=== PATIENT | male | born 1945 | race Caucasian/White ===

== ENCOUNTER → 2016-07-26 | Outpatient (CLI) | payer MEDICARE ==
[~2016-07-26] MED LIST: /CELE20CA PO; ACET50TA PO; ADV500INH INH; ASPI81TA85 PO; BUPR150T11 PO; BUPR15TASR PO; BYST10TA PO; CALCIUM PO; CIAL5TAB PO; COLA100C3 PO; COMBIN INH; COMBRESP INH; CYCL5TAB PO; FLEXERIL PO; FLOM5CAP PO; FLON1SPR; GLUC15002 PO; IBUP-1114 PO; IRONCAP2 PO; LEVO500T PO; LISI5TAB PO; LYRI75CA PO; MILKSUS PO; MIRA3350 PO; MOME50SP; MORP30TA2 PO; MS C200T PO; MS C30TA PO; MULTTAB50 PO; OMEP20CA3 PO; PAXI10TA2 PO; PERC5TAB6 PO; PERI8.6T PO; PRIL40CA PO; REGL5TAB2 PO; SENO8.6T2 PO; SIMV40TA2 PO; TIOT18INH INH; TYLE325T5 PO; TYLE650T25 PO; VITA200016 PO; VITA500C24 PO; XARE10TA PO; ZOCO10TA PO; ZYBA150T PO; spiriva INH
--- NOTE | 2016-07-27 23:57 | ECWPNPC ---
PATIENT NAME: GABO REDDY : 1945 GENDER: MALE VISIT DATE: 07/26/2016 DISCHARGE DATE: 07/26/16 1017 VISIT LOCKED DATE TIME: PHYSICIAN: SKY PULIDO PHYSICIAN PAGER NO: [phone] RESOURCE: SKY PULIDO REASON FOR APPOINTMENT 1. BACK HISTORY OF PRESENT ILLNESS HISTORY OF PRESENT ILLNESS: HERE FOR ROUTINE 3 MOS. F/U.WAS DOING WELL WITH THERAPEUTIC LEFT LUMBAR FACET BLOCK UNTIL 1 WEEK AGO.PAIN HAS GRADUALLY RETURNED.RATING PAIN VAS 2/10.PAIN IS DESCRIBED INTERMITTENT ACHING AND SHOOTING.DISCUSSED TREATMENT OPTIONS TO INCLUDE REPEATING LUMBAR THERAPEUTIC BLOCK VS RADIOFREQUENCY.OPTING FOR THERAPEUTIC BLOCK.PAIN IS AGGREVATED BY WALKING AND RELIEVED SOMEWHAT WITH POSITION CHANGE. PAIN THE PATIENT DESCRIBES THE PAIN... FALL RISK SCREENING: SCREENING :NO FALLS IN THE PAST YEAR CURRENT MEDICATIONS TAKING COLACE 100 MG CAPSULE 2 CAPSULE ORALLY TWICE A DAY NEEDED, NOTES: NONE TAKING [facility] SALINE NASAL SPRAY 0.65 % SOLUTION 2 DROPS IN EACH NOSTRIL NEEDED NASALLY BID, NOTES: NONE TAKING TYLENOL ARTHRITIS PAIN 650 MG TABLET EXTENDED RELEASE 2 TABLETS ORALLY NEEDED, NOTES: 03-25-16 0800 TAKING ZOCOR 10 MG TABLET 1 TABLET EVERY EVENING ORALLY ONCE A DAY TAKING XARELTO 20 MG TABLET 1 TAB ORALLY QD TAKING ADVAIR DISKUS 500-50 MCG/DOSE MISCELLANEOUS 1 PUFF INHALATION EVERY 12 HOURS TAKING COMBIVENT RESPIMAT 20-100 MCG/ACT AEROSOL 1 PUFF INHALATION FOUR TIMES A DAY NEEDED TAKING PAXIL 10 MG TABLET 1 TABLET IN THE MORNING ORALLY ONCE A DAY TAKING WELLBUTRIN SR 150 MG TABLET EXTENDED RELEASE 12 HOUR 1 TABLET ORALLY TWICE A DAY TAKING FLOMAX 0.4 MG CAPSULE 2 CAPSULE 30 MINUTES AFTER THE SAME MEAL EACH DAY ORALLY AT BEDTIME TAKING VITAMIN D 2000 UNIT TABLET 1 TABLET ORALLY ONCE A DAY TAKING MULTIVITAMINS OTC TABLET 1 TABLET ORALLY ONCE A DAY, NOTES: 03-24-16 0800 TAKING VITAMIN C 500 MG TABLET 1 TABLET ORALLY ONCE A DAY TAKING OMEPRAZOLE 20 MG CAPSULE DELAYED RELEASE 2 CAPSULES ORALLY ONCE A DAY TAKING SIMETHICONE 125 MG TABLET CHEWABLE 1 TABLET NEEDED ORALLY FOUR TIMES A DAY TAKING VIAGRA 100 MG TABLET 1 TABLET NEEDED ORALLY ONCE A DAY TAKING PRIMIDONE 50 MG TABLET 1 TAB ORALLY EVERY MORNING TAKING POLYSACCHARIDE IRON 150 MG CAPSULE 1 CAPSULE ORALLY ONCE DAILY TAKING SPIRIVA HANDIHALER 18 MCG CAPSULE INHALE THE CONTENTS OF ONE CAPSULE VIA HANDIHALER BY MOUTH DAILY TAKING FLONASE 50 MCG/DOSE INHALER 2 SPRAYS IN EACH NOSTRIL NASALLY EVERY MORNING TAKING CEFDINIR 300 MG CAPSULE 1 CAPSULE ORALLY EVERY 12 HRS NOT-TAKING IPRATROPIUM-ALBUTEROL 0.5-2.5 (3) MG/3ML SOLUTION 3 ML INHALATION FOUR TIMES A DAY NEEDED DISCONTINUED POLY-IRON 150 150 MG CAPSULE TAKE ONE CAPSULE BY MOUTH TWICE A DAY MEDICATION LIST REVIEWED AND RECONCILED WITH THE PATIENT PAST MEDICAL HISTORY COPD-09/2010 FEV1-1.97L (47% NORMAL) HYPERTENSION/WHITE-COAT COMPONENT ERECTILE DYSFUNCTION NICOTINE ADDICTION GERD-SLIDING HH C SECONDARY/TERTIARY CONTRACTION BY 12/2014 [facility] SBFT EGD C SMALL HH, DUODENAL BIOPSY C/W HETEROTOPIC GASTRIC TISSUE-REINDL IMPAIRED FASTING GLUCOSE OBESITY 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 MRI MULTILEVEL DJD, L4/5 MODERATE CCS C GRADE 1 SPONDYLOLITHESIS C B L4 COMPRESSION IN NF/ L5/S1 HNP C C MILD B L5 COMPRESSION IN NF//2012 NCS B L4/5 RADICULOPATHY, L>R-ALI HYPERLIPIDEMIA 2B NONALCOHOLIC LIVER DISEASE MACROCYTOSIS, 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 SOCIAL HISTORY GENERAL: TOBACCO USE ARE YOU A:CURRENT SMOKER HOW MANY CIGARETTES A DAY DO YOU SMOKE?6-10 HOW SOON AFTER YOU WAKE UP DO YOU SMOKE YOUR FIRST CIGARETTE?AFTER 60 MIN HOW OFTEN DO YOU SMOKE CIGARETTES?EVERY DAY PATIENT COUNSELED ON THE DANGERS OF TOBACCO USE AND URGED TO QUIT:07/26/2016 ARE YOU INTERESTED IN QUITTING?THINKING ABOUT QUITTING COUNSELED THE PATIENT ON SMOKING CESSATION, EDUCATION [id number]/2017 PAIN CLINIC PFS, CLERGY, PUBLIC HEALTH REFERRALS CLERGY REFERRAL NEEDED?NO WAS THE PROVIDER NOTIFIED OF ANY PERTINENT INFO?NO PFS REFERRAL NEEDED?NO PUBLIC HEALTH REFERRAL NEEDED?NO PATIENT: ____. REVIEW OF SYSTEMS CONSTITUTIONAL: ANY CHANGE IN YOUR MEDICAL CONDITION? NO . CHILLS NO . FEVER NO . INFECTION: DO YOU HAVE NEW INFECTIONS? NO . DO YOU HAVE HISTORY OF MRSA? NO . MUSCULOSKELETAL: ANY NEW PATTERNS OF PAIN OR NUMBNESS? NO . GASTROENTEROLOGY: ANY NEW CHANGE IN BOWEL CONTROL? NO . GENITOURINARY: ANY NEW CHANGE IN BLADDER CONTROL? NO . IS THERE A CHANCE YOU COULD BE ? NO . HEMATOLOGY/LYMPH: DO YOU TAKE ANY BLOOD THINNERS? (FOR EXAMPLE- COUMADIN, PLAVIX, AGGRENOX, PLATEL, PRADAXA, OR XARELTO) YES, XARELTO . WHEN WAS YOUR LAST DOSE? DATE: TIME: 07/25/16 12N . NEUROLOGY: HAVE YOU FALLEN IN THE PAST 6 MONTHS? NO . ANY NEW EXTREMITY NUMBNESS OR WEAKNESS? NO . CARDIOLOGY: DO YOU HAVE A PACEMAKER OR DEFIBRILLATOR? NO . RESPIRATORY: HAVE YOU BEEN SICK IN THE PAST WEEK? YES, SINUS INFECTION X 10 DAYS--ON ANTIBIOTIC . FEVER NO . FLU LIKE SYMPTOMS? NO . COUGH NO . INTEGUMENTARY: DO YOU HAVE ANY RASHES OR OPEN SORES? NO . ALLERGIC/IMMUNO: ARE YOU ALLERGIC TO SHELLFISH OR IV DYE? NO . ANY NEW ALLERGIES? NO . PSYCHIATRIC: DO YOU HAVE THOUGHTS OF HURTING YOURSELF OR SOMEONE ELSE? NO . ARE YOU ABUSED, NEGLECTED, OR IN AN UNSAFE ENVIRONMENT? NO . ENDOCRINOLOGY: ARE YOU DIABETIC? NO . OTHER: DO YOU NEED ANY PRESCRIPTIONS? NO . IF YES, PLEASE LIST: ____ . ANY NEW PROBLEMS WITH YOUR MEDICATIONS? NO . WHEN DID YOU LAST EAT? ____ . WHEN DID YOU LAST DRINK? ____ . WHAT DID YOU LAST DRINK? ____ . NAME OF PERSON DRIVING YOU HOME? ____ . DO YOU HAVE ANY OTHER QUESTIONS OR CONCERNS NO . REVIEWED BY: PROVIDER: SKY SIEGEL . VITAL SIGNS WT 180 LBS, HT 65 IN, BMI 29.95 INDEX, BP 115/78 MM HG, HR 80 /MIN, RR 18 /MIN, TEMP 98.4 F, OXYGEN SAT % 93%, NA INITIALS UT 09:24, REVIEWED BY: NADIA. EXAMINATION GENERAL EXAMINATION: LUNGS:LUNG SOUNDS ARE CLEAR. HEART:HEART RATE REGULAR. MUSCULOSKELETAL:*, MUSCLE STRENGTH TESTING 5/5 BILATERAL LOWER EXTREMITIES., PALPATION: + FOR PAIN OVER L/S SPINE. + FOR PAIN OVER LEFT L/S PARASPINAL.SPECIFIC POINT TENDERNESS OVER LEFT L4/5-L5/S1.POSITIVE FOR FACET LOADING LEFT L4/5-L5/S1 FACETS.. DIAGNOSTIC: . ASSESSMENTS LUMBAR FACET ARTHROPATHY - M12.88 (PRIMARY) LUMBAR SPINAL STENOSIS - M48.06 TREATMENT LUMBAR FACET ARTHROPATHY LUMBAR FACET THERAPEUTICSKY PULIDO 07/26/2016 10:09:05 AM > LEFT L4/5-L5/S1 THERAPEUTIC NOTES: STOP XARELTO X 3 DAYS SCHEDULE PROCEDURE DAY 4. PROCEDURE CODES FA211 ESTABILISHED PATIENT [facility] FACILITY CHARGE G8730 PAIN ASSESS POS TOOL F/U PLAN DOC G8427 DOC MEDS VERIFIED W/PT OR RE DISPOSITION & COMMUNICATION FOLLOW UP 2WK POST (REASON: LEFT L4/5-L5/S1 LUMBAR THERAPEUTIC FACET BLOCK) ELECTRONICALLY SIGNED BY ROBBIN MONTERROSO ON 07/26/2016 AT 11:10 AM EDT DISCLAIMER : THIS IS A VISIT SUMMARY EXTRACTED FROM THE [employer] CHART. IT IS NOT A COPY OF THE [employer] PROGRESS NOTE. ENDY
== END ==
LOC: M PAIN 09:00
PROVIDERS: ATTEND Nurse Practitioner Family
DX: Z09 Encounter for follow-up examination after completed treatment for conditions other than malignant neoplasm (principal); G89.29 Other chronic pain; M12.88 Other specific arthropathies, not elsewhere classified, other specified site; M48.06 Spinal stenosis, lumbar region; J44.9 Chronic obstructive pulmonary disease, unspecified; I12.9 Hypertensive chronic kidney disease with stage 1 through stage 4 chronic kidney disease, or unspecified chronic kidney disease; N18.3 Chronic kidney disease, stage 3 (moderate); F17.200 Nicotine dependence, unspecified, uncomplicated; K21.9 Gastro-esophageal reflux disease without esophagitis; E78.5 Hyperlipidemia, unspecified; K76.9 Liver disease, unspecified; D75.89 Other specified diseases of blood and blood-forming organs; G25.0 Essential tremor; I82.409 Acute embolism and thrombosis of unspecified deep veins of unspecified lower extremity; R73.01 Impaired fasting glucose; Z79.01 Long term (current) use of anticoagulants; Z79.899 Other long term (current) drug therapy

== ENCOUNTER → 2016-08-13 | Outpatient (CLI) | payer MEDICARE ==
[~2016-08-13] MED LIST changes: +BUPIVACAINE HCL 0.25% 30 ML VIAL As Ordered ONE; +ISOVUE-M 300 61% 15ML VIAL (Q9967) As Ordered ONE; +LIDOCAINE 1% SDV INJ 30 ML VIAL As Ordered ONE; +TRIAMCINOLONE ACETONIDE SUSP 40 MG/ML VIAL (J3301) As Ordered ONE; +diazePAM 5 MG TAB As Ordered ONE; +oxyCODONE 5MG TAB As Ordered ONE
--- NOTE | 2016-08-13 11:44 | REP ---
Partial lumbar spine series: Two views. History: Facet block for pain. 21 seconds of fluoroscopy time is reported. Findings: A sequence of two last image hold fluoroscopically obtained spot radiographs of the lumbar spine document various needle positions and contrast injections associated with the lumbar facet injection procedure. Signed by Garrick Valencia MD 08/13/2016 03:38 P
--- NOTE | 2016-08-18 23:51 | ECWPNPC ---
PATIENT NAME: GABO REDDY : 1945 GENDER: MALE VISIT DATE: 08/13/2016 DISCHARGE DATE: 08/13/16 1052 VISIT LOCKED DATE TIME: PHYSICIAN: MARSHA MURPHY PHYSICIAN PAGER NO: [phone] RESOURCE: MARSHA MURPHY REASON FOR APPOINTMENT 1. THERE LUMBAR FACET HISTORY OF PRESENT ILLNESS HISTORY OF PRESENT ILLNESS: PAIN THE PATIENT DESCRIBES THE PAIN... FALL RISK SCREENING: SCREENING :NO FALLS IN THE PAST YEAR CURRENT MEDICATIONS TAKING COLACE 100 MG CAPSULE 2 CAPSULE ORALLY TWICE A DAY NEEDED, NOTES: MORE THAN A WEEK TAKING [facility] SALINE NASAL SPRAY 0.65 % SOLUTION 2 DROPS IN EACH NOSTRIL NEEDED NASALLY BID, NOTES: 08/12/16 1000 TAKING ZOCOR 10 MG TABLET 1 TABLET EVERY EVENING ORALLY ONCE A DAY, NOTES: 08/12/16 1800 TAKING XARELTO 20 MG TABLET 1 TAB ORALLY ONCE A DAY, NOTES: 08/09/16 1000 TAKING ADVAIR DISKUS 500-50 MCG/DOSE MISCELLANEOUS 1 PUFF INHALATION EVERY 12 HOURS, NOTES: 08/12/16 1800 TAKING COMBIVENT RESPIMAT 20-100 MCG/ACT AEROSOL 1 PUFF INHALATION FOUR TIMES A DAY NEEDED, NOTES: 08/12/16 1800 TAKING PAXIL 10 MG TABLET 1 TABLET IN THE MORNING ORALLY ONCE A DAY, NOTES: 08/13/16 0645 TAKING WELLBUTRIN SR 150 MG TABLET EXTENDED RELEASE 12 HOUR 1 TABLET ORALLY TWICE A DAY, NOTES: 08/12/16 1800 TAKING FLOMAX 0.4 MG CAPSULE 2 CAPSULE 30 MINUTES AFTER THE SAME MEAL EACH DAY ORALLY AT BEDTIME, NOTES: 08/12/16 1200 TAKING VITAMIN D 2000 UNIT TABLET 1 TABLET ORALLY ONCE A DAY, NOTES: 08/12/16 1000 TAKING MULTIVITAMINS OTC TABLET 1 TABLET ORALLY ONCE A DAY, NOTES: 1000 TAKING VITAMIN C 500 MG TABLET 1 TABLET ORALLY ONCE A DAY, NOTES: 08/12/16 1000 TAKING OMEPRAZOLE 20 MG CAPSULE DELAYED RELEASE 2 CAPSULES ORALLY ONCE A DAY, NOTES: 08/12/16 1800 TAKING VIAGRA 100 MG TABLET 1 TABLET NEEDED ORALLY ONCE A DAY, NOTES: NONE FOR MORE THAN 48N HOURS TAKING PRIMIDONE 50 MG TABLET 1 TAB ORALLY EVERY MORNING, NOTES: 08/13/16 0645 TAKING POLYSACCHARIDE IRON 150 MG CAPSULE 1 CAPSULE ORALLY ONCE DAILY, NOTES: 08/12 0645 TAKING SPIRIVA HANDIHALER 18 MCG CAPSULE INHALE THE CONTENTS OF ONE CAPSULE VIA HANDIHALER BY MOUTH DAILY , NOTES: 08/12/16 1000 TAKING IPRATROPIUM-ALBUTEROL 0.5-2.5 (3) MG/3ML SOLUTION 3 ML INHALATION FOUR TIMES A DAY NEEDED, NOTES: 08/12/16 2100 TAKING NEBULIZER AIR TUBE/PLUGS - MISCELLANEOUS DIRECTED MASK, TUBING PRN TAKING FLONASE 50 MCG/DOSE INHALER 2 SPRAYS IN EACH NOSTRIL NASALLY EVERY MORNING, NOTES: 08/13/16 0645 TAKING CLARITIN 10 MG TABLET 1 TABLET ORALLY ONCE A DAY, NOTES: 08/12/16 1300 TAKING TYLENOL ARTHRITIS PAIN 650 MG TABLET EXTENDED RELEASE 2 TABLETS ORALLY NEEDED, NOTES: 08/13/16 0645 NOT-TAKING SIMETHICONE 125 MG TABLET CHEWABLE 1 TABLET NEEDED ORALLY FOUR TIMES A DAY NOT-TAKING PAROXETINE HCL 10 MG TABLET TAKE ONE TABLET BY MOUTH EVERY DAY IN THE MORNING MEDICATION LIST REVIEWED AND RECONCILED WITH THE PATIENT PAST MEDICAL HISTORY COPD-09/2010 FEV1-1.97L (47% NORMAL) HYPERTENSION/WHITE-COAT COMPONENT ERECTILE DYSFUNCTION NICOTINE ADDICTION GERD-SLIDING HH C SECONDARY/TERTIARY CONTRACTION BY 12/2014 [facility] SBFT EGD C SMALL HH, DUODENAL BIOPSY C/W HETEROTOPIC GASTRIC TISSUE-REINDL IMPAIRED FASTING GLUCOSE OBESITY 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 MRI MULTILEVEL DJD, L4/5 MODERATE CCS C GRADE 1 SPONDYLOLITHESIS C B L4 COMPRESSION IN NF/ L5/S1 HNP C C MILD B L5 COMPRESSION IN /2012 NCS B L4/5 RADICULOPATHY, L>R-ALI HYPERLIPIDEMIA 2B NONALCOHOLIC LIVER DISEASE MACROCYTOSIS, 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 SURGICAL HISTORY TOTAL RIGHT HIP BILATERAL CATARACTS TONSILECTEMY CYST REMOVED ON LEFT THUMB AND BACK SIDE SOCIAL HISTORY GENERAL: PAIN CLINIC PFS, CLERGY, PUBLIC HEALTH REFERRALS CLERGY REFERRAL NEEDED?NO WAS THE PROVIDER NOTIFIED OF ANY PERTINENT INFO?NO PFS REFERRAL NEEDED?NO PUBLIC HEALTH REFERRAL NEEDED?NO PATIENT: ____. HOSPITALIZATION/MAJOR DIAGNOSTIC PROCEDURE FLU [id number] DVT LEFT 2014 DVT 2015 ESOPHAGITIS 2009 REVIEW OF SYSTEMS CONSTITUTIONAL: ANY CHANGE IN YOUR MEDICAL CONDITION? NO . CHILLS NO . FEVER NO . INFECTION: DO YOU HAVE NEW INFECTIONS? NO . DO YOU HAVE HISTORY OF MRSA? NO . MUSCULOSKELETAL: ANY NEW PATTERNS OF PAIN OR NUMBNESS? NO . GASTROENTEROLOGY: ANY NEW CHANGE IN BOWEL CONTROL? NO . GENITOURINARY: ANY NEW CHANGE IN BLADDER CONTROL? NO . IS THERE A CHANCE YOU COULD BE ? NO . HEMATOLOGY/LYMPH: DO YOU TAKE ANY BLOOD THINNERS? (FOR EXAMPLE- COUMADIN, PLAVIX, AGGRENOX, PLATEL, PRADAXA, OR XARELTO) NO . WHEN WAS YOUR LAST DOSE? DATE: 08/10/16 TIME: 1000 . NEUROLOGY: HAVE YOU FALLEN IN THE PAST 6 MONTHS? NO . ANY NEW EXTREMITY NUMBNESS OR WEAKNESS? NO . CARDIOLOGY: DO YOU HAVE A PACEMAKER OR DEFIBRILLATOR? NO . RESPIRATORY: HAVE YOU BEEN SICK IN THE PAST WEEK? NO . FEVER NO . FLU LIKE SYMPTOMS? NO . COUGH NO . INTEGUMENTARY: DO YOU HAVE ANY RASHES OR OPEN SORES? NO . ALLERGIC/IMMUNO: ARE YOU ALLERGIC TO SHELLFISH OR IV DYE? NO . ANY NEW ALLERGIES? NO . PSYCHIATRIC: DO YOU HAVE THOUGHTS OF HURTING YOURSELF OR SOMEONE ELSE? NO . ARE YOU ABUSED, NEGLECTED, OR IN AN UNSAFE ENVIRONMENT? NO . ENDOCRINOLOGY: ARE YOU DIABETIC? NO . OTHER: DO YOU NEED ANY PRESCRIPTIONS? NO . IF YES, PLEASE LIST: ____ . ANY NEW PROBLEMS WITH YOUR MEDICATIONS? NO . WHEN DID YOU LAST EAT? LAST NIGHT . WHEN DID YOU LAST DRINK? BEFORE 0700 . WHAT DID YOU LAST DRINK? WATER . NAME OF PERSON DRIVING YOU HOME? BRENDA . DO YOU HAVE ANY OTHER QUESTIONS OR CONCERNS NO . REVIEWED BY: PROVIDER: . VITAL SIGNS WT 182 LBS, HT 65 IN, BMI 30.28 INDEX, BP 110/60 MM HG, HR 90 /MIN, RR 18 /MIN, TEMP 99.3 F, OXYGEN SAT % 94%, NA INITIALS AW 0916, REVIEWED BY: HODAN. ASSESSMENTS SPONDYLOSIS WITHOUT MYELOPATHY OR RADICULOPATHY, LUMBAR REGION - M47.816 (PRIMARY) SPONDYLOSIS WITHOUT MYELOPATHY OR RADICULOPATHY, LUMBOSACRAL REGION - M47.817 PROCEDURES PN LUMBAR FACET BLOCK THERAPEUTIC PRE PROCEDURE DIAGNOSIS LUMBAR SPONDYLOSIS, LUMBOSACRAL SPONDYLOSIS POST PROCEDURE DIAGNOSIS LUMBAR SPONDYLOSIS, LUMBOSACRAL SPONDYLOSIS PROCEDURE LEFT L3-L4, LEFT L4-L5, AND LEFT L5-S1 LUMBAR FACET THERAPEUTIC BLOCK SURGEON DR. MARSHA MURPHY OPERATIONAL INTELLIGENCE ANALYST NONE ANESTHESIA LOCAL PRE PROCEDURE NOTE THE PATIENT HAS A HISTORY OF CHRONIC LOW BACK PAIN. I EVALUATE THE PATIENT AND REVIEWED THE CHART. I WENT OVER THE RISKS, ALTERNATIVES, AND BENEFITS ASSOCIATED WITH THIS PROCEDURE. THE PATIENT WOULD LIKE TO PROCEED AND GIVE CONSENT TO PERFORMED THE PROCEDURE. THE PATIENT DENIES UNEXPLAINABLE WEIGHT LOSS, FEVER, CHILLS, OR NEW CHANGES IN URINARY OR BOWEL CONTROL DESCRIPTION OF PROCEDURE THE PATIENT WAS BROUGHT TO THE PROCEDURE ROOM AND PLACED IN THE PRONE POSITION. THE LUMBOSACRAL AREA WAS CLEANED WITH CHLORAPREP SOLUTION AND DRAPED ASEPTICALLY. THE PROCEDURE WAS DONE UNDER STERILE CONDITIONS. I CHECKED LATERALITY AND THE LEVEL WHERE THE PROCEDURE WAS GOING TO BE PERFORMED WITH THE PATIENT AND THE SUPPORTING STAFF AT THE MOMENT OF THE TIME OUT IN THE PROCEDURE ROOM. UNDER FLUOROSCOPIC GUIDANCE, THE TARGET POINT WAS SELECTED AT THE LEFT L3-L4, LEFT L4-L5 AND LEFT L5-S1 FACET JOINT. TARGET POINT WAS SELECTED AFTER LATERAL ROTATION AND TILT OF THE MAGNIFIER OF THE C-ARM. LIDOCAINE 0.5% WAS USED TO NUMB THE SKIN AND THE SUBCUTANEOUS TISSUE BELOW IT. SPINAL NEEDLES, 22-GAUGE, WERE ADVANCED UNDER FLUOROSCOPIC GUIDANCE AND FOLLOWING PATIENT FEEDBACK UNTIL THE TARGETS WERE TOUCHED. THE POSITION OF THE NEEDLES WAS VERIFIED WITH AP AND LATERAL VIEWS. AFTER PROPER POSITION OF THE NEEDLES WAS ACHIEVED, ISOVUE-M DYE 30% 0.1 ML WAS INJECTED SHOWING ADEQUATE SPREAD OF THE DYE. THEN A SOLUTION OF 1.9 ML OF BUPIVACAINE 0.125% OF KENALOG 10 MG WAS INJECTED AT EACH SITE. THERE WAS NO EVIDENCE OF BLOOD, PARESTHESIA OR CEREBROSPINAL FLUID DURING THE PROCEDURE. THE PATIENT WAS SENT TO THE RECOVERY ROOM. THE PATIENT WAS MOVING THE EXTREMITIES AND DOING WELL. THERE WAS NO COMPLICATION DURING THE PROCEDURE. FLUOROSCOPY TIME WAS 21 SECONDS POST PROCEDURE NOTE THE PATIENT WILL BE SEEN IN A FOLLOW UP IN THE NEXT FEW WEEKS. INSTRUCTIONS WERE GIVEN, QUESTIONS WERE ANSWERED, AND THE PATIENT EXPRESSED UNDERSTANDING AND AGREES WITH THE PLAN. INSTRUCTIONS WERE GIVEN, QUESTIONS WERE ANSWERED, PATIENT REPORTS UNDERSTANDING AND AGREES WITH THE PLAN. I, KULWINDER PALMA, DOCUMENTED THE ABOVE INFORMATION ACTING A SCRIBE FOR DR. MURPHY. I HAVE REVIEWED THE ABOVE DOCUMENT, WRITTEN BY KULWINDER LARIOS AND I VERIFY THAT IT IS ACCURATE DIAGNOSTIC IMAGING [facility] FACET BLOCK (PAIN)[id number] PROCEDURE CODES 37155 INJ PARAVERT F JNT L/S 1 LEV 23824 INJ PARAVERT F JNT L/S 2 LEV 6045F RADXPS IN END [id number] PXD [id number] INJ PARAVERT F JNT L/S 3 LEV DISPOSITION & COMMUNICATION FOLLOW UP 3 WEEKS ELECTRONICALLY SIGNED BY MARSHA MURPHY MD ON 08/18/2016 AT 05:03 PM EDT DISCLAIMER : THIS IS A VISIT SUMMARY EXTRACTED FROM THE [employer] CHART. IT IS NOT A COPY OF THE [employer] PROGRESS NOTE. MTDD
== END ==
LOC: M PAIN 09:00
PROVIDERS: ATTEND Anesthesiology
DX: G89.29 Other chronic pain (principal); M47.816 Spondylosis without myelopathy or radiculopathy, lumbar region; M47.817 Spondylosis without myelopathy or radiculopathy, lumbosacral region; J44.9 Chronic obstructive pulmonary disease, unspecified; K21.9 Gastro-esophageal reflux disease without esophagitis; E78.2 Mixed hyperlipidemia; E66.9 Obesity, unspecified; Z68.30 Body mass index [BMI] 30.0-30.9, adult; K76.9 Liver disease, unspecified; D75.89 Other specified diseases of blood and blood-forming organs; G25.0 Essential tremor; I12.9 Hypertensive chronic kidney disease with stage 1 through stage 4 chronic kidney disease, or unspecified chronic kidney disease; N18.3 Chronic kidney disease, stage 3 (moderate); Z79.899 Other long term (current) drug therapy
CPT/HCPCS: 64493; 64494; 64495; J3301; Q9967

== ENCOUNTER → 2016-08-23 | Outpatient (REF) | payer MEDICARE ==
[~2016-08-23] MED LIST changes: -BUPIVACAINE HCL 0.25% 30 ML VIAL As Ordered ONE; -ISOVUE-M 300 61% 15ML VIAL (Q9967) As Ordered ONE; -LIDOCAINE 1% SDV INJ 30 ML VIAL As Ordered ONE; -TRIAMCINOLONE ACETONIDE SUSP 40 MG/ML VIAL (J3301) As Ordered ONE; -diazePAM 5 MG TAB As Ordered ONE; -oxyCODONE 5MG TAB As Ordered ONE
[2016-08-23 12:12] LABS: BASO % 0.4 % (0.0-1.0); EOS # 0.2 K/mm3 (0.0-0.50); EOS % 1.7 % (0.0-3.0); LARGE UNSTAINED CELL # 0.1 K/mm3 (0.0-0.4); LARGE UNSTAINED CELL % 1.3 % (0.0-4.0); LYMPH % 20.1 % (24.0-44.0); MEAN CORPUSCULAR HEMOGLOBIN 35.2 pg (27.0-33.0); MEAN CORPUSCULAR HGB CONC 33.1 g/dl (32.0-36.5); MEAN CORPUSCULAR VOLUME 106.4 fl (80.0-96.0); MONO # 0.4 K/mm3 (0.0-0.8); MONO % 3.7 % (0.0-5.0); NEUTROPHILS # 7.3 K/mm3 (1.8-7.7); NEUTROPHILS % 72.7 % (36.0-66.0); PLATELET COUNT, AUTOMATED 339 k/mm3 (150-450); WHITE BLOOD COUNT 10.1 K/mm3 (4.0-10.0)
[2016-08-23 12:24] LABS: ALBUMIN/GLOBULIN RATIO 1.29 (1.00-1.93); ALKALINE PHOSPHATASE 54 U/L (45-117); ALT/SGPT 32 U/L (12-78); ANION GAP 9 MEQ/L (8-16); AST/SGOT 16 U/L (15-37); BILIRUBIN,TOTAL 0.4 MG/DL (0.2-1.0); BLOOD UREA NITROGEN 21 MG/DL (7-18); CALCIUM LEVEL 9.1 MG/DL (8.8-10.2); CARBON DIOXIDE LEVEL 28 MEQ/L (21-32); CHLORIDE LEVEL 105 MEQ/L (98-107); CREATININE FOR GFR 1.17 MG/DL (0.70-1.30); FERRITIN 18 NG/ML (26-388); GLOMERULAR FILTRATION RATE > 60.0 (>42); GLUCOSE, FASTING 94 MG/DL (83-110); PERCENT SATURATION 20.1 % (19.7-37.4); POTASSIUM SERUM 4.4 MEQ/L (3.5-5.1); SODIUM LEVEL 142 MEQ/L (136-145); TOTAL IRON BINDING CAPACITY 418 UG/DL (250-450); TOTAL PROTEIN 7.1 GM/DL (6.4-8.2)
== END ==
LOC: M SFHCPLAZ 08:34
PROVIDERS: ATTEND Family Medicine
DX: N18.3 Chronic kidney disease, stage 3 (moderate) (principal); D50.9 Iron deficiency anemia, unspecified; R73.01 Impaired fasting glucose

== ENCOUNTER → 2016-09-05 | Outpatient (CLI) | payer MEDICARE ==
--- NOTE | 2016-09-06 00:28 | ECWPNPC ---
PATIENT NAME: GABO REDDY : 1945 GENDER: MALE VISIT DATE: 09/05/2016 DISCHARGE DATE: 09/05/16 1006 VISIT LOCKED DATE TIME: PHYSICIAN: SKY PULIDO PHYSICIAN PAGER NO: [phone] RESOURCE: SKY PULIDO REASON FOR APPOINTMENT 1. POST PROC HISTORY OF PRESENT ILLNESS HISTORY OF PRESENT ILLNESS: HERE FOR POST PROCEDURE F/U.HAD LEFT L3/4,L4/5,L5/S1 THERAPEUTIC FACET BLOCK ON 08-13-16.REPORTS >75 % IMPROVEMENT IN LOW BACK PAIN THAT CONTINUES TODAY.RATING PAIN VAS 0/10. PAIN THE PATIENT DESCRIBES THE PAIN... FALL RISK SCREENING: SCREENING :NO FALLS IN THE PAST YEAR CURRENT MEDICATIONS TAKING ZOCOR 10 MG TABLET 1 TABLET EVERY EVENING ORALLY ONCE A DAY TAKING XARELTO 20 MG TABLET 1 TAB ORALLY QD TAKING ADVAIR DISKUS 500-50 MCG/DOSE MISCELLANEOUS 1 PUFF INHALATION EVERY 12 HOURS TAKING SPIRIVA HANDIHALER 18 MCG CAPSULE 1 CAPSULE BY MOUTH INHALATION ONCE A DAY TAKING COMBIVENT RESPIMAT 20-100 MCG/ACT AEROSOL 1 PUFF INHALATION FOUR TIMES A DAY NEEDED TAKING IPRATROPIUM-ALBUTEROL 0.5-2.5 (3) MG/3ML SOLUTION 3 ML INHALATION FOUR TIMES A DAY NEEDED TAKING PAXIL 10 MG TABLET 1 TABLET IN THE MORNING ORALLY ONCE A DAY TAKING WELLBUTRIN SR 150 MG TABLET EXTENDED RELEASE 12 HOUR 1 TABLET ORALLY TWICE A DAY TAKING FLOMAX 0.4 MG CAPSULE 2 CAPSULE 30 MINUTES AFTER THE SAME MEAL EACH DAY ORALLY DAILY TAKING VITAMIN D 2000 UNIT TABLET 1 TABLET ORALLY ONCE A DAY TAKING MULTIVITAMINS OTC TABLET 1 TABLET ORALLY ONCE A DAY TAKING VIAGRA 100 MG TABLET 1 TABLET NEEDED ORALLY ONCE A DAY TAKING FLONASE 50 MCG/DOSE INHALER 2 SPRAYS IN EACH NOSTRIL NASALLY EVERY MORNING TAKING PRIMIDONE 50 MG TABLET 1 TAB ORALLY EVERY MORNING TAKING COLACE 100 MG CAPSULE 2 CAPSULE ORALLY TWICE A DAY NEEDED, NOTES: MORE THAN A WEEK TAKING [facility] SALINE NASAL SPRAY 0.65 % SOLUTION 2 DROPS IN EACH NOSTRIL NEEDED NASALLY BID, NOTES: 08/12/16 1000 TAKING NEBULIZER AIR TUBE/PLUGS - MISCELLANEOUS DIRECTED MASK, TUBING PRN TAKING CLARITIN 10 MG TABLET 1 TABLET ORALLY ONCE A DAY, NOTES: 08/12/16 1300 TAKING TYLENOL ARTHRITIS PAIN 650 MG TABLET EXTENDED RELEASE 2 TABLETS ORALLY NEEDED, NOTES: 08/13/16 0645 TAKING POLYSACCHARIDE IRON 150 MG CAPSULE 1 CAPSULE ORALLY ONCE DAILY TAKING OMEPRAZOLE 20 MG CAPSULE DELAYED RELEASE 2 CAPSULES ORALLY ONCE A DAY DISCONTINUED XARELTO 20 MG TABLET TAKE ONE TABLET BY MOUTH EVERY DAY DISCONTINUED ADVAIR DISKUS 500-50 MCG/DOSE AEROSOL POWDER BREATH ACTIVATED USE 1 PUFF BY MOUTH EVERY 12 HOURS MEDICATION LIST REVIEWED AND RECONCILED WITH THE PATIENT PAST MEDICAL HISTORY COPD-09/2010 FEV1-1.97L (47% NORMAL) HYPERTENSION/WHITE-COAT COMPONENT ERECTILE DYSFUNCTION NICOTINE ADDICTION GERD-SLIDING HH C SECONDARY/TERTIARY CONTRACTION BY 12/2014 [facility] SBFT EGD C SMALL HH, DUODENAL BIOPSY C/W HETEROTOPIC GASTRIC TISSUE-REINDL IMPAIRED FASTING GLUCOSE OBESITY 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 MRI MULTILEVEL DJD, L4/5 MODERATE CCS C GRADE 1 SPONDYLOLITHESIS C B L4 COMPRESSION IN NF/ L5/S1 HNP C C MILD B L5 COMPRESSION IN /2012 NCS B L4/5 RADICULOPATHY, L>R-ALI HYPERLIPIDEMIA 2B NONALCOHOLIC LIVER DISEASE MACROCYTOSIS, 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 SOCIAL HISTORY GENERAL: TOBACCO USE ARE YOU A:CURRENT SMOKER HOW MANY CIGARETTES A DAY DO YOU SMOKE?6-10 HOW SOON AFTER YOU WAKE UP DO YOU SMOKE YOUR FIRST CIGARETTE?31-60 MIN HOW OFTEN DO YOU SMOKE CIGARETTES?EVERY DAY PATIENT COUNSELED ON THE DANGERS OF TOBACCO USE AND URGED TO QUIT:09/05/2016 ARE YOU INTERESTED IN QUITTING?THINKING ABOUT QUITTING COUNSELED THE PATIENT ON SMOKING CESSATION, EDUCATION SFCJTPIT10/11/2017 LUNG CANCER SCREENING SMOKING STATUS:CURRENT SMOKER IS THE PATIENT BETWEEN THE AGE OF 55 AND 77?YES HAS THE PATIENT EVER BEEN DIAGNOSED WITH LUNG CANCER?NO ALCOHOL SCREENING DID YOU HAVE A DRINK CONTAINING ALCOHOL IN THE PAST YEAR?NO POINTS0 INTERPRETATIONNEGATIVE SEXUAL HX HAD SEX IN THE LAST 12 MONTHS (VAGINAL, ORAL, OR ANAL)?YES WITHWOMEN ONLY USE PROTECTION?NO HAVE YOU EVER HAD AN STD?NO MARITAL STATUS: SINGLE. 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 NO , CLERGY REFERRAL NEEDED? NO , PUBLIC HEALTH REFERRAL NEEDED? NO , WAS THE PROVIDER NOTIFIED OF ANY PERTINENT INFO? NO . PATIENT: ____. REVIEW OF SYSTEMS CONSTITUTIONAL: ANY CHANGE IN YOUR MEDICAL CONDITION? NO . CHILLS NO . FEVER NO . INFECTION: DO YOU HAVE NEW INFECTIONS? NO . DO YOU HAVE HISTORY OF MRSA? NO . MUSCULOSKELETAL: ANY NEW PATTERNS OF PAIN OR NUMBNESS? NO . GASTROENTEROLOGY: ANY NEW CHANGE IN BOWEL CONTROL? NO . GENITOURINARY: ANY NEW CHANGE IN BLADDER CONTROL? NO . IS THERE A CHANCE YOU COULD BE ? NO . HEMATOLOGY/LYMPH: DO YOU TAKE ANY BLOOD THINNERS? (FOR EXAMPLE- COUMADIN, PLAVIX, AGGRENOX, PLATEL, PRADAXA, OR XARELTO) NO, YES . WHEN WAS YOUR LAST DOSE? DATE: TIME: 09/04/16@0900 . NEUROLOGY: HAVE YOU FALLEN IN THE PAST 6 MONTHS? NO . ANY NEW EXTREMITY NUMBNESS OR WEAKNESS? NO . CARDIOLOGY: DO YOU HAVE A PACEMAKER OR DEFIBRILLATOR? NO . RESPIRATORY: HAVE YOU BEEN SICK IN THE PAST WEEK? NO . FEVER NO . FLU LIKE SYMPTOMS? NO . COUGH NO . INTEGUMENTARY: DO YOU HAVE ANY RASHES OR OPEN SORES? NO . ALLERGIC/IMMUNO: ARE YOU ALLERGIC TO SHELLFISH OR IV DYE? NO . ANY NEW ALLERGIES? NO . PSYCHIATRIC: DO YOU HAVE THOUGHTS OF HURTING YOURSELF OR SOMEONE ELSE? NO . ARE YOU ABUSED, NEGLECTED, OR IN AN UNSAFE ENVIRONMENT? NO . ENDOCRINOLOGY: ARE YOU DIABETIC? NO . OTHER: DO YOU NEED ANY PRESCRIPTIONS? NO . IF YES, PLEASE LIST: ____ . ANY NEW PROBLEMS WITH YOUR MEDICATIONS? NO . WHEN DID YOU LAST EAT? ____ . WHEN DID YOU LAST DRINK? ____ . WHAT DID YOU LAST DRINK? ____ . NAME OF PERSON DRIVING YOU HOME? ____ . DO YOU HAVE ANY OTHER QUESTIONS OR CONCERNS NO . REVIEWED BY: PROVIDER: SKY SIEGEL . VITAL SIGNS WT 181.0 LBS, HT 65 IN, BMI 30.12 INDEX, BP 118/73 MM HG, HR 76 /MIN, RR 18 /MIN, TEMP 98.0 F, OXYGEN SAT % 96%, NA INITIALS AW 0916, REVIEWED BY: VD. EXAMINATION GENERAL EXAMINATION: LUNGS:LUNG SOUNDS ARE CLEAR. HEART:HEART RATE REGULAR. MUSCULOSKELETAL:*, MUSCLE STRENGTH TESTING 5/5 BILATERAL LOWER EXTREMITIES., PALPATION: + FOR PAIN OVER L/S SPINE. + FOR PAIN OVER LEFT L/S PARASPINAL.SPECIFIC POINT TENDERNESS OVER LEFT L4/5-L5/S1.POSITIVE FOR FACET LOADING LEFT L4/5-L5/S1 FACETS.. DIAGNOSTIC: . ASSESSMENTS LUMBAR FACET ARTHROPATHY - M12.88 (PRIMARY) LUMBAR SPINAL STENOSIS - M48.06 TREATMENT LUMBAR FACET ARTHROPATHY NOTES: FALLS CARE PLAN: 1. RECOMMEND REMOVING ALL THROW RUGS. 2. RECOMMEND NIGHT LIGHTS 3. RECOMMEND WEARING RUBBER SOLED SHOES AND TO NOT GO BAREFOOT. 4.. ADVISED TO CHANGE POSITION SLOWLY FROM SUPINE TO STANDING TO AVOID DIZZINESS. 5. ADVISED TO USE ASSISTIVE DEVICE SUCH CANE OR WALKER 6. USE LIFELINE SERVICES OR KEEP PORTABLE PHONE READILY AVAILABLE, # 226 TOBACCO USE SCREENING/INTERVENTION: PATIENT CURRENTLY USED TOBACCO. WAS OFFERED SMOKING CESSATION FOR GUIDANCE IN QUITTING THROUGH THE [facility] QUITS PROGRAM AND THE [facility] CESSATION PROGRAM. , #128 - SCREENING BMI AND F/U PLAN IN : BMI ABOVE NORMAL TODAY. DISCUSSED WITH PATIENT NUTRITIONAL FOOD CHOICES TO ASSIST WITH WEIGHT LOSS. RECCOMMENDED REDUCING SALT, SUGAR, SODA INTAKE. RECOMMEND INCREASE ACTIVITY TO INCLUDE WALKING ON A REGULAR BASIS. PROFESSIONAL NUTRITIONAL NUTRITIONAL GUIDANCE WAS OFFERED AND WAS DECLINED. , PATIENT WAS ADVISED TO START A WALKING PROGRAM TO STRENGTHEN LUMBAR PARASPINAL MUSCLES AND IMPROVE MOBILITY. THEY WERE ADVISED THAT THIS WILL IMPROVE WEIGHT LOSS AND ALSO DEPRESSION/FIBROMYALGIA SYMPTOMS. ADVISED TO WALK 10 MINUTES EVERY OTHER DAY ON A FLAT SURFACE. EMPHASIZED THE IMPORTANCE OF DOING THIS CONSISTANTLY AND NOT SPORATICALLY TO AVOID INJURY. STRONG ADVISED NOT TO DO MORE THAN 10 MINUTES EVERY OTHER DSY FOR THE FIRST 4 WEEKS. PROCEDURE CODES FA211 ESTABILISHED PATIENT [facility] FACILITY CHARGE G8783 BP SCR PRFRM RCMDD DEFIND SCR INTVL G8730 PAIN ASSESS POS TOOL F/U PLAN DOC 3016F PT SCRND UNHLTHY [place] USE 1123F ACP DISCUSS/DSCN MKR DOCD 0518F FALL PLAN OF CARE DOCD G8427 DOC MEDS VERIFIED W/PT OR RE G8417 BMI >=30 CALCUATE W/FOLLOWUP 3288F FALL RISK ASSESSMENT DOCD 4004F PT TOBACCO SCREEN RCVD TLK DISPOSITION & COMMUNICATION FOLLOW UP 3 MONTHS ELECTRONICALLY SIGNED BY ROBBIN MONTERROSO ON 09/05/2016 AT 02:03 PM EDT DISCLAIMER : THIS IS A VISIT SUMMARY EXTRACTED FROM THE [employer] CHART. IT IS NOT A COPY OF THE [employer] PROGRESS NOTE. MTDDestini
== END ==
LOC: M PAIN 09:00
PROVIDERS: ATTEND Nurse Practitioner Family
DX: G89.29 Other chronic pain (principal); M12.88 Other specific arthropathies, not elsewhere classified, other specified site; M48.06 Spinal stenosis, lumbar region; J44.9 Chronic obstructive pulmonary disease, unspecified; F17.200 Nicotine dependence, unspecified, uncomplicated; K21.9 Gastro-esophageal reflux disease without esophagitis; R73.01 Impaired fasting glucose; E66.9 Obesity, unspecified; Z68.30 Body mass index [BMI] 30.0-30.9, adult; E78.2 Mixed hyperlipidemia; G25.0 Essential tremor; I12.9 Hypertensive chronic kidney disease with stage 1 through stage 4 chronic kidney disease, or unspecified chronic kidney disease; N18.3 Chronic kidney disease, stage 3 (moderate); F41.9 Anxiety disorder, unspecified; D50.9 Iron deficiency anemia, unspecified; I82.409 Acute embolism and thrombosis of unspecified deep veins of unspecified lower extremity; E55.9 Vitamin D deficiency, unspecified; Z79.899 Other long term (current) drug therapy

== ENCOUNTER → 2016-09-06 | Outpatient (REF) | payer MEDICARE ==
[2016-09-06 16:11] LABS: PROLACTIN 9.4 NG/ML (2.1-17.7)
[2016-09-06 16:12] LABS: FREE T4 0.83 NG/DL (0.76-1.46)
== END ==
LOC: M LABDRAW1 15:28
PROVIDERS: ATTEND Family Medicine
DX: E78.2 Mixed hyperlipidemia (principal); N52.9 Male erectile dysfunction, unspecified

== ENCOUNTER → 2016-10-25 | Outpatient (REF) | payer MEDICARE ==
[~2016-10-25] MED LIST changes: -COLA100C3 PO; +COLA100C5 PO; -MS C30TA PO; +MS C30TA6 PO; +PAXI10TA12 PO; -PAXI10TA2 PO; +PERC5TAB12 PO; -PERC5TAB6 PO; -SENO8.6T2 PO; +SENO8.6T5 PO
[2016-10-25 12:23] LABS: BASO # 0.1 K/mm3 (0.0-0.2); BASO % 0.7 % (0.0-1.0); EOS # 0.4 K/mm3 (0.0-0.50); EOS % 5.2 % (0.0-3.0); LARGE UNSTAINED CELL # 0.2 K/mm3 (0.0-0.4); LARGE UNSTAINED CELL % 2.1 % (0.0-4.0); LYMPH # 2.3 K/mm3 (1.5-4.5); MEAN CORPUSCULAR HEMOGLOBIN 36.3 pg (27.0-33.0); MEAN CORPUSCULAR HGB CONC 33.7 g/dl (32.0-36.5); MEAN CORPUSCULAR VOLUME 107.6 fl (80.0-96.0); MONO # 0.4 K/mm3 (0.0-0.8); MONO % 4.9 % (0.0-5.0); NEUTROPHILS # 4.9 K/mm3 (1.8-7.7); NEUTROPHILS % 61.1 % (36.0-66.0); PLATELET COUNT, AUTOMATED 293 k/mm3 (150-450); RED CELL DISTRIBUTION WIDTH 13.5 % (11.5-14.5)
== END ==
LOC: M SFHCPLAZ 08:48
PROVIDERS: ATTEND Family Medicine
DX: E29.1 Testicular hypofunction (principal)

== ENCOUNTER → 2016-11-26 | Outpatient (CLI) | payer MEDICARE ==
--- NOTE | 2016-11-28 02:06 | ECWPNPC ---
PATIENT NAME: GABO REDDY : 1945 GENDER: MALE VISIT DATE: 11/26/2016 DISCHARGE DATE: 11/26/16 1042 VISIT LOCKED DATE TIME: PHYSICIAN: SKY PULIDO PHYSICIAN PAGER NO: [phone] RESOURCE: SKY PULIDO REASON FOR APPOINTMENT 1. 3 MO. F/UP HISTORY OF PRESENT ILLNESS HISTORY OF PRESENT ILLNESS: HERE FOR ROUTINE F/U AND MANAGEMENT OF CHRONIC LBP.HAVING PERIODS OF INCREASE IN LBP L>R.PAIN IS AGGREVATED BY OVERDOING.RELIEVED SOMEWHAT WITH BENDING OR LIFTING.RATING PAIN VAS 2/10.REVIEWED MRI L/S SPINE.SHOWING MULTI LEVEL LUMBAR SPINAL ARTHROPATHY AND MOD. TO SEVERE SPINAL STENOSIS.DISCUSSED TREATMENT OPTIONS TO INCLUDE REPEAT THERAPEUTIC FACET,DIAGNOSTIC FACET/RADIOFREQUENCY AND SIJ. FALL RISK SCREENING: SCREENING :NO FALLS IN THE PAST YEAR CURRENT MEDICATIONS TAKING COLACE 100 MG CAPSULE 2 CAPSULE ORALLY TWICE A DAY NEEDED TAKING [facility] SALINE NASAL SPRAY 0.65 % SOLUTION 2 DROPS IN EACH NOSTRIL NEEDED NASALLY BID TAKING NEBULIZER AIR TUBE/PLUGS - MISCELLANEOUS DIRECTED MASK, TUBING PRN TAKING CLARITIN 10 MG TABLET 1 TABLET ORALLY ONCE A DAY TAKING TYLENOL ARTHRITIS PAIN 650 MG TABLET EXTENDED RELEASE 2 TABLETS ORALLY NEEDED TAKING XARELTO 20 MG TABLET 1 TAB ORALLY QD TAKING ADVAIR DISKUS 500-50 MCG/DOSE MISCELLANEOUS 1 PUFF INHALATION EVERY 12 HOURS TAKING SPIRIVA HANDIHALER 18 MCG CAPSULE 1 CAPSULE BY MOUTH INHALATION ONCE A DAY TAKING COMBIVENT RESPIMAT 20-100 MCG/ACT AEROSOL 1 PUFF INHALATION FOUR TIMES A DAY NEEDED TAKING IPRATROPIUM-ALBUTEROL 0.5-2.5 (3) MG/3ML SOLUTION 3 ML INHALATION FOUR TIMES A DAY NEEDED TAKING PAXIL 10 MG TABLET 1 TABLET IN THE MORNING ORALLY ONCE A DAY TAKING FLOMAX 0.4 MG CAPSULE 2 CAPSULE 30 MINUTES AFTER THE SAME MEAL EACH DAY ORALLY AT BEDTIME TAKING VITAMIN D 2000 UNIT TABLET 1 TABLET ORALLY ONCE A DAY TAKING MULTIVITAMINS OTC TABLET 1 TABLET ORALLY ONCE A DAY TAKING VIAGRA 100 MG TABLET 1 TABLET NEEDED ORALLY ONCE A DAY TAKING FLONASE 50 MCG/DOSE INHALER 2 SPRAYS IN EACH NOSTRIL NASALLY EVERY MORNING TAKING OMEPRAZOLE 20 MG CAPSULE DELAYED RELEASE 2 CAPSULES ORALLY ONCE A DAY TAKING POLYSACCHARIDE IRON 150 MG CAPSULE 1 CAPSULE ORALLY ONCE DAILY TAKING WELLBUTRIN SR 150 MG TABLET EXTENDED RELEASE 12 HOUR 1 TABLET ORALLY TWICE A DAY TAKING PRIMIDONE 50 MG TABLET 1 TAB ORALLY EVERY MORNING TAKING ANDROGEL PUMP 20.25 MG/ACT (1.62%) GEL 1 PUMP TRANSDERMAL DAILY, NOTES: ISTOP REFERENCE #: [id number] TAKING ZOCOR 10 MG TABLET TAKE ONE TABLET BY MOUTH EVERY EVENING MEDICATION LIST REVIEWED AND RECONCILED WITH THE PATIENT PAST MEDICAL HISTORY COPD-09/2010 FEV1-1.97L (47% NORMAL) HYPERTENSION/WHITE-COAT COMPONENT ERECTILE DYSFUNCTION NICOTINE ADDICTION GERD-SLIDING HH C SECONDARY/TERTIARY CONTRACTION BY 12/2014 UGI SBFT EGD C SMALL HH, DUODENAL BIOPSY C/W HETEROTOPIC GASTRIC TISSUE-REINDL IMPAIRED FASTING GLUCOSE OBESITY 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 MRI MULTILEVEL DJD, L4/5 MODERATE CCS C GRADE 1 SPONDYLOLITHESIS C B L4 COMPRESSION IN NF/ L5/S1 HNP C C MILD B L5 COMPRESSION IN //2012 NCS B L4/5 RADICULOPATHY, L>R-ALI HYPERLIPIDEMIA 2B NONALCOHOLIC LIVER DISEASE MACROCYTOSIS, 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 SOCIAL HISTORY GENERAL: TOBACCO USE ARE YOU A:CURRENT SMOKER HOW OFTEN DO YOU SMOKE CIGARETTES?EVERY DAY HOW SOON AFTER YOU WAKE UP DO YOU SMOKE YOUR FIRST CIGARETTE?31-60 MIN HOW MANY CIGARETTES A DAY DO YOU SMOKE?6-10 ARE YOU INTERESTED IN QUITTING?THINKING ABOUT QUITTING PATIENT COUNSELED ON THE DANGERS OF TOBACCO USE AND URGED TO QUIT:09/05/2016 COUNSELED THE PATIENT ON SMOKING CESSATION, EDUCATION TEGLTOAU66/11/2017 LUNG CANCER SCREENING SMOKING STATUS:CURRENT SMOKER IS THE PATIENT BETWEEN THE AGE OF 55 AND 77?YES HAS THE PATIENT EVER BEEN DIAGNOSED WITH LUNG CANCER?NO ALCOHOL SCREENING DID YOU HAVE A DRINK CONTAINING ALCOHOL IN THE PAST YEAR?NO POINTS0 INTERPRETATIONNEGATIVE SEXUAL HX HAD SEX IN THE LAST 12 MONTHS (VAGINAL, ORAL, OR ANAL)?YES WITHWOMEN ONLY USE PROTECTION?NO HAVE YOU EVER HAD AN STD?NO MARITAL STATUS: SINGLE. RESTORATION [id number] [employer] LANGUAGE LANGUAGES SPOKEN:[place]OL[place] LEARNING BARRIERS / SPECIAL NEEDS CHANGE FROM LAST VISIT?NO BARRIERS TO LEARNING?NO HEARING IMPAIRED?YES VISION IMPAIRED?YES COGNITIVELY IMPAIRED?NO :CORRECTIVE LENSES READINESS TO LEARN?NO LEARNING PREFERENCES?NO LEARNING CAPABILITIES PRESENT?YES EMOTIONAL BARRIERS?NO SPECIAL DEVICES?NO DATA ANALYSIS ASSISTANT NEEDED?NO PAIN CLINIC PFS, CLERGY, PUBLIC HEALTH REFERRALS PFS REFERRAL NEEDED?NO CLERGY REFERRAL NEEDED?NO PUBLIC HEALTH REFERRAL NEEDED?NO HAS THE PATIENT BEEN EDUCATED REGARDING HIS/HER PLAN OF CARE?YES HAS THE PATIENT BEEN EDUCATED REGARDING PAIN, THE RISK FOR PAIN, THE IMPORTANCE OF EFFECTIVE PAIN MANAGEMENT, AND THE PAIN ASSESSMENT PROCESS?YES PATIENT: ____. REVIEW OF SYSTEMS REVIEWED BY: PROVIDER: SKY SIEGEL . CONSTITUTIONAL: ANY CHANGE IN YOUR MEDICAL CONDITION? NO . CHILLS NO . FEVER NO . INFECTION: DO YOU HAVE NEW INFECTIONS? NO . DO YOU HAVE HISTORY OF MRSA? NO . MUSCULOSKELETAL: ANY NEW PATTERNS OF PAIN OR NUMBNESS? NO . GASTROENTEROLOGY: ANY NEW CHANGE IN BOWEL CONTROL? NO . GENITOURINARY: ANY NEW CHANGE IN BLADDER CONTROL? NO . IS THERE A CHANCE YOU COULD BE ? NO . HEMATOLOGY/LYMPH: DO YOU TAKE ANY BLOOD THINNERS? (FOR EXAMPLE- COUMADIN, PLAVIX, AGGRENOX, PLATEL, PRADAXA, OR XARELTO) YES, XARELTO . WHEN WAS YOUR LAST DOSE? DATE: 11/25/16 TIME: 1100 . NEUROLOGY: HAVE YOU FALLEN IN THE PAST 6 MONTHS? YES . ANY NEW EXTREMITY NUMBNESS OR WEAKNESS? NO . CARDIOLOGY: DO YOU HAVE A PACEMAKER OR DEFIBRILLATOR? NO . RESPIRATORY: HAVE YOU BEEN SICK IN THE PAST WEEK? NO . FEVER NO . FLU LIKE SYMPTOMS? NO . COUGH NO . INTEGUMENTARY: DO YOU HAVE ANY RASHES OR OPEN SORES? NO . ALLERGIC/IMMUNO: ARE YOU ALLERGIC TO SHELLFISH OR IV DYE? NO . ANY NEW ALLERGIES? NO . PSYCHIATRIC: DO YOU HAVE THOUGHTS OF HURTING YOURSELF OR SOMEONE ELSE? NO . ARE YOU ABUSED, NEGLECTED, OR IN AN UNSAFE ENVIRONMENT? NO . ENDOCRINOLOGY: ARE YOU DIABETIC? NO . OTHER: DO YOU NEED ANY PRESCRIPTIONS? NO . IF YES, PLEASE LIST: ____ . ANY NEW PROBLEMS WITH YOUR MEDICATIONS? NO . WHEN DID YOU LAST EAT? ____ . WHEN DID YOU LAST DRINK? ____ . WHAT DID YOU LAST DRINK? ____ . NAME OF PERSON DRIVING YOU HOME? ____ . DO YOU HAVE ANY OTHER QUESTIONS OR CONCERNS NO . VITAL SIGNS WT 183.8 LBS, HT 65 IN, BMI 30.58 INDEX, BP 114/68 MM HG, HR 77 /MIN, RR 18 /MIN, TEMP 99.0 F, OXYGEN SAT % 94%, NA INITIALS [id number], REVIEWED BY: CS. EXAMINATION GENERAL EXAMINATION: LUNGS:LUNG SOUNDS ARE CLEAR. HEART:HEART RATE REGULAR. MUSCULOSKELETAL:*, MUSCLE STRENGTH TESTING 5/5 BILATERAL LOWER EXTREMITIES., PALPATION: + FOR PAIN OVER SIJ L>R... DIAGNOSTIC: . ASSESSMENTS LUMBAR SPINAL STENOSIS - M48.06 (PRIMARY) SACROILIITIS - M46.1 TREATMENT LUMBAR SPINAL STENOSIS NOTES: BILAT. SIJ. PREVENTIVE MEDICINE PAIN CLINIC TEACHING: PROCEDURE TEACHING PRE-PROCEDURE TEACHING DONE. SIJ INJECTION INFORMATION GIVEN. QUESTIONS ANSWERED AND PATIENT AND HIS VERBALIZE UNDERSTANDING.. PROCEDURE CODES FA211 ESTABILISHED PATIENT [facility] CHARGE G8730 PAIN ASSESS POS TOOL F/U PLAN DOC G8427 DOC MEDS VERIFIED W/PT OR RE DISPOSITION & COMMUNICATION FOLLOW UP POST PROC (REASON: BILAT. SIJ) ELECTRONICALLY SIGNED BY ROBBIN MONTERROSO ON 11/26/2016 AT 01:41 PM EDT DISCLAIMER : THIS IS A VISIT SUMMARY EXTRACTED FROM THE [facility] CHART. IT IS NOT A COPY OF THE [facility] PROGRESS NOTE. ENDY
== END ==
LOC: M PAIN 09:40
PROVIDERS: ATTEND Nurse Practitioner Family
DX: G89.29 Other chronic pain (principal); M48.06 Spinal stenosis, lumbar region; M46.1 Sacroiliitis, not elsewhere classified; J44.9 Chronic obstructive pulmonary disease, unspecified; I12.9 Hypertensive chronic kidney disease with stage 1 through stage 4 chronic kidney disease, or unspecified chronic kidney disease; N18.3 Chronic kidney disease, stage 3 (moderate); F17.210 Nicotine dependence, cigarettes, uncomplicated; K21.9 Gastro-esophageal reflux disease without esophagitis; R73.01 Impaired fasting glucose; E66.9 Obesity, unspecified; Z68.30 Body mass index [BMI] 30.0-30.9, adult; E78.2 Mixed hyperlipidemia; K76.0 Fatty (change of) liver, not elsewhere classified; F41.9 Anxiety disorder, unspecified; D50.9 Iron deficiency anemia, unspecified; I82.409 Acute embolism and thrombosis of unspecified deep veins of unspecified lower extremity; G25.0 Essential tremor; E55.9 Vitamin D deficiency, unspecified; Z79.01 Long term (current) use of anticoagulants; Z79.899 Other long term (current) drug therapy

== ENCOUNTER → 2016-12-16 | Outpatient (CLI) | payer MEDICARE ==
[~2016-12-16] MED LIST changes: +BUPIVACAINE HCL 0.25% 30 ML VIAL As Ordered ONE; +ISOVUE-M 300 61% 15ML VIAL (Q9967) As Ordered ONE; +LIDOCAINE 1% SDV INJ 30 ML VIAL As Ordered ONE; +TRIAMCINOLONE ACETONIDE SUSP 40 MG/ML VIAL (J3301) As Ordered ONE; +diazePAM 5 MG TAB As Ordered ONE; +oxyCODONE 5MG TAB As Ordered ONE
--- NOTE | 2016-12-16 12:41 | REP ---
Bilateral SI joint series: Five views. History: Injection procedure for pain. 16 seconds of fluoroscopy time is reported. Findings: A sequence of five fluoroscopically obtained procedural spot radiographs of both SI joints document various needle positions and contrast injections associated with SI joint injection procedure. Signed by Garrick Valencia MD 12/16/2016 12:32 P
--- NOTE | 2016-12-30 23:39 | ECWPNPC ---
PATIENT NAME: GABO REDDY : 1945 GENDER: MALE VISIT DATE: 12/16/2016 DISCHARGE DATE: 12/16/16 1205 VISIT LOCKED DATE TIME: PHYSICIAN: MARSHA MURPHY PHYSICIAN PAGER NO: [phone] RESOURCE: MARSHA MURPHY REASON FOR APPOINTMENT 1. BILATERAL SIJ HISTORY OF PRESENT ILLNESS HISTORY OF PRESENT ILLNESS: PAIN THE PATIENT DESCRIBES THE PAIN... FALL RISK SCREENING: SCREENING :NO FALLS IN THE PAST YEAR CURRENT MEDICATIONS TAKING COLACE 100 MG CAPSULE 2 CAPSULE ORALLY TWICE A DAY NEEDED, NOTES: NONE RECENT TAKING [facility] SALINE NASAL SPRAY 0.65 % SOLUTION 2 DROPS IN EACH NOSTRIL NEEDED NASALLY BID, NOTES: 12/14 TAKING NEBULIZER AIR TUBE/PLUGS - MISCELLANEOUS DIRECTED MASK, TUBING PRN TAKING CLARITIN 10 MG TABLET 1 TABLET ORALLY ONCE A DAY, NOTES: 1 WEEK AGO TAKING TYLENOL ARTHRITIS PAIN 650 MG TABLET EXTENDED RELEASE 2 TABLETS ORALLY NEEDED, NOTES: 12/16 829 TAKING XARELTO 20 MG TABLET 1 TAB ORALLY QD, NOTES: 12/12 1000 TAKING ADVAIR DISKUS 500-50 MCG/DOSE MISCELLANEOUS 1 PUFF INHALATION EVERY 12 HOURS, NOTES: 12/15 2199 TAKING SPIRIVA HANDIHALER 18 MCG CAPSULE 1 CAPSULE BY MOUTH INHALATION ONCE A DAY, NOTES: 12/15 1000 TAKING COMBIVENT RESPIMAT 20-100 MCG/ACT AEROSOL 1 PUFF INHALATION FOUR TIMES A DAY NEEDED, NOTES: 12/16 08 TAKING IPRATROPIUM-ALBUTEROL 0.5-2.5 (3) MG/3ML SOLUTION 3 ML INHALATION FOUR TIMES A DAY NEEDED, NOTES: NONE RECENT TAKING PAXIL 10 MG TABLET 1 TABLET IN THE MORNING ORALLY ONCE A DAY, NOTES: 12/16 0800 TAKING FLOMAX 0.4 MG CAPSULE 2 CAPSULE 30 MINUTES AFTER THE SAME MEAL EACH DAY ORALLY AT BEDTIME, NOTES: 12/15 1200 TAKING VITAMIN D 2000 UNIT TABLET 1 TABLET ORALLY ONCE A DAY, NOTES: 12/15 1000 TAKING MULTIVITAMINS OTC TABLET 1 TABLET ORALLY ONCE A DAY, NOTES: 12/15 1000 TAKING VIAGRA 100 MG TABLET 1 TABLET NEEDED ORALLY ONCE A DAY, NOTES: NONE RECENT TAKING FLONASE 50 MCG/DOSE INHALER 2 SPRAYS IN EACH NOSTRIL NASALLY EVERY MORNING, NOTES: 12/17 799 TAKING OMEPRAZOLE 20 MG CAPSULE DELAYED RELEASE 2 CAPSULES ORALLY ONCE A DAY, NOTES: 12/15 2199 TAKING POLYSACCHARIDE IRON 150 MG CAPSULE 1 CAPSULE ORALLY ONCE DAILY, NOTES: 12/17 799 TAKING WELLBUTRIN SR 150 MG TABLET EXTENDED RELEASE 12 HOUR 1 TABLET ORALLY TWICE A DAY, NOTES: 12/17 799 TAKING PRIMIDONE 50 MG TABLET 1 TAB ORALLY EVERY MORNING, NOTES: 12/17 799 TAKING ANDROGEL PUMP 20.25 MG/ACT (1.62%) GEL 1 PUMP TRANSDERMAL DAILY, NOTES: ON 12/17 799 TAKING ZOCOR 10 MG TABLET TAKE ONE TABLET BY MOUTH EVERY EVENING , NOTES: 12/15 2199 TAKING CALCIUM 500 MG TABLET 1 TABLET WITH MEALS ORALLY TWICE A DAY, NOTES: 12/15 1200 DISCONTINUED COMBIVENT RESPIMAT 20-100 MCG/ACT AEROSOL SOLUTION INHALE ONE PUFF FOUR TIMES A DAY NEEDED MEDICATION LIST REVIEWED AND RECONCILED WITH THE PATIENT PAST MEDICAL HISTORY COPD-09/2010 FEV1-1.97L (47% NORMAL) HYPERTENSION/WHITE-COAT COMPONENT ERECTILE DYSFUNCTION NICOTINE ADDICTION GERD-SLIDING HH C SECONDARY/TERTIARY CONTRACTION BY 12/2014 [facility] SBFT//11/2015 EGD C SMALL HH, DUODENAL BIOPSY C/W HETEROTOPIC GASTRIC TISSUE-REINDL IMPAIRED FASTING GLUCOSE OBESITY 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 MRI MULTILEVEL DJD, L4/5 MODERATE CCS C GRADE 1 SPONDYLOLITHESIS C B L4 COMPRESSION IN NF/ L5/S1 HNP C C MILD B L5 COMPRESSION IN //2012 NCS B L4/5 RADICULOPATHY, L>R-ALI HYPERLIPIDEMIA 2B NONALCOHOLIC LIVER DISEASE MACROCYTOSIS, 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 SOCIAL HISTORY GENERAL: TOBACCO USE ARE YOU A:CURRENT SMOKER HOW MANY CIGARETTES A DAY DO YOU SMOKE?6-10 HOW SOON AFTER YOU WAKE UP DO YOU SMOKE YOUR FIRST CIGARETTE?31-60 MIN HOW OFTEN DO YOU SMOKE CIGARETTES?EVERY DAY PATIENT COUNSELED ON THE DANGERS OF TOBACCO USE AND URGED TO QUIT:12/16/2016 ARE YOU INTERESTED IN QUITTING?THINKING ABOUT QUITTING COUNSELED THE PATIENT ON SMOKING CESSATION, EDUCATION [id number]/21/2017 LUNG CANCER SCREENING SMOKING STATUS:CURRENT SMOKER IS THE PATIENT BETWEEN THE AGE OF 55 AND 77?YES HAS THE PATIENT EVER BEEN DIAGNOSED WITH LUNG CANCER?NO ALCOHOL SCREENING DID YOU HAVE A DRINK CONTAINING ALCOHOL IN THE PAST YEAR?NO POINTS0 INTERPRETATIONNEGATIVE SEXUAL HX HAD SEX IN THE LAST 12 MONTHS (VAGINAL, ORAL, OR ANAL)?YES WITHWOMEN ONLY USE PROTECTION?NO HAVE YOU EVER HAD AN STD?NO MARITAL STATUS: SINGLE. SCIENTOLOGY [id number] RASTAFARI LANGUAGE LANGUAGES SPOKEN:COLOMBIAN LEARNING BARRIERS / SPECIAL NEEDS CHANGE FROM LAST VISIT?NO BARRIERS TO LEARNING?NO HEARING IMPAIRED?YES VISION IMPAIRED?YES COGNITIVELY IMPAIRED?NO :CORRECTIVE LENSES READINESS TO LEARN?NO LEARNING PREFERENCES?NO LEARNING CAPABILITIES PRESENT?YES EMOTIONAL BARRIERS?NO SPECIAL DEVICES?NO DIRECTOR REGULATORY COMPLIANCE NEEDED?NO PAIN CLINIC PFS, CLERGY, PUBLIC HEALTH REFERRALS PFS REFERRAL NEEDED?NO CLERGY REFERRAL NEEDED?NO PUBLIC HEALTH REFERRAL NEEDED?NO HAS THE PATIENT BEEN EDUCATED REGARDING HIS/HER PLAN OF CARE?YES HAS THE PATIENT BEEN EDUCATED REGARDING PAIN, THE RISK FOR PAIN, THE IMPORTANCE OF EFFECTIVE PAIN MANAGEMENT, AND THE PAIN ASSESSMENT PROCESS?YES PATIENT: ____. REVIEW OF SYSTEMS REVIEWED BY: PROVIDER: . CONSTITUTIONAL: ANY CHANGE IN YOUR MEDICAL CONDITION? NO . CHILLS NO . FEVER NO . INFECTION: DO YOU HAVE NEW INFECTIONS? NO . DO YOU HAVE HISTORY OF MRSA? NO . MUSCULOSKELETAL: ANY NEW PATTERNS OF PAIN OR NUMBNESS? NO . GASTROENTEROLOGY: ANY NEW CHANGE IN BOWEL CONTROL? NO . GENITOURINARY: ANY NEW CHANGE IN BLADDER CONTROL? NO . IS THERE A CHANCE YOU COULD BE ? NO . HEMATOLOGY/LYMPH: DO YOU TAKE ANY BLOOD THINNERS? (FOR EXAMPLE- COUMADIN, PLAVIX, AGGRENOX, PLATEL, PRADAXA, OR XARELTO) YES, XARELTO . WHEN WAS YOUR LAST DOSE? DATE: TIME: 11/1716 1000 . NEUROLOGY: HAVE YOU FALLEN IN THE PAST 6 MONTHS? YES, IN MID SEPTEMBER . ANY NEW EXTREMITY NUMBNESS OR WEAKNESS? NO . CARDIOLOGY: DO YOU HAVE A PACEMAKER OR DEFIBRILLATOR? NO . RESPIRATORY: HAVE YOU BEEN SICK IN THE PAST WEEK? NO . FEVER NO . FLU LIKE SYMPTOMS? NO . COUGH NO . INTEGUMENTARY: DO YOU HAVE ANY RASHES OR OPEN SORES? NO . ALLERGIC/IMMUNO: ARE YOU ALLERGIC TO SHELLFISH OR IV DYE? NO . ANY NEW ALLERGIES? NO . PSYCHIATRIC: DO YOU HAVE THOUGHTS OF HURTING YOURSELF OR SOMEONE ELSE? NO . ARE YOU ABUSED, NEGLECTED, OR IN AN UNSAFE ENVIRONMENT? NO . ENDOCRINOLOGY: ARE YOU DIABETIC? NO . OTHER: DO YOU NEED ANY PRESCRIPTIONS? NO . IF YES, PLEASE LIST: ____ . ANY NEW PROBLEMS WITH YOUR MEDICATIONS? NO . WHEN DID YOU LAST EAT? 12/15 1799 . WHEN DID YOU LAST DRINK? 12/16 . WHAT DID YOU LAST DRINK? WATER . NAME OF PERSON DRIVING YOU HOME? --BRENDA . DO YOU HAVE ANY OTHER QUESTIONS OR CONCERNS NO . VITAL SIGNS WT 183.8 LBS, HT 65 IN, BMI 30.58 INDEX, BP 115/65 MM HG, HR 83 /MIN, RR 18 /MIN, TEMP 98.9 F, OXYGEN SAT % 94%, NA INITIALS CS, REVIEWED BY: AD. ASSESSMENTS SACROILIITIS, NOT ELSEWHERE CLASSIFIED - M46.1 (PRIMARY) PROCEDURES PN SI PRE PROCEDURE DIAGNOSIS SACROILIITIS, SACROILIAC JOINT DYSFUNCTION POST PROCEDURE DIAGNOSIS SACROILIITIS, SACROILIAC JOINT DYSFUNCTION PROCEDURE BILATERAL SACROILIAC JOINT BLOCK SURGEON DR. MARSHA MURPHY SILK SCREEN PRINTER MACHINE NONE ANESTHESIA LOCAL PRE PROCEDURE NOTE PATIENT WITH HISTORY OF CHRONIC LOW BACK PAIN. I EVALUATED THE PATIENT AND REVIEWED THE CHART. I WENT OVER THE RISKS, ALTERNATIVES, AND BENEFITS ASSOCIATED WITH THIS PROCEDURE. THE PATIENT WOULD LIKE TO PROCEED AND GAVE CONSENT TO PERFORM THE PROCEDURE. THE PATIENT DENIES UNEXPLAINABLE WEIGHT LOSS, FEVER, CHILLS, OR NEW CHANGES IN URINARY OR BOWEL CONTROL DESCRIPTION OF PROCEDURE THE PATIENT WAS BROUGHT TO THE PROCEDURE ROOM AND PLACED IN THE PRONE POSITION. THE LUMBOSACRAL AREA WAS CLEANED WITH CHLORAPREP SOLUTION AND DRAPED ASEPTICALLY. THE PROCEDURE WAS DONE UNDER STERILE CONDITIONS. I CHECKED LATERALITY AND THE LEVEL WHERE THE PROCEDURE WAS GOING TO BE PERFORMED WITH THE PATIENT AND THE SUPPORTING STAFF AT THE MOMENT OF THE TIME OUT IN THE PROCEDURE ROOM. UNDER FLUOROSCOPIC GUIDANCE, TARGET POINT WAS SELECTED AT THE LOWER BORDER OF THE RIGHT AND THE LOWER BORDER OF THE LEFT SACROILIAC JOINT. TARGET POINT WAS SELECTED AFTER MEDIAL ROTATION AND TILT OF THE MAGNIFIER OF THE C-ARM. LIDOCAINE WAS USED TO NUMB THE SKIN AND SUBCUTANEOUS TISSUE BELOW IT. A SPINAL NEEDLE, 22-GAUGE, WAS ADVANCED UNDER FLUOROSCOPIC GUIDANCE AND FOLLOWING PATIENT FEEDBACK UNTIL THE TARGET AREA WAS TOUCHED. THE POSITION OF THE NEEDLE WAS VERIFIED WITH AP AND LATERAL VIEWS. AFTER PROPER POSITION OF THE NEEDLE WAS ACHIEVED, ISOVUE M DYE 30%, 0.25 ML, WAS INJECTED SHOWING SPREAD OF THE DYE. THEN, A SOLUTION OF 20 MG OF KENALOG WAS INJECTED IN RIGHT JOINT WITH 3 ML OF BUPIVACAINE 0.125%. THERE WAS NO EVIDENCE OF BLOOD, PARESTHESIA OR CEREBROSPINAL FLUID DURING THE PROCEDURE. THE PATIENT WAS SENT TO THE RECOVERY ROOM. THE PATIENT WAS MOVING THE EXTREMITIES AND DOING WELL. THERE WAS NO COMPLICATION DURING THE PROCEDURE. FLUOROSCOPY TIME WAS 16 SECONDS POST PROCEDURE NOTE THE PATIENT WILL BE SEEN IN A FOLLOW UP IN THE NEXT FEW WEEKS. INSTRUCTIONS WERE GIVEN, QUESTIONS WERE ANSWERED, AND THE PATIENT EXPRESSED UNDERSTANDING AND AGREED WITH THE PLAN. I PLACIDO SÁNCHEZ DOCUMENTED THE ABOVE INFORMATION ACTING A ASSOCIATE PROFESSOR OF SURGERY FOR DR. MURPHY. I HAVE REVIEWED THE ABOVE DOCUMENT WRITTEN BY PLACIDO SÁNCHEZ SCRIBEllie AND I VERIFY THAT IT IS ACCURATE. DIAGNOSTIC IM[facility] FLUORO GUIDANCE (PAIN)[id number] PROCEDURE CODES 6045F RADXPS IN END [id number] PXD [id number] INJECT SACROILIAC JOINT DISPOSITION & COMMUNICATION FOLLOW UP 3 WEEKS ELECTRONICALLY SIGNED BY MARSHA MURPHY MD ON 12/30/2016 AT 08:21 PM EDT DISCLAIMER : THIS IS A VISIT SUMMARY EXTRACTED FROM THE [employer] CHART. IT IS NOT A COPY OF THE [employer] PROGRESS NOTE. MTDD
== END ==
LOC: M PAIN 10:45
PROVIDERS: ATTEND Anesthesiology
DX: G89.29 Other chronic pain (principal); M46.1 Sacroiliitis, not elsewhere classified; M53.88 Other specified dorsopathies, sacral and sacrococcygeal region; F17.210 Nicotine dependence, cigarettes, uncomplicated; J44.9 Chronic obstructive pulmonary disease, unspecified; E78.2 Mixed hyperlipidemia; F41.9 Anxiety disorder, unspecified; K21.9 Gastro-esophageal reflux disease without esophagitis; D50.9 Iron deficiency anemia, unspecified; R73.01 Impaired fasting glucose; G25.0 Essential tremor; I12.9 Hypertensive chronic kidney disease with stage 1 through stage 4 chronic kidney disease, or unspecified chronic kidney disease; N18.3 Chronic kidney disease, stage 3 (moderate); E55.9 Vitamin D deficiency, unspecified; J30.9 Allergic rhinitis, unspecified; Z79.01 Long term (current) use of anticoagulants; Z79.899 Other long term (current) drug therapy
CPT/HCPCS: G0260; J3301; Q9967

== ENCOUNTER → 2016-12-26 | Outpatient (REF) | payer MEDICARE ==
[~2016-12-26] MED LIST changes: -BUPIVACAINE HCL 0.25% 30 ML VIAL As Ordered ONE; -ISOVUE-M 300 61% 15ML VIAL (Q9967) As Ordered ONE; -LIDOCAINE 1% SDV INJ 30 ML VIAL As Ordered ONE; -TRIAMCINOLONE ACETONIDE SUSP 40 MG/ML VIAL (J3301) As Ordered ONE; -diazePAM 5 MG TAB As Ordered ONE; -oxyCODONE 5MG TAB As Ordered ONE
[2016-12-26 12:37] LABS: PROLACTIN 12.5 NG/ML (2.1-17.7)
[2016-12-26 12:58] LABS: FREE T4 0.82 NG/DL (0.76-1.46)
== END ==
LOC: M SFHCPLAZ 09:04
PROVIDERS: ATTEND Family Medicine
DX: E78.2 Mixed hyperlipidemia (principal); N52.9 Male erectile dysfunction, unspecified

== ENCOUNTER → 2017-01-01 | Outpatient (CLI) | payer MEDICARE ==
--- NOTE | 2017-01-02 00:06 | ECWPNPC ---
PATIENT NAME: GABO REDDY : 1945 GENDER: MALE VISIT DATE: 01/01/2017 DISCHARGE DATE: 01/01/17 1424 VISIT LOCKED DATE TIME: PHYSICIAN: SKY PULIDO PHYSICIAN PAGER NO: [phone] RESOURCE: SKY PULIDO REASON FOR APPOINTMENT 1. POST PROCEDURE HISTORY OF PRESENT ILLNESS HISTORY OF PRESENT ILLNESS: HERE FOR POST PROCEDURE F/U.HAD BILAT. SIJ ON 12-16-16 AND REPORTING MARKED IMPROVEMENT IN LOW BACK PAIN.STATES BEFORE INJECTIONS HE COULDNT GET FROM SITTING TO STANDING POSITION WITHOUT SEVERE PAIN.TODAY HE IS ABLE TO DO THIS WITHOUT PAIN OR ASSISTANCE.REPORTING STIFFNESS ACROSS LOWER THORACIC SPINE.RATING PAIN VAS 1/10.CURRENTLY USING TYLENOL ARTHRITIS 2TAB BID.DISCUSSED CONSERVATIVE TREATMENT FOR ARTHRITIC BACK PAIN. PAIN THE PATIENT DESCRIBES THE PAIN... FALL RISK SCREENING: SCREENING :NO FALLS IN THE PAST YEAR CURRENT MEDICATIONS TAKING COLACE 100 MG CAPSULE 2 CAPSULE ORALLY TWICE A DAY NEEDED TAKING [facility] SALINE NASAL SPRAY 0.65 % SOLUTION 2 DROPS IN EACH NOSTRIL NEEDED NASALLY BID TAKING NEBULIZER AIR TUBE/PLUGS - MISCELLANEOUS DIRECTED MASK, TUBING PRN TAKING CLARITIN 10 MG TABLET 1 TABLET ORALLY ONCE A DAY TAKING TYLENOL ARTHRITIS PAIN 650 MG TABLET EXTENDED RELEASE 2 TABLETS ORALLY NEEDED TAKING XARELTO 20 MG TABLET 1 TAB ORALLY QD TAKING ADVAIR DISKUS 500-50 MCG/DOSE MISCELLANEOUS 1 PUFF INHALATION EVERY 12 HOURS TAKING SPIRIVA HANDIHALER 18 MCG CAPSULE 1 CAPSULE BY MOUTH INHALATION ONCE A DAY TAKING COMBIVENT RESPIMAT 20-100 MCG/ACT AEROSOL 1 PUFF INHALATION FOUR TIMES A DAY NEEDED TAKING IPRATROPIUM-ALBUTEROL 0.5-2.5 (3) MG/3ML SOLUTION 3 ML INHALATION FOUR TIMES A DAY NEEDED TAKING PAXIL 10 MG TABLET 1 TABLET IN THE MORNING ORALLY ONCE A DAY TAKING FLOMAX 0.4 MG CAPSULE 2 CAPSULE 30 MINUTES AFTER THE SAME MEAL EACH DAY ORALLY AT BEDTIME TAKING VITAMIN D 2000 UNIT TABLET 1 TABLET ORALLY ONCE A DAY TAKING MULTIVITAMINS OTC TABLET 1 TABLET ORALLY ONCE A DAY TAKING VIAGRA 100 MG TABLET 1 TABLET NEEDED ORALLY ONCE A DAY TAKING FLONASE 50 MCG/DOSE INHALER 2 SPRAYS IN EACH NOSTRIL NASALLY EVERY MORNING TAKING OMEPRAZOLE 20 MG CAPSULE DELAYED RELEASE 2 CAPSULES ORALLY ONCE A DAY TAKING POLYSACCHARIDE IRON 150 MG CAPSULE 1 CAPSULE ORALLY ONCE DAILY TAKING WELLBUTRIN SR 150 MG TABLET EXTENDED RELEASE 12 HOUR 1 TABLET ORALLY TWICE A DAY TAKING PRIMIDONE 50 MG TABLET 1 TAB ORALLY EVERY MORNING TAKING ANDROGEL PUMP 20.25 MG/ACT (1.62%) GEL 1 PUMP TRANSDERMAL DAILY TAKING ZOCOR 10 MG TABLET TAKE ONE TABLET BY MOUTH EVERY EVENING TAKING CALCIUM 500 MG TABLET 1 TABLET WITH MEALS ORALLY TWICE A DAY MEDICATION LIST REVIEWED AND RECONCILED WITH THE PATIENT PAST MEDICAL HISTORY COPD-09/2010 FEV1-1.97L (47% NORMAL) HYPERTENSION/WHITE-COAT COMPONENT ERECTILE DYSFUNCTION NICOTINE ADDICTION GERD-SLIDING HH C SECONDARY/TERTIARY CONTRACTION BY 12/2014 [facility] SBFT EGD C SMALL HH, DUODENAL BIOPSY C/W HETEROTOPIC GASTRIC TISSUE-REINDL IMPAIRED FASTING GLUCOSE OBESITY 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 MRI MULTILEVEL DJD, L4/5 MODERATE CCS C GRADE 1 SPONDYLOLITHESIS C B L4 COMPRESSION IN NF/ L5/S1 HNP C C MILD B L5 COMPRESSION IN /2012 NCS B L4/5 RADICULOPATHY, L>R-ALI HYPERLIPIDEMIA 2B NONALCOHOLIC LIVER DISEASE MACROCYTOSIS, 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 SOCIAL HISTORY GENERAL: TOBACCO USE ARE YOU A:CURRENT SMOKER HOW MANY CIGARETTES A DAY DO YOU SMOKE?6-10 HOW SOON AFTER YOU WAKE UP DO YOU SMOKE YOUR FIRST CIGARETTE?31-60 MIN HOW OFTEN DO YOU SMOKE CIGARETTES?EVERY DAY PATIENT COUNSELED ON THE DANGERS OF TOBACCO USE AND URGED TO QUIT:12/16/2016 ARE YOU INTERESTED IN QUITTING?THINKING ABOUT QUITTING COUNSELED THE PATIENT ON SMOKING CESSATION, EDUCATION [id number]/21/2017 LUNG CANCER SCREENING SMOKING STATUS:CURRENT SMOKER IS THE PATIENT BETWEEN THE AGE OF 55 AND 77?YES HAS THE PATIENT EVER BEEN DIAGNOSED WITH LUNG CANCER?NO ALCOHOL SCREENING DID YOU HAVE A DRINK CONTAINING ALCOHOL IN THE PAST YEAR?NO POINTS0 INTERPRETATIONNEGATIVE SEXUAL HX HAD SEX IN THE LAST 12 MONTHS (VAGINAL, ORAL, OR ANAL)?YES WITHWOMEN ONLY USE PROTECTION?NO HAVE YOU EVER HAD AN STD?NO MARITAL STATUS: SINGLE. PENTECOSTAL [id number] MANDAEISM LANGUAGE LANGUAGES SPOKEN:SLOVENIAN LEARNING BARRIERS / SPECIAL NEEDS CHANGE FROM LAST VISIT?NO BARRIERS TO LEARNING?NO HEARING IMPAIRED?YES VISION IMPAIRED?YES :CORRECTIVE LENSES COGNITIVELY IMPAIRED?NO READINESS TO LEARN?NO LEARNING PREFERENCES?NO LEARNING CAPABILITIES PRESENT?YES EMOTIONAL BARRIERS?NO SPECIAL DEVICES?NO FINANCIAL DIRECTOR NEEDED?NO PAIN CLINIC PFS, CLERGY, PUBLIC HEALTH REFERRALS PFS REFERRAL NEEDED?NO CLERGY REFERRAL NEEDED?NO PUBLIC HEALTH REFERRAL NEEDED?NO HAS THE PATIENT BEEN EDUCATED REGARDING HIS/HER PLAN OF CARE?YES HAS THE PATIENT BEEN EDUCATED REGARDING PAIN, THE RISK FOR PAIN, THE IMPORTANCE OF EFFECTIVE PAIN MANAGEMENT, AND THE PAIN ASSESSMENT PROCESS?YES PATIENT: ____. REVIEW OF SYSTEMS REVIEWED BY: PROVIDER: SKY SIEGEL . CONSTITUTIONAL: ANY CHANGE IN YOUR MEDICAL CONDITION? NO . CHILLS NO . FEVER NO . INFECTION: DO YOU HAVE NEW INFECTIONS? NO . DO YOU HAVE HISTORY OF MRSA? NO . MUSCULOSKELETAL: ANY NEW PATTERNS OF PAIN OR NUMBNESS? NO . GASTROENTEROLOGY: ANY NEW CHANGE IN BOWEL CONTROL? NO . GENITOURINARY: ANY NEW CHANGE IN BLADDER CONTROL? NO . IS THERE A CHANCE YOU COULD BE ? NO . HEMATOLOGY/LYMPH: DO YOU TAKE ANY BLOOD THINNERS? (FOR EXAMPLE- COUMADIN, PLAVIX, AGGRENOX, PLATEL, PRADAXA, OR XARELTO) YES, XARELTO . WHEN WAS YOUR LAST DOSE? DATE: TIME: . NEUROLOGY: HAVE YOU FALLEN IN THE PAST 6 MONTHS? NO . ANY NEW EXTREMITY NUMBNESS OR WEAKNESS? NO . CARDIOLOGY: DO YOU HAVE A PACEMAKER OR DEFIBRILLATOR? NO . RESPIRATORY: HAVE YOU BEEN SICK IN THE PAST WEEK? NO . FEVER NO . FLU LIKE SYMPTOMS? NO . COUGH NO . INTEGUMENTARY: DO YOU HAVE ANY RASHES OR OPEN SORES? NO . ALLERGIC/IMMUNO: ARE YOU ALLERGIC TO SHELLFISH OR IV DYE? NO . ANY NEW ALLERGIES? NO . PSYCHIATRIC: DO YOU HAVE THOUGHTS OF HURTING YOURSELF OR SOMEONE ELSE? NO . ARE YOU ABUSED, NEGLECTED, OR IN AN UNSAFE ENVIRONMENT? NO . ENDOCRINOLOGY: ARE YOU DIABETIC? NO . OTHER: DO YOU NEED ANY PRESCRIPTIONS? NO . IF YES, PLEASE LIST: ____ . ANY NEW PROBLEMS WITH YOUR MEDICATIONS? NO . WHEN DID YOU LAST EAT? ____ . WHEN DID YOU LAST DRINK? ____ . WHAT DID YOU LAST DRINK? ____ . NAME OF PERSON DRIVING YOU HOME? ____ . DO YOU HAVE ANY OTHER QUESTIONS OR CONCERNS NO . VITAL SIGNS WT 184.0 LBS, HT 65 IN, BMI 30.62 INDEX, BP 103/66 MM HG, HR 86 /MIN, RR 18 /MIN, TEMP 97.2 F, OXYGEN SAT % 94%, REVIEWED BY: RAJENDRA. EXAMINATION GENERAL EXAMINATION: LUNGS:LUNG SOUNDS ARE CLEAR. HEART:HEART RATE REGULAR. MUSCULOSKELETAL:*, MUSCLE STRENGTH TESTING 5/5 BILATERAL LOWER EXTREMITIES., PALPATION OVER THORACIC PARASPINALS WITH DISCOMFORT NOTED-MILD. DIAGNOSTIC: . ASSESSMENTS LUMBAR SPINAL STENOSIS - M48.06 (PRIMARY) LUMBAR FACET ARTHROPATHY - M12.88 (PRIMARY) SACROILIITIS - M46.1 TREATMENT LUMBAR SPINAL STENOSIS NOTES: CONSERVATIVE CARE FOR LOW BACK PAIN DISCUSSED.CONTINUE TYLENOL ARTHRITIS. PROCEDURE CODES G8730 PAIN ASSESS POS TOOL F/U PLAN DOC G8427 DOC MEDS VERIFIED W/PT OR RE DISPOSITION & COMMUNICATION FOLLOW UP 2 MONTHS ELECTRONICALLY SIGNED BY ROBBIN MONTERROSO ON 01/01/2017 AT 02:18 PM EDT DISCLAIMER : THIS IS A VISIT SUMMARY EXTRACTED FROM THE [employer] CHART. IT IS NOT A COPY OF THE [employer] PROGRESS NOTE. ENDY
== END ==
LOC: M PAIN 13:30
PROVIDERS: ATTEND Nurse Practitioner Family
DX: G89.29 Other chronic pain (principal); M48.06 Spinal stenosis, lumbar region; M12.88 Other specific arthropathies, not elsewhere classified, other specified site; M46.1 Sacroiliitis, not elsewhere classified; J44.9 Chronic obstructive pulmonary disease, unspecified; I12.9 Hypertensive chronic kidney disease with stage 1 through stage 4 chronic kidney disease, or unspecified chronic kidney disease; N52.9 Male erectile dysfunction, unspecified; K21.9 Gastro-esophageal reflux disease without esophagitis; R73.01 Impaired fasting glucose; E66.9 Obesity, unspecified; M51.36 Other intervertebral disc degeneration, lumbar region; E78.5 Hyperlipidemia, unspecified; G25.0 Essential tremor; N18.3 Chronic kidney disease, stage 3 (moderate); F17.210 Nicotine dependence, cigarettes, uncomplicated; Z79.01 Long term (current) use of anticoagulants; Z79.899 Other long term (current) drug therapy; Z68.30 Body mass index [BMI] 30.0-30.9, adult

== ENCOUNTER → 2017-02-27 | Outpatient (CLI) | payer MEDICARE | LOC: M PAIN 10:00 | PROVIDERS: ATTEND Nurse Practitioner Family | DX: G89.29 Other chronic pain (principal); M48.061 Spinal stenosis, lumbar region without neurogenic claudication; M12.88 Other specific arthropathies, not elsewhere classified, other specified site; M46.1 Sacroiliitis, not elsewhere classified; J44.9 Chronic obstructive pulmonary disease, unspecified; E78.2 Mixed hyperlipidemia; F41.9 Anxiety disorder, unspecified; K21.9 Gastro-esophageal reflux disease without esophagitis; D50.9 Iron deficiency anemia, unspecified; I82.409 Acute embolism and thrombosis of unspecified deep veins of unspecified lower extremity; R73.01 Impaired fasting glucose; G25.0 Essential tremor; I12.9 Hypertensive chronic kidney disease with stage 1 through stage 4 chronic kidney disease, or unspecified chronic kidney disease; N18.3 Chronic kidney disease, stage 3 (moderate); E55.9 Vitamin D deficiency, unspecified; F17.210 Nicotine dependence, cigarettes, uncomplicated; Z79.01 Long term (current) use of anticoagulants; Z79.899 Other long term (current) drug therapy ==

== ENCOUNTER → 2017-03-13 | Outpatient (CLI) | payer MEDICARE ==
[~2017-03-13] MED LIST changes: +BUPIVACAINE HCL 0.25% 30 ML VIAL As Ordered ONE; +ISOVUE-M 300 61% 15ML VIAL (Q9967) As Ordered ONE; +LIDOCAINE 1% SDV INJ 30 ML VIAL As Ordered ONE
--- NOTE | 2017-03-13 15:47 | REP ---
FACET BLOCK: The images were reviewed with Dr. Kate. The patient has a history of back pain. The portable C-arm was provided in the OR for Dr. Gaspar for fluoroscopic guidance. Three intraoperative last image hold spot films were obtained for needle placement verification for left lumbar facet injection. The films are on the PACs system and are available for review. 31 seconds of fluoroscopic time was utilized for this procedure. Reviewed by SHALINI Maldonado 03/14/2017 03:41 PEdited and Signed by Abiel Kate MD 03/14/2017 03:44 P
--- NOTE | 2017-03-25 00:52 | ECWPNPC ---
PATIENT NAME: GABO REDDY : 1945 GENDER: MALE VISIT DATE: 03/13/2017 DISCHARGE DATE: 03/13/17 1123 VISIT LOCKED DATE TIME: PHYSICIAN: MARSHA MURPHY PHYSICIAN PAGER NO: [phone] RESOURCE: MARSHA MURPHY REASON FOR APPOINTMENT 1. LEFT DIAGNOSTIC FACET #1 HISTORY OF PRESENT ILLNESS HISTORY OF PRESENT ILLNESS: PAIN THE PATIENT DESCRIBES THE PAIN... FALL RISK SCREENING: SCREENING :NO FALLS IN THE PAST YEAR CURRENT MEDICATIONS TAKING COLACE 100 MG CAPSULE 2 CAPSULE ORALLY TWICE A DAY NEEDED, NOTES: NOT LATELY TAKING [facility] SALINE NASAL SPRAY 0.65 % SOLUTION 2 DROPS IN EACH NOSTRIL NEEDED NASALLY BID, NOTES: 03-12-172099 TAKING NEBULIZER AIR TUBE/PLUGS - MISCELLANEOUS DIRECTED MASK, TUBING PRN, NOTES: NOT LATE;U TAKING TYLENOL ARTHRITIS PAIN 650 MG TABLET EXTENDED RELEASE 2 TABLETS ORALLY NEEDED, NOTES: 03-12-172099 TAKING WELLBUTRIN SR 150 MG TABLET EXTENDED RELEASE 12 HOUR 1 TABLET ORALLY TWICE A DAY, NOTES: 699 TAKING PRIMIDONE 50 MG TABLET 1 TAB ORALLY EVERY MORNING, NOTES: 03-13-17699 TAKING ZOCOR 10 MG TABLET TAKE ONE TABLET BY MOUTH EVERY EVENING , NOTES: 03-12-172099 TAKING CALCIUM 500 MG TABLET 1 TABLET WITH MEALS ORALLY TWICE A DAY, NOTES: 03-12-172099 TAKING XARELTO 20 MG TABLET 1 TAB ORALLY QD, NOTES: 03-09-17699 TAKING ADVAIR DISKUS 500-50 MCG/DOSE MISCELLANEOUS 1 PUFF INHALATION EVERY 12 HOURS, NOTES: 03-12-172099 TAKING SPIRIVA HANDIHALER 18 MCG CAPSULE 1 CAPSULE BY MOUTH INHALATION ONCE A DAY, NOTES: 03-12-172099 TAKING COMBIVENT RESPIMAT 20-100 MCG/ACT AEROSOL 1 PUFF INHALATION FOUR TIMES A DAY NEEDED, NOTES: NOT LATELY TAKING IPRATROPIUM-ALBUTEROL 0.5-2.5 (3) MG/3ML SOLUTION 3 ML INHALATION FOUR TIMES A DAY NEEDED, NOTES: NOT LATELY TAKING PAXIL 10 MG TABLET 1 TABLET IN THE MORNING ORALLY ONCE A DAY, NOTES: 03-13-17699 TAKING FLOMAX 0.4 MG CAPSULE 2 CAPSULE 30 MINUTES AFTER THE SAME MEAL EACH DAY ORALLY AT BEDTIME, NOTES: 03-12-17899 TAKING VITAMIN D 2000 UNIT TABLET 1 TABLET ORALLY ONCE A DAY, NOTES: 03-12-172099 TAKING MULTIVITAMINS OTC TABLET 1 TABLET ORALLY ONCE A DAY, NOTES: 899 TAKING VIAGRA 100 MG TABLET 1 TABLET NEEDED ORALLY ONCE A DAY, NOTES: NOT LATELY TAKING FLONASE 50 MCG/DOSE INHALER 2 SPRAYS IN EACH NOSTRIL NASALLY EVERY MORNING, NOTES: 03-12-172099 TAKING OMEPRAZOLE 20 MG CAPSULE DELAYED RELEASE 2 CAPSULES ORALLY ONCE A DAY, NOTES: 03-12 TAKING POLYSACCHARIDE IRON 150 MG CAPSULE 1 CAPSULE ORALLY ONCE DAILY, NOTES: 03-12 TAKING CLARITIN 10 MG TABLET 1 TABLET ORALLY ONCE A DAY NEEDED, NOTES: 2099 TAKING ANDROGEL PUMP 20.25 MG/ACT (1.62%) GEL 1 PUMP TRANSDERMAL DAILY, NOTES: NOT LATELY UNKNOWN ZOCOR 10 MG TABLET 1 TABLET EVERY EVENING ORALLY ONCE A DAY UNKNOWN WELLBUTRIN SR 150 MG TABLET EXTENDED RELEASE 12 HOUR 1 TABLET ORALLY TWICE A DAY UNKNOWN PRIMIDONE 50 MG TABLET 1 TAB ORALLY EVERY MORNING UNKNOWN CLOTRIMAZOLE 10 MG ALICE 1 ALICE MOUTH/THROAT QID MEDICATION LIST REVIEWED AND RECONCILED WITH THE PATIENT PAST MEDICAL HISTORY COPD-09/2010 FEV1-1.97L (47% NORMAL) HYPERTENSION/WHITE-COAT COMPONENT ERECTILE DYSFUNCTION NICOTINE ADDICTION GERD-SLIDING HH C SECONDARY/TERTIARY CONTRACTION BY 12/2014 [facility] SBFT EGD C SMALL HH, DUODENAL BIOPSY C/W HETEROTOPIC GASTRIC TISSUE-REINDL IMPAIRED FASTING GLUCOSE OBESITY 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 MRI MULTILEVEL DJD, L4/5 MODERATE CCS C GRADE 1 SPONDYLOLITHESIS C B L4 COMPRESSION IN NF/ L5/S1 HNP C C MILD B L5 COMPRESSION IN NF//2012 NCS B L4/5 RADICULOPATHY, L>R-ALI HYPERLIPIDEMIA 2B NONALCOHOLIC LIVER DISEASE MACROCYTOSIS, 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 SURGICAL HISTORY TOTAL RIGHT HIP BILATERAL CATARACTS TONSILECTEMY CYST REMOVED ON LEFT THUMB AND BACK SIDE HOSPITALIZATION/MAJOR DIAGNOSTIC PROCEDURE FLU [id number] DVT LEFT 2014 DVT 2015 ESOPHAGITIS 2008 REVIEW OF SYSTEMS REVIEWED BY: PROVIDER: . CONSTITUTIONAL: ANY CHANGE IN YOUR MEDICAL CONDITION? NO . CHILLS NO . FEVER NO . INFECTION: DO YOU HAVE NEW INFECTIONS? NO . DO YOU HAVE HISTORY OF MRSA? NO . MUSCULOSKELETAL: ANY NEW PATTERNS OF PAIN OR NUMBNESS? NO . GASTROENTEROLOGY: ANY NEW CHANGE IN BOWEL CONTROL? NO . GENITOURINARY: ANY NEW CHANGE IN BLADDER CONTROL? NO . IS THERE A CHANCE YOU COULD BE ? NO . HEMATOLOGY/LYMPH: DO YOU TAKE ANY BLOOD THINNERS? (FOR EXAMPLE- COUMADIN, PLAVIX, AGGRENOX, PLATEL, PRADAXA, OR XARELTO) NO . WHEN WAS YOUR LAST DOSE? DATE: TIME: . NEUROLOGY: HAVE YOU FALLEN IN THE PAST 6 MONTHS? NO . ANY NEW EXTREMITY NUMBNESS OR WEAKNESS? NO . CARDIOLOGY: DO YOU HAVE A PACEMAKER OR DEFIBRILLATOR? NO . RESPIRATORY: HAVE YOU BEEN SICK IN THE PAST WEEK? NO . FEVER NO . FLU LIKE SYMPTOMS? NO . COUGH NO . INTEGUMENTARY: DO YOU HAVE ANY RASHES OR OPEN SORES? NO . ALLERGIC/IMMUNO: ARE YOU ALLERGIC TO SHELLFISH OR IV DYE? NO . ANY NEW ALLERGIES? NO . PSYCHIATRIC: DO YOU HAVE THOUGHTS OF HURTING YOURSELF OR SOMEONE ELSE? NO . ARE YOU ABUSED, NEGLECTED, OR IN AN UNSAFE ENVIRONMENT? NO . ENDOCRINOLOGY: ARE YOU DIABETIC? NO . OTHER: DO YOU NEED ANY PRESCRIPTIONS? NO . IF YES, PLEASE LIST: ____ . ANY NEW PROBLEMS WITH YOUR MEDICATIONS? NO . WHEN DID YOU LAST EAT? ____LAST NIGHT . WHEN DID YOU LAST DRINK? ____THIS AM . WHAT DID YOU LAST DRINK? ____WATER . NAME OF PERSON DRIVING YOU HOME? BRENDA . DO YOU HAVE ANY OTHER QUESTIONS OR CONCERNS NO . VITAL SIGNS WT 182.0 LBS, HT 65 IN, BMI 30.28 INDEX, BP 124/71 MM HG, HR 88 /MIN, RR 16 /MIN, TEMP 97.9 F, OXYGEN SAT % 96%, NA INITIALS TL 0930, REVIEWED BY: KG. ASSESSMENTS SPONDYLOSIS OF LUMBAR REGION WITHOUT MYELOPATHY OR RADICULOPATHY - M47.816 (PRIMARY) SPONDYLOSIS OF LUMBOSACRAL REGION WITHOUT MYELOPATHY OR RADICULOPATHY - M47.817 PROCEDURES PN LUMBAR FACET BLOCK DIAGNOSTIC PRE PROCEDURE DIAGNOSIS LUMBAR SPONDYLOSIS, LUMBOSACRAL SPONDYLOSIS POST PROCEDURE DIAGNOSIS LUMBAR SPONDYLOSIS, LUMBOSACRAL SPONDYLOSIS PROCEDURE LEFT L4-L5 AND LEFT L5-S1 FACET BLOCK DIAGNOSTIC NUMBER [address] MARSHA MURPHY VASCULAR NURSE NONE ANESTHESIA LOCAL PRE PROCEDURE NOTE THE PATIENT WITH HISTORY OF CHRONIC LOW BACK PAIN. I EVALUATED THE PATIENT AND REVIEWED THE CHART. I WENT OVER THE RISKS, ALTERNATIVES, AND BENEFITS ASSOCIATED WITH THIS PROCEDURE. THE PATIENT WOULD LIKE TO PROCEED AND GAVE CONSENT TO PERFORM THE PROCEDURE. AGREED WITH THE PATIENT WE ARE DOING THIS PROCEDURE TO DETERMINE IF THE PATIENT IS A CANDIDATE FOR A RADIOFREQUENCY ABLATION OF THE FACETS JOINTS. THE PATIENT DENIES UNEXPLAINABLE WEIGHT LOSS, FEVER, CHILLS, OR NEW CHANGES IN URINARY OR BOWEL CONTROL DESCRIPTION OF PROCEDURE THE PATIENT WAS BROUGHT TO THE PROCEDURE ROOM AND PLACED IN THE PRONE POSITION. THE LUMBOSACRAL AREA WAS CLEANED WITH CHLORAPREP SOLUTION AND DRAPED ASEPTICALLY. THE PROCEDURE WAS DONE UNDER STERILE CONDITIONS. I CHECKED LATERALITY AND THE LEVEL WHERE THE PROCEDURE WAS GOING TO BE PERFORMED WITH THE PATIENT AND THE SUPPORTING STAFF AT THE MOMENT OF THE TIME OUT IN THE PROCEDURE ROOM. UNDER FLUOROSCOPIC GUIDANCE, TARGETS WERE SELECTED AT THE INTERSECTION OF THE LEFT TRANSVERSE PROCESS OF L4, L5 AND ALA OF S1 WITH ITS RESPECTIVE SUPERIOR ARTICULAR PROCESS. LIDOCAINE WAS USED TO NUMB THE SKIN AND THE SUBCUTANEOUS TISSUE BELOW IT. SPINAL NEEDLE, 22-GAUGE WAS ADVANCED UNDER FLUOROSCOPIC GUIDANCE AND FOLLOWING PATIENT FEEDBACK UNTIL THE TARGETS WERE REACHED. POSITION OF THE NEEDLES WAS VERIFIED WITH AP AND LATERAL VIEWS. AFTER PROPER POSITION OF THE NEEDLES WAS ACHIEVED, ISOVUE-M DYE 30% 0.1 ML WAS INJECTED AT EACH SITE SHOWING ADEQUATE SPREAD OF THE DYE. THEN A SOLUTION OF 0.4 ML OF BUPIVACAINE 0.25% WAS INJECTED AT EACH SITE. THERE WAS NO EVIDENCE OF BLOOD, PARESTHESIA OR CEREBROSPINAL FLUID DURING THE PROCEDURE. THE PATIENT WAS SENT TO THE RECOVERY ROOM. THE PATIENT WAS MOVING THE EXTREMITIES AND DOING WELL. THERE WAS NO COMPLICATION DURING THE PROCEDURE. FLUOROSCOPY TIME WAS 31 SECONDS POST PROCEDURE NOTE THE PATIENT WILL DOCUMENT HIS PAIN LEVEL AND RESPONSE TO THIS PROCEDURE EVERY 30 MINUTES. THE PATIENT WILL BE SEEN IN A FOLLOW UP IN THE NEXT FEW WEEKS. FURTHER DETERMINATION FOR HIS CASE WILL BE DONE AT THE NEXT VISIT. INSTRUCTIONS WERE GIVEN, QUESTIONS WERE ANSWERED, AND THE PATIENT EXPRESSED UNDERSTANDING AND AGREED WITH THE PLAN. I, KULWINDER PALMA, DOCUMENTED THE ABOVE INFORMATION ACTING A SCRIBE FOR DR. MURPHY. I, DR. MURPHY, HAVE REVIEWED THE ABOVE DOCUMENT, SCRIBED BY KULWINDER PALMA, AND I VERIFY THAT IT IS ACCURATE DIAGNOSTIC IMAGING [facility] FACET BLOCK (PAIN)[id number] PROCEDURE CODES 58474 INJ PARAVERT F JNT L/S 1 LEV, MODIFIERS: [place] [address] INJ PARAVERT F JNT L/S 2 LEV, MODIFIERS: LT 6045F RADXPS IN END [id number] PXD DISPOSITION & COMMUNICATION FOLLOW UP 3 WEEKS ELECTRONICALLY SIGNED BY MARSHA MURPHY MD ON 03/24/2017 AT 02:32 PM EST DISCLAIMER : THIS IS A VISIT SUMMARY EXTRACTED FROM THE [employer] CHART. IT IS NOT A COPY OF THE [employer] PROGRESS NOTE. MTDD
== END ==
LOC: M PAIN 09:30
PROVIDERS: ATTEND Anesthesiology
DX: G89.29 Other chronic pain (principal); M47.816 Spondylosis without myelopathy or radiculopathy, lumbar region; M47.817 Spondylosis without myelopathy or radiculopathy, lumbosacral region; J44.9 Chronic obstructive pulmonary disease, unspecified; E78.2 Mixed hyperlipidemia; F41.9 Anxiety disorder, unspecified; K21.9 Gastro-esophageal reflux disease without esophagitis; D50.9 Iron deficiency anemia, unspecified; I82.409 Acute embolism and thrombosis of unspecified deep veins of unspecified lower extremity; R73.01 Impaired fasting glucose; G25.0 Essential tremor; I12.9 Hypertensive chronic kidney disease with stage 1 through stage 4 chronic kidney disease, or unspecified chronic kidney disease; N18.3 Chronic kidney disease, stage 3 (moderate); E55.9 Vitamin D deficiency, unspecified; J30.9 Allergic rhinitis, unspecified; E78.5 Hyperlipidemia, unspecified; K76.0 Fatty (change of) liver, not elsewhere classified; Z79.899 Other long term (current) drug therapy
CPT/HCPCS: 64493; 64494; Q9967

== ENCOUNTER → 2017-03-28 | Outpatient (CLI) | payer MEDICARE ==
[~2017-03-28] MED LIST changes: -BUPIVACAINE HCL 0.25% 30 ML VIAL As Ordered ONE; -ISOVUE-M 300 61% 15ML VIAL (Q9967) As Ordered ONE; -LIDOCAINE 1% SDV INJ 30 ML VIAL As Ordered ONE
--- NOTE | 2017-04-18 01:02 | ECWPNPC ---
PATIENT NAME: GABO REDDY : 1945 GENDER: MALE VISIT DATE: 03/28/2017 DISCHARGE DATE: 03/28/17 1227 VISIT LOCKED DATE TIME: PHYSICIAN: SKY PULIDO PHYSICIAN PAGER NO: [phone] RESOURCE: SKY PULIDO REASON FOR APPOINTMENT 1. POST PROC HISTORY OF PRESENT ILLNESS HISTORY OF PRESENT ILLNESS: HERE FOR POST PROCEDURE F/U.HAD LEFT DIAGNOSTIC L4/5-L5/S1 #1 ON 03-13-17.HOURLY PAIN DIARY REVIEWED.THIS IS SHOWING 48H OF 100% IMPROVEMENT IN PAIN POST PROCEURE. TODAY HE IS HAVING SEVERE LEFT LOW BACK PAIN THAT IS SEVERE AND DISABLING.RATING PAIN VAS 7/10. PAIN THE PATIENT DESCRIBES THE PAIN... THE PATIENT DESCRIBES THE PAIN... THE PATIENT DESCRIBES THE PAIN... FALL RISK SCREENING: SCREENING :NO FALLS IN THE PAST YEAR CURRENT MEDICATIONS TAKING COLACE 100 MG CAPSULE 2 CAPSULE ORALLY TWICE A DAY NEEDED TAKING [facility] SALINE NASAL SPRAY 0.65 % SOLUTION 2 DROPS IN EACH NOSTRIL NEEDED NASALLY BID TAKING NEBULIZER AIR TUBE/PLUGS - MISCELLANEOUS DIRECTED MASK, TUBING PRN TAKING TYLENOL ARTHRITIS PAIN 650 MG TABLET EXTENDED RELEASE 2 TABLETS ORALLY NEEDED TAKING WELLBUTRIN SR 150 MG TABLET EXTENDED RELEASE 12 HOUR 1 TABLET ORALLY TWICE A DAY TAKING ZOCOR 10 MG TABLET TAKE ONE TABLET BY MOUTH EVERY EVENING TAKING CALCIUM 500 MG TABLET 1 TABLET WITH MEALS ORALLY TWICE A DAY TAKING XARELTO 20 MG TABLET 1 TAB ORALLY QD TAKING ADVAIR DISKUS 500-50 MCG/DOSE MISCELLANEOUS 1 PUFF INHALATION EVERY 12 HOURS TAKING SPIRIVA HANDIHALER 18 MCG CAPSULE 1 CAPSULE BY MOUTH INHALATION ONCE A DAY TAKING COMBIVENT RESPIMAT 20-100 MCG/ACT AEROSOL 1 PUFF INHALATION FOUR TIMES A DAY NEEDED TAKING IPRATROPIUM-ALBUTEROL 0.5-2.5 (3) MG/3ML SOLUTION 3 ML INHALATION FOUR TIMES A DAY NEEDED TAKING PAXIL 10 MG TABLET 1 TABLET IN THE MORNING ORALLY ONCE A DAY TAKING FLOMAX 0.4 MG CAPSULE 2 CAPSULE 30 MINUTES AFTER THE SAME MEAL EACH DAY ORALLY AT BEDTIME TAKING VITAMIN D 2000 UNIT TABLET 1 TABLET ORALLY ONCE A DAY TAKING MULTIVITAMINS OTC TABLET 1 TABLET ORALLY ONCE A DAY TAKING VIAGRA 100 MG TABLET 1 TABLET NEEDED ORALLY ONCE A DAY TAKING FLONASE 50 MCG/DOSE INHALER 2 SPRAYS IN EACH NOSTRIL NASALLY EVERY MORNING TAKING OMEPRAZOLE 20 MG CAPSULE DELAYED RELEASE 2 CAPSULES ORALLY ONCE A DAY TAKING POLYSACCHARIDE IRON 150 MG CAPSULE 1 CAPSULE ORALLY ONCE DAILY TAKING CLARITIN 10 MG TABLET 1 TABLET ORALLY ONCE A DAY NEEDED TAKING ANDROGEL PUMP 20.25 MG/ACT (1.62%) GEL 1 PUMP TRANSDERMAL DAILY TAKING PRIMIDONE 50 MG TABLET TAKE ONE TABLET BY MOUTH EVERY MORNING UNKNOWN ZOCOR 10 MG TABLET 1 TABLET EVERY EVENING ORALLY ONCE A DAY UNKNOWN WELLBUTRIN SR 150 MG TABLET EXTENDED RELEASE 12 HOUR 1 TABLET ORALLY TWICE A DAY UNKNOWN CLOTRIMAZOLE 10 MG ALICE 1 ALICE MOUTH/THROAT QID MEDICATION LIST REVIEWED AND RECONCILED WITH THE PATIENT PAST MEDICAL HISTORY COPD-09/2010 FEV1-1.97L (47% NORMAL) HYPERTENSION/WHITE-COAT COMPONENT ERECTILE DYSFUNCTION NICOTINE ADDICTION GERD-SLIDING HH C SECONDARY/TERTIARY CONTRACTION BY 12/2014 [facility] SBFT EGD C SMALL HH, DUODENAL BIOPSY C/W HETEROTOPIC GASTRIC TISSUE-REINDL IMPAIRED FASTING GLUCOSE OBESITY 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 MRI MULTILEVEL DJD, L4/5 MODERATE CCS C GRADE 1 SPONDYLOLITHESIS C B L4 COMPRESSION IN NF/ L5/S1 HNP C C MILD B L5 COMPRESSION IN //2012 NCS B L4/5 RADICULOPATHY, L>R-ALI HYPERLIPIDEMIA 2B NONALCOHOLIC LIVER DISEASE MACROCYTOSIS, 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 SURGICAL HISTORY TOTAL RIGHT HIP BILATERAL CATARACTS TONSILECTEMY CYST REMOVED ON LEFT THUMB AND BACK SIDE SOCIAL HISTORY GENERAL: TOBACCO USE ARE YOU A:CURRENT SMOKER ARE YOU INTERESTED IN QUITTING?THINKING ABOUT QUITTING COUNSELED THE PATIENT ON SMOKING CESSATION, EDUCATION [id number]/01/2017 HOW MANY CIGARETTES A DAY DO YOU SMOKE?6-10 HOW SOON AFTER YOU WAKE UP DO YOU SMOKE YOUR FIRST CIGARETTE?31-60 MIN HOW OFTEN DO YOU SMOKE CIGARETTES?EVERY DAY PATIENT COUNSELED ON THE DANGERS OF TOBACCO USE AND URGED TO QUIT:03/28/2017 SMOKING CESSATION INFORMATION GIVEN01/02/2017 LUNG CANCER SCREENING SMOKING STATUS:CURRENT SMOKER IS THE PATIENT BETWEEN THE AGE OF 55 AND 77?YES HAS THE PATIENT EVER BEEN DIAGNOSED WITH LUNG CANCER?NO ALCOHOL SCREENING DID YOU HAVE A DRINK CONTAINING ALCOHOL IN THE PAST YEAR?NO POINTS0 INTERPRETATIONNEGATIVE SEXUAL HX HAD SEX IN THE LAST 12 MONTHS (VAGINAL, ORAL, OR ANAL)?YES WITHWOMEN ONLY USE PROTECTION?NO HAVE YOU EVER HAD AN STD?NO MARITAL STATUS: . PENTECOSTALISM [id number] [place] LANGUAGE LANGUAGES SPOKEN:[place] LEARNING BARRIERS / SPECIAL NEEDS CHANGE FROM LAST VISIT?NO BARRIERS TO LEARNING?NO HEARING IMPAIRED?YES VISION IMPAIRED?YES :CORRECTIVE LENSES COGNITIVELY IMPAIRED?NO READINESS TO LEARN?NO LEARNING PREFERENCES?NO LEARNING CAPABILITIES PRESENT?YES EMOTIONAL BARRIERS?NO SPECIAL DEVICES?NO GOLF PROFESSIONAL NEEDED?NO PAIN CLINIC PFS, CLERGY, PUBLIC HEALTH REFERRALS PFS REFERRAL NEEDED?NO CLERGY REFERRAL NEEDED?NO PUBLIC HEALTH REFERRAL NEEDED?NO HAS THE PATIENT BEEN EDUCATED REGARDING HIS/HER PLAN OF CARE?YES HAS THE PATIENT BEEN EDUCATED REGARDING PAIN, THE RISK FOR PAIN, THE IMPORTANCE OF EFFECTIVE PAIN MANAGEMENT, AND THE PAIN ASSESSMENT PROCESS?YES PATIENT: ____. HOSPITALIZATION/MAJOR DIAGNOSTIC PROCEDURE FLU [id number] DVT LEFT 2014 DVT 2015 ESOPHAGITIS 2008 REVIEW OF SYSTEMS REVIEWED BY: PROVIDER: SKY SIEGEL . CONSTITUTIONAL: ANY CHANGE IN YOUR MEDICAL CONDITION? NO . CHILLS NO . FEVER NO . INFECTION: DO YOU HAVE NEW INFECTIONS? NO . DO YOU HAVE HISTORY OF MRSA? NO . MUSCULOSKELETAL: ANY NEW PATTERNS OF PAIN OR NUMBNESS? NO . GASTROENTEROLOGY: ANY NEW CHANGE IN BOWEL CONTROL? NO . GENITOURINARY: ANY NEW CHANGE IN BLADDER CONTROL? NO . IS THERE A CHANCE YOU COULD BE ? NO . HEMATOLOGY/LYMPH: DO YOU TAKE ANY BLOOD THINNERS? (FOR EXAMPLE- COUMADIN, PLAVIX, AGGRENOX, PLATEL, PRADAXA, OR XARELTO) YES, XARELTO . WHEN WAS YOUR LAST DOSE? DATE: TIME: . NEUROLOGY: HAVE YOU FALLEN IN THE PAST 6 MONTHS? NO . ANY NEW EXTREMITY NUMBNESS OR WEAKNESS? NO . CARDIOLOGY: DO YOU HAVE A PACEMAKER OR DEFIBRILLATOR? NO . RESPIRATORY: HAVE YOU BEEN SICK IN THE PAST WEEK? NO . FEVER NO . FLU LIKE SYMPTOMS? NO . COUGH NO . INTEGUMENTARY: DO YOU HAVE ANY RASHES OR OPEN SORES? NO . ALLERGIC/IMMUNO: ARE YOU ALLERGIC TO SHELLFISH OR IV DYE? NO . ANY NEW ALLERGIES? NO . PSYCHIATRIC: DO YOU HAVE THOUGHTS OF HURTING YOURSELF OR SOMEONE ELSE? NO . ARE YOU ABUSED, NEGLECTED, OR IN AN UNSAFE ENVIRONMENT? NO . ENDOCRINOLOGY: ARE YOU DIABETIC? NO . OTHER: DO YOU NEED ANY PRESCRIPTIONS? NO . IF YES, PLEASE LIST: ____ . ANY NEW PROBLEMS WITH YOUR MEDICATIONS? NO . WHEN DID YOU LAST EAT? ____ . WHEN DID YOU LAST DRINK? ____ . WHAT DID YOU LAST DRINK? ____ . NAME OF PERSON DRIVING YOU HOME? ____ . DO YOU HAVE ANY OTHER QUESTIONS OR CONCERNS NO . VITAL SIGNS WT 182 LBS, HT 65 IN, BMI 30.28 INDEX, BP 120/77 MM HG, HR 75 /MIN, RR 16 /MIN, TEMP 98.8 F, OXYGEN SAT % 93, REVIEWED BY: EM. EXAMINATION GENERAL EXAMINATION: LUNGS:LUNG SOUNDS ARE CLEAR. HEART:HEART RATE REGULAR. MUSCULOSKELETAL:*, MUSCLE STRENGTH TESTING 5/5 BILATERAL LOWER EXTREMITIES., PALPATION: + FOR PAIN OVER L4/5-L5/S1 FACETS L>R... DIAGNOSTIC: . 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 SCHEDULE DAY 4. PROCEDURE CODES FA211 ESTABILISHED PATIENT [facility] FACILITY CHARGE G6030 PAIN ASSESS POS TOOL F/U PLAN DOC G8427 DOC MEDS VERIFIED W/PT OR RE DISPOSITION & COMMUNICATION FOLLOW UP LEFT L4/5-L5/S1 DIAGNOSTIC BLOCK #2/5D POST SQUEEZE IN ELECTRONICALLY SIGNED BY ROBBIN MONTERROSO ON 04/17/2017 AT 04:03 PM EST DISCLAIMER : THIS IS A VISIT SUMMARY EXTRACTED FROM THE [employer] CHART. IT IS NOT A COPY OF THE [employer] PROGRESS NOTE. MTDD
== END ==
LOC: M PAIN 11:15
PROVIDERS: ATTEND Nurse Practitioner Family
DX: M48.061 Spinal stenosis, lumbar region without neurogenic claudication (principal); M47.816 Spondylosis without myelopathy or radiculopathy, lumbar region; J44.9 Chronic obstructive pulmonary disease, unspecified; E78.2 Mixed hyperlipidemia; N18.3 Chronic kidney disease, stage 3 (moderate); N52.9 Male erectile dysfunction, unspecified; F17.210 Nicotine dependence, cigarettes, uncomplicated; Z79.899 Other long term (current) drug therapy; Z23 Encounter for immunization
CPT/HCPCS: 90471; 90736; G0463

== ENCOUNTER → 2017-05-01 | Outpatient (REF) | payer MEDICARE ==
[2017-05-01 12:21] LABS: BASO % 0.5 % (0.0-1.0); EOS # 0.3 10^3/uL (0.0-0.50); HEMATOCRIT 43.4 % (42.0-52.0); HEMOGLOBIN 14.6 g/dl (14.0-18.0); IMMATURE GRANULOCYTE # 0.1 10^3/uL (0-0); IMMATURE GRANULOCYTE % 0.6 % (0-0); LYMPH # 2.4 10^3/uL (1.5-4.5); LYMPH % 30.9 % (24.0-44.0); MEAN CORPUSCULAR HEMOGLOBIN 34.6 pg (27.0-33.0); MEAN CORPUSCULAR HGB CONC 33.6 g/dl (32.0-36.5); MEAN CORPUSCULAR VOLUME 102.8 fl (80.0-96.0); MONO # 0.5 10^3/uL (0.0-0.8); MONO % 6.1 % (0.0-5.0); NEUTROPHILS # 4.5 10^3/uL (1.8-7.7); NEUTROPHILS % 57.9 % (36.0-66.0); PLATELET COUNT, AUTOMATED 300 10^3/uL (150-450); RED BLOOD COUNT 4.22 10^6/uL (4.30-6.10); RED CELL DISTRIBUTION WIDTH 13.2 % (11.5-14.5); WHITE BLOOD COUNT 7.7 10^3/uL (4.0-10.0)
[2017-05-01 12:38] LABS: ALBUMIN 4.2 GM/DL (3.2-5.2); ALKALINE PHOSPHATASE 52 U/L (45-117); ALT/SGPT 28 U/L (12-78); ANION GAP 8 MEQ/L (8-16); AST/SGOT 20 U/L (7-37); BILIRUBIN,TOTAL 0.4 MG/DL (0.2-1.0); BLOOD UREA NITROGEN 12 MG/DL (7-18); CALCIUM LEVEL 9.1 MG/DL (8.8-10.2); CARBON DIOXIDE LEVEL 27 MEQ/L (21-32); CHLORIDE LEVEL 108 MEQ/L (98-107); CREATININE FOR GFR 1.37 MG/DL (0.70-1.30); FERRITIN 25 NG/ML (26-388); GLOMERULAR FILTRATION RATE 54.5 (>42); GLUCOSE, FASTING 90 MG/DL (83-110); IRON (FE) 124 UG/DL (65-175); PERCENT SATURATION 34.6 % (19.7-50.0); POTASSIUM SERUM 4.2 MEQ/L (3.5-5.1); PSA SCREENING 0.46 NG/ML (< 4.0); SODIUM LEVEL 143 MEQ/L (136-145); TOTAL IRON BINDING CAPACITY 358 UG/DL (250-450); TOTAL PROTEIN 7.2 GM/DL (6.4-8.2)
[2017-05-01 12:39] LABS: PTH INTACT 24.4 PG/ML (14.0-72.0); TOTAL 25(OH) VITAMIN D 45.4 NG/ML (30.0-100.0)
== END ==
LOC: M SFHCPLAZ 08:55
DX: N18.3 Chronic kidney disease, stage 3 (moderate) (principal); E29.1 Testicular hypofunction; J30.9 Allergic rhinitis, unspecified
CPT/HCPCS: 83550

== ENCOUNTER → 2017-05-06 | Outpatient (CLI) | payer MEDICARE ==
[~2017-05-06] MED LIST changes: -/CELE20CA PO; -ACET50TA PO; -ADV500INH INH; -ASPI81TA85 PO; +BUPIVACAINE HCL 0.25% 30 ML VIAL As Ordered; -BUPR150T11 PO; -BUPR15TASR PO; -BYST10TA PO; -CALCIUM PO; -CIAL5TAB PO; -COLA100C5 PO; -COMBIN INH; -COMBRESP INH; -CYCL5TAB PO; -FLEXERIL PO; -FLOM5CAP PO; -FLON1SPR; -GLUC15002 PO; -IBUP-1114 PO; -IRONCAP2 PO; +ISOVUE-M 300 61% 15ML VIAL (Q9967) As Ordered; -LEVO500T PO; +LIDOCAINE 1% SDV INJ 30 ML VIAL As Ordered; -LISI5TAB PO; -LYRI75CA PO; -MILKSUS PO; -MIRA3350 PO; -MOME50SP; -MORP30TA2 PO; -MS C200T PO; -MS C30TA6 PO; -MULTTAB50 PO; -OMEP20CA3 PO; -PAXI10TA12 PO; -PERC5TAB12 PO; -PERI8.6T PO; -PRIL40CA PO; -REGL5TAB2 PO; -SENO8.6T5 PO; -SIMV40TA2 PO; -TIOT18INH INH; -TYLE325T5 PO; -TYLE650T25 PO; -VITA200016 PO; -VITA500C24 PO; -XARE10TA PO; -ZOCO10TA PO; -ZYBA150T PO; -spiriva INH
== END ==
LOC: M PAIN 11:30
DX: G89.29 Other chronic pain (principal); M47.816 Spondylosis without myelopathy or radiculopathy, lumbar region; J44.9 Chronic obstructive pulmonary disease, unspecified; I12.9 Hypertensive chronic kidney disease with stage 1 through stage 4 chronic kidney disease, or unspecified chronic kidney disease; N18.3 Chronic kidney disease, stage 3 (moderate); E66.9 Obesity, unspecified; Z68.30 Body mass index [BMI] 30.0-30.9, adult; E78.5 Hyperlipidemia, unspecified; K21.9 Gastro-esophageal reflux disease without esophagitis; K75.81 Nonalcoholic steatohepatitis (NASH); M16.11 Unilateral primary osteoarthritis, right hip; I82.409 Acute embolism and thrombosis of unspecified deep veins of unspecified lower extremity; Z79.899 Other long term (current) drug therapy; Z87.891 Personal history of nicotine dependence
CPT/HCPCS: Q9967

== ENCOUNTER → 2017-05-20 | Outpatient (CLI) | payer MEDICARE | LOC: M PAIN 09:30 | DX: M48.061 Spinal stenosis, lumbar region without neurogenic claudication (principal); M47.816 Spondylosis without myelopathy or radiculopathy, lumbar region; K21.9 Gastro-esophageal reflux disease without esophagitis; J44.9 Chronic obstructive pulmonary disease, unspecified; N52.9 Male erectile dysfunction, unspecified; Z79.899 Other long term (current) drug therapy; Z79.01 Long term (current) use of anticoagulants; Z87.891 Personal history of nicotine dependence | CPT/HCPCS: G0463 ==

== ENCOUNTER → 2017-06-16 | Outpatient (CLI) | payer MEDICARE ==
[~2017-06-16] MED LIST changes: +TRIAMCINOLONE ACETONIDE SUSP 40 MG/ML VIAL (J3301) As Ordered
== END ==
LOC: M PAIN 13:00
DX: G89.29 Other chronic pain (principal); M47.816 Spondylosis without myelopathy or radiculopathy, lumbar region; M47.817 Spondylosis without myelopathy or radiculopathy, lumbosacral region; J44.9 Chronic obstructive pulmonary disease, unspecified; I12.9 Hypertensive chronic kidney disease with stage 1 through stage 4 chronic kidney disease, or unspecified chronic kidney disease; N18.3 Chronic kidney disease, stage 3 (moderate); F17.200 Nicotine dependence, unspecified, uncomplicated; R73.01 Impaired fasting glucose; M16.11 Unilateral primary osteoarthritis, right hip; M17.11 Unilateral primary osteoarthritis, right knee; E66.9 Obesity, unspecified; Z68.31 Body mass index [BMI] 31.0-31.9, adult; E78.5 Hyperlipidemia, unspecified; K76.9 Liver disease, unspecified; D75.89 Other specified diseases of blood and blood-forming organs; G25.0 Essential tremor; Z79.01 Long term (current) use of anticoagulants; Z79.899 Other long term (current) drug therapy
CPT/HCPCS: J3301

== ENCOUNTER → 2017-07-07 | Outpatient (CLI) | payer MEDICARE | LOC: M PAIN 10:00 | DX: M48.061 Spinal stenosis, lumbar region without neurogenic claudication (principal); M47.816 Spondylosis without myelopathy or radiculopathy, lumbar region; M53.3 Sacrococcygeal disorders, not elsewhere classified; J44.9 Chronic obstructive pulmonary disease, unspecified; I12.9 Hypertensive chronic kidney disease with stage 1 through stage 4 chronic kidney disease, or unspecified chronic kidney disease; N18.3 Chronic kidney disease, stage 3 (moderate); K21.9 Gastro-esophageal reflux disease without esophagitis; R73.01 Impaired fasting glucose; E66.9 Obesity, unspecified; Z68.31 Body mass index [BMI] 31.0-31.9, adult; E78.5 Hyperlipidemia, unspecified; K75.81 Nonalcoholic steatohepatitis (NASH); D75.89 Other specified diseases of blood and blood-forming organs; M16.11 Unilateral primary osteoarthritis, right hip; Z79.899 Other long term (current) drug therapy | CPT/HCPCS: G0463 ==

== ENCOUNTER → 2017-07-31 | Outpatient (CLI) | payer MEDICARE | LOC: M PAIN 09:00 | DX: G89.29 Other chronic pain (principal); M46.1 Sacroiliitis, not elsewhere classified; M53.88 Other specified dorsopathies, sacral and sacrococcygeal region; J44.9 Chronic obstructive pulmonary disease, unspecified; I12.9 Hypertensive chronic kidney disease with stage 1 through stage 4 chronic kidney disease, or unspecified chronic kidney disease; N18.3 Chronic kidney disease, stage 3 (moderate); K21.9 Gastro-esophageal reflux disease without esophagitis; K44.9 Diaphragmatic hernia without obstruction or gangrene; M17.11 Unilateral primary osteoarthritis, right knee; R73.01 Impaired fasting glucose; E78.5 Hyperlipidemia, unspecified; K76.0 Fatty (change of) liver, not elsewhere classified; D75.89 Other specified diseases of blood and blood-forming organs; G25.0 Essential tremor; E66.01 Morbid (severe) obesity due to excess calories; Z68.31 Body mass index [BMI] 31.0-31.9, adult; Z79.01 Long term (current) use of anticoagulants; Z79.899 Other long term (current) drug therapy; Z96.651 Presence of right artificial knee joint; Z96.653 Presence of artificial knee joint, bilateral; Z87.891 Personal history of nicotine dependence | CPT/HCPCS: J3301 ==

== ENCOUNTER → 2017-08-01 | Outpatient (REF) | payer MEDICARE ==
[2017-08-01 11:46] LABS: BASO % 0.2 % (0.0-1.0); HEMATOCRIT 44.5 % (42.0-52.0); IMMATURE GRANULOCYTE % 0.7 % (0-3.0); LYMPH % 8.9 % (24.0-44.0); MEAN CORPUSCULAR HEMOGLOBIN 34.1 pg (27.0-33.0); MEAN CORPUSCULAR HGB CONC 33.7 g/dl (32.0-36.5); MEAN CORPUSCULAR VOLUME 101.1 fl (80.0-96.0); MONO # 0.4 10^3/uL (0.0-0.8); MONO % 3.4 % (0.0-5.0); NEUTROPHILS # 9.6 10^3/uL (1.8-7.7); NEUTROPHILS % 86.8 % (36.0-66.0); PLATELET COUNT, AUTOMATED 295 10^3/uL (150-450); RED CELL DISTRIBUTION WIDTH 13.7 % (11.5-14.5); RETIC HEMOGLOBIN EQUIVALENT 38.2 pg (24-36); RETICULOCYTE # 66.9 10^9/L (17-77); RETICULOCYTE % 1.5 % (0.5-1.5); WHITE BLOOD COUNT 11.1 10^3/uL (4.0-10.0)
[2017-08-01 12:40] LABS: ALBUMIN 4.4 GM/DL (3.2-5.2); ALBUMIN/GLOBULIN RATIO 1.26 (1.00-1.93); ALKALINE PHOSPHATASE 49 U/L (45-117); ALT/SGPT 38 U/L (12-78); ANION GAP 10 MEQ/L (8-16); AST/SGOT 19 U/L (7-37); BILIRUBIN,TOTAL 0.3 MG/DL (0.2-1.0); BLOOD UREA NITROGEN 19 MG/DL (7-18); C REACTIVE PROTEIN QUANTITATIV 0.56 MG/DL (0.00-0.30); CARBON DIOXIDE LEVEL 25 MEQ/L (21-32); CHLORIDE LEVEL 107 MEQ/L (98-107); CHOLESTEROL LEVEL 194 MG/DL (<200); CHOLESTEROL RISK RATIO 3.344 (<5); CPK CREATINE PHOSPHOKINASE 100 U/L (39-308); CREATININE FOR GFR 1.15 MG/DL (0.70-1.30); GLOMERULAR FILTRATION RATE > 60.0 (>42); GLUCOSE, FASTING 115 MG/DL (70-100); HDL CHOLESTEROL 58 MG/DL (>40); LDL CHOLESTEROL 116.2 MG/DL (<100); MAGNESIUM LEVEL 2.4 MG/DL (1.8-2.4); NON-HDL-C 136 MG/DL; POTASSIUM SERUM 4.4 MEQ/L (3.5-5.1); SODIUM LEVEL 142 MEQ/L (136-145); TOTAL PROTEIN 7.9 GM/DL (6.4-8.2); TRIGLYCERIDES LEVEL 99 MG/DL (<150)
[2017-08-01 12:56] LABS: ESTIMATED AVERAGE GLUCOSE 128 MG/DL (60-110); HEMOGLOBIN A1c 6.1 %
[2017-08-02 10:14] LABS: TESTOSTERONE FREE (DIRECT) 1.1 pg/mL (6.6-18.1)
== END ==
LOC: M SFHCPLAZ 09:03
DX: D50.9 Iron deficiency anemia, unspecified (principal); E78.2 Mixed hyperlipidemia; I10 Essential (primary) hypertension; E29.1 Testicular hypofunction
CPT/HCPCS: 82550

== ENCOUNTER → 2017-08-22 | Outpatient (CLI) | payer MEDICARE | LOC: M PAIN 09:45 | DX: M48.061 Spinal stenosis, lumbar region without neurogenic claudication (principal); M47.816 Spondylosis without myelopathy or radiculopathy, lumbar region; M53.3 Sacrococcygeal disorders, not elsewhere classified; J44.9 Chronic obstructive pulmonary disease, unspecified; I12.9 Hypertensive chronic kidney disease with stage 1 through stage 4 chronic kidney disease, or unspecified chronic kidney disease; N18.3 Chronic kidney disease, stage 3 (moderate); K21.9 Gastro-esophageal reflux disease without esophagitis; R73.01 Impaired fasting glucose; E78.5 Hyperlipidemia, unspecified; K76.9 Liver disease, unspecified; M17.11 Unilateral primary osteoarthritis, right knee; D75.89 Other specified diseases of blood and blood-forming organs; G25.0 Essential tremor; E66.3 Overweight; Z79.01 Long term (current) use of anticoagulants; Z79.899 Other long term (current) drug therapy; Z68.30 Body mass index [BMI] 30.0-30.9, adult; Z87.891 Personal history of nicotine dependence; Z96.643 Presence of artificial hip joint, bilateral | CPT/HCPCS: G0463 ==

== ENCOUNTER → 2017-10-27 | Outpatient (CLI) | payer MEDICARE | LOC: M PAIN 09:30 | DX: M48.061 Spinal stenosis, lumbar region without neurogenic claudication (principal); M47.816 Spondylosis without myelopathy or radiculopathy, lumbar region; M53.3 Sacrococcygeal disorders, not elsewhere classified; G89.29 Other chronic pain; J44.9 Chronic obstructive pulmonary disease, unspecified; I12.9 Hypertensive chronic kidney disease with stage 1 through stage 4 chronic kidney disease, or unspecified chronic kidney disease; N18.3 Chronic kidney disease, stage 3 (moderate); K21.9 Gastro-esophageal reflux disease without esophagitis; R73.01 Impaired fasting glucose; E78.2 Mixed hyperlipidemia; K76.9 Liver disease, unspecified; G25.0 Essential tremor; Z79.01 Long term (current) use of anticoagulants; Z79.899 Other long term (current) drug therapy; Z96.641 Presence of right artificial hip joint; Z87.891 Personal history of nicotine dependence | CPT/HCPCS: G0463 ==

== ENCOUNTER → 2017-12-08 | Outpatient (CLI) | payer MEDICARE | LOC: M PAIN 10:30 | DX: M48.061 Spinal stenosis, lumbar region without neurogenic claudication (principal); M47.816 Spondylosis without myelopathy or radiculopathy, lumbar region; M53.3 Sacrococcygeal disorders, not elsewhere classified; J44.9 Chronic obstructive pulmonary disease, unspecified; I12.9 Hypertensive chronic kidney disease with stage 1 through stage 4 chronic kidney disease, or unspecified chronic kidney disease; N52.9 Male erectile dysfunction, unspecified; K21.9 Gastro-esophageal reflux disease without esophagitis; R73.01 Impaired fasting glucose; E66.9 Obesity, unspecified; Z68.32 Body mass index [BMI] 32.0-32.9, adult; M51.16 Intervertebral disc disorders with radiculopathy, lumbar region; E78.5 Hyperlipidemia, unspecified; N18.3 Chronic kidney disease, stage 3 (moderate); D75.89 Other specified diseases of blood and blood-forming organs; G25.0 Essential tremor; Z96.641 Presence of right artificial hip joint; Z98.41 Cataract extraction status, right eye; Z98.42 Cataract extraction status, left eye; Z87.891 Personal history of nicotine dependence; Z79.01 Long term (current) use of anticoagulants; Z79.899 Other long term (current) drug therapy | CPT/HCPCS: G0463 ==

== ENCOUNTER → 2017-12-09 | Outpatient (REF) | payer MEDICARE ==
[2017-12-09 12:25] LABS: BASO # 0.1 10^3/uL (0.0-0.2); BASO % 0.9 % (0.0-1.0); EOS # 0.2 10^3/uL (0.0-0.50); EOS % 3.7 % (0.0-3.0); HEMATOCRIT 47.1 % (42.0-52.0); HEMOGLOBIN 15.7 g/dl (13.5-17.5); IMMATURE GRANULOCYTE % 0.3 % (0-3.0); LYMPH # 1.9 10^3/uL (1.5-4.5); LYMPH % 29.7 % (24.0-44.0); MEAN CORPUSCULAR HEMOGLOBIN 34.8 pg (27.0-33.0); MEAN CORPUSCULAR HGB CONC 33.3 g/dl (32.0-36.5); MEAN CORPUSCULAR VOLUME 104.4 fl (80.0-96.0); MONO # 0.4 10^3/uL (0.0-0.8); MONO % 6.1 % (0.0-5.0); NEUTROPHILS # 3.8 10^3/uL (1.8-7.7); NEUTROPHILS % 59.3 % (36.0-66.0); PLATELET COUNT, AUTOMATED 271 10^3/uL (150-450); RED BLOOD COUNT 4.51 10^6/uL (4.30-6.10); WHITE BLOOD COUNT 6.4 10^3/uL (4.0-10.0)
[2017-12-09 13:06] LABS: ALBUMIN 4.3 GM/DL (3.2-5.2); ALBUMIN/GLOBULIN RATIO 1.26 (1.00-1.93); ALKALINE PHOSPHATASE 50 U/L (45-117); ALT/SGPT 41 U/L (12-78); ANION GAP 9 MEQ/L (8-16); AST/SGOT 25 U/L (7-37); BILIRUBIN,TOTAL 0.4 MG/DL (0.2-1.0); BLOOD UREA NITROGEN 14 MG/DL (7-18); CALCIUM LEVEL 9.3 MG/DL (8.8-10.2); CARBON DIOXIDE LEVEL 27 MEQ/L (21-32); CHLORIDE LEVEL 108 MEQ/L (98-107); CHOLESTEROL LEVEL 158 MG/DL (<200); CHOLESTEROL RISK RATIO 3.434 (<5); CREATININE FOR GFR 1.32 MG/DL (0.70-1.30); GLOMERULAR FILTRATION RATE 56.9 (>42); GLUCOSE, FASTING 110 MG/DL (70-100); HDL CHOLESTEROL 46 MG/DL (>40); IRON (FE) 104 UG/DL (65-175); LDL CHOLESTEROL 77.4 MG/DL (<100); MAGNESIUM LEVEL 2.3 MG/DL (1.8-2.4); NON-HDL-C 112 MG/DL; PERCENT SATURATION 27.2 % (19.7-50.0); POTASSIUM SERUM 4.4 MEQ/L (3.5-5.1); SODIUM LEVEL 144 MEQ/L (136-145); TOTAL IRON BINDING CAPACITY 382 UG/DL (250-450); TOTAL PROTEIN 7.7 GM/DL (6.4-8.2); TRIGLYCERIDES LEVEL 173 MG/DL (<150)
[2017-12-09 13:27] LABS: ESTIMATED AVERAGE GLUCOSE 128 MG/DL (60-110); HEMOGLOBIN A1c 6.1 %
[2017-12-09 16:38] LABS: PTH INTACT 47.3 PG/ML (18.5-88.0); TOTAL 25(OH) VITAMIN D 49.8 NG/ML (30.0-100.0)
[2017-12-10 10:17] LABS: TESTOSTERONE FREE (DIRECT) 6.4 pg/mL (6.6-18.1)
== END ==
LOC: M SFHCADAM 10:45
DX: I12.9 Hypertensive chronic kidney disease with stage 1 through stage 4 chronic kidney disease, or unspecified chronic kidney disease (principal); N18.3 Chronic kidney disease, stage 3 (moderate); D50.9 Iron deficiency anemia, unspecified; R73.01 Impaired fasting glucose; E78.2 Mixed hyperlipidemia; E55.9 Vitamin D deficiency, unspecified; E29.1 Testicular hypofunction
CPT/HCPCS: 83550

== ENCOUNTER → 2018-01-15 | Outpatient (CLI) | payer MEDICARE | LOC: M PAIN 10:30 | DX: M46.1 Sacroiliitis, not elsewhere classified (principal); J44.9 Chronic obstructive pulmonary disease, unspecified; I12.9 Hypertensive chronic kidney disease with stage 1 through stage 4 chronic kidney disease, or unspecified chronic kidney disease; N52.9 Male erectile dysfunction, unspecified; K21.9 Gastro-esophageal reflux disease without esophagitis; R73.01 Impaired fasting glucose; E66.9 Obesity, unspecified; M47.896 Other spondylosis, lumbar region; E78.5 Hyperlipidemia, unspecified; K76.9 Liver disease, unspecified; G25.0 Essential tremor; N18.3 Chronic kidney disease, stage 3 (moderate); M17.11 Unilateral primary osteoarthritis, right knee; Z86.718 Personal history of other venous thrombosis and embolism; Z96.641 Presence of right artificial hip joint; Z98.41 Cataract extraction status, right eye; Z98.42 Cataract extraction status, left eye; Z87.891 Personal history of nicotine dependence; Z79.01 Long term (current) use of anticoagulants; Z79.899 Other long term (current) drug therapy | CPT/HCPCS: J3301 ==

== ENCOUNTER → 2018-02-09 | Outpatient (CLI) | payer MEDICARE | LOC: M PAIN 09:30 | DX: M46.1 Sacroiliitis, not elsewhere classified (principal); J44.9 Chronic obstructive pulmonary disease, unspecified; I12.9 Hypertensive chronic kidney disease with stage 1 through stage 4 chronic kidney disease, or unspecified chronic kidney disease; N18.3 Chronic kidney disease, stage 3 (moderate); K21.9 Gastro-esophageal reflux disease without esophagitis; R73.01 Impaired fasting glucose; E78.5 Hyperlipidemia, unspecified; G25.0 Essential tremor; Z79.01 Long term (current) use of anticoagulants; Z79.899 Other long term (current) drug therapy; Z96.641 Presence of right artificial hip joint; Z87.19 Personal history of other diseases of the digestive system; Z87.891 Personal history of nicotine dependence | CPT/HCPCS: G0463 ==

== ENCOUNTER → 2018-04-10 | Outpatient (CLI) | payer MEDICARE ==
[~2018-04-10] MED LIST changes: +/CELE20CA PO; +ACET50TA PO; +ADV500INH INH; +ASPI81TA85 PO; -BUPIVACAINE HCL 0.25% 30 ML VIAL As Ordered; +BUPR150T11 PO; +BUPR15TASR PO; +BYST10TA PO; +CALCIUM PO; +CIAL5TAB PO; +COLA100C5 PO; +COMBIN INH; +COMBRESP INH; +CYCL5TAB PO; +FLEXERIL PO; +FLOM0.4C39 PO; +FLON1SPR; +GLUC15002 PO; +IBUP-1114 PO; +IRONCAP2 PO; -ISOVUE-M 300 61% 15ML VIAL (Q9967) As Ordered; +LEVO500T PO; -LIDOCAINE 1% SDV INJ 30 ML VIAL As Ordered; +LISI5TAB PO; +LYRI75CA PO; +MILK120011 PO; +MIRA3350 PO; +MOME50SP; +MORP30TA2 PO; +MS C200T PO; +MS C30TA6 PO; +MULTTAB50 PO; +OMEP20CA3 PO; +PAXI10TA12 PO; +PERC5TAB12 PO; +PERI8.6T PO; +PRIL40CA PO; +REGL5TAB2 PO; +SENO8.6T5 PO; +SIMV40TA2 PO; +TIOT18INH INH; -TRIAMCINOLONE ACETONIDE SUSP 40 MG/ML VIAL (J3301) As Ordered; +TYLE325T5 PO; +TYLE650T25 PO; +VITA200016 PO; +VITA500C24 PO; +XARE10TA PO; +ZOCO10TA PO; +ZYBA150T PO; +spiriva INH
--- NOTE | 2018-05-04 00:25 | ECWPNPC ---
PATIENT NAME: GABO REDDY : 1945 GENDER: MALE VISIT DATE: 04/10/2018 DISCHARGE DATE: 04/10/18 1039 VISIT LOCKED DATE TIME: PHYSICIAN: SKY PULIDO PHYSICIAN PAGER NO: [phone] RESOURCE: SKY PULIDO REASON FOR APPOINTMENT 1. 2 MONTHS HISTORY OF PRESENT ILLNESS DEPRESSION SCREENING: PHQ-2 IN LAST TWO WEEKS HAVE YOU BEEN BOTHERED BY LITTLE INTEREST OR PLEASURE IN DOING THINGSNO FEELING DOWN, DEPRESSED, OR HOPELESSNO HISTORY OF PRESENT ILLNESS: HERE FOR F/U OF CHRONIC LOW BACK PAIN.WAS DOING WELL UP UNTIL THE PAST 2 WEEKS.RATING PAIN VAS 7/10.HAS HAD BILAT. SIJ IN PAST AND THIS WAS VERY HELPFUL FOR >3 MONTHS. PAIN THE PATIENT DESCRIBES THE PAIN... FALL RISK SCREENING: SCREENING :NO FALLS IN THE PAST YEAR CURRENT MEDICATIONS TAKING XARELTO 20 MG TABLET 1 TAB ORALLY QD TAKING VITAMIN D 2000 UNIT TABLET 1 TABLET ORALLY ONCE A DAY TAKING VIAGRA 100 MG TABLET 1 TABLET NEEDED ORALLY ONCE A DAY TAKING PRIMIDONE 50 MG TABLET 1 TAB ORALLY EVERY MORNING TAKING CLARITIN 10 MG TABLET 1 TABLET ORALLY ONCE A DAY NEEDED TAKING WELLBUTRIN SR 150 MG TABLET EXTENDED RELEASE 12 HOUR 1 TABLET ORALLY TWICE A DAY TAKING ADVAIR DISKUS 500-50 MCG/DOSE MISCELLANEOUS 1 PUFF INHALATION EVERY 12 HOURS TAKING COMBIVENT RESPIMAT 20-100 MCG/ACT AEROSOL 1 PUFF INHALATION FOUR TIMES A DAY NEEDED TAKING IPRATROPIUM-ALBUTEROL 0.5-2.5 (3) MG/3ML SOLUTION 3 ML INHALATION FOUR TIMES A DAY NEEDED TAKING POLYSACCHARIDE IRON 150 MG CAPSULE 1 CAPSULE ORALLY EVERY OTHER DAY TAKING MULTIVITAMINS OTC TABLET 1 TABLET ORALLY ONCE A DAY TAKING CALCIUM 500 MG TABLET 1 TABLET WITH MEALS ORALLY TWICE A DAY TAKING [facility] SALINE NASAL SPRAY 0.65 % SOLUTION 2 DROPS IN EACH NOSTRIL NEEDED NASALLY BID TAKING COLACE 100 MG CAPSULE 2 CAPSULE ORALLY TWICE A DAY NEEDED TAKING SIMVASTATIN 10 MG TABLET 1 TABLET IN THE EVENING ORALLY ONCE A DAY TAKING TYLENOL ARTHRITIS PAIN 650 MG TABLET EXTENDED RELEASE 2 TABLETS ORALLY TWICE A DAY NEEDED TAKING FLONASE 50 MCG/DOSE INHALER 2 SPRAYS IN EACH NOSTRIL NASALLY EVERY MORNING TAKING SPIRIVA HANDIHALER 18 MCG CAPSULE INHALE THE CONTENTS OF ONE CAPSULE VIA HANDIHALER BY MOUTH EVERY DAY TAKING PAXIL 10 MG TABLET TAKE ONE TABLET BY MOUTH EVERY MORNING TAKING OMEPRAZOLE 20 MG CAPSULE DELAYED RELEASE 2 CAPSULES ORALLY ONCE A DAY TAKING GABAPENTIN 100 MG CAPSULE 1 CAPSULE ORALLY THREE TIMES DAILY TAKING ANDROGEL PUMP 20.25 MG/ACT (1.62%) GEL 1 PUMP TRANSDERMAL DAILY CODE F TAKING FLOMAX 0.4 MG CAPSULE 2 CAPSULE 30 MINUTES AFTER THE SAME MEAL EACH DAY ORALLY AT BEDTIME NOT-TAKING PRIMIDONE 50 MG TABLET TAKE ONE TABLET BY MOUTH EVERY MORNING , NOTES: DUPLICATE NOT-TAKING XARELTO 20 MG TABLET TAKE ONE TABLET BY MOUTH EVERY DAY , NOTES: DUPLICATE NOT-TAKING ADVAIR DISKUS 500-50 MCG/DOSE AEROSOL POWDER BREATH ACTIVATED INHALE ONE PUFF BY MOUTH EVERY 12 HOURS , NOTES: DUPLICATE MEDICATION LIST REVIEWED AND RECONCILED WITH THE PATIENT PAST MEDICAL HISTORY COPD-09/2010 FEV1-1.97L (47% NORMAL) HYPERTENSION/WHITE-COAT COMPONENT ERECTILE DYSFUNCTION NICOTINE ADDICTION GERD-SLIDING HH C SECONDARY/TERTIARY CONTRACTION BY 12/2014 [facility] SBFT/11/2015 EGD C SMALL HH, DUODENAL BIOPSY C/W HETEROTOPIC GASTRIC TISSUE-REINDL IMPAIRED FASTING GLUCOSE OBESITY 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 MRI LS L3-1 SEVERE DJD, L2-5 SEVERE DEGENERATIVE STENOSIS HYPERLIPIDEMIA 2B NONALCOHOLIC LIVER DISEASE MACROCYTOSIS, 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 SURGICAL HISTORY TOTAL RIGHT HIP BILATERAL CATARACTS TONSILECTEMY CYST REMOVED ON LEFT THUMB AND BACK SIDE FAMILY HISTORY YOUNGER SISTER-SQUAMOUS CELL-67YO. SOCIAL HISTORY GENERAL: TOBACCO USE ARE YOU A:FORMER SMOKER 03/2017 HOW LONG HAS IT BEEN SINCE YOU LAST SMOKED?6-12 MONTHS SMOKING CESSATION INFORMATION GIVEN01/02/2017 LUNG CANCER SCREENING SMOKING STATUS:FORMER SMOKER ALCOHOL SCREENING DID YOU HAVE A DRINK CONTAINING ALCOHOL IN THE PAST YEAR?NO POINTS0 INTERPRETATIONNEGATIVE RECREATIONAL DRUG USE DRUG USE?NO CAFFEINE CAFFEINE USE?YES HOW OFTEN AND HOW MUCH? 1 POT COFFEE/DAY SEXUAL HX HAD SEX IN THE LAST 12 MONTHS (VAGINAL, ORAL, OR ANAL)?YES WITHWOMEN ONLY USE PROTECTION?NO HAVE YOU EVER HAD AN STD?NO HIV / HEP-C SCREENING HIV TEST OFFERED TO PATIENT:YES DATE OFFERED:08/15/2017 TEST ACCEPTED:NO REASON:PATIENT DECLINED BROCHURE PROVIDED TO PATIENTYES HEP-C TEST OFFERED TO PATIENT:YES DATE OFFERED:08/15/2017 TEST ACCEPTED:NO REASON:PATIENT DECLINED CONFUCIANIST [id number] SABIANISM LANGUAGE LANGUAGES SPOKEN:IRISH EDUCATION LEVEL OF EDUCATION:HIGH SCHOOL LEARNING BARRIERS / SPECIAL NEEDS CHANGE FROM LAST VISIT?NO BARRIERS TO LEARNING?NO HEARING IMPAIRED?YES : NO HEARING AIDS VISION IMPAIRED?YES :CORRECTIVE LENSES COGNITIVELY IMPAIRED?NO READINESS TO LEARN?NO LEARNING PREFERENCES?NO LEARNING CAPABILITIES PRESENT?YES EMOTIONAL BARRIERS?NO SPECIAL DEVICES?NO STREET DEPARTMENT DISPATCHER NEEDED?NO DOMESTIC VIOLENCE HAS THE PATIETN EVER BEEN INJURED, HOMEBOUND, OR HOSPITALIZED DUE TO AN ALTERCATION WITH SIGNIFICANT OTHER?NO DO YOU FEEL SAFE IN YOUR ENVIRONMENT?YES MARITAL STATUS: . PAIN CLINIC PFS, CLERGY, PUBLIC HEALTH REFERRALS PFS REFERRAL NEEDED?NO CLERGY REFERRAL NEEDED?NO PUBLIC HEALTH REFERRAL NEEDED?NO HAS THE PATIENT BEEN EDUCATED REGARDING HIS/HER PLAN OF CARE?YES HAS THE PATIENT BEEN EDUCATED REGARDING PAIN, THE RISK FOR PAIN, THE IMPORTANCE OF EFFECTIVE PAIN MANAGEMENT, AND THE PAIN ASSESSMENT PROCESS?YES ADVANCE DIRECTIVE ADVANCE DIRECTIVE DISCUSSED WITH PATIENT:YES HCP - ALEXIA REDDY () HCP--, BRENDA REDDY [phone] WITH PT 01/15/18 1043 BVREVIEWED WITH PATIENT 02/09/18 0955 JSREVIEWED WITH PATIENT 04/10/18 1005 JS. HOSPITALIZATION/MAJOR DIAGNOSTIC PROCEDURE FLU [id number] DVT LEFT 2013 DVT 2014 ESOPHAGITIS 2008 REVIEW OF SYSTEMS REVIEWED BY: PROVIDER: SKY SIEGEL . CONSTITUTIONAL: ANY CHANGE IN YOUR MEDICAL CONDITION? NO . CHILLS NO . FEVER NO . INFECTION: DO YOU HAVE NEW INFECTIONS? NO . DO YOU HAVE HISTORY OF MRSA? NO . MUSCULOSKELETAL: ANY NEW PATTERNS OF PAIN OR NUMBNESS? NO . GASTROENTEROLOGY: ANY NEW CHANGE IN BOWEL CONTROL? NO . GENITOURINARY: ANY NEW CHANGE IN BLADDER CONTROL? NO . IS THERE A CHANCE YOU COULD BE ? NO . HEMATOLOGY/LYMPH: DO YOU TAKE ANY BLOOD THINNERS? (FOR EXAMPLE- COUMADIN, PLAVIX, AGGRENOX, PLATEL, PRADAXA, OR XARELTO) YES, XARELTO . WHEN WAS YOUR LAST DOSE? DATE: 04/09/18 TIME: 1100 . NEUROLOGY: HAVE YOU FALLEN IN THE PAST 6 MONTHS? NO . ANY NEW EXTREMITY NUMBNESS OR WEAKNESS? NO . CARDIOLOGY: DO YOU HAVE A PACEMAKER OR DEFIBRILLATOR? NO . RESPIRATORY: HAVE YOU BEEN SICK IN THE PAST WEEK? NO . FEVER NO . FLU LIKE SYMPTOMS? NO . COUGH NO . INTEGUMENTARY: DO YOU HAVE ANY RASHES OR OPEN SORES? NO . ALLERGIC/IMMUNO: ARE YOU ALLERGIC TO SHELLFISH OR IV DYE? NO . ANY NEW ALLERGIES? NO . PSYCHIATRIC: DO YOU HAVE THOUGHTS OF HURTING YOURSELF OR SOMEONE ELSE? NO . ARE YOU ABUSED, NEGLECTED, OR IN AN UNSAFE ENVIRONMENT? NO . ENDOCRINOLOGY: ARE YOU DIABETIC? NO . OTHER: DO YOU NEED ANY PRESCRIPTIONS? NO . IF YES, PLEASE LIST: ____ . ANY NEW PROBLEMS WITH YOUR MEDICATIONS? NO . WHEN DID YOU LAST EAT? ____ . WHEN DID YOU LAST DRINK? ____ . WHAT DID YOU LAST DRINK? ____ . NAME OF PERSON DRIVING YOU HOME? ____ . DO YOU HAVE ANY OTHER QUESTIONS OR CONCERNS NO . VITAL SIGNS WT 201.8 LBS, HT 65 IN, BMI 33.58 INDEX, BP 138/75 MM HG, HR 84 /MIN, RR 18 /MIN, TEMP 98.9 F, OXYGEN SAT % 95%, SAFE IN ENV? (Y/N) YES, NA INITIALS AW 0949, REVIEWED BY: GRACY. EXAMINATION GENERAL EXAMINATION: LUNGS:LUNG SOUNDS ARE CLEAR. HEART:HEART RATE REGULAR. MUSCULOSKELETAL:*, MUSCLE STRENGTH TESTING 5/5 BILATERAL LOWER EXTREMITIES., PALPATION: + FOR PAIN OVER L4/5-L5/S1 FACETS L>R..SPECIFIC POINT TENDERNESS OVER BILATERAL SIJ. DIAGNOSTIC: . ASSESSMENTS SACROILIITIS, NOT ELSEWHERE CLASSIFIED - M46.1 (PRIMARY) TREATMENT SACROILIITIS, NOT ELSEWHERE CLASSIFIED NOTES: BILAT. SIJ. PREVENTIVE MEDICINE PAIN CLINIC TEACHING: PROCEDURE TEACHING REVIEWED SIJ PROCEDURE INFORMATION WITH PATIENT. ALSO REVIEWED PRE-PROCEDURE INSTRUCTIONS. PATIENT VERBALIZED AN UNDERSTANDING. CHUY MONTEMAYOR 04/10/2018 10:38:34 AM > . PROCEDURE CODES FA211 ESTABILISHED PATIENT [facility] FACILITY CHARGE DISPOSITION & COMMUNICATION FOLLOW UP POST (REASON: BILAT. SIJ) ELECTRONICALLY SIGNED BY ROBBIN ELIZABETH ON 05/03/2018 AT 04:56 PM EST DISCLAIMER : THIS IS A VISIT SUMMARY EXTRACTED FROM THE [facility] CHART. IT IS NOT A COPY OF THE [facility] PROGRESS NOTE. ENDY
== END ==
LOC: M PAIN 09:45
PROVIDERS: ATTEND Nurse Practitioner Family
DX: M46.1 Sacroiliitis, not elsewhere classified (principal); G89.29 Other chronic pain; J44.9 Chronic obstructive pulmonary disease, unspecified; I12.9 Hypertensive chronic kidney disease with stage 1 through stage 4 chronic kidney disease, or unspecified chronic kidney disease; N18.3 Chronic kidney disease, stage 3 (moderate); K21.9 Gastro-esophageal reflux disease without esophagitis; E78.5 Hyperlipidemia, unspecified; G25.0 Essential tremor; M17.11 Unilateral primary osteoarthritis, right knee; Z79.01 Long term (current) use of anticoagulants; Z79.899 Other long term (current) drug therapy; Z96.641 Presence of right artificial hip joint; Z87.891 Personal history of nicotine dependence; Z86.79 Personal history of other diseases of the circulatory system

== ENCOUNTER → 2018-05-11 | Outpatient (CLI) | payer MEDICARE ==
[~2018-05-11] MED LIST changes: +BUPIVACAINE HCL 0.25% 30 ML VIAL As Ordered ONE; +ISOVUE-M 300 61% 15ML VIAL (Q9967) As Ordered ONE; +LIDOCAINE 1% SDV INJ 30 ML VIAL As Ordered ONE; +TRIAMCINOLONE ACETONIDE SUSP 40 MG/ML VIAL (J3301) As Ordered ONE
--- NOTE | 2018-05-11 16:00 | REP ---
SI joint series: Four views. History: Bilateral SI joint injection for pain. 9 seconds of fluoroscopy time is reported. Findings: A sequence of four last image hold fluoroscopically obtained spot radiographs of the SI joints document various needle positions and contrast injection associated with SI joint injection procedure. Electronically Signed by Garrick Valencia MD 05/11/2018 08:22 P
--- NOTE | 2018-05-26 01:41 | ECWPNPC ---
PATIENT NAME: GABO REDDY : 1945 GENDER: MALE VISIT DATE: 05/11/2018 DISCHARGE DATE: 05/11/18 1037 VISIT LOCKED DATE TIME: PHYSICIAN: MARSHA MURPHY MD PHYSICIAN PAGER NO: [phone] RESOURCE: MARSHA MURPHY MD REASON FOR APPOINTMENT 1. BILAT. SIJ HISTORY OF PRESENT ILLNESS HISTORY OF PRESENT ILLNESS: PAIN THE PATIENT DESCRIBES THE PAIN... FALL RISK SCREENING: SCREENING :NO FALLS IN THE PAST YEAR CURRENT MEDICATIONS TAKING XARELTO 20 MG TABLET 1 TAB ORALLY QD, NOTES: 05/07/18 0900 TAKING VITAMIN D 2000 UNIT TABLET 1 TABLET ORALLY ONCE A DAY, NOTES: 05/10/181699 TAKING VIAGRA 100 MG TABLET 1 TABLET NEEDED ORALLY ONCE A DAY, NOTES: NONE RECENT TAKING PRIMIDONE 50 MG TABLET 1 TAB ORALLY EVERY MORNING, NOTES: 05/11/18614 TAKING CLARITIN 10 MG TABLET 1 TABLET ORALLY ONCE A DAY NEEDED, NOTES: 05/10/181699 TAKING WELLBUTRIN SR 150 MG TABLET EXTENDED RELEASE 12 HOUR 1 TABLET ORALLY TWICE A DAY, NOTES: 05/10/18629 TAKING ADVAIR DISKUS 500-50 MCG/DOSE MISCELLANEOUS 1 PUFF INHALATION EVERY 12 HOURS, NOTES: 2199 TAKING COMBIVENT RESPIMAT 20-100 MCG/ACT AEROSOL 1 PUFF INHALATION FOUR TIMES A DAY NEEDED, NOTES: > 1 WEEK TAKING IPRATROPIUM-ALBUTEROL 0.5-2.5 (3) MG/3ML SOLUTION 3 ML INHALATION FOUR TIMES A DAY NEEDED, NOTES: NONE RECENT TAKING POLYSACCHARIDE IRON 150 MG CAPSULE 1 CAPSULE ORALLY EVERY OTHER DAY, NOTES: 05/09/18 08 TAKING MULTIVITAMINS OTC TABLET 1 TABLET ORALLY ONCE A DAY, NOTES: 05/11/18614 TAKING CALCIUM 500 MG TABLET 1 TABLET WITH MEALS ORALLY TWICE A DAY, NOTES: 05/11/18599 TAKING [facility] SALINE NASAL SPRAY 0.65 % SOLUTION 2 DROPS IN EACH NOSTRIL NEEDED NASALLY BID, NOTES: 05/09/18 08 TAKING COLACE 100 MG CAPSULE 2 CAPSULE ORALLY TWICE A DAY NEEDED, NOTES: NONE RECENT TAKING SIMVASTATIN 10 MG TABLET 1 TABLET IN THE EVENING ORALLY ONCE A DAY, NOTES: 1/13/19 1700 TAKING TYLENOL ARTHRITIS PAIN 650 MG TABLET EXTENDED RELEASE 2 TABLETS ORALLY TWICE A DAY NEEDED, NOTES: 05/10/18 220 TAKING FLONASE 50 MCG/DOSE INHALER 2 SPRAYS IN EACH NOSTRIL NASALLY EVERY MORNING, NOTES: 05/09/18 0800 TAKING SPIRIVA HANDIHALER 18 MCG CAPSULE INHALE THE CONTENTS OF ONE CAPSULE VIA HANDIHALER BY MOUTH EVERY DAY , NOTES: 05/10/18 0800 TAKING PAXIL 10 MG TABLET TAKE ONE TABLET BY MOUTH EVERY MORNING , NOTES: 05/11/18 0615 TAKING OMEPRAZOLE 20 MG CAPSULE DELAYED RELEASE 2 CAPSULES ORALLY ONCE A DAY, NOTES: 05/10/18 170 TAKING GABAPENTIN 100 MG CAPSULE 1 CAPSULE ORALLY THREE TIMES DAILY, NOTES: 05/10/182199 TAKING ANDROGEL PUMP 20.25 MG/ACT (1.62%) GEL 1 PUMP TRANSDERMAL DAILY CODE F, NOTES: 05/11/18 06 TAKING FLOMAX 0.4 MG CAPSULE 2 CAPSULE 30 MINUTES AFTER THE SAME MEAL EACH DAY ORALLY AT BEDTIME, NOTES: 05/10/18 0630 NOT-TAKING PRIMIDONE 50 MG TABLET TAKE ONE TABLET BY MOUTH EVERY MORNING , NOTES: DUPLICATE NOT-TAKING XARELTO 20 MG TABLET TAKE ONE TABLET BY MOUTH EVERY DAY , NOTES: DUPLICATE NOT-TAKING ADVAIR DISKUS 500-50 MCG/DOSE AEROSOL POWDER BREATH ACTIVATED INHALE ONE PUFF BY MOUTH EVERY 12 HOURS , NOTES: DUPLICATE MEDICATION LIST REVIEWED AND RECONCILED WITH THE PATIENT PAST MEDICAL HISTORY COPD-09/2010 FEV1-1.97L (47% NORMAL) HYPERTENSION/WHITE-COAT COMPONENT ERECTILE DYSFUNCTION NICOTINE ADDICTION GERD-SLIDING HH C SECONDARY/TERTIARY CONTRACTION BY 12/2014 [facility] SBFT EGD C SMALL HH, DUODENAL BIOPSY C/W HETEROTOPIC GASTRIC TISSUE-REINDL IMPAIRED FASTING GLUCOSE OBESITY 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 MRI LS L3-1 SEVERE DJD, L2-5 SEVERE DEGENERATIVE STENOSIS HYPERLIPIDEMIA 2B NONALCOHOLIC LIVER DISEASE MACROCYTOSIS, 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 SURGICAL HISTORY TOTAL RIGHT HIP BILATERAL CATARACTS TONSILECTEMY CYST REMOVED ON LEFT THUMB AND BACK SIDE FAMILY HISTORY YOUNGER SISTER-SQUAMOUS CELL-67YO. SOCIAL HISTORY GENERAL: TOBACCO USE ARE YOU A:FORMER SMOKER 03/2017 HOW LONG HAS IT BEEN SINCE YOU LAST SMOKED?1-5 YEARS SMOKING CESSATION INFORMATION GIVEN01/02/2017 LUNG CANCER SCREENING SMOKING STATUS:FORMER SMOKER ALCOHOL SCREENING DID YOU HAVE A DRINK CONTAINING ALCOHOL IN THE PAST YEAR?NO POINTS0 INTERPRETATIONNEGATIVE RECREATIONAL DRUG USE DRUG USE?NO CAFFEINE CAFFEINE USE?YES HOW OFTEN AND HOW MUCH? 1 POT COFFEE/DAY SEXUAL HX HAD SEX IN THE LAST 12 MONTHS (VAGINAL, ORAL, OR ANAL)?YES WITHWOMEN ONLY USE PROTECTION?NO HAVE YOU EVER HAD AN STD?NO HIV / HEP-C SCREENING HIV TEST OFFERED TO PATIENT:YES DATE OFFERED:08/15/2017 TEST ACCEPTED:NO REASON:PATIENT DECLINED BROCHURE PROVIDED TO PATIENTYES HEP-C TEST OFFERED TO PATIENT:YES DATE OFFERED:08/15/2017 TEST ACCEPTED:NO REASON:PATIENT DECLINED DENOMINATIONAL [id number] ALEVISM LANGUAGE LANGUAGES SPOKEN:DIVEHI EDUCATION LEVEL OF EDUCATION:HIGH SCHOOL LEARNING BARRIERS / SPECIAL NEEDS CHANGE FROM LAST VISIT?NO BARRIERS TO LEARNING?NO HEARING IMPAIRED?YES : NO HEARING AIDS VISION IMPAIRED?YES :CORRECTIVE LENSES COGNITIVELY IMPAIRED?NO READINESS TO LEARN?NO LEARNING PREFERENCES?NO LEARNING CAPABILITIES PRESENT?YES EMOTIONAL BARRIERS?NO SPECIAL DEVICES?NO COAL MILL OPERATOR NEEDED?NO DOMESTIC VIOLENCE HAS THE PATIETN EVER BEEN INJURED, HOMEBOUND, OR HOSPITALIZED DUE TO AN ALTERCATION WITH SIGNIFICANT OTHER?NO DO YOU FEEL SAFE IN YOUR ENVIRONMENT?YES MARITAL STATUS: . PAIN CLINIC PFS, CLERGY, PUBLIC HEALTH REFERRALS PFS REFERRAL NEEDED?NO CLERGY REFERRAL NEEDED?NO PUBLIC HEALTH REFERRAL NEEDED?NO HAS THE PATIENT BEEN EDUCATED REGARDING HIS/HER PLAN OF CARE?YES HAS THE PATIENT BEEN EDUCATED REGARDING PAIN, THE RISK FOR PAIN, THE IMPORTANCE OF EFFECTIVE PAIN MANAGEMENT, AND THE PAIN ASSESSMENT PROCESS?YES ADVANCE DIRECTIVE ADVANCE DIRECTIVE DISCUSSED WITH PATIENT:YES HCP - ALEXIA REDDY () HCP--, BRENDA REDDY [phone] WITH PT 01/15/18 1043 BVREVIEWED WITH PATIENT 02/09/18 0955 JSREVIEWED WITH PATIENT 04/10/18 1005 JSREVIEWED WITH PATIENT 05/11/18 0920 LAS. HOSPITALIZATION/MAJOR DIAGNOSTIC PROCEDURE FLU [id number] DVT LEFT 2013 DVT 2015 ESOPHAGITIS 2008 REVIEW OF SYSTEMS REVIEWED BY: PROVIDER: . CONSTITUTIONAL: ANY CHANGE IN YOUR MEDICAL CONDITION? NO . CHILLS NO . FEVER NO . INFECTION: DO YOU HAVE NEW INFECTIONS? NO . DO YOU HAVE HISTORY OF MRSA? NO . MUSCULOSKELETAL: ANY NEW PATTERNS OF PAIN OR NUMBNESS? NO . GASTROENTEROLOGY: ANY NEW CHANGE IN BOWEL CONTROL? NO . GENITOURINARY: ANY NEW CHANGE IN BLADDER CONTROL? NO . IS THERE A CHANCE YOU COULD BE ? NO . HEMATOLOGY/LYMPH: DO YOU TAKE ANY BLOOD THINNERS? (FOR EXAMPLE- COUMADIN, PLAVIX, AGGRENOX, PLATEL, PRADAXA, OR XARELTO) YES XARELTO . WHEN WAS YOUR LAST DOSE? DATE:05/07/18 TIME: 0900 . NEUROLOGY: HAVE YOU FALLEN IN THE PAST 6 MONTHS? NO . ANY NEW EXTREMITY NUMBNESS OR WEAKNESS? NO . CARDIOLOGY: DO YOU HAVE A PACEMAKER OR DEFIBRILLATOR? NO . RESPIRATORY: HAVE YOU BEEN SICK IN THE PAST WEEK? NO . FEVER NO . FLU LIKE SYMPTOMS? NO . COUGH NO . INTEGUMENTARY: DO YOU HAVE ANY RASHES OR OPEN SORES? NO . ALLERGIC/IMMUNO: ARE YOU ALLERGIC TO SHELLFISH OR IV DYE? NO . ANY NEW ALLERGIES? NO . PSYCHIATRIC: DO YOU HAVE THOUGHTS OF HURTING YOURSELF OR SOMEONE ELSE? NO . ARE YOU ABUSED, NEGLECTED, OR IN AN UNSAFE ENVIRONMENT? NO . ENDOCRINOLOGY: ARE YOU DIABETIC? NO . OTHER: DO YOU NEED ANY PRESCRIPTIONS? NO . IF YES, PLEASE LIST: ____ . ANY NEW PROBLEMS WITH YOUR MEDICATIONS? NO . WHEN DID YOU LAST EAT? ____05/10/18 1945 . WHEN DID YOU LAST DRINK? ____05/11/18 0600 . WHAT DID YOU LAST DRINK? ____WATER . NAME OF PERSON DRIVING YOU HOME? ____WIFE BRENDA . DO YOU HAVE ANY OTHER QUESTIONS OR CONCERNS NO . VITAL SIGNS WT 198 LBS, HT 65 IN, BMI 32.95 INDEX, BP 140/81 MM HG, HR 83 /MIN, RR 18 /MIN, TEMP 98.5 F, OXYGEN SAT % 94%, NA INITIALS SC 08:56, REVIEWED BY: ASSESSMENTS SACROILIITIS, NOT ELSEWHERE CLASSIFIED - M46.1 (PRIMARY) PROCEDURES PN SI PRE PROCEDURE DIAGNOSIS SACROILIITIS, SACROILIAC JOINT DYSFUNCTION POST PROCEDURE DIAGNOSIS SACROILIITIS, SACROILIAC JOINT DYSFUNCTION PROCEDURE BILATERAL SACROILIAC JOINT BLOCK SURGEON DR. MARSHA MURPHY SHELL PLATER NONE ANESTHESIA LOCAL PRE PROCEDURE NOTE PATIENT WITH HISTORY OF CHRONIC LOW BACK PAIN. I EVALUATED THE PATIENT AND REVIEWED THE CHART. I WENT OVER THE RISKS, ALTERNATIVES, AND BENEFITS ASSOCIATED WITH THIS PROCEDURE. THE PATIENT WOULD LIKE TO PROCEED AND GAVE CONSENT TO PERFORM THE PROCEDURE. THE PATIENT DENIES UNEXPLAINABLE WEIGHT LOSS, FEVER, CHILLS, OR NEW CHANGES IN URINARY OR BOWEL CONTROL DESCRIPTION OF PROCEDURE THE PATIENT WAS BROUGHT TO THE PROCEDURE ROOM AND PLACED IN THE PRONE POSITION. THE LUMBOSACRAL AREA WAS CLEANED WITH CHLORAPREP SOLUTION AND DRAPED ASEPTICALLY. THE PROCEDURE WAS DONE UNDER STERILE CONDITIONS. I CHECKED LATERALITY AND THE LEVEL WHERE THE PROCEDURE WAS GOING TO BE PERFORMED WITH THE PATIENT AND THE SUPPORTING STAFF AT THE MOMENT OF THE TIME OUT IN THE PROCEDURE ROOM. UNDER FLUOROSCOPIC GUIDANCE, TARGET POINT WAS SELECTED AT THE LOWER BORDER OF THE RIGHT AND LEFT SACROILIAC JOINT. TARGET POINT WAS SELECTED AFTER MEDIAL ROTATION AND TILT OF THE MAGNIFIER OF THE C-ARM. LIDOCAINE WAS USED TO NUMB THE SKIN AND SUBCUTANEOUS TISSUE BELOW IT. A SPINAL NEEDLE, 22-GAUGE, WAS ADVANCED UNDER FLUOROSCOPIC GUIDANCE AND FOLLOWING PATIENT FEEDBACK UNTIL THE TARGET AREA WAS TOUCHED. THE POSITION OF THE NEEDLE WAS VERIFIED WITH AP AND LATERAL VIEWS. AFTER PROPER POSITION OF THE NEEDLE WAS ACHIEVED, ISOVUE M DYE 30%, 0.25 ML, WAS INJECTED SHOWING SPREAD OF THE DYE. THEN, A SOLUTION OF 20 MG OF KENALOG WAS INJECTED IN RIGHT AND LEFT JOINT WITH 3 ML OF BUPIVACAINE 0.125%. THERE WAS NO EVIDENCE OF BLOOD, PARESTHESIA OR CEREBROSPINAL FLUID DURING THE PROCEDURE. THE PATIENT WAS SENT TO THE RECOVERY ROOM. THE PATIENT WAS MOVING THE EXTREMITIES AND DOING WELL. THERE WAS NO COMPLICATION DURING THE PROCEDURE. FLUOROSCOPY TIME WAS 29 SECONDS POST PROCEDURE NOTE THE PATIENT WILL BE SEEN IN A FOLLOW UP IN THE NEXT FEW WEEKS. INSTRUCTIONS WERE GIVEN, QUESTIONS WERE ANSWERED, AND THE PATIENT EXPRESSED UNDERSTANDING AND AGREED WITH THE PLAN. I, BERNA REDDY, DOCUMENTED THE ABOVE INFORMATION ACTING A SCRIBE FOR DR. MURPHY. I HAVE REVIEWED THE ABOVE DOCUMENT, WRITTEN BY BERNA SAENZIBEllie AND I VERIFY THAT IT IS ACCURATE. DIAGNOSTIC IMAGING [facility] FLUORO GUIDANCE (PAIN)[id number] PROCEDURE CODES 6045F RADXPS IN END [id number] PXD [id number] INJECT SACROILIAC JOINT, MODIFIERS: 50 DISPOSITION & COMMUNICATION FOLLOW UP 3 WEEKS ELECTRONICALLY SIGNED BY MARSHA MURPHY MD, MD ON 05/25/2018 AT 11:36 AM EST DISCLAIMER : THIS IS A VISIT SUMMARY EXTRACTED FROM THE [employer] CHART. IT IS NOT A COPY OF THE [employer] PROGRESS NOTE. ENDY
== END ==
LOC: M PAIN 08:45
PROVIDERS: ATTEND Anesthesiology
DX: M46.1 Sacroiliitis, not elsewhere classified (principal); J44.9 Chronic obstructive pulmonary disease, unspecified; I12.9 Hypertensive chronic kidney disease with stage 1 through stage 4 chronic kidney disease, or unspecified chronic kidney disease; N52.9 Male erectile dysfunction, unspecified; K21.9 Gastro-esophageal reflux disease without esophagitis; R73.01 Impaired fasting glucose; E66.9 Obesity, unspecified; M47.896 Other spondylosis, lumbar region; E78.5 Hyperlipidemia, unspecified; N18.3 Chronic kidney disease, stage 3 (moderate); Z86.718 Personal history of other venous thrombosis and embolism; K76.9 Liver disease, unspecified; Z87.891 Personal history of nicotine dependence; D75.89 Other specified diseases of blood and blood-forming organs; Z96.641 Presence of right artificial hip joint; Z98.41 Cataract extraction status, right eye; Z98.42 Cataract extraction status, left eye; Z79.01 Long term (current) use of anticoagulants; Z79.899 Other long term (current) drug therapy
CPT/HCPCS: G0260; J3301; Q9967

== ENCOUNTER → 2018-06-19 | Outpatient (CLI) | payer MEDICARE ==
[~2018-06-19] MED LIST changes: -BUPIVACAINE HCL 0.25% 30 ML VIAL As Ordered ONE; -ISOVUE-M 300 61% 15ML VIAL (Q9967) As Ordered ONE; -LIDOCAINE 1% SDV INJ 30 ML VIAL As Ordered ONE; -TRIAMCINOLONE ACETONIDE SUSP 40 MG/ML VIAL (J3301) As Ordered ONE
--- NOTE | 2018-07-04 23:35 | ECWPNPC ---
PATIENT NAME: GABO REDDY : 1945 GENDER: MALE VISIT DATE: 06/19/2018 DISCHARGE DATE: 06/19/18 1021 VISIT LOCKED DATE TIME: PHYSICIAN: SKY PULIDO PHYSICIAN PAGER NO: [phone] RESOURCE: SKY PULIDO REASON FOR APPOINTMENT 1. POST PROC HISTORY OF PRESENT ILLNESS HISTORY OF PRESENT ILLNESS: HERE FOR POST PROCEDURE F/U AND MANAGEMENT OF LOW BACK PAIN.HAD BILAT. SIJ ON 05-11-18.REPORTING 10 DAY OF MINIMAL IMPROVEMENT.RATING PAIN VAS 7/10. PAIN THE PATIENT DESCRIBES THE PAIN... THE PATIENT DESCRIBES THE PAIN... FALL RISK SCREENING: SCREENING : NO FALLS IN THE PAST YEAR. CURRENT MEDICATIONS TAKING VITAMIN D 2000 UNIT TABLET 1 TABLET ORALLY ONCE A DAY TAKING VIAGRA 100 MG TABLET 1 TABLET NEEDED ORALLY ONCE A DAY TAKING PRIMIDONE 50 MG TABLET 1 TAB ORALLY EVERY MORNING TAKING CLARITIN 10 MG TABLET 1 TABLET ORALLY ONCE A DAY NEEDED TAKING WELLBUTRIN SR 150 MG TABLET EXTENDED RELEASE 12 HOUR 1 TABLET ORALLY TWICE A DAY TAKING ADVAIR DISKUS 500-50 MCG/DOSE MISCELLANEOUS 1 PUFF INHALATION EVERY 12 HOURS TAKING COMBIVENT RESPIMAT 20-100 MCG/ACT AEROSOL 1 PUFF INHALATION FOUR TIMES A DAY NEEDED TAKING IPRATROPIUM-ALBUTEROL 0.5-2.5 (3) MG/3ML SOLUTION 3 ML INHALATION FOUR TIMES A DAY NEEDED TAKING POLYSACCHARIDE IRON 150 MG CAPSULE 1 CAPSULE ORALLY EVERY OTHER DAY TAKING MULTIVITAMINS OTC TABLET 1 TABLET ORALLY ONCE A DAY TAKING CALCIUM 500 MG TABLET 1 TABLET WITH MEALS ORALLY TWICE A DAY TAKING [facility] SALINE NASAL SPRAY 0.65 % SOLUTION 2 DROPS IN EACH NOSTRIL NEEDED NASALLY BID TAKING COLACE 100 MG CAPSULE 2 CAPSULE ORALLY TWICE A DAY NEEDED TAKING TYLENOL ARTHRITIS PAIN 650 MG TABLET EXTENDED RELEASE 2 TABLETS ORALLY TWICE A DAY NEEDED TAKING FLONASE 50 MCG/DOSE INHALER 2 SPRAYS IN EACH NOSTRIL NASALLY EVERY MORNING TAKING SPIRIVA HANDIHALER 18 MCG CAPSULE INHALE THE CONTENTS OF ONE CAPSULE VIA HANDIHALER BY MOUTH EVERY DAY TAKING PAXIL 10 MG TABLET TAKE ONE TABLET BY MOUTH EVERY MORNING TAKING OMEPRAZOLE 20 MG CAPSULE DELAYED RELEASE 2 CAPSULES ORALLY ONCE A DAY TAKING FLOMAX 0.4 MG CAPSULE 2 CAPSULE 30 MINUTES AFTER THE SAME MEAL EACH DAY ORALLY AT BEDTIME TAKING ANDROGEL PUMP 20.25 MG/ACT (1.62%) GEL 1 PUMP TRANSDERMAL DAILY CODE F TAKING XARELTO 20 MG TABLET TAKE ONE TABLET BY MOUTH EVERY DAY TAKING SIMVASTATIN 10 MG TABLET 1 TABLET IN THE EVENING ORALLY ONCE A DAY TAKING GABAPENTIN 100 MG CAPSULE 1 CAPSULE ORALLY THREE TIMES DAILY NOT-TAKING PRIMIDONE 50 MG TABLET TAKE ONE TABLET BY MOUTH EVERY MORNING , NOTES: DUPLICATE NOT-TAKING ADVAIR DISKUS 500-50 MCG/DOSE AEROSOL POWDER BREATH ACTIVATED INHALE ONE PUFF BY MOUTH EVERY 12 HOURS , NOTES: DUPLICATE MEDICATION LIST REVIEWED AND RECONCILED WITH THE PATIENT PAST MEDICAL HISTORY COPD-09/2010 FEV1-1.97L (47% NORMAL) HYPERTENSION/WHITE-COAT COMPONENT ERECTILE DYSFUNCTION NICOTINE ADDICTION GERD-SLIDING HH C SECONDARY/TERTIARY CONTRACTION BY 12/2014 UGI SBFT EGD C SMALL HH, DUODENAL BIOPSY C/W HETEROTOPIC GASTRIC TISSUE-REINDL IMPAIRED FASTING GLUCOSE OBESITY 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 MRI LS L3-1 SEVERE DJD, L2-5 SEVERE DEGENERATIVE STENOSIS HYPERLIPIDEMIA 2B NONALCOHOLIC LIVER DISEASE MACROCYTOSIS, 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 SURGICAL HISTORY TOTAL RIGHT HIP BILATERAL CATARACTS TONSILECTEMY CYST REMOVED ON LEFT THUMB AND BACK SIDE FAMILY HISTORY FATHER: MOTHER: 1 BROTHER(S) , 4 SISTER(S) . 1 SON(S) , 1 DAUGHTER(S) . YOUNGER SISTER-SQUAMOUS [id number]. HOSPITALIZATION/MAJOR DIAGNOSTIC PROCEDURE FLU [id number] DVT LEFT 2014 DVT 2015 ESOPHAGITIS 2008 REVIEW OF SYSTEMS REVIEWED BY: PROVIDER: SKY SIEGEL . CONSTITUTIONAL: ANY CHANGE IN YOUR MEDICAL CONDITION? NO . CHILLS NO . FEVER NO . INFECTION: DO YOU HAVE NEW INFECTIONS? NO . DO YOU HAVE HISTORY OF MRSA? NO . MUSCULOSKELETAL: ANY NEW PATTERNS OF PAIN OR NUMBNESS? NO . GASTROENTEROLOGY: ANY NEW CHANGE IN BOWEL CONTROL? NO . GENITOURINARY: ANY NEW CHANGE IN BLADDER CONTROL? NO . IS THERE A CHANCE YOU COULD BE ? NO . HEMATOLOGY/LYMPH: DO YOU TAKE ANY BLOOD THINNERS? (FOR EXAMPLE- COUMADIN, PLAVIX, AGGRENOX, PLATEL, PRADAXA, OR XARELTO) YES, XARELTO . WHEN WAS YOUR LAST DOSE? DATE: TIME: . NEUROLOGY: HAVE YOU FALLEN IN THE PAST 12 MONTHS? YES, FELL LAST WEEK ON THE ICE PT DENIES INJURIES . ANY NEW EXTREMITY NUMBNESS OR WEAKNESS? NO . CARDIOLOGY: DO YOU HAVE A PACEMAKER OR DEFIBRILLATOR? NO . RESPIRATORY: HAVE YOU BEEN SICK IN THE PAST WEEK? NO . FEVER NO . FLU LIKE SYMPTOMS? NO . COUGH NO . INTEGUMENTARY: DO YOU HAVE ANY RASHES OR OPEN SORES? NO . ALLERGIC/IMMUNO: ARE YOU ALLERGIC TO IV DYE? NO . ANY NEW ALLERGIES? NO . PSYCHIATRIC: DO YOU HAVE THOUGHTS OF HURTING YOURSELF OR SOMEONE ELSE? NO . ARE YOU ABUSED, NEGLECTED, OR IN AN UNSAFE ENVIRONMENT? NO . ENDOCRINOLOGY: ARE YOU DIABETIC? NO . OTHER: DO YOU NEED ANY PRESCRIPTIONS? NO . IF YES, PLEASE LIST: ____ . ANY NEW PROBLEMS WITH YOUR MEDICATIONS? NO . WHEN DID YOU LAST EAT? ____ . WHEN DID YOU LAST DRINK? ____ . WHAT DID YOU LAST DRINK? ____ . NAME OF PERSON DRIVING YOU HOME? ____ . DO YOU HAVE ANY OTHER QUESTIONS OR CONCERNS NO . VITAL SIGNS WT 199 LBS, HT 65 IN, BMI 33.11 INDEX, BP 140/79 MM HG, HR 76 /MIN, RR 18 /MIN, TEMP 97.9 F, OXYGEN SAT % 94%, NA INITIALS SC 09:32, REVIEWED BY: EM. EXAMINATION GENERAL EXAMINATION: GENERAL APPEARANCE:AWAKE,ALERT ,PLEAASANT . PSYCHAFFECT NORMAL . LUNGS:LUNG BENAVIDES ARE CLEAR TO AUSCULTATION BILATERALLY. GOOD MOVEMENT OF AIR . HEART:S1, S2 IN A REGULAR RATE AND RHYTHM. NO SIGNIFICANT MURMURS, RUBS OR GALLOPS NOTED . MUSCULOSKELETAL:SLIGHTLY WEAK BILAT. LOWER EXTREMITIES. LUMBAR SACRAL SPINEPALPATION: + FOR PAIN OVER L/S SPINE. + FOR PAIN OVER L/S PARASPINALS . NEUROLOGIC EXAM:NORMAL SENSATION LIGHT TOUCH BILAT. LOWER EXTREMITIES . DIAGNOSTIC TESTS REVIEWEDMRI L/S SPINE-10/11/17. ASSESSMENTS PROTRUSION OF LUMBAR INTERVERTEBRAL DISC - M51.26 (PRIMARY) TREATMENT PROTRUSION OF LUMBAR INTERVERTEBRAL DISC NOTES: L4/5 INTRALAMINAR LESI HOLD XARELTO 4 DAYS PRE PROCEDURE. PROCEDURE CODES FA211 ESTABILISHED PATIENT [facility] CHARGE DISPOSITION & COMMUNICATION FOLLOW UP POST (REASON: L4/5 INTRALAMINAR LESI) ELECTRONICALLY SIGNED BY PRATIBHA ELIZABETHP ON 07/03/2018 AT 03:50 PM EST DISCLAIMER : THIS IS A VISIT SUMMARY EXTRACTED FROM THE [employer] CHART. IT IS NOT A COPY OF THE [employer] PROGRESS NOTE. ENDY
== END ==
LOC: M PAIN 09:15
PROVIDERS: ATTEND Nurse Practitioner Family
DX: M51.26 Other intervertebral disc displacement, lumbar region (principal); J44.9 Chronic obstructive pulmonary disease, unspecified; I12.9 Hypertensive chronic kidney disease with stage 1 through stage 4 chronic kidney disease, or unspecified chronic kidney disease; N18.3 Chronic kidney disease, stage 3 (moderate); K21.9 Gastro-esophageal reflux disease without esophagitis; E78.5 Hyperlipidemia, unspecified; D75.89 Other specified diseases of blood and blood-forming organs; G25.0 Essential tremor; M17.11 Unilateral primary osteoarthritis, right knee; Z79.01 Long term (current) use of anticoagulants; Z79.899 Other long term (current) drug therapy; Z96.641 Presence of right artificial hip joint

== ENCOUNTER → 2018-07-03 | Outpatient (REF) | payer MEDICARE ==
[2018-07-03 12:37] LABS: APPEARANCE, URINE CLEAR (CLEAR); BACTERIA, URINE AUTO 1+ (NEGATIVE); BILIRUBIN, URINE AUTO NEGATIVE (NEGATIVE); BLOOD, URINE BLOOD NEGATIVE (NEGATIVE); COLOR, URINE YELLOW (YELLOW); GLUCOSE, URINE (UA) AUTO NEGATIVE (NEGATIVE); KETONE, URINE AUTO NEGATIVE (NEGATIVE); LEUKOCYTE ESTERASE, URINE AUTO 1+ (NEGATIVE); MUCUS, URINE SMALL (NEGATIVE); NITRITE, URINE AUTO NEGATIVE (NEGATIVE); PROTEIN, URINE AUTO NEGATIVE (NEGATIVE); RBC, URINE AUTO 2 /HPF (0-3); SPECIFIC GRAVITY URINE AUTO 1.018 (1.002-1.035); SQUAMOUS EPITHELIAL CELL UR AU 0 /HPF (0-6); UROBILINOGEN, URINE AUTO 0.2 mg/dL (0.0-2.0); WBC, URINE AUTO 5 /HPF (0-3)
[2018-07-03 12:57] LABS: MAU/CREAT RATIO 63.3 MCG/MG (0.0-30.0)
[2018-07-03 13:15] LABS: HEMOGLOBIN A1c 6.3 %
[2018-07-03 13:37] LABS: ALBUMIN 4.1 GM/DL (3.2-5.2); ALT/SGPT 39 U/L (12-78); BILIRUBIN,TOTAL 0.4 MG/DL (0.2-1.0); BLOOD UREA NITROGEN 17 MG/DL (7-18); C REACTIVE PROTEIN QUANTITATIV 0.99 MG/DL (0.00-0.30); CALCIUM LEVEL 8.8 MG/DL (8.8-10.2); CARBON DIOXIDE LEVEL 27 MEQ/L (21-32); CHLORIDE LEVEL 107 MEQ/L (98-107); CHOLESTEROL LEVEL 215 MG/DL (<200); CHOLESTEROL RISK RATIO 5.119 (<5); CPK CREATINE PHOSPHOKINASE 117 U/L (39-308); CREATININE FOR GFR 1.11 MG/DL (0.70-1.30); FREE T4 0.81 NG/DL (0.76-1.46); GLOMERULAR FILTRATION RATE > 60.0 (>42); GLUCOSE, FASTING 102 MG/DL (70-100); HDL CHOLESTEROL 42 MG/DL (>40); LDL CHOLESTEROL 113 MG/DL (<100); NON-HDL-C 173 MG/DL; POTASSIUM SERUM 4.1 MEQ/L (3.5-5.1); PROSTATIC SPECIFIC AG MONITOR 0.57 NG/ML (< 4.00); SODIUM LEVEL 142 MEQ/L (136-145); TOTAL PROTEIN 7.4 GM/DL (6.4-8.2); TRIGLYCERIDES LEVEL 299 MG/DL (<150)
== END ==
LOC: M SFHCADAM 10:38
PROVIDERS: ATTEND Family Medicine
DX: E78.2 Mixed hyperlipidemia (principal); R73.01 Impaired fasting glucose; N40.1 Benign prostatic hyperplasia with lower urinary tract symptoms

== ENCOUNTER 2018-07-24 10:11 | Outpatient (CLI) | payer MEDICARE ==
[~2018-07-24] VITALS: Ht 165.1 cm; Wt 87.7 kg
[~2018-07-24 10:11] MED LIST changes: -/CELE20CA PO; -ACET50TA PO; +BUPR150T18 PO; -BUPR15TASR PO; +CELE1CAP4 PO; +MAPA500T17 PO; +ZOLEDRONIC ACID 5 MG in APPROPRIATE DILUENT 1 EA IV ONE
[2018-07-24 10:30] VITALS: BP 133/87
[2018-07-24] MEDS ORDERED: CRES20TA2 PO (11:28)
[2018-07-24] MEDS ORDERED: CALC12504 PO (11:29)
[2018-07-24] MEDS ORDERED: NEUR100C PO (11:30)
[2018-07-24] MEDS ORDERED: PRIM50TA6 PO (11:31)
[2018-07-24 11:45] VITALS: BP 144/85
[2018-07-30] MEDS ORDERED: TYLE650T35 PO (11:58)
[2018-07-30] MEDS ORDERED: MULT1TAB10 PO (11:58)
[2018-07-30] MEDS ORDERED: OMEP20CA3 PO (11:58)
[2018-07-30] MEDS ORDERED: VITA100067 PO (11:58)
[2018-07-30] MEDS ORDERED: TIOT18INH INH (11:58)
[2018-07-30] MEDS ORDERED: ADV500INH INH (11:58)
[2018-07-30] MEDS ORDERED: SALI0.652 (11:58)
[2018-07-30] MEDS ORDERED: CLAR10CA3 PO (11:58)
[2018-07-30] MEDS ORDERED: ANDR1.62 TOP (11:58)
[2018-07-30] MEDS ORDERED: XARE20TA PO (11:58)
[2018-07-30] MEDS ORDERED: FERR150C PO (11:58)
[2018-07-30] MEDS ORDERED: COMBAER6 INH (12:12)
[2018-07-30] MEDS ORDERED: RECL5INJ2 IV (12:13)
== END 2018-07-24 11:45 | disposition home or self-care (01) ==
LOC: M INFU 10:11
PROVIDERS: ATTEND Family Medicine
DX: M81.0 Age-related osteoporosis without current pathological fracture (principal)
CPT/HCPCS: 96365; J3489

== ENCOUNTER → 2018-08-10 | Outpatient (CLI) | payer MEDICARE ==
[~2018-08-10] MED LIST changes: +ANDR1.62 TOP; +CALC12504 PO; +CLAR10CA3 PO; +COMBAER6 INH; +CRES20TA2 PO; +FERR150C PO; +MULT1TAB10 PO; +NEUR100C PO; +PRIM50TA6 PO; +RECL5INJ2 IV; +SALI0.652; +TYLE650T35 PO; +VITA100067 PO; +XARE20TA PO; -ZOLEDRONIC ACID 5 MG in APPROPRIATE DILUENT 1 EA IV ONE
--- NOTE | 2018-08-24 00:59 | ECWPNPC ---
PATIENT NAME: GABO REDDY : 1945 GENDER: MALE VISIT DATE: 08/10/2018 DISCHARGE DATE: 08/10/18 1105 VISIT LOCKED DATE TIME: PHYSICIAN: SYK PULDIO PHYSICIAN PAGER NO: [phone] RESOURCE: SKY PULIDO REASON FOR APPOINTMENT 1. POST LESI HISTORY OF PRESENT ILLNESS HISTORY OF PRESENT ILLNESS: HERE FOR POST PROCEDURE F/U AND MANAGEMENT OF LOW BACK PAIN.HAD LESI ON 07-07-18.REPORTING SIGNIFICANT REDUCTION IN PAIN THAT CONTINUES TODAY.ALSO SUFFERS FROM CHRONIC BILATERAL FOOT NUMBNESS. PAIN THE PATIENT DESCRIBES THE PAIN... THE PATIENT DESCRIBES THE PAIN... THE PATIENT DESCRIBES THE PAIN... FALL RISK SCREENING: SCREENING :NO FALLS REPORTED IN THE LAST YEAR CURRENT MEDICATIONS TAKING XARELTO 20 MG TABLET 1 TAB ORALLY QD TAKING FLOMAX 0.4 MG CAPSULE 2 CAPSULE 30 MINUTES AFTER THE SAME MEAL EACH DAY ORALLY AT BEDTIME TAKING VITAMIN D 2000 UNIT TABLET 1 TABLET ORALLY ONCE A DAY TAKING VIAGRA 100 MG TABLET 1 TABLET NEEDED ORALLY ONCE A DAY TAKING FLONASE 50 MCG/DOSE INHALER 2 SPRAYS IN EACH NOSTRIL NASALLY EVERY MORNING TAKING PRIMIDONE 50 MG TABLET 1 TAB ORALLY EVERY MORNING TAKING CLARITIN 10 MG TABLET 1 TABLET ORALLY ONCE A DAY NEEDED TAKING ADVAIR DISKUS 500-50 MCG/DOSE MISCELLANEOUS 1 PUFF INHALATION EVERY 12 HOURS TAKING COMBIVENT RESPIMAT 20-100 MCG/ACT AEROSOL 1 PUFF INHALATION FOUR TIMES A DAY NEEDED TAKING IPRATROPIUM-ALBUTEROL 0.5-2.5 (3) MG/3ML SOLUTION 3 ML INHALATION FOUR TIMES A DAY NEEDED TAKING CLOTRIMAZOLE 10 MG ALICE 1 ALICE MOUTH/THROAT QID TAKING MULTIVITAMINS OTC TABLET 1 TABLET ORALLY ONCE A DAY TAKING GABAPENTIN 100 MG CAPSULE 1 CAPSULE ORALLY THREE TIMES DAILY TAKING TYLENOL ARTHRITIS PAIN 650 MG TABLET EXTENDED RELEASE 2 TABLETS ORALLY TWICE A DAY NEEDED TAKING POLYSACCHARIDE IRON 150 MG CAPSULE 1 CAPSULE ORALLY EVERY OTHER DAY TAKING ROSUVASTATIN CALCIUM 20 MG TABLET 1 TABLET ORALLY ONCE A DAY TAKING RECLAST 5 MG/100ML SOLUTION DIRECTED INTRAVENOUS YEARLY TAKING CALCIUM 500 MG TABLET 1 TABLET WITH MEALS ORALLY TWICE A DAY TAKING [facility]S SALINE NASAL SPRAY 0.65 % SOLUTION 2 DROPS IN EACH NOSTRIL NEEDED NASALLY BID TAKING COLACE 100 MG CAPSULE 2 CAPSULE ORALLY TWICE A DAY NEEDED TAKING FLOMAX 0.4 MG CAPSULE 2 CAPSULE 30 MINUTES AFTER THE SAME MEAL EACH DAY ORALLY ONCE A DAY TAKING XARELTO 20 MG TABLET TAKE ONE TABLET BY MOUTH EVERY DAY TAKING PRIMIDONE 50 MG TABLET TAKE ONE TABLET BY MOUTH EVERY MORNING TAKING FLONASE 50 MCG/DOSE INHALER 2 SPRAYS IN EACH NOSTRIL NASALLY EVERY MORNING TAKING ANDROGEL PUMP 20.25 MG/ACT (1.62%) GEL 1 PUMP TRANSDERMAL DAILY TAKING PAXIL 10 MG TABLET TAKE ONE TABLET BY MOUTH EVERY MORNING TAKING SPIRIVA HANDIHALER 18 MCG CAPSULE INHALE THE CONTENTS OF ONE CAPSULE VIA HANDIHALER BY MOUTH EVERY DAY TAKING OMEPRAZOLE 20 MG CAPSULE DELAYED RELEASE 2 CAPSULES ORALLY ONCE A DAY MEDICATION LIST REVIEWED AND RECONCILED WITH THE PATIENT PAST MEDICAL HISTORY COPD-09/2010 FEV1-1.97L (47% NORMAL) HYPERTENSION/WHITE-COAT COMPONENT ERECTILE DYSFUNCTION NICOTINE ADDICTION GERD-SLIDING HH C SECONDARY/TERTIARY CONTRACTION BY 12/2014 UGI SBFT//11/2015 EGD C SMALL HH, DUODENAL BIOPSY C/W HETEROTOPIC GASTRIC TISSUE-REINDL IMPAIRED FASTING GLUCOSE OBESITY 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 MRI LS L3-1 SEVERE DJD, L2-5 SEVERE DEGENERATIVE STENOSIS HYPERLIPIDEMIA 2B NONALCOHOLIC LIVER DISEASE MACROCYTOSIS, 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 SURGICAL HISTORY TOTAL RIGHT HIP BILATERAL CATARACTS TONSILECTEMY CYST REMOVED ON LEFT THUMB AND BACK SIDE ARTHROSCOPY RIGHT KNEE 1979 FAMILY HISTORY FATHER: , CA ALL OVER, DIAGNOSED WITH CANCER MOTHER: , BREAST CA CERVICAL ESSENTIAL TREMORS, CANCER 1 BROTHER(S) , 4 SISTER(S) . 1 SON(S) , 1 DAUGHTER(S) - HEALTHY. DOESN\'T KNOW SON\'S HISTORY. SOCIAL HISTORY GENERAL: TOBACCO USE ARE YOU A:FORMER SMOKER 03/2017 HOW LONG HAS IT BEEN SINCE YOU LAST SMOKED?1-5 YEARS SMOKING CESSATION INFORMATION GIVEN01/02/2017 LATEX QUESTIONNAIRE LATEX ALLERGY : HAVE YOU EVER DEVELOPED ANY TYPE OF REACTION AFTER HANDLING LATEX PRODUCTS SUCH RUBBER GLOVES, CONDOMS, DIAPHRAGMS, BALLOONS, SOCKS, OR UNDERWEAR?NO LATEX ALLERGY : HAVE YOU EVER DEVELOPED ANY TYPE OF REACTION DURING OR AFTER DENTAL APPOINTMENT, VAGINAL/RECTAL EXAMINATION, SURGICAL PROCEDURE, OR ANY OTHER EXPOSURE?NO LATEX RISK : HAVE YOU EVER HAD ANY DIFFICULTY BREATHING OR HIVES AFTER EATING OR HANDLING ANY FRUITS, OR VEGETABLES; SUCH KIWI, BANANAS, STONE FRUITS, OR CHESTNUTSNO LATEX RISK : DO YOU HAVE A PREVIOUS PERSONAL HISTORY OF MORE THAN NINE SURGERIES, SPINA BIFIDA, OR REPEATED CATHERTIZATIONS? NO LATEX RISK : ARE YOU FREQUENTLY EXPOSED TO LATEX PRODUCTS IN YOUR OCCUPATION?NO DATE ASKED : 08/10/2018 LUNG CANCER SCREENING SMOKING STATUS:FORMER SMOKER ALCOHOL SCREENING DID YOU HAVE A DRINK CONTAINING ALCOHOL IN THE PAST YEAR?NO POINTS0 INTERPRETATIONNEGATIVE RECREATIONAL DRUG USE DRUG USE?NO CAFFEINE CAFFEINE USE?YES HOW OFTEN AND HOW MUCH? 1 POT COFFEE/DAY SEXUAL HX HAD SEX IN THE LAST 12 MONTHS (VAGINAL, ORAL, OR ANAL)?YES WITHWOMEN ONLY USE PROTECTION?NO HAVE YOU EVER HAD AN STD?NO HIV / HEP-C SCREENING HIV TEST OFFERED TO PATIENT:YES DATE OFFERED:08/15/2017 TEST ACCEPTED:NO REASON:PATIENT DECLINED BROCHURE PROVIDED TO PATIENTYES HEP-C TEST OFFERED TO PATIENT:YES DATE OFFERED:08/15/2017 TEST ACCEPTED:NO REASON:PATIENT DECLINED SABIANISM [id number] [employer] L[employer] LANGUAGES SPOKEN:CZECH EDUCATION LEVEL OF EDUCATION:HIGH SCHOOL LEARNING BARRIERS / SPECIAL NEEDS CHANGE FROM LAST VISIT?NO BARRIERS TO LEARNING?NO HEARING IMPAIRED?YES : NO HEARING AIDS VISION IMPAIRED?YES :CORRECTIVE LENSES COGNITIVELY IMPAIRED?NO READINESS TO LEARN?YES LEARNING PREFERENCES?NO LEARNING CAPABILITIES PRESENT?YES EMOTIONAL BARRIERS?NO SPECIAL DEVICES?NO INVESTOR RELATIONS MANAGER NEEDED?NO DOMESTIC VIOLENCE HAS THE PATIETN EVER BEEN INJURED, HOMEBOUND, OR HOSPITALIZED DUE TO AN ALTERCATION WITH SIGNIFICANT OTHER?NO DO YOU FEEL SAFE IN YOUR ENVIRONMENT?YES MARITAL STATUS: . PAIN CLINIC PFS, CLERGY, PUBLIC HEALTH REFERRALS PFS REFERRAL NEEDED?NO CLERGY REFERRAL NEEDED?NO PUBLIC HEALTH REFERRAL NEEDED?NO HAS THE PATIENT BEEN EDUCATED REGARDING HIS/HER PLAN OF CARE?YES HAS THE PATIENT BEEN EDUCATED REGARDING PAIN, THE RISK FOR PAIN, THE IMPORTANCE OF EFFECTIVE PAIN MANAGEMENT, AND THE PAIN ASSESSMENT PROCESS?YES ADVANCE DIRECTIVE ADVANCE DIRECTIVE DISCUSSED WITH PATIENT:YES HCP - ALEXIA REDDY () [phone] HCP--, BRENDA REDDY [phone] WITH PT 01/15/18 1043 BVREVIEWED WITH PATIENT 02/09/18 0955 JSREVIEWED WITH PATIENT 04/10/18 1005 JSREVIEWED WITH PATIENT 05/11/18 0920 LAS07/07/18 REVIEWED WITH PT. AD. HOSPITALIZATION/MAJOR DIAGNOSTIC PROCEDURE FLU [id number] DVT LEFT 2013 DVT 2015 ESOPHAGITIS 2009 SURGERY REVIEW OF SYSTEMS REVIEWED BY: PROVIDER: SKY SIEGEL . CONSTITUTIONAL: ANY CHANGE IN YOUR MEDICAL CONDITION? NO . CHILLS NO . FEVER NO . INFECTION: DO YOU HAVE NEW INFECTIONS? NO . DO YOU HAVE HISTORY OF MRSA? NO . MUSCULOSKELETAL: ANY NEW PATTERNS OF PAIN OR NUMBNESS? NO . GASTROENTEROLOGY: ANY NEW CHANGE IN BOWEL CONTROL? NO . GENITOURINARY: ANY NEW CHANGE IN BLADDER CONTROL? NO . IS THERE A CHANCE YOU COULD BE ? NO . HEMATOLOGY/LYMPH: DO YOU TAKE ANY BLOOD THINNERS? (FOR EXAMPLE- COUMADIN, PLAVIX, AGGRENOX, PLATEL, PRADAXA, OR XARELTO) YES, XARELTO . WHEN WAS YOUR LAST DOSE? DATE: TIME: . NEUROLOGY: HAVE YOU FALLEN IN THE PAST 12 MONTHS? YES, PT STATES THAT HE FELL AT HOME, CLEANING SATELITE DISH AND SLIPPED ON ICE, NO REPORT TO ED, NO INJURY . ANY NEW EXTREMITY NUMBNESS OR WEAKNESS? NO . CARDIOLOGY: DO YOU HAVE A PACEMAKER OR DEFIBRILLATOR? NO . RESPIRATORY: HAVE YOU BEEN SICK IN THE PAST WEEK? NO . FEVER NO . FLU LIKE SYMPTOMS? NO . COUGH NO . INTEGUMENTARY: DO YOU HAVE ANY RASHES OR OPEN SORES? NO . ALLERGIC/IMMUNO: ARE YOU ALLERGIC TO IV DYE? NO . ANY NEW ALLERGIES? NO . PSYCHIATRIC: DO YOU HAVE THOUGHTS OF HURTING YOURSELF OR SOMEONE ELSE? NO . ARE YOU ABUSED, NEGLECTED, OR IN AN UNSAFE ENVIRONMENT? NO . ENDOCRINOLOGY: ARE YOU DIABETIC? NO . OTHER: DO YOU NEED ANY PRESCRIPTIONS? NO . IF YES, PLEASE LIST: ____ . ANY NEW PROBLEMS WITH YOUR MEDICATIONS? NO . WHEN DID YOU LAST EAT? ____ . WHEN DID YOU LAST DRINK? ____ . WHAT DID YOU LAST DRINK? ____ . NAME OF PERSON DRIVING YOU HOME? ____ . DO YOU HAVE ANY OTHER QUESTIONS OR CONCERNS NO . VITAL SIGNS WT 198.4 LBS, HT 65 IN, BMI 33.01 INDEX, BP 123/75 MM HG, HR 74 /MIN, RR 18 /MIN, TEMP 98.5 F, OXYGEN SAT % 92%, SAFE IN ENV? (Y/N) Y, NA INITIALS AW 1014, REVIEWED BY: ASHLEY. EXAMINATION GENERAL EXAMINATION: GENERAL APPEARANCE:AWAKE,ALERT ,PLEAASANT . PSYCHAFFECT NORMAL . LUNGS:LUNG BENAVIDES ARE CLEAR TO AUSCULTATION BILATERALLY. GOOD MOVEMENT OF AIR . HEART:S1, S2 IN A REGULAR RATE AND RHYTHM. NO SIGNIFICANT MURMURS, RUBS OR GALLOPS NOTED . ASSESSMENTS SPONDYLOSIS OF LUMBAR REGION WITHOUT MYELOPATHY OR RADICULOPATHY - M47.816 (PRIMARY) TREATMENT SPONDYLOSIS OF LUMBAR REGION WITHOUT MYELOPATHY OR RADICULOPATHY INCREASE GABAPENTIN CAPSULE, 100 MG, 1 CAPSULE, ORALLY, 2 CAP IN AM,1 MIDDAY,2 IN PM, 30 DAY(S), 150, REFILLS 2 NOTES: CONTACT ORTEGA BERRY FOR BACK SUPPORT-PATIENT WANTS TO CALL. PROCEDURE CODES FA211 ESTABILISHED PATIENT [facility] CHARGE DISPOSITION & COMMUNICATION FOLLOW UP 2 MONTHS ELECTRONICALLY SIGNED BY ROBBIN ELIZABETH ON 08/23/2018 AT 07:22 PM EDT DISCLAIMER : THIS IS A VISIT SUMMARY EXTRACTED FROM THE [employer] CHART. IT IS NOT A COPY OF THE [employer] PROGRESS NOTE. ENDY
== END ==
LOC: M PAIN 09:45
PROVIDERS: ATTEND Nurse Practitioner Family
DX: M47.816 Spondylosis without myelopathy or radiculopathy, lumbar region (principal); J44.9 Chronic obstructive pulmonary disease, unspecified; K21.9 Gastro-esophageal reflux disease without esophagitis; R73.01 Impaired fasting glucose; E78.5 Hyperlipidemia, unspecified; N18.3 Chronic kidney disease, stage 3 (moderate); Z86.718 Personal history of other venous thrombosis and embolism; Z87.891 Personal history of nicotine dependence; Z79.01 Long term (current) use of anticoagulants; Z79.899 Other long term (current) drug therapy

== ENCOUNTER 2018-08-13 10:30 | Day surgery (SDC) | payer MEDICARE ==
[~2018-08-13] VITALS: Ht 166.4 cm; Wt 87.5 kg
[~2018-08-13 10:30] MED LIST changes: +NS 1,000 ML IV ONE
[2018-08-13] MEDS ORDERED: PROPOFOL 200 MG/20 ML VIAL As Ordered ONE ×2 (10:37→11:11)
--- NOTE | 2018-08-13 11:35 | ROOR ---
Patient Name: Rakesh Turner Procedure Date: 08/13/2018 10:35 AM Date of : 1945 Age: 72 Room: [facility] Gender: Male Note Status: Finalized Procedure: Colonoscopy Indications: Screening for colorectal malignant neoplasm Providers: Edmund COLBERT MD Referring MD: Ulises Segovia MD Requesting Provider: Medicines: Monitored Anesthesia Care Complications: No immediate complications. Procedure: Pre-Anesthesia Assessment: - The heart rate, respiratory rate, oxygen saturations, blood pressure, adequacy of pulmonary ventilation, and response to care were monitored throughout the procedure. The Colonoscope was introduced through the anus and advanced to the terminal ileum, with identification of the appendiceal orifice and IC valve. The colonoscopy was performed with difficulty due to location of flat polyp below ICV/near appendiceal orifice. The patient tolerated the procedure well. Findings: The perianal and digital rectal examinations were normal. A 15 mm polyp was found in the cecum ileocecal valve. The polyp was carpet-like. The polyp was removed with a saline injection-lift technique using a cold snare. The polyp was removed with a piecemeal technique using a cold snare. Resection and retrieval were complete. Four sessile polyps were found in the ascending colon and cecum. The polyps were 4 to 5 mm in size. These polyps were removed with a cold snare. Resection and retrieval were complete. To prevent bleeding after the polypectomy, three hemostatic clips were successfully placed. There was no bleeding at the end of the procedure. A 5 mm polyp was found in the sigmoid colon. The polyp was sessile. The polyp was removed with a cold snare. Resection and retrieval were complete. Multiple medium-mouthed diverticula were found in the sigmoid colon. Moderate Internal Hemorrhoids. Impression: - One 15 mm polyp in the cecum/just below lower lip of ileocecal valve, removed using injection-lift and a cold snare and removed piecemeal using a cold snare. Removal done piecemeal (difficult location of this polyp required use of eleview injection). Resected and retrieved. - Four 4 to 5 mm polyps in the ascending colon and in the cecum, removed with a cold snare. Resected and retrieved. Clips were placed. - One 5 mm polyp in the sigmoid colon, removed with a cold snare. Resected and retrieved. - Moderate diverticulosis in the sigmoid colon. - Moderate Internal Hemorrhoids. Recommendation: - Repeat colonoscopy 1-2 years for surveillance after piecemeal polypectomy. - Telephone endoscopist for pathology results in 2 weeks. - Resume Xarelto (rivaroxaban) at prior dose in 2 days. Edmund Colbert MD Edmund COLBERT MD 08/13/2018 11:34:32 AM Electronically signed by Edmund COLBERT MD Number of Addenda: 0 Note Initiated On: 08/13/2018 10:35 AM Estimated Blood Loss: Estimated blood loss: none.
[2018-08-13 11:50] VITALS: BP 154/69
== END 2018-08-13 11:45 | disposition home or self-care (01) ==
LOC: M OPP 10:30
PROVIDERS: ATTEND Internal Medicine Gastroenterology
DX: D12.0 Benign neoplasm of cecum (principal); D12.2 Benign neoplasm of ascending colon; D12.5 Benign neoplasm of sigmoid colon; K57.30 Diverticulosis of large intestine without perforation or abscess without bleeding; K64.8 Other hemorrhoids; Z12.11 Encounter for screening for malignant neoplasm of colon

== ENCOUNTER → 2018-10-02 | Outpatient (CLI) | payer MEDICARE ==
[~2018-10-02] MED LIST changes: -NS 1,000 ML IV ONE
--- NOTE | 2018-10-20 01:38 | ECWPNPC ---
PATIENT NAME: GABO REDDY : 1945 GENDER: MALE VISIT DATE: 10/02/2018 DISCHARGE DATE: 10/02/18 1035 VISIT LOCKED DATE TIME: PHYSICIAN: SKY PULIDO PHYSICIAN PAGER NO: [phone] RESOURCE: SKY PULIDO REASON FOR APPOINTMENT 1. 2 MONTHS HISTORY OF PRESENT ILLNESS HISTORY OF PRESENT ILLNESS: HERE FOR F/U OF CHRONIC LBP.HAS RESPONDED WELL TO INCREASE IN GABAPENTIN.REPORTING LESS INTENSE PAIN.REPORTING IMPROPVED ACTIVITY TOLERANCE.RATING PAIN VAS 7/10.THEY ARE LOOKING FOR ALTERNATIVES TO TREAT HIS CHRONIC PAIN.DISCUSSED DCS.THEY WILL EVAL. DVD AND RESEARCH AND IF INTERESTED THEY WILL CONTACT OFFICE FOR APT. WITH DR MURPHY. PAIN THE PATIENT DESCRIBES THE PAIN... FALL RISK SCREENING: SCREENING :NO FALLS REPORTED IN THE LAST YEAR CURRENT MEDICATIONS TAKING XARELTO 20 MG TABLET 1 TAB ORALLY QD TAKING FLOMAX 0.4 MG CAPSULE 2 CAPSULE 30 MINUTES AFTER THE SAME MEAL EACH DAY ORALLY AT BEDTIME TAKING VITAMIN D 2000 UNIT TABLET 1 TABLET ORALLY ONCE A DAY TAKING VIAGRA 100 MG TABLET 1 TABLET NEEDED ORALLY ONCE A DAY TAKING FLONASE 50 MCG/DOSE INHALER 2 SPRAYS IN EACH NOSTRIL NASALLY EVERY MORNING TAKING PRIMIDONE 50 MG TABLET 1 TAB ORALLY EVERY MORNING TAKING CLARITIN 10 MG TABLET 1 TABLET ORALLY ONCE A DAY NEEDED TAKING COMBIVENT RESPIMAT 20-100 MCG/ACT AEROSOL 1 PUFF INHALATION FOUR TIMES A DAY NEEDED TAKING IPRATROPIUM-ALBUTEROL 0.5-2.5 (3) MG/3ML SOLUTION 3 ML INHALATION FOUR TIMES A DAY NEEDED TAKING MULTIVITAMINS OTC TABLET 1 TABLET ORALLY ONCE A DAY TAKING TYLENOL ARTHRITIS PAIN 650 MG TABLET EXTENDED RELEASE 2 TABLETS ORALLY TWICE A DAY NEEDED TAKING POLYSACCHARIDE IRON 150 MG CAPSULE 1 CAPSULE ORALLY EVERY OTHER DAY TAKING ROSUVASTATIN CALCIUM 20 MG TABLET 1 TABLET ORALLY ONCE A DAY TAKING RECLAST 5 MG/100ML SOLUTION DIRECTED INTRAVENOUS YEARLY TAKING CALCIUM 500 MG TABLET 1 TABLET WITH MEALS ORALLY ONCE A DAY TAKING CVS SALINE NASAL SPRAY 0.65 % SOLUTION 2 DROPS IN EACH NOSTRIL NEEDED NASALLY BID TAKING COLACE 100 MG CAPSULE 2 CAPSULE ORALLY TWICE A DAY NEEDED TAKING ANDROGEL PUMP 20.25 MG/ACT (1.62%) GEL 1 PUMP TRANSDERMAL DAILY TAKING PAXIL 10 MG TABLET TAKE ONE TABLET BY MOUTH EVERY MORNING TAKING GABAPENTIN 100 MG CAPSULE 1 CAPSULE ORALLY 2 CAP IN AM,1 MIDDAY,2 IN PM TAKING OMEPRAZOLE 20 MG CAPSULE DELAYED RELEASE 2 CAPSULES ORALLY ONCE A DAY TAKING SPIRIVA HANDIHALER 18 MCG CAPSULE INHALE THE CONTENTS OF ONE CAPSULE VIA HANDIHALER BY MOUTH EVERY DAY INHALATION ONCE A DAY TAKING ADVAIR DISKUS 500-50 MCG/DOSE MISCELLANEOUS 1 PUFF INHALATION TWICE A DAY NOT-TAKING CLOTRIMAZOLE 10 MG ALICE 1 ALICE MOUTH/THROAT QID NOT-TAKING FLOMAX 0.4 MG CAPSULE 2 CAPSULE 30 MINUTES AFTER THE SAME MEAL EACH DAY ORALLY ONCE A DAY, NOTES: DUPLICATE ORDER NOT-TAKING XARELTO 20 MG TABLET TAKE ONE TABLET BY MOUTH EVERY DAY , NOTES: DUPLICATE ORDER NOT-TAKING PRIMIDONE 50 MG TABLET TAKE ONE TABLET BY MOUTH EVERY MORNING , NOTES: DUPLICATE ORDER NOT-TAKING FLONASE 50 MCG/DOSE INHALER 2 SPRAYS IN EACH NOSTRIL NASALLY EVERY MORNING, NOTES: DUPLICATE ORDER MEDICATION LIST REVIEWED AND RECONCILED WITH THE PATIENT PAST MEDICAL HISTORY COPD-09/2010 FEV1-1.97L (47% NORMAL) HYPERTENSION/WHITE-COAT COMPONENT ERECTILE DYSFUNCTION NICOTINE ADDICTION GERD-SLIDING HH C SECONDARY/TERTIARY CONTRACTION BY 12/2014 [facility] SBFT/11/2015 EGD C SMALL HH, DUODENAL BIOPSY C/W HETEROTOPIC GASTRIC TISSUE-REINDL IMPAIRED FASTING GLUCOSE OBESITY 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 MRI LS L3-1 SEVERE DJD, L2-5 SEVERE DEGENERATIVE STENOSIS HYPERLIPIDEMIA 2B NONALCOHOLIC LIVER DISEASE MACROCYTOSIS, 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 SURGICAL HISTORY TOTAL RIGHT HIP BILATERAL CATARACTS TONSILECTEMY CYST REMOVED ON LEFT THUMB AND BACK SIDE ARTHROSCOPY RIGHT KNEE 1979 FAMILY HISTORY FATHER: , [place] ALL OVER, DIAGNOSED WITH CANCER MOTHER: , BREAST CA CERVICAL ESSENTIAL TREMORS, CANCER 1 BROTHER(S) , 4 SISTER(S) . 1 SON(S) , 1 DAUGHTER(S) - HEALTHY. DOESN\'T KNOW SON\'S HISTORY. SOCIAL HISTORY GENERAL: TOBACCO USE ARE YOU A:FORMER SMOKER 03/2017 HOW LONG HAS IT BEEN SINCE YOU LAST SMOKED?1-5 YEARS SMOKING CESSATION INFORMATION GIVEN01/02/2017 HIV / HEP-C SCREENING HIV TEST OFFERED TO PATIENT:YES DATE OFFERED:08/15/2017 TEST ACCEPTED:NO HEP-C TEST OFFERED TO PATIENT:YES DATE OFFERED:08/15/2017 REASON:PATIENT DECLINED TEST ACCEPTED:NO REASON:PATIENT DECLINED BROCHURE PROVIDED TO PATIENTYES EDUCATION LEVEL OF EDUCATION:HIGH SCHOOL LANGUAGE LANGUAGES SPOKEN:SYRIAC DOMESTIC VIOLENCE HAS THE PATIETN EVER BEEN INJURED, HOMEBOUND, OR HOSPITALIZED DUE TO AN ALTERCATION WITH SIGNIFICANT OTHER?NO DO YOU FEEL SAFE IN YOUR ENVIRONMENT?YES RECREATIONAL DRUG USE DRUG USE?NO LEARNING BARRIERS / SPECIAL NEEDS CHANGE FROM LAST VISIT?NO BARRIERS TO LEARNING?NO HEARING IMPAIRED?YES VISION IMPAIRED?YES COGNITIVELY IMPAIRED?NO : NO HEARING AIDS :CORRECTIVE LENSES READINESS TO LEARN?YES LEARNING PREFERENCES?NO LEARNING CAPABILITIES PRESENT?YES EMOTIONAL BARRIERS?NO SPECIAL DEVICES?NO ALLERGY PHYSICIAN NEEDED?NO LUNG CANCER SCREENING SMOKING STATUS:FORMER SMOKER PAIN CLINIC PFS, CLERGY, PUBLIC HEALTH REFERRALS PFS REFERRAL NEEDED?NO CLERGY REFERRAL NEEDED?NO PUBLIC HEALTH REFERRAL NEEDED?NO HAS THE PATIENT BEEN EDUCATED REGARDING HIS/HER PLAN OF CARE?YES HAS THE PATIENT BEEN EDUCATED REGARDING PAIN, THE RISK FOR PAIN, THE IMPORTANCE OF EFFECTIVE PAIN MANAGEMENT, AND THE PAIN ASSESSMENT PROCESS?YES LATEX QUESTIONNAIRE LATEX ALLERGY : HAVE YOU EVER DEVELOPED ANY TYPE OF REACTION AFTER HANDLING LATEX PRODUCTS SUCH RUBBER GLOVES, CONDOMS, DIAPHRAGMS, BALLOONS, SOCKS, OR UNDERWEAR?NO LATEX ALLERGY : HAVE YOU EVER DEVELOPED ANY TYPE OF REACTION DURING OR AFTER DENTAL APPOINTMENT, VAGINAL/RECTAL EXAMINATION, SURGICAL PROCEDURE, OR ANY OTHER EXPOSURE?NO DATE ASKED : 08/10/2018 LATEX RISK : HAVE YOU EVER HAD ANY DIFFICULTY BREATHING OR HIVES AFTER EATING OR HANDLING ANY FRUITS, OR VEGETABLES; SUCH KIWI, BANANAS, STONE FRUITS, OR CHESTNUTSNO LATEX RISK : DO YOU HAVE A PREVIOUS PERSONAL HISTORY OF MORE THAN NINE SURGERIES, SPINA BIFIDA, OR REPEATED CATHERTIZATIONS? NO LATEX RISK : ARE YOU FREQUENTLY EXPOSED TO LATEX PRODUCTS IN YOUR OCCUPATION?NO CAFFEINE CAFFEINE USE?YES HOW OFTEN AND HOW MUCH? 1 POT COFFEE/DAY ADVANCE DIRECTIVE ADVANCE DIRECTIVE DISCUSSED WITH PATIENT:YES HCP - ALEXIA REDDY () [phone] JEWISH [id number] ANABAPTIST MARITAL STATUS: . ALCOHOL SCREENING DID YOU HAVE A DRINK CONTAINING ALCOHOL IN THE PAST YEAR?NO POINTS0 INTERPRETATIONNEGATIVE SEXUAL HX HAD SEX IN THE LAST 12 MONTHS (VAGINAL, ORAL, OR ANAL)?YES WITHWOMEN ONLY USE PROTECTION?NO HAVE YOU EVER HAD AN STD?NO HCP--, BRENDA REDDY [phone] WITH PT 01/15/18 1043 BVREVIEWED WITH PATIENT 02/09/18 0955 JSREVIEWED WITH PATIENT 04/10/18 1005 JSREVIEWED WITH PATIENT 05/11/18 LAS07/07/18 REVIEWED WITH PT. AD10/01/18 0948 REVIEWED WITH PT LAS. HOSPITALIZATION/MAJOR DIAGNOSTIC PROCEDURE FLU [id number] DVT LEFT 2013 DVT 2015 ESOPHAGITIS 2009 SURGERY REVIEW OF SYSTEMS REVIEWED BY: PROVIDER: SKY SIEGEL . CONSTITUTIONAL: ANY CHANGE IN YOUR MEDICAL CONDITION? NO . CHILLS NO . FEVER NO . INFECTION: DO YOU HAVE NEW INFECTIONS? NO . DO YOU HAVE HISTORY OF MRSA? NO . MUSCULOSKELETAL: ANY NEW PATTERNS OF PAIN OR NUMBNESS? NO . GASTROENTEROLOGY: ANY NEW CHANGE IN BOWEL CONTROL? NO . GENITOURINARY: ANY NEW CHANGE IN BLADDER CONTROL? NO . IS THERE A CHANCE YOU COULD BE ? NO . HEMATOLOGY/LYMPH: DO YOU TAKE ANY BLOOD THINNERS? (FOR EXAMPLE- COUMADIN, PLAVIX, AGGRENOX, PLATEL, PRADAXA, OR XARELTO) NO . WHEN WAS YOUR LAST DOSE? DATE: TIME: . NEUROLOGY: HAVE YOU FALLEN IN THE PAST 12 MONTHS? YES, FELL ABOUT TWO WEEKS AGO, WEARING SLIPPERS AND CAUGHT HIS TOE AND FELL. PT DENIES INJURY, NO ED VISIT . ANY NEW EXTREMITY NUMBNESS OR WEAKNESS? NO . CARDIOLOGY: DO YOU HAVE A PACEMAKER OR DEFIBRILLATOR? NO . RESPIRATORY: HAVE YOU BEEN SICK IN THE PAST WEEK? NO . FEVER NO . FLU LIKE SYMPTOMS? NO . COUGH NO . INTEGUMENTARY: DO YOU HAVE ANY RASHES OR OPEN SORES? NO . ALLERGIC/IMMUNO: ARE YOU ALLERGIC TO IV DYE? NO . ANY NEW ALLERGIES? NO . PSYCHIATRIC: DO YOU HAVE THOUGHTS OF HURTING YOURSELF OR SOMEONE ELSE? NO . ARE YOU ABUSED, NEGLECTED, OR IN AN UNSAFE ENVIRONMENT? NO . ENDOCRINOLOGY: ARE YOU DIABETIC? NO . OTHER: DO YOU NEED ANY PRESCRIPTIONS? NO . IF YES, PLEASE LIST: ____ . ANY NEW PROBLEMS WITH YOUR MEDICATIONS? NO . WHEN DID YOU LAST EAT? ____ . WHEN DID YOU LAST DRINK? ____ . WHAT DID YOU LAST DRINK? ____ . NAME OF PERSON DRIVING YOU HOME? ____ . DO YOU HAVE ANY OTHER QUESTIONS OR CONCERNS NO . VITAL SIGNS WT 199.4 LBS, HT 65 IN, BMI 33.18 INDEX, BP 136/78 MM HG, HR 61 /MIN, RR 18 /MIN, TEMP 98.1 F, OXYGEN SAT % 99%, SAFE IN ENV? (Y/N) YES, NA INITIALS IL 09:53, REVIEWED BY: ANNIE. EXAMINATION GENERAL EXAMINATION: GENERAL APPEARANCE:AWAKE,ALERT ,PLEAASANT . PSYCHAFFECT NORMAL . LUNGS:LUNG BENAVIDES ARE CLEAR TO AUSCULTATION BILATERALLY. GOOD MOVEMENT OF AIR . HEART:S1, S2 IN A REGULAR RATE AND RHYTHM. NO SIGNIFICANT MURMURS, RUBS OR GALLOPS NOTED . ASSESSMENTS SPONDYLOSIS OF LUMBAR REGION WITHOUT MYELOPATHY OR RADICULOPATHY - M47.816 (PRIMARY) TREATMENT SPONDYLOSIS OF LUMBAR REGION WITHOUT MYELOPATHY OR RADICULOPATHY CONTINUE GABAPENTIN CAPSULE, 100 MG, 1 CAPSULE, ORALLY, 2 CAP IN AM,1 MIDDAY,2 IN PM NOTES: DCS DVD GIVEN. PREVENTIVE MEDICINE PAIN CLINIC TEACHING: PROCEDURE TEACHING PT GIVEN BROCHURE AND DVD FOR DORSAL COLUMN STIMULATOR. 10/02/18 PROCEDURE CODES FA211 ESTABILISHED PATIENT [facility] FACILITY CHARGE DISPOSITION & COMMUNICATION FOLLOW UP 2 MONTHS ELECTRONICALLY SIGNED BY ROBBIN ELIZABETH ON 10/19/2018 AT 04:48 PM EDT DISCLAIMER : THIS IS A VISIT SUMMARY EXTRACTED FROM THE [employer] CHART. IT IS NOT A COPY OF THE [employer] PROGRESS NOTE. MTDD
== END ==
LOC: M PAIN 09:30
PROVIDERS: ATTEND Nurse Practitioner Family
DX: M47.816 Spondylosis without myelopathy or radiculopathy, lumbar region (principal); M54.5 Low back pain; G89.29 Other chronic pain; J44.9 Chronic obstructive pulmonary disease, unspecified; Z79.899 Other long term (current) drug therapy; Z87.891 Personal history of nicotine dependence

== ENCOUNTER → 2018-11-17 | Outpatient (REF) | payer MEDICARE ==
[~2018-11-17] MED LIST changes: -CALC12504 PO; +CALC500T61 PO; +OMEP20CA4 PO
[2018-11-17 13:13] LABS: APPEARANCE, URINE CLEAR (CLEAR); BACTERIA, URINE AUTO NEGATIVE (NEGATIVE); BILIRUBIN, URINE AUTO NEGATIVE (NEGATIVE); BLOOD, URINE BLOOD 1+ (NEGATIVE); COLOR, URINE YELLOW (YELLOW); GLUCOSE, URINE (UA) AUTO NEGATIVE (NEGATIVE); KETONE, URINE AUTO NEGATIVE (NEGATIVE); LEUKOCYTE ESTERASE, URINE AUTO TRACE (NEGATIVE); MUCUS, URINE SMALL (NEGATIVE); NITRITE, URINE AUTO NEGATIVE (NEGATIVE); PROTEIN, URINE AUTO 1+ mg/dL (NEGATIVE); RBC, URINE AUTO 1 /HPF (0-3); SPECIFIC GRAVITY URINE AUTO 1.014 (1.002-1.035); SQUAMOUS EPITHELIAL CELL UR AU 0 /HPF (0-6); UROBILINOGEN, URINE AUTO 0.2 mg/dL (0.0-2.0); WBC, URINE AUTO 10 /HPF (0-3)
[2018-11-17 13:18] LABS: BASO # 0.1 10^3/uL (0.0-0.2); EOS # 0.2 10^3/uL (0.0-0.50); EOS % 3.3 % (0.0-3.0); HEMATOCRIT 45.4 % (42.0-52.0); HEMOGLOBIN 15.2 g/dl (13.5-17.5); LYMPH # 1.8 10^3/uL (1.5-4.5); LYMPH % 29.3 % (24.0-44.0); MEAN CORPUSCULAR HEMOGLOBIN 34.9 pg (27.0-33.0); MEAN CORPUSCULAR HGB CONC 33.5 g/dl (32.0-36.5); MEAN CORPUSCULAR VOLUME 104.4 fl (80.0-96.0); MONO # 0.4 10^3/uL (0.0-0.8); MONO % 6.2 % (0.0-5.0); NEUTROPHILS # 3.7 10^3/uL (1.8-7.7); NEUTROPHILS % 59.9 % (36.0-66.0); PLATELET COUNT, AUTOMATED 270 10^3/uL (150-450); RED BLOOD COUNT 4.35 10^6/uL (4.30-6.10); WHITE BLOOD COUNT 6.2 10^3/uL (4.0-10.0)
[2018-11-17 13:21] LABS: ALT/SGPT 52 U/L (12-78); BILIRUBIN,TOTAL 0.5 MG/DL (0.2-1.0); BLOOD UREA NITROGEN 13 MG/DL (7-18); CALCIUM LEVEL 9.2 MG/DL (8.8-10.2); CARBON DIOXIDE LEVEL 27 MEQ/L (21-32); CHLORIDE LEVEL 108 MEQ/L (98-107); CHOLESTEROL LEVEL 144 MG/DL (<200); CHOLESTEROL RISK RATIO 3.512 (<5); CPK CREATINE PHOSPHOKINASE 117 U/L (39-308); CREATININE FOR GFR 1.21 MG/DL (0.70-1.30); FREE T4 0.79 NG/DL (0.76-1.46); GLOMERULAR FILTRATION RATE > 60.0 (>42); GLUCOSE, FASTING 119 MG/DL (70-100); HDL CHOLESTEROL 41 MG/DL (>40); LDL CHOLESTEROL 57 MG/DL (<100); NON-HDL-C 103 MG/DL; POTASSIUM SERUM 3.9 MEQ/L (3.5-5.1); SODIUM LEVEL 142 MEQ/L (136-145); TOTAL PROTEIN 7.2 GM/DL (6.4-8.2); TRIGLYCERIDES LEVEL 232 MG/DL (<150)
[2018-11-17 13:22] LABS: PTH INTACT 52.3 PG/ML (18.5-88.0)
[2018-11-17 13:32] LABS: TOTAL 25(OH) VITAMIN D 37.5 NG/ML (30.0-100.0)
[2018-11-17 13:36] LABS: MAU/CREAT RATIO 216.8 MCG/MG (0.0-30.0)
[2018-11-17 13:42] LABS: HEMOGLOBIN A1c 6.8 %
[2018-11-18 14:07] LABS: TESTOSTERONE FREE (DIRECT) 2.8 pg/mL (6.6-18.1)
== END ==
LOC: M SFHCADAM 09:36
PROVIDERS: ATTEND Family Medicine
DX: E55.9 Vitamin D deficiency, unspecified (principal); E78.2 Mixed hyperlipidemia; R73.01 Impaired fasting glucose; E29.1 Testicular hypofunction; Z79.899 Other long term (current) drug therapy

== ENCOUNTER → 2018-12-01 | Outpatient (CLI) | payer MEDICARE ==
--- NOTE | 2018-12-02 01:08 | ECWPNPC ---
PATIENT NAME: GABO REDDY : 1945 GENDER: MALE VISIT DATE: 12/01/2018 DISCHARGE DATE: 12/01/18 1252 VISIT LOCKED DATE TIME: PHYSICIAN: SKY PULIDO PHYSICIAN PAGER NO: [phone] RESOURCE: SKY PULIDO REASON FOR APPOINTMENT 1. 2 MONTHS HISTORY OF PRESENT ILLNESS HISTORY OF PRESENT ILLNESS: HERE FOR F/U OF CHRONIC LBP.HAS RESPONDED WELL TO INCREASE IN GABAPENTIN.REPORTING LESS INTENSE PAIN.REPORTING IMPROPVED ACTIVITY TOLERANCE.RATING PAIN VAS 7/10.THEY ARE LOOKING FOR ALTERNATIVES TO TREAT HIS CHRONIC PAIN.DISCUSSED DCS.THEY WILL EVAL. DVD AND RESEARCH AND IF INTERESTED THEY WILL CONTACT OFFICE FOR APT. WITH DR MURPHY. PAIN THE PATIENT DESCRIBES THE PAIN... THE PATIENT DESCRIBES THE PAIN... FALL RISK SCREENING: SCREENING :NO FALLS REPORTED IN THE LAST YEAR CURRENT MEDICATIONS TAKING XARELTO 20 MG TABLET 1 TAB ORALLY QD TAKING FLOMAX 0.4 MG CAPSULE 2 CAPSULE 30 MINUTES AFTER THE SAME MEAL EACH DAY ORALLY AT BEDTIME TAKING VITAMIN D 2000 UNIT TABLET 1 TABLET ORALLY ONCE A DAY TAKING VIAGRA 100 MG TABLET 1 TABLET NEEDED ORALLY ONCE A DAY TAKING FLONASE 50 MCG/DOSE INHALER 2 SPRAYS IN EACH NOSTRIL NASALLY EVERY MORNING TAKING PRIMIDONE 50 MG TABLET 1 TAB ORALLY EVERY MORNING TAKING OMEPRAZOLE 20 MG CAPSULE DELAYED RELEASE 2 CAPSULES ORALLY ONCE A DAY TAKING CLARITIN 10 MG TABLET 1 TABLET ORALLY ONCE A DAY NEEDED TAKING ADVAIR DISKUS 500-50 MCG/DOSE MISCELLANEOUS 1 PUFF INHALATION EVERY 12 HOURS TAKING SPIRIVA HANDIHALER 18 MCG CAPSULE 1 CAPSULE BY MOUTH INHALATION ONCE A DAY TAKING COMBIVENT RESPIMAT 20-100 MCG/ACT AEROSOL 1 PUFF INHALATION FOUR TIMES A DAY NEEDED TAKING IPRATROPIUM-ALBUTEROL 0.5-2.5 (3) MG/3ML SOLUTION 3 ML INHALATION FOUR TIMES A DAY NEEDED TAKING MULTIVITAMINS OTC TABLET 1 TABLET ORALLY ONCE A DAY TAKING POLYSACCHARIDE IRON 150 MG CAPSULE 1 CAPSULE ORALLY EVERY OTHER DAY TAKING PAXIL 10 MG TABLET 1 TABLET IN THE MORNING ORALLY ONCE A DAY TAKING RECLAST 5 MG/100ML SOLUTION DIRECTED INTRAVENOUS YEARLY, NOTES: JUNE TAKING ROSUVASTATIN CALCIUM 20 MG TABLET 1 TABLET ORALLY ONCE A DAY TAKING CALCIUM 500 MG TABLET 1 TABLET WITH MEALS ORALLY ONCE A DAY TAKING CVS SALINE NASAL SPRAY 0.65 % SOLUTION 2 DROPS IN EACH NOSTRIL NEEDED NASALLY BID TAKING COLACE 100 MG CAPSULE 2 CAPSULE ORALLY TWICE A DAY NEEDED TAKING GABAPENTIN 300 MG CAPSULE 1 CAPSULE ORALLY THREE TIMES DAILY TAKING TYLENOL ARTHRITIS PAIN 650 MG TABLET EXTENDED RELEASE 2 TABLETS ORALLY TWICE A DAY NEEDED TAKING METFORMIN HCL ER 500 MG TABLET EXTENDED RELEASE 24 HOUR 1 TAB ORALLY AC DINNER NOT-TAKING CLOTRIMAZOLE 10 MG ALICE 1 ALICE MOUTH/THROAT QID DISCONTINUED PAXIL 10 MG TABLET TAKE ONE TABLET BY MOUTH EVERY MORNING , NOTES: DUPLICATE DISCONTINUED OMEPRAZOLE 20 MG CAPSULE DELAYED RELEASE 2 CAPSULES ORALLY ONCE A DAY, NOTES: DUPLICATE DISCONTINUED SPIRIVA HANDIHALER 18 MCG CAPSULE INHALE THE CONTENTS OF ONE CAPSULE VIA HANDIHALER BY MOUTH EVERY DAY INHALATION ONCE A DAY, NOTES: DUPLICATE MEDICATION LIST REVIEWED AND RECONCILED WITH THE PATIENT PAST MEDICAL HISTORY COPD, GOLD STAGE III HYPERTENSION/WHITE-COAT COMPONENT ERECTILE DYSFUNCTION NICOTINE ADDICTION GERD-SLIDING HH C SECONDARY/TERTIARY CONTRACTION BY 12/2014 UGI SBFT//11/2015 EGD C SMALL HH, DUODENAL BIOPSY C/W HETEROTOPIC GASTRIC TISSUE-REINDL IMPAIRED FASTING GLUCOSE OBESITY 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 MRI LS L3-1 SEVERE DJD, L2-5 SEVERE DEGENERATIVE STENOSIS HYPERLIPIDEMIA 2B NONALCOHOLIC LIVER DISEASE MACROCYTOSIS, 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 SURGICAL HISTORY TOTAL RIGHT HIP BILATERAL CATARACTS TONSILECTEMY CYST REMOVED ON LEFT THUMB AND BACK SIDE ARTHROSCOPY RIGHT KNEE 1979 FAMILY HISTORY FATHER: , [place] ALL OVER, DIAGNOSED WITH CANCER MOTHER: , BREAST CA CERVICAL ESSENTIAL TREMORS, CANCER 1 BROTHER(S) , 4 SISTER(S) . 1 SON(S) , 1 DAUGHTER(S) - HEALTHY. DOESN\'T KNOW SON\'S HISTORY. SOCIAL HISTORY GENERAL: TOBACCO USE ARE YOU A:FORMER SMOKER 03/2017 HOW LONG HAS IT BEEN SINCE YOU LAST SMOKED?1-5 YEARS SMOKING CESSATION INFORMATION GIVEN01/02/2017 HIV / HEP-C SCREENING HIV TEST OFFERED TO PATIENT:YES DATE OFFERED:08/15/2017 TEST ACCEPTED:NO HEP-C TEST OFFERED TO PATIENT:YES DATE OFFERED:08/15/2017 REASON:PATIENT DECLINED TEST ACCEPTED:NO REASON:PATIENT DECLINED BROCHURE PROVIDED TO PATIENTYES EDUCATION LEVEL OF EDUCATION:HIGH SCHOOL LANGUAGE LANGUAGES SPOKEN:POLISH DOMESTIC VIOLENCE HAS THE PATIETN EVER BEEN INJURED, HOMEBOUND, OR HOSPITALIZED DUE TO AN ALTERCATION WITH SIGNIFICANT OTHER?NO DO YOU FEEL SAFE IN YOUR ENVIRONMENT?YES RECREATIONAL DRUG USE DRUG USE?NO LEARNING BARRIERS / SPECIAL NEEDS CHANGE FROM LAST VISIT?NO BARRIERS TO LEARNING?NO HEARING IMPAIRED?YES VISION IMPAIRED?YES COGNITIVELY IMPAIRED?NO : NO HEARING AIDS :CORRECTIVE LENSES READINESS TO LEARN?YES LEARNING PREFERENCES?NO LEARNING CAPABILITIES PRESENT?YES EMOTIONAL BARRIERS?NO SPECIAL DEVICES?NO PATIENT FINANCIAL SERVICES SPECIALIST NEEDED?NO LUNG CANCER SCREENING SMOKING STATUS:FORMER SMOKER PAIN CLINIC PFS, CLERGY, PUBLIC HEALTH REFERRALS PFS REFERRAL NEEDED?NO CLERGY REFERRAL NEEDED?NO PUBLIC HEALTH REFERRAL NEEDED?NO HAS THE PATIENT BEEN EDUCATED REGARDING HIS/HER PLAN OF CARE?YES HAS THE PATIENT BEEN EDUCATED REGARDING PAIN, THE RISK FOR PAIN, THE IMPORTANCE OF EFFECTIVE PAIN MANAGEMENT, AND THE PAIN ASSESSMENT PROCESS?YES LATEX QUESTIONNAIRE LATEX ALLERGY : HAVE YOU EVER DEVELOPED ANY TYPE OF REACTION AFTER HANDLING LATEX PRODUCTS SUCH RUBBER GLOVES, CONDOMS, DIAPHRAGMS, BALLOONS, SOCKS, OR UNDERWEAR?NO LATEX ALLERGY : HAVE YOU EVER DEVELOPED ANY TYPE OF REACTION DURING OR AFTER DENTAL APPOINTMENT, VAGINAL/RECTAL EXAMINATION, SURGICAL PROCEDURE, OR ANY OTHER EXPOSURE?NO DATE ASKED : 08/10/2018 LATEX RISK : HAVE YOU EVER HAD ANY DIFFICULTY BREATHING OR HIVES AFTER EATING OR HANDLING ANY FRUITS, OR VEGETABLES; SUCH KIWI, BANANAS, STONE FRUITS, OR CHESTNUTSNO LATEX RISK : DO YOU HAVE A PREVIOUS PERSONAL HISTORY OF MORE THAN NINE SURGERIES, SPINA BIFIDA, OR REPEATED CATHERIZATIONS? NO LATEX RISK : ARE YOU FREQUENTLY EXPOSED TO LATEX PRODUCTS IN YOUR OCCUPATION?NO CAFFEINE CAFFEINE USE?YES HOW OFTEN AND HOW MUCH? 1 POT COFFEE/DAY ADVANCE DIRECTIVE ADVANCE DIRECTIVE DISCUSSED WITH PATIENT:YES HCP - ALEXIA REDDY () [phone] ORIENTAL ORTHODOX [id number] SABIANIST MARITAL STATUS: . ALCOHOL SCREENING DID YOU HAVE A DRINK CONTAINING ALCOHOL IN THE PAST YEAR?NO POINTS0 INTERPRETATIONNEGATIVE SEXUAL HX HAD SEX IN THE LAST 12 MONTHS (VAGINAL, ORAL, OR ANAL)?YES WITHWOMEN ONLY USE PROTECTION?NO HAVE YOU EVER HAD AN STD?NO HCP--, BRENDA REDDY [phone] WITH PT 01/15/18 1043 BVREVIEWED WITH PATIENT 02/09/18 0955 JSREVIEWED WITH PATIENT 04/10/18 1005 JSREVIEWED WITH PATIENT 05/11/18 LASREVIEWED WITH PATIENT 12/01/18 1215 LAS07/07/18 REVIEWED WITH PT. AD10/01/18 0948 REVIEWED WITH PT LAS. HOSPITALIZATION/MAJOR DIAGNOSTIC PROCEDURE FLU [id number] DVT LEFT 2013 DVT 2015 ESOPHAGITIS 2009 SURGERY REVIEW OF SYSTEMS REVIEWED BY: PROVIDER: SKY SIEGEL . CONSTITUTIONAL: ANY CHANGE IN YOUR MEDICAL CONDITION? YES . CHILLS NO . FEVER NO . INFECTION: DO YOU HAVE NEW INFECTIONS? NO . DO YOU HAVE HISTORY OF MRSA? NO . MUSCULOSKELETAL: ANY NEW PATTERNS OF PAIN OR NUMBNESS? NO . GASTROENTEROLOGY: ANY NEW CHANGE IN BOWEL CONTROL? NO . GENITOURINARY: ANY NEW CHANGE IN BLADDER CONTROL? NO . IS THERE A CHANCE YOU COULD BE ? NO . HEMATOLOGY/LYMPH: DO YOU TAKE ANY BLOOD THINNERS? (FOR EXAMPLE- COUMADIN, PLAVIX, AGGRENOX, PLATEL, PRADAXA, OR XARELTO) YES XARELTO . WHEN WAS YOUR LAST DOSE? DATE: TIME: . NEUROLOGY: HAVE YOU FALLEN IN THE PAST 12 MONTHS? NO . ANY NEW EXTREMITY NUMBNESS OR WEAKNESS? NO . CARDIOLOGY: DO YOU HAVE A PACEMAKER OR DEFIBRILLATOR? NO . RESPIRATORY: HAVE YOU BEEN SICK IN THE PAST WEEK? NO . FEVER NO . FLU LIKE SYMPTOMS? NO . COUGH NO . INTEGUMENTARY: DO YOU HAVE ANY RASHES OR OPEN SORES? NO . ALLERGIC/IMMUNO: ARE YOU ALLERGIC TO IV DYE? NO . ANY NEW ALLERGIES? NO . PSYCHIATRIC: DO YOU HAVE THOUGHTS OF HURTING YOURSELF OR SOMEONE ELSE? NO . ARE YOU ABUSED, NEGLECTED, OR IN AN UNSAFE ENVIRONMENT? NO . ENDOCRINOLOGY: ARE YOU DIABETIC? YES . OTHER: DO YOU NEED ANY PRESCRIPTIONS? NO . IF YES, PLEASE LIST: ____ . ANY NEW PROBLEMS WITH YOUR MEDICATIONS? NO . WHEN DID YOU LAST EAT? ____ . WHEN DID YOU LAST DRINK? ____ . WHAT DID YOU LAST DRINK? ____ . NAME OF PERSON DRIVING YOU HOME? ____ . DO YOU HAVE ANY OTHER QUESTIONS OR CONCERNS YES PT REPORTS HE HAS AN APPOINTMENT TO SEE A BACK SURGEON IN [place] FOR A SECOND OPINION . VITAL SIGNS WT 202.8 LBS, HT 65 IN, BMI 33.74 INDEX, BP 141/70 MM HG, HR 74 /MIN, RR 18 /MIN, TEMP 97.8 F, OXYGEN SAT % 95%, NA INITIALS SC 12:16. EXAMINATION GENERAL EXAMINATION: GENERALAWAKE,ALERT ,PLEAASANT . PSYCHAFFECT NORMAL . LUNGS:LUNG BENAVIDES ARE CLEAR TO AUSCULTATION BILATERALLY. GOOD MOVEMENT OF AIR . HEART:S1, S2 IN A REGULAR RATE AND RHYTHM. NO SIGNIFICANT MURMURS, RUBS OR GALLOPS NOTED . ASSESSMENTS SPONDYLOSIS OF LUMBAR REGION WITHOUT MYELOPATHY OR RADICULOPATHY - M47.816 (PRIMARY) TREATMENT SPONDYLOSIS OF LUMBAR REGION WITHOUT MYELOPATHY OR RADICULOPATHY NOTES: THEY WILL FOLLOW DR CALABRESE TREATMENT PLAN WITH GABAPENTIN AND REFERRAL TO SURGEON.THEY WILL LOOK AT CD ON DCS WE GAVE THEM AT LAST APPOINTMENT. PROCEDURE CODES FA211 ESTABILISHED PATIENT [facility] CHARGE DISPOSITION & COMMUNICATION FOLLOW UP CALL FOR F/U WHEN NEEDED ELECTRONICALLY SIGNED BY ROBBIN ELIZABETH ON 12/01/2018 AT 01:34 PM EDT DISCLAIMER : THIS IS A VISIT SUMMARY EXTRACTED FROM THE [employer] CHART. IT IS NOT A COPY OF THE [employer] PROGRESS NOTE. ENDY
== END ==
LOC: M PAIN 11:45
PROVIDERS: ATTEND Nurse Practitioner Family
DX: M47.816 Spondylosis without myelopathy or radiculopathy, lumbar region (principal); G89.29 Other chronic pain; J44.9 Chronic obstructive pulmonary disease, unspecified; I12.9 Hypertensive chronic kidney disease with stage 1 through stage 4 chronic kidney disease, or unspecified chronic kidney disease; K21.9 Gastro-esophageal reflux disease without esophagitis; E78.5 Hyperlipidemia, unspecified; N18.3 Chronic kidney disease, stage 3 (moderate); E11.9 Type 2 diabetes mellitus without complications; Z96.641 Presence of right artificial hip joint; Z87.891 Personal history of nicotine dependence; Z86.718 Personal history of other venous thrombosis and embolism; Z79.01 Long term (current) use of anticoagulants; Z79.84 Long term (current) use of oral hypoglycemic drugs; Z79.899 Other long term (current) drug therapy

== ENCOUNTER → 2018-12-22 | Outpatient (CLI) | payer MEDICARE ==
--- NOTE | 2018-12-22 14:34 | REP ---
Low-dose lung screening CT of the chest: The study is performed without IV contrast. Images are presented at lung windowing only. Comparisons are 12/24/2017 and 03/28/2014. There are the following lung nodules: Left upper lobe, image 46, small calcified granuloma, unchanged from both prior studies. Left upper lobe, image 47, 5 mm lung nodule, unchanged from both prior studies. Right lower lobe, image 48, 5 mm nodule along the major fissure, unchanged from both prior studies. There are no new lung nodules or masses. There are no infiltrates or pleural effusions. Impression: Category II low-dose lung screening CT of the chest. All of the patient's lung nodules are stable. Incidence of malignancy is less than 1%. Depending on risk factors consider annual follow-up low-dose lung screening CT. Electronically Signed by Abiel Louie MD 12/22/2018 02:25 P
== END ==
LOC: M RAD 10:35
PROVIDERS: ATTEND Family Medicine
DX: Z87.891 Personal history of nicotine dependence (principal); Z12.2 Encounter for screening for malignant neoplasm of respiratory organs; R91.8 Other nonspecific abnormal finding of lung field

== ENCOUNTER → 2019-02-18 | Outpatient (REF) | payer MEDICARE ==
[2019-02-18 12:53] LABS: BASO # 0.1 10^3/uL (0.0-0.2); BASO % 0.9 % (0.0-1.0); EOS # 0.2 10^3/uL (0.0-0.5); EOS % 2.4 % (0.0-3.0); HEMATOCRIT 44.2 % (42.0-52.0); HEMOGLOBIN 14.9 g/dl (13.5-17.5); LYMPH # 1.9 10^3/uL (1.5-5.0); LYMPH % 27.4 % (24.0-44.0); MEAN CORPUSCULAR HEMOGLOBIN 35.7 pg (27.0-33.0); MEAN CORPUSCULAR HGB CONC 33.7 g/dl (32.0-36.5); MONO # 0.4 10^3/uL (0.0-0.8); MONO % 6.1 % (0.0-5.0); NEUTROPHILS # 4.3 10^3/uL (1.5-8.5); NEUTROPHILS % 62.8 % (36.0-66.0); PLATELET COUNT, AUTOMATED 244 10^3/uL (150-450); RED BLOOD COUNT 4.17 10^6/uL (4.30-6.10); WHITE BLOOD COUNT 6.8 10^3/uL (4.0-10.0)
[2019-02-18 13:15] LABS: ALT/SGPT 43 U/L (12-78); BILIRUBIN,TOTAL 0.6 MG/DL (0.2-1.0); BLOOD UREA NITROGEN 16 MG/DL (7-18); CALCIUM LEVEL 9.4 MG/DL (8.8-10.2); CARBON DIOXIDE LEVEL 28 MEQ/L (21-32); CHLORIDE LEVEL 106 MEQ/L (98-107); CREATININE FOR GFR 1.17 MG/DL (0.70-1.30); FREE T4 0.78 NG/DL (0.76-1.46); GLOMERULAR FILTRATION RATE > 60.0 (>42); GLUCOSE, FASTING 115 MG/DL (70-100); POTASSIUM SERUM 4.4 MEQ/L (3.5-5.1); SODIUM LEVEL 141 MEQ/L (136-145); TOTAL PROTEIN 7.3 GM/DL (6.4-8.2); VITAMIN B12 LEVEL 989 PG/ML (247-911)
[2019-02-18 14:08] LABS: HEMOGLOBIN A1c 6.4 %
[2019-02-19 10:27] LABS: THYROID PEROXIDASE ANTIBODY 29.9 U/ML (<60.0)
== END ==
LOC: M SFHCADAM 10:02
PROVIDERS: ATTEND Family Medicine
DX: R73.01 Impaired fasting glucose (principal); E03.9 Hypothyroidism, unspecified; Z12.5 Encounter for screening for malignant neoplasm of prostate; M47.816 Spondylosis without myelopathy or radiculopathy, lumbar region
CPT/HCPCS: 80053; 82607; 83036; 84439; 84443; 85025; 85046; 86376; G0103

== ENCOUNTER → 2019-02-19 | Outpatient (CLI) | payer MEDICARE ==
--- NOTE | 2019-02-19 13:41 | REP ---
MRI lumbar spine: 02/19/2019. Indication: Low back pain. Comparison: 11/13/2013. Technique: Multiplanar short and long TR sequences of the lumbar spine were obtained without IV Gadolinium. Findings: There is a grade 1 anterolisthesis of L4 on L5 secondary to facet arthropathy. No worrisome marrow signal is present. The visualized cord is normal. New no acute paraspinal soft tissue abnormalities are present. L1/L2: There is no disc herniation or significant spinal canal / neural foraminal narrowing. L2/L3: Diffuse disc bulge and bilateral facet arthropathy are present with moderate to severe bilateral recess narrowing. Mild to moderate bilateral neural foraminal narrowing is present. L3/L4: Diffuse disc bulge and bilateral facet arthropathy are present with moderate to severe bilateral recess narrowing. There is a small superimposed central/right paracentral disc protrusion. Mild bilateral neural foraminal narrowing is present. L4/L5: Diffuse disc uncovering/bulge and bilateral facet arthropathy are present with severe right greater than left recess narrowing. Moderate right greater than left neural foraminal narrowing is present. L5/S1: Diffuse disc and spur complex is present with bilateral facet arthropathy. There is mild narrowing of the spinal canal. Moderate to severe bilateral neural foraminal narrowing is present. 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 Electronically Signed by Darío Dee DO 02/19/2019 01:32 P
== END ==
LOC: M RAD 10:16
PROVIDERS: ATTEND Neurological Surgery
DX: M48.062 Spinal stenosis, lumbar region with neurogenic claudication (principal)

== ENCOUNTER → 2019-04-07 | Outpatient (CLI) | payer MEDICARE ==
[~2019-04-07] MED LIST changes: +OMEP-172 PO; -OMEP20CA4 PO
--- NOTE | 2019-04-07 12:42 | REPPI ---
Two-view chest: 04/07/2019. Indication: Dyspnea. Comparison: 10/27/2014. Findings: There is no air space consolidation, pleural effusion or pneumothorax. Cardiomediastinal silhouette is unremarkable. Mildly hyperinflated lungs are noted. Impression: No acute intracranial process. Electronically Signed by Darío Dee DO 04/07/2019 12:33 P
== END ==
LOC: M PLAIMG 10:42
PROVIDERS: ATTEND Physician Assistant Medical
DX: J44.9 Chronic obstructive pulmonary disease, unspecified (principal)
CPT/HCPCS: 71046; G0463

== ENCOUNTER → 2019-04-26 | Outpatient (REF) | payer MEDICARE ==
[2019-04-26 13:10] LABS: BASO # 0.1 10^3/uL (0.0-0.2); BASO % 0.9 % (0.0-1.0); EOS # 0.2 10^3/uL (0.0-0.5); EOS % 2.3 % (0.0-3.0); HEMATOCRIT 44.5 % (42.0-52.0); HEMOGLOBIN 14.6 g/dl (13.5-17.5); LYMPH # 1.9 10^3/uL (1.5-5.0); LYMPH % 23.9 % (24.0-44.0); MEAN CORPUSCULAR HEMOGLOBIN 34.6 pg (27.0-33.0); MEAN CORPUSCULAR HGB CONC 32.8 g/dl (32.0-36.5); MEAN CORPUSCULAR VOLUME 105.5 fl (80.0-96.0); MONO # 0.6 10^3/uL (0.0-0.8); MONO % 7.4 % (0.0-5.0); NEUTROPHILS # 5.1 10^3/uL (1.5-8.5); PLATELET COUNT, AUTOMATED 239 10^3/uL (150-450); RED BLOOD COUNT 4.22 10^6/uL (4.30-6.10); WHITE BLOOD COUNT 7.9 10^3/uL (4.0-10.0)
[2019-04-26 14:06] LABS: ALBUMIN 4.2 GM/DL (3.2-5.2); ALT/SGPT 35 U/L (12-78); BILIRUBIN,TOTAL 0.5 MG/DL (0.2-1.0); BLOOD UREA NITROGEN 19 MG/DL (7-18); CALCIUM LEVEL 9.5 MG/DL (8.8-10.2); CARBON DIOXIDE LEVEL 26 MEQ/L (21-32); CHLORIDE LEVEL 108 MEQ/L (98-107); CREATININE FOR GFR 1.13 MG/DL (0.70-1.30); FREE T4 0.87 NG/DL (0.76-1.46); GLOMERULAR FILTRATION RATE > 60.0 (>42); GLUCOSE, FASTING 127 MG/DL (70-100); POTASSIUM SERUM 4.1 MEQ/L (3.5-5.1); SODIUM LEVEL 142 MEQ/L (136-145); TOTAL PROTEIN 7.4 GM/DL (6.4-8.2)
[2019-04-26 14:41] LABS: MAU/CREAT RATIO 105.7 MCG/MG (0.0-30.0)
[2019-04-26 14:55] LABS: HEMOGLOBIN A1c 6.5 %
[2019-04-26 15:21] LABS: VITAMIN B12 LEVEL 618 PG/ML (247-911)
== END ==
LOC: M SFHCADAM 10:36
PROVIDERS: ATTEND Family Medicine
DX: E03.9 Hypothyroidism, unspecified (principal); D75.89 Other specified diseases of blood and blood-forming organs; N18.3 Chronic kidney disease, stage 3 (moderate); R73.01 Impaired fasting glucose

== ENCOUNTER → 2019-09-09 | Outpatient (REF) | payer MEDICARE ==
[~2019-09-09] MED LIST changes: -OMEP-172 PO; +OMEP1CAP73 PO
[2019-09-09 13:38] LABS: BASO # 0.1 10^3/uL (0.0-0.2); EOS # 0.2 10^3/uL (0.0-0.5); EOS % 2.9 % (0.0-3.0); HEMATOCRIT 45.6 % (42.0-52.0); HEMOGLOBIN 15.2 g/dl (13.5-17.5); LYMPH # 2.1 10^3/uL (1.5-5.0); LYMPH % 29.9 % (24.0-44.0); MEAN CORPUSCULAR HEMOGLOBIN 34.6 pg (27.0-33.0); MEAN CORPUSCULAR HGB CONC 33.3 g/dl (32.0-36.5); MEAN CORPUSCULAR VOLUME 103.9 fl (80.0-96.0); MONO # 0.5 10^3/uL (0.0-0.8); MONO % 7.1 % (0.0-5.0); NEUTROPHILS # 4.1 10^3/uL (1.5-8.5); NEUTROPHILS % 58.5 % (36.0-66.0); PLATELET COUNT, AUTOMATED 232 10^3/uL (150-450); RED BLOOD COUNT 4.39 10^6/uL (4.30-6.10)
[2019-09-09 14:08] LABS: HEMOGLOBIN A1c 6.8 %
[2019-09-09 14:32] LABS: ALBUMIN 4.1 GM/DL (3.2-5.2); ALT/SGPT 40 U/L (12-78); BILIRUBIN,TOTAL 0.4 MG/DL (0.2-1.0); BLOOD UREA NITROGEN 16 MG/DL (7-18); CALCIUM LEVEL 8.9 MG/DL (8.8-10.2); CARBON DIOXIDE LEVEL 28 MEQ/L (21-32); CHLORIDE LEVEL 108 MEQ/L (98-107); CREATININE FOR GFR 1.11 MG/DL (0.70-1.30); FREE T4 0.87 NG/DL (0.76-1.46); GLOMERULAR FILTRATION RATE > 60.0 (>42); GLUCOSE, FASTING 101 MG/DL (70-100); POTASSIUM SERUM 4.4 MEQ/L (3.5-5.1); SODIUM LEVEL 142 MEQ/L (136-145); TOTAL PROTEIN 7.5 GM/DL (6.4-8.2)
[2019-09-10 10:41] LABS: THYROID PEROXIDASE ANTIBODY 33.2 U/ML (<60.0)
== END ==
LOC: M SFHCADAM 10:51
PROVIDERS: ATTEND Family Medicine
DX: D75.89 Other specified diseases of blood and blood-forming organs (principal); R73.01 Impaired fasting glucose; E03.9 Hypothyroidism, unspecified; Z12.5 Encounter for screening for malignant neoplasm of prostate
CPT/HCPCS: 80053; 83036; 83525; 84439; 84443; 85025; 85046; 86376; G0103

== ENCOUNTER → 2019-11-02 | Outpatient (POV) | payer MEDICARE ==
--- NOTE | 2019-11-03 13:15 | IRCOV ---
[facility] IR Consult Office Visit IR Consult Office Visit DATE: Nov 02, 2019 Patient agreed to this telephone consultation. Duration of call 30 minutes,. REASON FOR CONSULTATION/CHIEF COMPLAINT: IVC filter placement prior to back surgery HISTORY OF PRESENT ILLNESS: 73 year old male with severe COPD and poor baseline cardiopulmonary status is referred by his primary care for consideration for IVC filter placement. Patient is barely able to ambulate kitchen to living room without getting short of breath. 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 First one was spontaneous and occurred in 2013 in the left lower extremity. He was treated with Xarelto and weaned off later. Then in 2014, he developed a right lower extremity DVT post right hip replacement. He is on Xarelto since that marielos and now planning to undergo lumbar surgery November 11, for which he will have to stop Xarelto for days before and days after. Family and primary care are concerned of his risk for recurrent DVT off Xarelto and risk of PE thereafter. No history of PE. No history of MT or stroke. No known malignancy or hypercoagulable cause. ALLERGIES: Please see below. HOME MEDICATIONS: Please see below. PAST MEDICAL HISTORY: COPD HTN COPD ERECTILE DYSFUNCTION GERD-SLIDING HH Liver disease lumbar disease kidney disease recurrent DVT PAST SURGICAL HISTORY: tonsillectomy cataract surgery right hip replacement No prior IVC filter FAMILY HISTORY: no known history of DVT or PE SOCIAL HISTORY: ex smoker quit in 2009. Denies alcohol or drugs. REVIEW OF SYSTEMS: Otherwise negative PHYSICAL EXAMINATION: no video on patient side LABORATORY DATA: 09/09/19 Hgb 15.2 HCT 45.6 WBC 7 PLT 232 NA 142 K 4.4 BUN 16 Creatinine 1.11 ASSESSMENT/PLAN: 73 year old male with poor cardiopulmonary reserve, secondary to severe COPD and history of recurrent DVT, referred for filter placement evaluation. The goal is to reduce risk of PE in the setting of planned lumbar surgery and planned interruption in Xarelto therapy. I agree this patient has concern and indication for filter placement. We discussed the benefits and risks of the procedure and option to a) place a filter before surgery or b) after surgery should he develop a DVT. Both are reasonable options in this patient. Either way, I would want to remove the filter within 6 months of surgery provided he is back on his Xarelto at that time. Patient would like to discuss options with pcp and will call us back this . We will schedule the patient accordingly. I spent 30 minutes in consultation with the patient. Thank you for this referral. CC Dr. Segovia. Allergies Coded Allergies: No Known Allergies (Unverified , 07/24/18) Home Medications Scheduled Acetaminophen (Tylenol Arthritis), 1,300 MG PO BID, (Reported) Calcium Carbonate (Calcium Carbonate), 1 TAB PO BID, (Reported) Fluticasone Propionate (Flonase Allergy Relief), 50 MCG NA DAILY, (Reported) Gabapentin (Neurontin), 1 CAP PO TID, (Reported) Iron Polysaccharide Complex (Ferrex 150), 150 MG PO Q2D, (Reported) Multivitamins (Multivitamin Adults), 1 TAB PO DAILY, (Reported) Omeprazole (Omeprazole), 40 MG PO DAILY, (Reported) Paroxetine HCl (Paxil), 10 MG PO DAILY, (Reported) Primidone (Primidone), 50 MG PO DAILY, (Reported) Rivaroxaban (Xarelto), 20 MG PO DAILY, (Reported) Rosuvastatin Calcium (Crestor), 1 TAB PO DAILY, (Reported) Salmeterol/Fluticasone (Advair 500-50 Diskus), 1 PUFF INH BID, (Reported) Tamsulosin HCl (Flomax), 0.8 MG PO DAILY, (Reported) Testosterone (Androgel), 20.25 MG TOP DAILY, (Reported) Tiotropium [place] Monohydrate (Spiriva), 1 INHALATION INH DAILY, (Reported) Vitamin D (Vitamin D), 2,000 UNIT PO DAILY, (Reported) Zoledronic Acid/Mannitol-Water (Reclast 5 mg/100 ml Solution), 5 MG IV ASDIRECTED, (Reported) Scheduled PRN Ipratropium/Albuterol Sulfate (Combivent Respimat 20-100 Mcg), 1 PUFF INH QIDP PRN for SHORTNESS OF BREATH, (Reported) Loratadine (Claritin), 10 MG PO DAILYPRN PRN for NASAL CONGESTION, (Reported) Sodium Chloride (Saline Mist), 2 SPRAY NA BIDP PRN for NASAL CONGESTION, (Reported) HATTIE THACKER MD Nov 03, 2019 13:15
== END ==
LOC: M TMIRPOV 13:22
PROVIDERS: ATTEND Radiology Diagnostic Radiology
DX: J44.9 Chronic obstructive pulmonary disease, unspecified (principal); I10 Essential (primary) hypertension; N52.9 Male erectile dysfunction, unspecified; K21.9 Gastro-esophageal reflux disease without esophagitis; Z86.718 Personal history of other venous thrombosis and embolism; Z96.641 Presence of right artificial hip joint; Z79.01 Long term (current) use of anticoagulants; Z96.1 Presence of intraocular lens; Z79.891 Long term (current) use of opiate analgesic; Z79.899 Other long term (current) drug therapy

== ENCOUNTER → 2019-11-04 | Outpatient (REF) | payer MEDICARE ==
[~2019-11-04] MED LIST changes: +ACET650T61 PO; -TYLE650T35 PO
[2019-11-04 15:39] LABS: APPEARANCE, URINE CLEAR (CLEAR); BACTERIA, URINE AUTO NEGATIVE (NEGATIVE); BILIRUBIN, URINE AUTO NEGATIVE (NEGATIVE); BLOOD, URINE BLOOD NEGATIVE (NEGATIVE); COLOR, URINE YELLOW (YELLOW); GLUCOSE, URINE (UA) AUTO NEGATIVE (NEGATIVE); KETONE, URINE AUTO NEGATIVE (NEGATIVE); LEUKOCYTE ESTERASE, URINE AUTO NEGATIVE (NEGATIVE); NITRITE, URINE AUTO NEGATIVE (NEGATIVE); PROTEIN, URINE AUTO NEGATIVE (NEGATIVE); RBC, URINE AUTO 0 /HPF (0-3); SPECIFIC GRAVITY URINE AUTO 1.015 (1.002-1.035); SQUAMOUS EPITHELIAL CELL UR AU 0 /HPF (0-6); UROBILINOGEN, URINE AUTO 0.2 mg/dL (0.0-2.0); WBC, URINE AUTO 0 /HPF (0-3)
[2019-11-04 15:41] LABS: BASO # 0.1 10^3/uL (0.0-0.2); BASO % 0.6 % (0.0-1.0); EOS # 0.4 10^3/uL (0.0-0.5); EOS % 4.6 % (0.0-3.0); HEMATOCRIT 44.1 % (42.0-52.0); HEMOGLOBIN 14.7 g/dl (13.5-17.5); LYMPH # 2.2 10^3/uL (1.5-5.0); LYMPH % 28.3 % (24.0-44.0); MEAN CORPUSCULAR HEMOGLOBIN 34.2 pg (27.0-33.0); MEAN CORPUSCULAR HGB CONC 33.3 g/dl (32.0-36.5); MEAN CORPUSCULAR VOLUME 102.6 fl (80.0-96.0); MONO # 0.5 10^3/uL (0.0-0.8); MONO % 6.8 % (0.0-5.0); NEUTROPHILS # 4.6 10^3/uL (1.5-8.5); NEUTROPHILS % 59.2 % (36.0-66.0); PLATELET COUNT, AUTOMATED 258 10^3/uL (150-450); WHITE BLOOD COUNT 7.8 10^3/uL (4.0-10.0)
[2019-11-04 15:57] LABS: INR 1.1; PROTHROMBIN TIME 13.9 SECONDS (11.8-14.0)
[2019-11-04 15:58] LABS: PARTIAL THROMBOPLASTIN TIME 36.6 SECONDS (25.0-38.4)
[2019-11-04 16:26] LABS: ALBUMIN 4.2 GM/DL (3.2-5.2); ALT/SGPT 33 U/L (12-78); BILIRUBIN,TOTAL 0.8 MG/DL (0.2-1.0); BLOOD UREA NITROGEN 13 MG/DL (7-18); CALCIUM LEVEL 9.8 MG/DL (8.8-10.2); CARBON DIOXIDE LEVEL 27 MEQ/L (21-32); CHLORIDE LEVEL 105 MEQ/L (98-107); CREATININE FOR GFR 1.09 MG/DL (0.70-1.30); GLOMERULAR FILTRATION RATE > 60.0 (>42); GLUCOSE, FASTING 96 MG/DL (70-100); MAGNESIUM LEVEL 2.1 MG/DL (1.8-2.4); NT-PRO BNP 62 PG/ML (<125); POTASSIUM SERUM 4.4 MEQ/L (3.5-5.1); SODIUM LEVEL 139 MEQ/L (136-145); TOTAL PROTEIN 7.6 GM/DL (6.4-8.2)
== END ==
LOC: M SFHCPLAZ 12:46
PROVIDERS: ATTEND Family Medicine
DX: Z01.818 Encounter for other preprocedural examination (principal); M47.816 Spondylosis without myelopathy or radiculopathy, lumbar region; I82.409 Acute embolism and thrombosis of unspecified deep veins of unspecified lower extremity; Z79.899 Other long term (current) drug therapy
CPT/HCPCS: 36415; 80053; 81001; 83735; 83880; 85025; 85610; 85730; 87086; 93005; G0463

== ENCOUNTER → 2020-02-25 | Outpatient (REF) | payer MEDICARE ==
[2020-02-25 13:09] LABS: BASO # 0.1 10^3/uL (0.0-0.2); BASO % 0.8 % (0.0-1.0); EOS # 0.2 10^3/uL (0.0-0.5); EOS % 2.2 % (0.0-3.0); HEMATOCRIT 47.2 % (42.0-52.0); HEMOGLOBIN 15.1 g/dl (13.5-17.5); LYMPH # 2.1 10^3/uL (1.5-5.0); LYMPH % 29.8 % (24.0-44.0); MEAN CORPUSCULAR HEMOGLOBIN 33.4 pg (27.0-33.0); MEAN CORPUSCULAR VOLUME 104.4 fl (80.0-96.0); MONO # 0.4 10^3/uL (0.0-0.8); MONO % 5.7 % (0.0-5.0); NEUTROPHILS # 4.3 10^3/uL (1.5-8.5); NEUTROPHILS % 60.7 % (36.0-66.0); PLATELET COUNT, AUTOMATED 282 10^3/uL (150-450); RED BLOOD COUNT 4.52 10^6/uL (4.30-6.10); WHITE BLOOD COUNT 7.2 10^3/uL (4.0-10.0)
[2020-02-25 13:29] LABS: HEMOGLOBIN A1c 6.2 %
[2020-02-25 13:43] LABS: ALBUMIN 4.5 GM/DL (3.2-5.2); ALT/SGPT 44 U/L (12-78); BILIRUBIN,TOTAL 0.4 MG/DL (0.2-1.0); BLOOD UREA NITROGEN 13 MG/DL (7-18); CALCIUM LEVEL 10.1 MG/DL (8.8-10.2); CARBON DIOXIDE LEVEL 28 MEQ/L (21-32); CHLORIDE LEVEL 107 MEQ/L (98-107); CHOLESTEROL LEVEL 142 MG/DL (<200); CHOLESTEROL RISK RATIO 2.679 (<5); CREATININE FOR GFR 1.24 MG/DL (0.70-1.30); GLOMERULAR FILTRATION RATE > 60.0 (>42); GLUCOSE, FASTING 119 MG/DL (70-100); HDL CHOLESTEROL 53 MG/DL (>40); LDL CHOLESTEROL 56 MG/DL (<100); NON-HDL-C 89 MG/DL; POTASSIUM SERUM 4.5 MEQ/L (3.5-5.1); SODIUM LEVEL 143 MEQ/L (136-145); TRIGLYCERIDES LEVEL 163 MG/DL (<150)
[2020-02-25 13:45] LABS: TOTAL 25(OH) VITAMIN D 41.8 NG/ML (30.0-100.0)
[2020-02-25 13:46] LABS: PTH INTACT 38.1 PG/ML (18.5-88.0)
== END ==
LOC: M SFHCADAM 10:18
PROVIDERS: ATTEND Family Medicine
DX: D75.89 Other specified diseases of blood and blood-forming organs (principal); E78.2 Mixed hyperlipidemia; R73.01 Impaired fasting glucose; E55.9 Vitamin D deficiency, unspecified; Z79.899 Other long term (current) drug therapy

== ENCOUNTER → 2020-03-22 | Outpatient (CLI) | payer MEDICARE ==
[~2020-03-22] MED LIST changes: +METF-839 PO; +NEUR300C PO; +PAME25CA PO; +VITA200028 PO
== END ==
LOC: M LABSMTC 10:15
PROVIDERS: ATTEND Anesthesiology
DX: Z01.812 Encounter for preprocedural laboratory examination (principal); Z20.828 Contact with and (suspected) exposure to other viral communicable diseases

== ENCOUNTER 2020-03-27 08:17 | Day surgery (SDC) | payer MEDICARE ==
[~2020-03-27] VITALS: Ht 165.1 cm; Wt 383.3 kg
[~2020-03-27 08:17] MED LIST changes: +NS 1,000 ML IV ONE
[2020-03-27] MEDS ORDERED: propofoL 200 MG/20 ML VIAL As Ordered ONE (09:02)
[2020-03-27] MEDS ORDERED: LIDOCAINE 2% 100MG/5ML SDV (FOR ANES.) As Ordered ONE (09:02)
--- NOTE | 2020-03-27 10:23 | ROOR ---
Patient Name: Rakesh Turner Procedure Date: 03/27/2020 9:40 AM Date of : 1945 Age: 74 Room: [facility] Gender: Male Note Status: Finalized Procedure: Colonoscopy Indications: Surveillance: History of piecemeal removal adenoma on last colonoscopy (< 3 yrs) Providers: Edmund COLBERT MD Referring MD: Ulises Segovia MD Requesting Provider: Medicines: Monitored Anesthesia Care Complications: No immediate complications. Procedure: Pre-Anesthesia Assessment: - The heart rate, respiratory rate, oxygen saturations, blood pressure, adequacy of pulmonary ventilation, and response to care were monitored throughout the procedure. The Colonoscope was introduced through the anus and advanced to the cecum, identified by appendiceal orifice and ileocecal valve. The colonoscopy was performed without difficulty. The patient tolerated the procedure well. The quality of the bowel preparation was adequate. Findings: The perianal and digital rectal examinations were normal. A diminutive post polypectomy scar was found in the cecum (just below lower lip of ICV--this area is seen best in retroflexed view). There was no residual polypoid tissue. Four sessile polyps were found in the ascending colon. The polyps were diminutive in size. These polyps were removed with a cold snare. Resection and retrieval were complete. Two sessile polyps were found in the splenic flexure. The polyps were diminutive in size. These polyps were removed with a cold snare. Resection and retrieval were complete. Mild sigmoid diverticulosis and small internal hemorrhoids. The exam was otherwise without abnormality on direct and retroflexion views. Impression: - Post-polypectomy scar in the cecum-No residual polyp seen. - Four diminutive polyps in the ascending colon, removed with a cold snare. Resected and retrieved. - Two diminutive polyps at the splenic flexure, removed with a cold snare. Resected and retrieved. - Mild sigmoid diverticulosis and small internal hemorrhoids. - The examination was otherwise normal on direct and retroflexion views. Recommendation: - Repeat colonoscopy in 3 years for surveillance. - Resume Xarelto (rivaroxaban) at prior dose in 2 days. - (Resume Xarelto on 03/29/20) Procedure Code(s): --- Professional --- 97344, Colonoscopy, flexible; with removal of tumor(s), polyp(s), or other lesion(s) by snare technique Diagnosis Code(s): --- Professional --- Z86.010, Personal history of colonic polyps Z98.890, Other specified postprocedural states K63.5, Polyp of colon CPT copyright 2019 [employer]. All rights reserved. The codes documented in this report are preliminary and upon medical billing coder review may be revised to meet current compliance requirements. Edmund Colbert MD Edmund COLBERT MD 03/27/2020 10:22:36 AM Electronically signed by Edmund COLBERT MD Number of Addenda: 0 Note Initiated On: 03/27/2020 9:40 AM Estimated Blood Loss: Estimated blood loss: none.
[2020-03-27 10:50] VITALS: BP 150/77
== END 2020-03-27 10:58 | disposition home or self-care (01) ==
LOC: M OPP 08:17
PROVIDERS: ATTEND Internal Medicine Gastroenterology
DX: Z86.010 Personal history of colon polyps (principal); Z98.890 Other specified postprocedural states; D12.2 Benign neoplasm of ascending colon; D12.3 Benign neoplasm of transverse colon; K57.30 Diverticulosis of large intestine without perforation or abscess without bleeding; K64.0 First degree hemorrhoids; E11.9 Type 2 diabetes mellitus without complications; R12 Heartburn; Z79.84 Long term (current) use of oral hypoglycemic drugs; Z79.899 Other long term (current) drug therapy; Z87.891 Personal history of nicotine dependence; Z09 Encounter for follow-up examination after completed treatment for conditions other than malignant neoplasm

== ENCOUNTER 2020-04-06 15:23 | Outpatient (CLI) | payer MEDICARE ==
[~2020-04-06] VITALS: Ht 165.1 cm; Wt 89.0 kg
[~2020-04-06 15:23] MED LIST changes: -NS 1,000 ML IV ONE
[2020-04-06 15:30] VITALS: BP 128/69
[2020-04-06] MEDS ORDERED: ZOLEDRONIC ACID 5 MG in IV 1 EA IV ONE (15:30)
[2020-04-06 16:50] VITALS: BP 122/88
== END 2020-04-06 16:50 | disposition home or self-care (01) ==
LOC: M INFU 15:23
PROVIDERS: ATTEND Family Medicine
DX: M81.0 Age-related osteoporosis without current pathological fracture (principal)
CPT/HCPCS: 96365; J3489

== ENCOUNTER → 2020-05-18 | Outpatient (CLI) | payer MEDICARE ==
--- NOTE | 2020-05-18 12:25 | REP ---
INDICATION: ENCOUNTER SCREENING MALIGNAT MARÍA LUNG/NICOTINE DEP. COMPARISON: Multiple prior CT studies are reviewed including December 22, 2018, December 24, 2017, August 14, 2015, and March 28, 2014.. TECHNIQUE: Low-dose lung cancer screening study. Axial 3 mm lung window only images are provided. FINDINGS: Preliminary digital food technology teacher radiograph is unremarkable. There is a granulomatous calcification in the left upper lobe on image 39 of 93 in series 201 of today's study which is unchanged. A non calcified stable nodule is visible more anterior and medial in the left upper lobe on the same slice. This is also unchanged from prior studies dating back to 2013. There is a stable perifissural nodule in the right lower lobe on page 43 of 93. This is also unchanged. No new pulmonary nodule or mass lesion is observed. No endobronchial abnormality is seen. Some vascular calcification is noted. IMPRESSION: Stable lung RADS category 2 findings. Repeat screening study suggested in 1 year. <Electronically signed by Dennis Valencia > 05/18/20 [id number]
== END ==
LOC: M RAD 11:18
PROVIDERS: ATTEND Family Medicine
DX: Z12.2 Encounter for screening for malignant neoplasm of respiratory organs (principal); F17.218 Nicotine dependence, cigarettes, with other nicotine-induced disorders; R91.8 Other nonspecific abnormal finding of lung field

== ENCOUNTER → 2020-06-21 | Outpatient (REF) | payer MEDICARE ==
[2020-06-21 14:02] LABS: BASO # 0.1 10^3/uL (0.0-0.2); BASO % 0.8 % (0.0-1.0); EOS # 0.2 10^3/uL (0.0-0.5); EOS % 2.8 % (0.0-3.0); HEMATOCRIT 44.9 % (42.0-52.0); HEMOGLOBIN 14.5 g/dl (13.5-17.5); LYMPH % 31.2 % (24.0-44.0); MEAN CORPUSCULAR HEMOGLOBIN 33.9 pg (27.0-33.0); MEAN CORPUSCULAR HGB CONC 32.3 g/dl (32.0-36.5); MEAN CORPUSCULAR VOLUME 104.9 fl (80.0-96.0); MONO # 0.5 10^3/uL (0.0-0.8); MONO % 7.1 % (2.0-8.0); NEUTROPHILS # 3.6 10^3/uL (1.5-8.5); NEUTROPHILS % 57.5 % (36.0-66.0); PLATELET COUNT, AUTOMATED 251 10^3/uL (150-450); RED BLOOD COUNT 4.28 10^6/uL (4.30-6.10); WHITE BLOOD COUNT 6.3 10^3/uL (4.0-10.0)
[2020-06-21 14:29] LABS: CHOLESTEROL RISK RATIO 3.088 (<5); FREE T4 0.78 NG/DL (0.76-1.46); THYROID STIMULATING HORMONE 2.23 uIU/ML (0.358-3.740)
[2020-06-21 14:30] LABS: PTH INTACT 27.5 PG/ML (18.5-88.0)
[2020-06-21 14:38] LABS: TOTAL 25(OH) VITAMIN D 39.3 NG/ML (30.0-100.0)
[2020-06-21 15:04] LABS: HEMOGLOBIN A1c 6.3 %
== END ==
LOC: M SFHCADAM 10:26
PROVIDERS: ATTEND Family Medicine
DX: D50.9 Iron deficiency anemia, unspecified (principal); E03.9 Hypothyroidism, unspecified; R73.01 Impaired fasting glucose; Z12.5 Encounter for screening for malignant neoplasm of prostate; E55.9 Vitamin D deficiency, unspecified; Z79.899 Other long term (current) drug therapy
CPT/HCPCS: 80061; 82306; 82607; 83036; 83970; 84439; 84443; 85025; 85046; G0103

== ENCOUNTER → 2020-10-02 | Outpatient (REF) | payer MEDICARE ==
[2020-10-02 13:12] LABS: BASO # 0.1 10^3/uL (0.0-0.2); BASO % 0.9 % (0.0-1.0); EOS # 0.4 10^3/uL (0.0-0.5); EOS % 4.7 % (0.0-3.0); HEMATOCRIT 45.2 % (42.0-52.0); HEMOGLOBIN 14.7 g/dl (13.5-17.5); LYMPH # 1.8 10^3/uL (1.5-5.0); LYMPH % 23.5 % (24.0-44.0); MEAN CORPUSCULAR HEMOGLOBIN 33.9 pg (27.0-33.0); MEAN CORPUSCULAR HGB CONC 32.5 g/dl (32.0-36.5); MEAN CORPUSCULAR VOLUME 104.1 fl (80.0-96.0); MONO # 0.5 10^3/uL (0.0-0.8); MONO % 6.6 % (2.0-8.0); NEUTROPHILS # 4.7 10^3/uL (1.5-8.5); NEUTROPHILS % 63.6 % (36.0-66.0); PLATELET COUNT, AUTOMATED 271 10^3/uL (150-450); RED BLOOD COUNT 4.34 10^6/uL (4.30-6.10); WHITE BLOOD COUNT 7.4 10^3/uL (4.0-10.0)
[2020-10-02 13:26] LABS: HEMOGLOBIN A1c 6.1 %
[2020-10-02 13:31] LABS: ALBUMIN 4.1 GM/DL (3.2-5.2); ALT/SGPT 38 U/L (12-78); BILIRUBIN,TOTAL 0.4 MG/DL (0.2-1.0); BLOOD UREA NITROGEN 13 MG/DL (7-18); CALCIUM LEVEL 9.8 MG/DL (8.8-10.2); CARBON DIOXIDE LEVEL 29 MEQ/L (21-32); CHLORIDE LEVEL 107 MEQ/L (98-107); CREATININE FOR GFR 0.99 MG/DL (0.70-1.30); GLOMERULAR FILTRATION RATE > 60.0 (>42); GLUCOSE, FASTING 107 MG/DL (70-100); POTASSIUM SERUM 4.8 MEQ/L (3.5-5.1); SODIUM LEVEL 140 MEQ/L (136-145); TOTAL PROTEIN 7.5 GM/DL (6.4-8.2)
[2020-10-02 13:39] LABS: PTH INTACT 29.6 PG/ML (18.5-88.0)
== END ==
LOC: M SFHCADAM 08:09
PROVIDERS: ATTEND Family Medicine
DX: D75.89 Other specified diseases of blood and blood-forming organs (principal); E55.9 Vitamin D deficiency, unspecified; R73.01 Impaired fasting glucose

== ENCOUNTER → 2020-11-14 | Outpatient (CLI) | payer MEDICARE ==
--- NOTE | 2020-11-14 21:10 | REPVR ---
PROCEDURE INFORMATION: Exam: CT Lumbar Spine Without Contrast Exam date and time: 11/14/2020 2:29 PM Age: 74 years old Clinical indication: Other: Spinal stenosis w/ claudication; Additional info: M48.062 spinal stenosis w/ claudication TECHNIQUE: Imaging protocol: Computed tomography images of the lumbar spine without contrast. Radiation optimization: All CT scans at this facility use at least one of these dose optimization techniques: automated exposure control; mA and/or kV adjustment per patient size (includes targeted exams where dose is matched to clinical indication); or iterative reconstruction. COMPARISON: MRI-Spine, L.S. without con 02/19/2019 11:24 AM FINDINGS: Vertebrae: There is a grade 1 anterolisthesis of L4 on L5 secondary to degenerative change without evidence of spondylolysis. Finding is stable. Disc space narrowing at L2-L3 through L5-S1 most pronounced at L4-L5 and L5-S1. L1-L2: No significant disc protrusion. No severe spinal canal stenosis. No significant neural foraminal narrowing. L2-L3: There is a moderate to severe central spinal stenosis at L2-L3 secondary to diffuse annular bulging, thickened ligamentum flavum with moderate bilateral facet joint arthropathy. L3-L4: There is a severe central spinal stenosis at L3-L4 secondary to diffuse annular bulging, thickened ligamentum flavum with moderate bilateral facet joint arthropathy. Right paracentral air-containing disc herniation effaces the right lateral recess. L4-L5: There is a severe central spinal stenosis at L4-L5 secondary to diffuse annular bulging, anterolisthesis of L4 on L5, thickened ligamentum flavum with marked bilateral facet joint arthropathy. Severe bilateral narrowing of the lateral recesses secondary to osteophytic encroachment. L5-S1: Bulging annulus L5-S1 without spinal stenosis. Moderate bilateral facet joint arthropathy. Moderate to severe foraminal narrowing on the left and mild foraminal narrowing on the right secondary to osteophytic encroachment. Other bones/joints: Osteoporosis. Vasculature: Diffusely atherosclerotic abdominal aorta with a focal 2.7 cm bulge in the distal abdominal aorta consistent with a small aneurysm. Aneurysm tapers before the bifurcation. Soft tissues: Unremarkable. IMPRESSION: 1. There is a grade 1 anterolisthesis of L4 on L5 secondary to degenerative change without evidence of spondylolysis. Finding is stable. 2. Multilevel spinal stenoses, moderate to severe at L2-L3, severe at L3-L4 and L4-L5. 3. Stenosis of the right lateral recess at L3-L4 and bilaterally at L4-L5. Moderate to severe foraminal narrowing on the left at L5-S1. 4. Small distal abdominal aortic aneurysm as described above. Electronically signed by: Adonis Mancia On 11/14/2020 21:09:50 PM
--- NOTE | 2020-11-14 21:16 | REPVR ---
PROCEDURE INFORMATION: Exam: MR Lumbar Spine Without Contrast Exam date and time: 11/14/2020 3:17 PM Age: 74 years old Clinical indication: Condition or disease; Stenosis, spinal; Lumbar region; Additional info: M48.062 spinal stenosis w/ claudication TECHNIQUE: Imaging protocol: Multiplanar magnetic resonance images of the lumbar spine without intravenous contrast. COMPARISON: CT Spine, lumbar w/o contrast 11/14/2020 2:32 PM FINDINGS: Vertebrae: Grade 1 anterolisthesis of L4 on L5 secondary to degenerative changes and without spondylolysis. Disc space narrowing at L2-L3 to L5-S1 most severe at L4-L5 and L5-S1. Spinal cord: Normal signal. No cord compression. L1-L2: No significant disc disease. No significant spinal canal stenosis. No neural foraminal stenosis. L2-L3: There is a moderate to severe degenerative central spinal stenosis at L2-L3 secondary to diffuse annular bulging, thickened ligamentum flavum with moderate bilateral facet joint arthropathy. Moderate bilateral foraminal stenosis. L3-L4: There is a severe degenerative central spinal stenosis at L3-L4 secondary to diffuse annular bulging, thickened ligamentum flavum with marked bilateral facet joint arthropathy. There is moderate bilateral lateral recess narrowing. Moderate bilateral foraminal stenosis. L4-L5: There is a severe degenerative central spinal stenosis at L4-L5 secondary to diffuse annular bulging, thickened ligamentum flavum with marked bilateral facet joint arthropathy. There is severe bilateral lateral recess narrowing secondary to osteophytic encroachment. Moderate foraminal stenosis on the left and severe foraminal stenosis on the right. L5-S1: Diffusely bulging annulus at L5-S1 with a central disc protrusion minimally impinges on the ventral surface of the thecal sac possibly the S1 nerve roots as they exit from the thecal sac. There is moderate bilateral facet joint arthropathy. Severe bilateral foraminal stenosis. Soft tissues: Unremarkable. IMPRESSION: 1. Multilevel spinal stenosis as described above, moderate to severe at L2-L3, severe at L3-L4 and L4-L5. Bulging annulus at L5-S1 with small central disc protrusion with minimal impingement on the thecal sac as well possibly on the S1 nerve roots as they exit from the thecal sac. 2. Multilevel foraminal stenosis as described above most pronounced at L4-L5 on the right and bilaterally at L5-S1. Electronically signed by: Adonis Mancia On 11/14/2020 21:16:19 PM
== END ==
LOC: M RAD 13:39
PROVIDERS: ATTEND Neurological Surgery
DX: M48.062 Spinal stenosis, lumbar region with neurogenic claudication (principal); M99.71 Connective tissue and disc stenosis of intervertebral foramina of cervical region; I71.4 Abdominal aortic aneurysm, without rupture; R05 Cough
CPT/HCPCS: 72131; 72148; G0463; U0003

== ENCOUNTER → 2020-11-14 | Outpatient (REF) | payer MEDICARE | LOC: M SFHCPLAZ 13:04 | PROVIDERS: ATTEND Physician Assistant | DX: R05 Cough (principal) ==

== ENCOUNTER 2021-01-31 12:03 | Inpatient (IN) | payer MEDICARE ==
[~2021-01-31] VITALS: Ht 167.6 cm; Wt 83.7 kg
[2021-01-31] MEDS ORDERED: AMOX875T2 PO (13:52)
[2021-01-31] MEDS ORDERED: SPIR1CAP (13:52)
[2021-01-31] MEDS ORDERED: dexameTHASONE 20MG/5ML VIAL (J1100 PER 1MG) IV ONE (14:40)
[2021-01-31] MEDS ORDERED: ACETAMINOPHEN TAB 650MG DOSE (2X325MG) PO ONE (14:40)
--- NOTE | 2021-01-31 15:38 | REP ---
INDICATION: DYSPNEA/COUGH COMPARISON: 06/08/2018 TECHNIQUE: Portable AP view of the chest FINDINGS: Mediastinum and cardiac silhouette are stable mild cardiomegaly cannot be excluded. Lung barboza demonstrate stable diffuse chronic interstitial changes. Superimposed left lower lobe infiltrate should be correlated with physical examination and auscultation. No definite effusion. No pneumothorax. Skeletal structures intact. IMPRESSION: Stable chronic changes. Suspected left lower lobe infiltrate requires correlation. <Electronically signed by Cameron Purdy > 01/31/21 [id number]
[2021-01-31 15:59] LABS: BASO % 0.2 % (0.0-1.0); HEMATOCRIT 43.2 % (42.0-52.0); HEMOGLOBIN 14.2 g/dl (13.5-17.5); LYMPH # 0.8 10^3/uL (1.5-5.0); LYMPH % 13.1 % (24.0-44.0); MEAN CORPUSCULAR HEMOGLOBIN 33.9 pg (27.0-33.0); MEAN CORPUSCULAR HGB CONC 32.9 g/dl (32.0-36.5); MEAN CORPUSCULAR VOLUME 103.1 fl (80.0-96.0); MONO # 0.4 10^3/uL (0.0-0.8); MONO % 7.1 % (2.0-8.0); NEUTROPHILS # 4.9 10^3/uL (1.5-8.5); NEUTROPHILS % 79.3 % (36.0-66.0); PLATELET COUNT, AUTOMATED 145 10^3/uL (150-450); RED BLOOD COUNT 4.19 10^6/uL (4.30-6.10); WHITE BLOOD COUNT 6.2 10^3/uL (4.0-10.0)
[2021-01-31 16:01] LABS: VENOUS HCO3 21.8 MEQ/L (23.0-27.0); VENOUS O2 SATURATION 94.1 % (60.0-80.0); VENOUS PARTIAL PRESSURE CO2 38.4 mmHg (38.0-50.0); VENOUS PARTIAL PRESSURE O2 74.7 mmHg (30.0-50.0); VENOUS PH 7.372 UNITS (7.330-7.430); VENOUS STANDARD HCO3 21.9 MEQ/L
[2021-01-31 16:15] LABS: PROTHROMBIN TIME 13.6 SECONDS (12.7-14.5)
[2021-01-31 16:17] LABS: D-DIMER QUANT 868.05 ng/ml (<500)
[2021-01-31 16:38] LABS: RSV AMPLIFICATION NEGATIVE (NEGATIVE)
[2021-01-31 16:45] LABS: ALBUMIN 3.1 GM/DL (3.2-5.2); ALT/SGPT 32 U/L (12-78); BILIRUBIN,DIRECT < 0.1 MG/DL (0.0-0.2); BILIRUBIN,TOTAL 0.4 MG/DL (0.2-1.0); BLOOD UREA NITROGEN 21 MG/DL (7-18); CALCIUM LEVEL 8.7 MG/DL (8.8-10.2); CARBON DIOXIDE LEVEL 23 MEQ/L (21-32); CHLORIDE LEVEL 107 MEQ/L (98-107); CK-MB VALUE MASS 22.5 NG/ML (<3.6); CPK CREATINE PHOSPHOKINASE 1262 U/L (39-308); CREATININE FOR GFR 1.08 MG/DL (0.70-1.30); FERRITIN 308 NG/ML (26-388); GLOMERULAR FILTRATION RATE > 60.0 (>42); GLUCOSE, FASTING 111 MG/DL (70-100); LDH LACTATE DEHYDROGENASE 558 U/L (87-241); MAGNESIUM LEVEL 1.9 MG/DL (1.8-2.4); MB/CK RELATIVE INDEX 1.78 (< OR =4); NT-PRO BNP 206 PG/ML (<450); POTASSIUM SERUM 5.2 MEQ/L (3.5-5.1); SODIUM LEVEL 136 MEQ/L (136-145); THYROXINE (T4) 7.2 UG/DL (4.5-12.0); TOTAL PROTEIN 6.9 GM/DL (6.4-8.2); TROPONIN I < 0.02 NG/ML (< 0.10)
[2021-01-31] MEDS ORDERED: cefTRIAXone SOD 2 GM in D5W MINI-BAG PLUS 50 ML IV ONE (17:10)
--- NOTE | 2021-01-31 17:54 | ECGEPIP ---
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
[2021-01-31] MEDS ORDERED: ALBUTEROL SULFATE 2.5 MG/0.5 ML INH NEB SOLN INH PRN (18:10)
[2021-01-31] MEDS: NS 1,000 ML IV SCH (18:10)
[2021-01-31] MEDS ORDERED: ALBUTEROL 90 MCG/ACT 8GM HFA INHALER INH PRN (18:10)
[2021-01-31] MEDS ORDERED: MULT-90 PO (19:06)
[2021-01-31] MEDS ORDERED: ACET-897 PO (19:06)
[2021-01-31] MEDS ORDERED: HOME MED LIST COMPLETE! XX SCH (19:10)
--- NOTE | 2021-01-31 19:12 | IPNPDOC ---
Date Seen The patient was seen on 01/31/21. Progress Note HISTORY OF PRESENT ILLNESS: This is a 75-year-old elderly male who presents tos [facility] ER with chief complaint of shortness of breath. Of note patient is very hard of hearing and he forgot his hearing aids at home today and most of the history was obtained through patient's next of kin/ named Ryann ([phone]). She states that on January 20 she and her went to a end-of-life celebration at a holiness (indoors) in [place], [place]. At that event she states there are about 30 attendees who were not wearing masks. She states that her has been vaccinated with Moderna (first dose at the end of April and second dose around May). He has been asymptomatic until she noticed that Friday evening he started feeling more lethargic and his face was very red and he felt very warm to the touch. At that time she measured his temperature which she reports at the time was 101.6 Fahrenheit. At the time he denied any chest pain, shaking chills nausea vomiting abdominal pain, diarrhea vision changes, dizziness, loss of appetite, loss of smell or taste. However, he did experience progressive generalized weakness as well as progressive shortness of breath and a headache. She states that at baseline he is able to do all ADLs and is not usually short of breath. He also recently saw his primary care doctor, Dr. Segovia, who did recommend for him to get assessed in the ER for possible baricitinib as well as remdesivir dexamethasone. He had a temp of 101.5 and initially required 4 L to oxygenate at 99% but is now oxygenating on 2 L nasal cannula with SPO2 of 99%. His chest x-ray shows stable chronic changes with suspected left lower lobe infiltrate. His respiratory panel showed positive for Covid and he also bryan has elevated inflammatory markers. REVIEW OF SYSTEMS (obtained from and difficult to ascertain from patient because he is very hard of hearing): General: Reports fever and lethargy HEENT: Denies changes in vision including blurry vision or double vision, loss of taste or smell Heart: Denies chest pain or chest pressure or discomfort, or palpitations, or lower extremity edema Pulm: Denies increased cough or sputum production. 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 Tobacco history: Patient had a longstanding smoking history. He started smoking at around 15 or sixteen 1 pack/day. Quit about 4 to 5 years ago (was smoking pack/day prior to stopping). EtOH: Denies Illegal drug use: denies Marijuana use: denies Patient has 1 son and 1 daughter both are healthy FAMILY HISTORY: Both parents had cancers (unknown) PHYSICAL EXAM (limited due to ambient noise of negative pressure room): VS: Please see below GENERAL: 75yo old male, lying in bed, no acute distress, very hard of hearing NEURO: No focal neurological deficits; very guarded hearing HEENT: Head is normocephalic and atraumatic. Extraocular muscles are intact. PULM: Faint crackles bilaterally and wheezing appreciated in right upper lobe CARDIO (very limited due to poor quality of one-time use stethoscope): Regular rate and rhythm ABDOMEN: Normoactive bowel sounds, tender to palpation (difficult to tell where due to patient being hard of hearing) EXTREMITIES: 2+ dorsalis pedis and radial pulses bilaterally, no lower extremity edema appreciated IMAGING: Chest x-ray impression: Suspected left lower lobe infiltrate requires correlatio n. Stable chronic changes. EKG shows normal sinus rhythm low voltage QRS. Cannot rule out anteroseptal infarct age undetermined. ASSESSMENT AND PLAN: This is a 75-year-old gentleman who presents to [facility] ER with chief complaint of shortness of breath that started on Friday which has progressively gotten worse. Other associated symptoms include progressive weakness and shortness of breath as well as fever. He was seen by his primary care physician recently (Dr. Segovia) who did recommend that he gets further assessed in the ER. In the ER he is tested positive for Covid as well as elevated inflammatory markers. Hospitalist team was asked to admit the patient for further management of his care Covid 19 #Covid pneumonia -Chest x-ray shows suspected left lower lobe infiltrate -Place in isolation with droplet and contact precautions -Titrate oxygen to keep greater than 92% -Results of labs of been reviewed -Multiple labs still pending -Respiratory panel positive for Covid -Ceftriaxone 2 g given once in ER -Dexamethasone 10 mg given once in ER -Dexamethasone 6 mg daily ordered -Tylenol 650 mg every 4 hours as needed for temperature greater than 100.4 point -Remdesivir 200 mg started in ER and has been ordered for every 24 hours #Diabetes -ISS -FSBG AC/HS -Continue Nortriptyline #Depression -Continue paroxetine #GERD -Continue omeprazole #Allergies -Continue loratadine and Flonase #COPD -Continue Advair -Continue Combivent Respimat #BPH -Continue Tamsulosin #Hyperlipidemia -Continue rosuvastatin #Essential tremors -Continue primodone #DVT prophylaxis -Continue Xerelto VS, I&O, 24H, Fishbone Vital Signs/I&O Vital Signs Date Time Temp Pulse Resp B/P (MAP) Pulse Ox O2 Delivery O2 Flow Rate FiO2 01/31/21 13:18 89 20 99 Nasal Cannula 2.0 01/31/21 13:15 118/66 (83) 01/31/21 12:45 101.5 Laboratory Data 24H LABS Laboratory Tests 2 01/31/21 15:35: Prothrombin Time 13.6, Prothromb Time International Ratio 1.00, D-Dimer, Quantitative 868.05H, Blood Gas Bicarbonate Standard 21.9, Venous Blood pH 7.37 2, Venous Blood Partial Pressure CO2 38.4, Venous Blood Partial Pressure O2 74.7H, Venous Blood Total Carbon Dioxide 23.0L, Venous Blood HCO3 21.8L, Venous Blood Oxygen Saturation 94.1H, Venous Blood Base Excess -3.0L, Anion Gap 6L, Glomerular Filtration Rate > 60.0, Lactic Acid Level 1.7, Calcium Level 8.7L, Magnesium Level 1.9, Ferritin 308, Total Bilirubin 0.4, Direct Bilirubin < 0.1, Aspartate Amino Transf (AST/SGOT) 82H, Alanine Aminotransferase (ALT/SGPT) 32, Alkaline Phosphatase 32L, Lactate Dehydrogenase 558H, Total Creatine Kinase 1262H, Creatine Kinase MB 22.5H, Creatine Kinase MB Relative Index 1.78, Troponin I < 0.02, C-Reactive Protein, Quantitative 10.90H, HT-Yjc-V-Type Natriuretic Peptide 206, Total Protein 6.9, Albumin 3.1L, Albumin/Globulin Ratio 0.8, Thyroid Stimulating Hormone (TSH) 3.150, Thyroxine (T4) 7.2, Coronavirus (COVID-19)(PCR) POSITIVEA, Influenza Type A (RT-PCR) NEGATIVE, Influenza Type B (RT-PCR) NEGATIVE, Respiratory Syncytial Virus (PCR) NEGATIVE 01/31/21 15:36: Immature Granulocyte % (Auto) 0.3, Neutrophils (%) (Auto) 79.3H, Lymphocytes (%) (Auto) 13.1L, Monocytes (%) (Auto) 7.1, Eosinophils (%) (Auto) 0.0, Basophils (%) (Auto) 0.2, Neutrophils # (Auto) 4.9, Lymphocytes # (Auto) 0.8L, Monocytes # (Auto) 0.4, Eosinophils # (Auto) 0.0, Basophils # (Auto) 0.0, Nucleated Red Blood Cells % (auto) 0.0, Procalcitonin 0.05 CBC/BMP Laboratory Tests 01/31/21 15:35 01/31/21 15:36 Microbiology Microbiology 01/31/21 Blood Culture, Received Pending 01/31/21 Blood Culture, Received Pending GME ATTESTATION GME ATTESTATION My faculty preceptor for this patient encounter was physically present during the encounter and was fully available. All aspects of the patient interview, examination, medical decision making process, and medical care plan development were reviewed and approved by the faculty preceptor. The faculty preceptor is a major and concurs with the plan as stated in the body of this note and will attest to such by his/her cosignature. Rashi Joseph DO Jan 31, 2021 19:12
[2021-01-31] MEDS ORDERED: COMBIVENT RESPIMAT 100-20MCG INHALER 4GM INH PRN (19:15)
[2021-01-31] MEDS ORDERED: ACETAMINOPHEN TAB 650MG DOSE (2X325MG) PO PRN (20:00)
[2021-01-31 20:14] LABS: BASO % 0.2 % (0.0-1.0); HEMATOCRIT 45.2 % (42.0-52.0); HEMOGLOBIN 15.1 g/dl (13.5-17.5); LYMPH # 0.5 10^3/uL (1.5-5.0); LYMPH % 8.2 % (24.0-44.0); MEAN CORPUSCULAR HEMOGLOBIN 33.9 pg (27.0-33.0); MEAN CORPUSCULAR HGB CONC 33.4 g/dl (32.0-36.5); MEAN CORPUSCULAR VOLUME 101.6 fl (80.0-96.0); MONO # 0.2 10^3/uL (0.0-0.8); MONO % 2.5 % (2.0-8.0); NEUTROPHILS # 5.6 10^3/uL (1.5-8.5); NEUTROPHILS % 88.6 % (36.0-66.0); PLATELET COUNT, AUTOMATED 165 10^3/uL (150-450); RED BLOOD COUNT 4.45 10^6/uL (4.30-6.10); WHITE BLOOD COUNT 6.3 10^3/uL (4.0-10.0)
[2021-01-31 20:26] LABS: INR 1.02; PROTHROMBIN TIME 13.8 SECONDS (12.7-14.5)
[2021-01-31 20:27] LABS: PARTIAL THROMBOPLASTIN TIME 40.6 SECONDS (25.9-37.0)
[2021-01-31 20:29] LABS: D-DIMER QUANT 786.07 ng/ml (<500)
[2021-01-31] MEDS ORDERED: DEXTROSE 50% 50 ML SYRINGE IV PRN (20:35)
[2021-01-31] MEDS ORDERED: GLUCAGON INJ 1MG VIAL SC PRN (20:35)
[2021-01-31] MEDS ORDERED: GLUCOSE 4GM CHEW TABLET PO PRN (20:35)
[2021-01-31 20:56] LABS: ALBUMIN 3.4 GM/DL (3.2-5.2); ALT/SGPT 42 U/L (12-78); BILIRUBIN,DIRECT 0.1 MG/DL (0.0-0.2); BILIRUBIN,TOTAL 0.3 MG/DL (0.2-1.0); BLOOD UREA NITROGEN 21 MG/DL (7-18); CALCIUM LEVEL 9.1 MG/DL (8.8-10.2); CARBON DIOXIDE LEVEL 26 MEQ/L (21-32); CHLORIDE LEVEL 106 MEQ/L (98-107); CPK CREATINE PHOSPHOKINASE 2461 U/L (39-308); CREATININE FOR GFR 1.07 MG/DL (0.70-1.30); FERRITIN 352 NG/ML (26-388); GLOMERULAR FILTRATION RATE > 60.0 (>42); GLUCOSE, FASTING 194 MG/DL (70-100); LDH LACTATE DEHYDROGENASE 397 U/L (87-241); MAGNESIUM LEVEL 2.1 MG/DL (1.8-2.4); NT-PRO BNP 331 PG/ML (<450); POTASSIUM SERUM 4.5 MEQ/L (3.5-5.1); SODIUM LEVEL 137 MEQ/L (136-145); TOTAL PROTEIN 7.4 GM/DL (6.4-8.2); TROPONIN I < 0.02 NG/ML (< 0.10)
[2021-01-31] MEDS ORDERED: HumaLOG INSULIN (NovoLOG) PER UNIT SC SCH (21:00)
[2021-01-31] MEDS: ADVAIR HFA 230/21MCG INHALER INH SCH (21:00)
[2021-01-31] MEDS ORDERED: REMDESIVIR 200 MG in NS 250 ML IV ONE (21:00)
[2021-01-31] MEDS ORDERED: SODIUM CHLORIDE 0.9% INJ 10 ML SYR IV SCH (22:00)
[2021-01-31] MEDS ORDERED: SODIUM CHLORIDE 0.9% INJ 10 ML SYR IV ONE (23:00)
[2021-01-31] MEDS: NORTRIPTYLINE 25 MG CAP PO SCH (23:27)
[2021-01-31] MEDS: GABAPENTIN 300 MG CAP PO SCH (23:27)
[2021-01-31] MEDS: PRIMIDONE 50 MG TAB PO SCH (23:27)
[2021-01-31] MEDS: HumaLOG INSULIN (NovoLOG) PER UNIT SC SCH (23:27)
[2021-02-01 03:10] VITALS: BP 110/64
[2021-02-01 06:00] VITALS: BP 121/65
[2021-02-01] MEDS ORDERED: HumaLOG INSULIN (NovoLOG) PER UNIT SC SCH (07:30)
[2021-02-01 07:37] LABS: HEMATOCRIT 42.1 % (42.0-52.0); HEMOGLOBIN 14.1 g/dl (13.5-17.5); LYMPH # 0.9 10^3/uL (1.5-5.0); MEAN CORPUSCULAR HEMOGLOBIN 33.9 pg (27.0-33.0); MEAN CORPUSCULAR HGB CONC 33.5 g/dl (32.0-36.5); MEAN CORPUSCULAR VOLUME 101.2 fl (80.0-96.0); MONO # 0.4 10^3/uL (0.0-0.8); NEUTROPHILS # 5.3 10^3/uL (1.5-8.5); NEUTROPHILS % 80.5 % (36.0-66.0); PLATELET COUNT, AUTOMATED 185 10^3/uL (150-450); RED BLOOD COUNT 4.16 10^6/uL (4.30-6.10); WHITE BLOOD COUNT 6.6 10^3/uL (4.0-10.0)
[2021-02-01 07:52] LABS: INR 0.94
[2021-02-01] MEDS: TIOTROPIUM INHALER/CAPSULE (SPIRIVA) INH SCH (08:00)
[2021-02-01] MEDS: ADVAIR HFA 230/21MCG INHALER INH SCH ×2 (08:00→21:03)
[2021-02-01 08:04] LABS: ALBUMIN 2.9 GM/DL (3.2-5.2); ALT/SGPT 42 U/L (12-78); BILIRUBIN,DIRECT 0.1 MG/DL (0.0-0.2); BILIRUBIN,TOTAL 0.3 MG/DL (0.2-1.0); BLOOD UREA NITROGEN 20 MG/DL (7-18); CALCIUM LEVEL 8.6 MG/DL (8.8-10.2); CARBON DIOXIDE LEVEL 26 MEQ/L (21-32); CHLORIDE LEVEL 110 MEQ/L (98-107); CREATININE FOR GFR 0.93 MG/DL (0.70-1.30); GLOMERULAR FILTRATION RATE > 60.0 (>42); GLUCOSE, FASTING 144 MG/DL (70-100); MAGNESIUM LEVEL 2.3 MG/DL (1.8-2.4); POTASSIUM SERUM 4.6 MEQ/L (3.5-5.1); SODIUM LEVEL 140 MEQ/L (136-145); TOTAL PROTEIN 7.6 GM/DL (6.4-8.2)
[2021-02-01] MEDS ORDERED: FLUBLOK(EGG FREE)(QUAD)INFLUENZA VACC 0.5ML SYRINGE 18YRS & OLDER IM SCH (09:00)
[2021-02-01] MEDS: FLUTICASONE PROP 0.05% NASAL SPRAY 16 GM (FLONASE) SCH (09:00)
[2021-02-01] MEDS: HumaLOG INSULIN (NovoLOG) PER UNIT SC SCH ×4 (09:07→20:23)
[2021-02-01] MEDS: PARoxetine 10MG TABLET PO SCH (09:08)
[2021-02-01] MEDS: TAMSULOSIN 0.4 MG CAP PO SCH (09:09)
[2021-02-01] MEDS: dexameTHASONE 4 MG/ML 1ML VIAL (J1100 PER 1MG) IV SCH (09:09)
[2021-02-01] MEDS: PRIMIDONE 50 MG TAB PO SCH ×3 (09:10→20:23)
[2021-02-01] MEDS: RIVAROXABAN 20 MG TAB (XARELTO) PO SCH (09:10)
[2021-02-01] MEDS: GABAPENTIN 300 MG CAP PO SCH ×3 (09:10→20:23)
[2021-02-01] MEDS: ROSUVASTATIN 10 MG TAB (CRESTOR) PO SCH (09:10)
[2021-02-01] MEDS: OMEPRAZOLE 20 MG CAP PO SCH (09:10)
[2021-02-01] MEDS: LORATADINE 10 MG TAB PO SCH (09:10)
--- NOTE | 2021-02-01 10:09 | REP ---
INDICATION: hypoxia. COMPARISON: 01/31/2021 also portable TECHNIQUE: Portable FINDINGS: The technique utilized in obtaining the radiograph has magnified the cardiac silhouette and accentuated the interstitial markings. The left retrocardiac opacities seen previously appear to have improved. The previously present partial silhouetting out of the diaphragmatic surface of the left lung has resolved. No new abnormal lung opacities have developed. There is evidence of interstitial fibrosis status quo. Cardiomediastinal silhouette is stable. There is no gross cardiomegaly. There are no pleural effusions. There is no change in the osseous structures. IMPRESSION: Left lower lobe improvement. No other significant change. <Electronically signed by Daron Rios > 02/01/21 [id number]
--- NOTE | 2021-02-01 12:59 | HPEPDOC ---
[facility] Medical History & Physical Date of Admission Jan 31, 2021 Date of Service: Jan 31, 2021 Primary Care Physician: Ulises Segovia M.D. Attending Physician: MOOK WEBB MD History and Physical HISTORY OF PRESENT ILLNESS: This is a 75-year-old elderly male who presents tos [facility] ER with chief complaint of shortness of breath. Of note patient is very hard of hearing and he forgot his hearing aids at home today and most of the history was obtained through patient's next of kin/ named Ryann ([id number]). She states that on January 20 she and her went to a end-of-life celebration at a scientologist (indoors) in [place], [place]. At that event she states there are about 30 attendees who were not wearing masks. She states that her has been vaccinated with Moderna (first dose at the end of April and second dose around May). He has been asymptomatic until she noticed that Friday evening he started feeling more lethargic and his face was very red and he felt very warm to the touch. At that time she measured his temperature which she reports at the time was 101.6 Fahrenheit. At the time he denied any chest pain, shaking chills nausea vomiting abdominal pain, diarrhea vision changes, dizziness, loss of appetite, loss of smell or taste. However, he did experience progressive generalized weakness as well as progressive shortness of breath and a headache. She states that at baseline he is able to do all ADLs and is not usually short of breath. He also recently saw his primary care doctor, Dr. Segovia, who did recommend for him to get assessed in the ER for possible baricitinib as well as remdesivir dexamethasone. He had a temp of 101.5 and initially required 4 L to oxygenate at 99% but is now oxygenating on 2 L nasal cannula with SPO2 of 99%. His chest x-ray shows stable chronic changes with suspected left lower lobe in filtrate. His respiratory panel showed positive for Covid and he also bryan has elevated inflammatory markers. REVIEW OF SYSTEMS (obtained from and difficult to ascertain from patient because he is very hard of hearing): General: Reports fever and lethargy HEENT: Denies changes in vision including blurry vision or double vision, loss of taste or smell Heart: Denies chest pain or chest pressure or discomfort, or palpitations, or lower extremity edema Pulm: Denies increased cough or sputum production. 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 Tobacco history: Patient had a longstanding smoking history. He started smoking at around 15 or sixteen 1 pack/day. Quit about 4 to 5 years ago (was smoking pack/day prior to stopping). EtOH: Denies Illegal drug use: denies Marijuana use: denies Patient has 1 son and 1 daughter both are healthy FAMILY HISTORY: Both parents had cancers (unknown) PHYSICAL EXAM (limited due to ambient noise of negative pressure room): VS: Please see below GENERAL: 75yo old male, lying in bed, no acute distress, very hard of hearing NEURO: No focal neurological deficits; very guarded hearing HEENT: Head is normocephalic and atraumatic. Extraocular muscles are intact. PULM: Faint crackles bilaterally and wheezing appreciated in right upper lobe CARDIO (very limited due to poor quality of one-time use stethoscope): Regular rate and rhythm ABDOMEN: Normoactive bowel sounds, tender to palpation (difficult to tell where due to patient being hard of hearing) EXTREMITIES: 2+ dorsalis pedis and radial pulses bilaterally, no lower extremity edema appreciated IMAGING: Chest x-ray impression: Suspected left lower lobe infiltrate requires correlation. Stable chronic changes. EKG shows normal sinus rhythm low voltage QRS. Cannot rule out anteroseptal infarct age undetermined. ASSESSMENT AND PLAN: This is a 75-year-old gentleman who presents to [facility] ER with chief complaint of shortness of breath that started on Friday which has progressively gotten worse. Other associated symptoms include progressive weakness and shortness of breath as well as fever. He was seen by his primary care physician recently (Dr. Segovia) who did recommend that he gets further assessed in the ER. In the ER he is tested positive for Covid as well as elevated inflammatory markers. Hospitalist team was asked to admit the patient for further management of his care Covid 19 Acute hypoxic respiratory failure - likely 2/2 acute COVID19 pneumonia -Chest x-ray shows suspected left lower lobe infiltrate -Place in isolation with droplet and contact precautions -Titrate oxygen to keep greater than 92% -Results of labs of been reviewed -Multiple labs still pending -Respiratory panel positive for Covid -Ceftriaxone 2 g given once in ER; Will c/w Azithromycin & Ceftriaxone (re: CXR with possible localized infiltrate) - Received Remdesivir and Dexamethasone in ER -Dexamethasone 6 mg daily & Remdesivir 200 mg every 24 hours (Day #1) -Tylenol 650 mg every 4 hours as needed for temperature greater than 100.4 point #Diabetes -ISS -FSBG AC/HS -Continue Nortriptyline #Depression -Continue paroxetine #GERD -Continue omeprazole #Allergies -Continue loratadine and Flonase #COPD -Continue Advair -Continue Combivent Respimat #BPH -Continue Tamsulosin #Hyperlipidemia -Continue rosuvastatin #Essential tremors -Continue primodone #DVT prophylaxis -Continue Xerelto Vital Signs Vital Signs Date Time Temp Pulse Resp B/P (MAP) Pulse Ox O2 Delivery O2 Flow Rate FiO2 02/01/21 06:00 100.4 86 22 121/65 (83) 93 Venturi Mask 5.0 28 Laboratory Data Labs 24H Laboratory Tests 2 01/31/21 15:35: Prothrombin Time 13.6, Prothromb Time International Ratio 1.00, D-Dimer, Quantitative 868.05H, Blood Gas Bicarbonate Standard 21.9, Venous Blood pH 7.37 2, Venous Blood Partial Pressure CO2 38.4, Venous Blood Partial Pressure O2 74.7H, Venous Blood Total Carbon Dioxide 23.0L, Venous Blood HCO3 21.8L, Venous Blood Oxygen Saturation 94.1H, Venous Blood Base Excess -3.0L, Anion Gap 6L, Glomerular Filtration Rate > 60.0, Lactic Acid Level 1.7, Calcium Level 8.7L, Magnesium Level 1.9, Ferritin 308, Total Bilirubin 0.4, Direct Bilirubin < 0.1, Aspartate Amino Transf (AST/SGOT) 82H, Alanine Aminotransferase (ALT/SGPT) 32, Alkaline Phosphatase 32L, Lactate Dehydrogenase 558H, Total Creatine Kinase 1262H, Creatine Kinase MB 22.5H, Creatine Kinase MB Relative Index 1.78, Troponin I < 0.02, C-Reactive Protein, Quantitative 10.90H, YC-Tak-R-Type Natriuretic Peptide 206, Total Protein 6.9, Albumin 3.1L, Albumin/Globulin Ratio 0.8, Thyroid Stimulating Hormone (TSH) 3.150, Thyroxine (T4) 7.2, Coronavirus (COVID-19)(PCR) POSITIVEA, Influenza Type A (RT-PCR) NEGATIVE, Influenza Type B (RT-PCR) NEGATIVE, Respiratory Syncytial Virus (PCR) NEGATIVE 01/31/21 15:36: Immature Granulocyte % (Auto) 0.3, Neutrophils (%) (Auto) 79.3H, Lymphocytes (%) (Auto) 13.1L, Monocytes (%) (Auto) 7.1, Eosinophils (%) (Auto) 0.0, Basophils (%) (Auto) 0.2, Neutrophils # (Auto) 4.9, Lymphocytes # (Auto) 0.8L, Monocytes # (Auto) 0.4, Eosinophils # (Auto) 0.0, Basophils # (Auto) 0.0, Nucleated Red Blood Cells % (auto) 0.0, Procalcitonin 0.05 01/31/21 19:48: Prothrombin Time 13.8, Prothromb Time International Ratio 1.02, D-Dimer, Quantitative 786.07H, Anion Gap 5L, Glomerular Filtration Rate > 60.0, Calcium Level 9.1, Magnesium Level 2.1, Ferritin 352, Total Bilirubin 0.3, Direct Bilirubin 0.1, Aspartate Amino Transf (AST/SGOT) 108H, Alanine Aminotransferase (ALT/SGPT) 42, Alkaline Phosphatase 40L, Lactate Dehydrogenase 397H, Total Creatine Kinase 2461#H, Troponin I < 0.02, C-Reactive Protein, Quantitative 14.30H, FT-Eha-D-Type Natriuretic Peptide 331, Total Protein 7.4, Albumin 3.4, Albumin/Globulin Ratio 0.9, Immature Granulocyte % (Auto) 0.5, Neutrophils (%) (Auto) 88.6H, Lymphocytes (%) (Auto) 8.2L, Monocytes (%) (Auto) 2.5, Eosinophils (%) (Auto) 0.0, Basophils (%) (Auto) 0.2, Neutrophils # (Auto) 5.6, Lymphocytes # (Auto) 0.5L, Monocytes # (Auto) 0.2, Eosinophils # (Auto) 0.0, Basophils # (Auto) 0.0, Nucleated Red Blood Cells % (auto) 0.0, Procalcitonin 0.10, Activated Partial Thromboplast Time 40.6H, Fibrinogen 607H 02/01/21 05:40: Bedside Glucose (Misc Panel) 157H 02/01/21 07:09: Immature Granulocyte % (Auto) 0.5, Neutrophils (%) (Auto) 80.5H, Lymphocytes (%) (Auto) 13.0L, Monocytes (%) (Auto) 6.0, Eosinophils (%) (Auto) 0.0, Basophils (%) (Auto) 0.0, Neutrophils # (Auto) 5.3, Lymphocytes # (Auto) 0.9L, Monocytes # (Auto) 0.4, Eosinophils # (Auto) 0.0, Basophils # (Auto) 0.0, Nucleated Red Blood Cells % (auto) 0.0, Prothrombin Time 13.0, Prothromb Time International Ratio 0.94, Anion Gap 4L, Glomerular Filtration Rate > 60.0, Calcium Level 8.6L, Magnesium Level 2.3, Total Bilirubin 0.3, Direct Bilirubin 0.1, Aspartate Amino Transf (AST/SGOT) 94H, Alanine Aminotransferase (ALT/SGPT) 42, Alkaline Phosphatase 38L, Total Protein 7.6, Albumin 2.9L, Albumin/Globulin Ratio 0.6 02/01/21 12:11: Bedside Glucose (Misc Panel) 135H CBC/BMP Laboratory Tests 01/31/21 15:35 01/31/21 15:36 01/31/21 19:48 02/01/21 07:09 Microbiology Microbiology 01/31/21 Blood Culture, Received Pending 01/31/21 Blood Culture, Received Pending 01/31/21 Blood Culture, Received Pending 01/31/21 Blood Culture, Received Pending Home Medications Scheduled Acetaminophen (Tylenol Arthritis) 650 Mg Tab, 1,300 MG PO BID Acetaminophen (Tylenol Extra Strength) 500 Mg Tablet, 500 MG PO DAILY AFTERNOON TIME Amoxicillin/Potassium Clav (Amox-Clav 875-125 mg Tablet) 1 Each Tablet, 1 T PO BID Calcium Carbonate (Calcium Carbonate) 500 Mg Tab, 500 MG PO DAILY Ergocalciferol (Vitamin D2) (Vitamin D2) 50 Mcg (2000 Unit) Tablet, 50 MCG PO DAILY Fluticasone Propionate (Flonase Allergy Relief) 50 Mcg/Act Spr, 2 SPRAYS NA D AILY Gabapentin (Neurontin) 300 Mg Capsule, 300 MG PO TID Iron Polysaccharide Complex (Ferrex 150) 150 Mg Cap, 150 MG PO Q2D Loratadine (Claritin) 10 Mg Cap, 10 MG PO DAILY Metformin HCl (Metformin HCl) 500 Mg Tablet, 500 MG PO BID Multivitamin (Multivitamin) 1 Each Tablet, 1 TAB PO DAILY Nortriptyline Hcl (Pamelor) 25 Mg Capsule, 25 MG PO QHS Omeprazole (Omeprazole) 20 Mg Cap, 40 MG PO DAILY Paroxetine HCl (Paxil) 10 Mg Tab, 10 MG PO DAILY Primidone (Primidone) 50 Mg Tab, 50 MG PO TID Rivaroxaban (Xarelto) 20 Mg Tab, 20 MG PO DAILY Rosuvastatin Calcium (Crestor) 20 Mg Tab, 20 MG PO DAILY Salmeterol/Fluticasone (Advair 500-50 Diskus) 28 Puff/Inhaler Aerp, 1 PUFF INH BID Tamsulosin HCl (Flomax) 0.4 Mg Cap, 0.8 MG PO DAILY Tiotropium [place] Monohydrate (Spiriva) 5 Inhalation/Inhaler Powd, 1 INHALATION INH DAILY Zoledronic Acid/Mannitol-Water (Reclast 5 mg/100 ml Solution) 5 Mg/100 Ml Inj, 5 MG IV ASDIRECTED Scheduled PRN Ipratropium/Albuterol Sulfate (Combivent Respimat 20-100 Mcg) 1 Aer Aer, 1 PUFF INH QIDP PRN for SHORTNESS OF BREATH Sodium Chloride (Saline Mist) 0.65 % Spr, 2 SPRAY NA BID PRN for NASAL CONGESTIO N Allergies Coded Allergies: No Known Allergies (Unverified , 07/24/18) GME ATTESTATION GME ATTESTATION My faculty preceptor for this patient encounter was physically present during the encounter and was fully available. All aspects of the patient interview, examination, medical decision making process, and medical care plan development were reviewed and approved by the faculty preceptor. The faculty preceptor is aware and concurs with the plan as stated in the body of this note and will attest to such by his/her cosignature. Rashi Joseph DO Feb 01, 2021 12:59 MOOK WEBB MD Feb 01, 2021 13:12
[2021-02-01] MEDS: AZITHROMYCIN INJ 500 MG, VIAL MATE ADAPTER 1 EACH in NS 250 ML IV SCH (13:50)
[2021-02-01 13:55] VITALS: BP 110/60
[2021-02-01 14:00] VITALS: BP 105/55
--- NOTE | 2021-02-01 14:56 | IPNPDOC ---
Date Seen The patient was seen on 02/01/21. Progress Note SUBJECTIVE: Patient is a 75-year-old male with COVID19 pneumonia presented to the ED 02/10/2021 after symptoms, which began Friday, started to get progressively worse (weakness and shortness of breath). Patient has a history of hypertension, COPD, the M2 with neuropathy, DVT history on Xarelto, ALDANA cirrhosis, CKD 3. He was seen in the Covid ICU on [address]. Denies chest pain, abdominal pain; reports coughing and congestion OBJECTIVE PHYSICAL EXAMINATION: VITAL SIGNS: Please see below. GENERAL: 75-year-old male, lying in bed, propped up with pillows, with Venturi mask on, in no acute distress HEENT: Normocephalic atraumatic, very hard of hearing CARDIOVASCULAR: Heart sounds difficult to appreciate with poor quality stethoscope RESPIRATORY: Clear to auscultation bilaterally. ABDOMINAL: Normoactive bowel sounds nontender to palpation EXTREMITIES: No lower extremity edema appreciated NEUROLOGICAL: No focal neurologic deficits appreciated PSYCHOLOGICAL: LABORATORY DATA, IMAGING STUDIES, MICROBIOLOGY: Please see below. Chest x-ray 02/01/2021: Left lower lobe improvement. No other significant change. Chest x-ray 01/31/2021: Stable chronic changes. Suspected left lower lobe infiltrate requires correlation. DVT prophylaxis ordered?: Continue Xarelto ASSESSMENT AND PLAN: This is a 75-year-old [GENDER] with Covid pneumonia who presented to the ER with progressive weakness and shortness of breath. PROBLEMS: Acute hypoxic respiratory failure - likely 2/2 acute COVID19 pneumonia -Chest x-ray shows suspected left lower lobe infiltrate -Place in isolation with droplet and contact precautions -Titrate oxygen to keep greater than 92% -Results of labs of been reviewed -Multiple labs still pending -Respiratory panel positive for Covid -Ceftriaxone 2 g given once in ER; Will c/w Azithromycin (day #1) & Ceftriaxone (day #2) (re: CXR with possible localized infiltrate) - Received Remdesivir and Dexamethasone in ER -Dexamethasone 6 mg daily & Remdesivir 200 mg every 24 hours (Day #2) -Tylenol 650 mg every 4 hours as needed for temperature greater than 100.4 point #Diabetes -ISS -FSBG AC/HS -Continue Nortriptyline #Depression -Continue paroxetine #GERD -Continue omeprazole #Allergies -Continue loratadine and Flonase #COPD -Continue Advair -Continue Combivent Respimat #BPH -Continue Tamsulosin #Hyperlipidemia -Continue rosuvastatin #Essential tremors -Continue primodone #DVT prophylaxis -Continue Xerelto DISPOSITION: Consider possible discharge tomorrow if able to titrate down to 2 L supplemental oxygen. VS, I&O, 24H, Fishbone Vital Signs/I&O Vital Signs Date Time Temp Pulse Resp B/P (MAP) Pulse Ox O2 Delivery O2 Flow Rate FiO2 02/01/21 13:55 97.5 100 20 110/60 (77) Venturi Mask 10.0 28 02/01/21 06:00 93 I&O- Last 24 Hours up to 6 AM 02/01/21 05:59 Intake Total 1300 ml Output Total 0 ml Balance 1300 ml Laboratory Data 24H LABS Laboratory Tests 2 01/31/21 15:35: Prothrombin Time 13.6, Prothromb Time International Ratio 1.00, D-Dimer, Quantitative 868.05H, Blood Gas Bicarbonate Standard 21.9, Venous Blood pH 7.372, Venous Blood Partial Pressure CO2 38.4, Venous Blood Partial Pressure O2 74.7H, Venous Blood Total Carbon Dioxide 23.0L, Venous Blood HCO3 21.8L, Venous Blood Oxygen Saturation 94.1H, Venous Blood Base Excess -3.0L, Anion Gap 6L, G lomerular Filtration Rate > 60.0, Lactic Acid Level 1.7, Calcium Level 8.7L, Magnesium Level 1.9, Ferritin 308, Total Bilirubin 0.4, Direct Bilirubin < 0.1, Aspartate Amino Transf (AST/SGOT) 82H, Alanine Aminotransferase (ALT/SGPT) 32, Alkaline Phosphatase 32L, Lactate Dehydrogenase 558H, Total Creatine Kinase 1262H, Creatine Kinase MB 22.5H, Creatine Kinase MB Relative Index 1.78, Troponin I < 0.02, C-Reactive Protein, Quantitative 10.90H, KS-Dqs-L-Type Natriuretic Peptide 206, Total Protein 6.9, Albumin 3.1L, Albumin/Globulin Ratio 0.8, Thyroid Stimulating Hormone (TSH) 3.150, Thyroxine (T4) 7.2, Coronavirus (COVID-19)(PCR) POSITIVEA, Influenza Type A (RT-PCR) NEGATIVE, Influenza Type B (RT-PCR) NEGATIVE, Respiratory Syncytial Virus (PCR) NEGATIVE 01/31/21 15:36: Immature Granulocyte % (Auto) 0.3, Neutrophils (%) (Auto) 79.3H, Lymphocytes (%) (Auto) 13.1L, Monocytes (%) (Auto) 7.1, Eosinophils (%) (Auto) 0.0, Basophils (%) (Auto) 0.2, Neutrophils # (Auto) 4.9, Lymphocytes # (Auto) 0.8L, Monocytes # (Auto) 0.4, Eosinophils # (Auto) 0.0, Basophils # (Auto) 0.0, Nucleated Red Blood Cells % (auto) 0.0, Procalcitonin 0.05 01/31/21 19:48: Prothrombin Time 13.8, Prothromb Time International Ratio 1.02, D-Dimer, Quantitative 786.07H, Anion Gap 5L, Glomerular Filtration Rate > 60.0, Calcium Level 9.1, Magnesium Level 2.1, Ferritin 352, Total Bilirubin 0.3, Direct Bilirubin 0.1, Aspartate Amino Transf (AST/SGOT) 108H, Alanine Aminotransferase (ALT/SGPT) 42, Alkaline Phosphatase 40L, Lactate Dehydrogenase 397H, Total Creatine Kinase 2461#H, Troponin I < 0.02, C-Reactive Protein, Quantitative 14.30H, DB-Lsp-D-Type Natriuretic Peptide 331, Total Protein 7.4, Albumin 3.4, Albumin/Globulin Ratio 0.9, Immature Granulocyte % (Auto) 0.5, Neutrophils (%) (Auto) 88.6H, Lymphocytes (%) (Auto) 8.2L, Monocytes (%) (Auto) 2.5, Eosinophils (%) (Auto) 0.0, Basophils (%) (Auto) 0.2, Neutrophils # (Auto) 5.6, Lymphocytes # (Auto) 0.5L, Monocytes # (Auto) 0.2, Eosinophils # (Auto) 0.0, Basophils # (Auto) 0.0, Nucleated Red Blood Cells % (auto) 0.0, Procalcitonin 0.10, Activated Partial Thromboplast Time 40.6H, Fibrinogen 607H 02/01/21 05:40: Bedside Glucose (Misc Panel) 157H 02/01/21 07:09: Immature Granulocyte % (Auto) 0.5, Neutrophils (%) (Auto) 80.5H, Lymphocytes (%) (Auto) 13.0L, Monocytes (%) (Auto) 6.0, Eosinophils (%) (Auto) 0.0, Basophils (%) (Auto) 0.0, Neutrophils # (Auto) 5.3, Lymphocytes # (Auto) 0.9L, Monocytes # (Auto) 0.4, Eosinophils # (Auto) 0.0, Basophils # (Auto) 0.0, Nucleated Red Blood Cells % (auto) 0.0, Prothrombin Time 13.0, Prothromb Time International Ratio 0.94, Anion Gap 4L, Glomerular Filtration Rate > 60.0, Calcium Level 8.6L, Magnesium Level 2.3, Total Bilirubin 0.3, Direct Bilirubin 0.1, Aspartate Amino Transf (AST/SGOT) 94H, Alanine Aminotransferase (ALT/SGPT) 42, Alkaline Phosphatase 38L, Total Protein 7.6, Albumin 2.9L, Albumin/Globulin Ratio 0.6 02/01/21 12:11: Bedside Glucose (Misc Panel) 135H CBC/BMP Laboratory Tests 01/31/21 15:35 01/31/21 15:36 01/31/21 19:48 02/01/21 07:09 Microbiology Microbiology 01/31/21 Blood Culture, Received Pending 01/31/21 Blood Culture, Received Pending 01/31/21 Blood Culture, Received Pending 01/31/21 Blood Culture, Received Pending GME ATTESTATION GME ATTESTATION My faculty preceptor for this patient encounter was physically present during the encounter and was fully available. All aspects of the patient interview, examination, medical decision making process, and medical care plan development were reviewed and approved by the faculty preceptor. The faculty preceptor is a major and concurs with the plan as stated in the body of this note and will attest to such by his/her cosignature. ATTENDING NOTE I, Ambika Li, have independently examined this patient and performed my own physical exam, as well as reviewed the documentation and edited where necessary with the resident. For medical students we have performed the physical exam to gether and discussed medical decision making and I have verified the history. I have discussed in detail with the resident / student the findings and plan of treatment as documented by the resident / student and edited their note. I agree with their findings and treatment plan and have edited their documentation. I will continue to follow the patient during this hospital stay. Rashi Joseph DO Feb 01, 2021 14:56 AMBIKA LI MD Feb 01, 2021 15:00
[2021-02-01] MEDS: cefTRIAXone SOD 1 GM in D5W MINI-BAG PLUS 50 ML IV SCH (17:22)
[2021-02-01] MEDS: NS 1,000 ML IV SCH (17:22)
[2021-02-01 20:00] VITALS: O2SAT 90
[2021-02-01] MEDS ORDERED: SODIUM CHLORIDE 0.9% INJ 10 ML SYR IV SCH (20:00)
[2021-02-01] MEDS: NORTRIPTYLINE 25 MG CAP PO SCH (20:23)
[2021-02-01] MEDS: REMDESIVIR 100 MG in NS 250 ML IV SCH (20:24)
[2021-02-01 20:26] VITALS: BP 118/55
[2021-02-01] MEDS: SODIUM CHLORIDE 0.9% INJ 10 ML SYR IV SCH (22:26)
[2021-02-02] VITALS (7 sets, daily range): BP systolic 107–117; BP diastolic 57–68; O2SAT 90–94
[2021-02-02] MEDS: HumaLOG INSULIN (NovoLOG) PER UNIT SC SCH ×4 (07:30→21:00)
[2021-02-02] MEDS: ADVAIR HFA 230/21MCG INHALER INH SCH ×2 (07:39→18:32)
[2021-02-02] MEDS: TIOTROPIUM INHALER/CAPSULE (SPIRIVA) INH SCH (07:39)
[2021-02-02 08:37] LABS: HEMATOCRIT 38.7 % (42.0-52.0); HEMOGLOBIN 12.6 g/dl (13.5-17.5); LYMPH # 0.9 10^3/uL (1.5-5.0); LYMPH % 14.6 % (24.0-44.0); MEAN CORPUSCULAR HEMOGLOBIN 33.9 pg (27.0-33.0); MEAN CORPUSCULAR HGB CONC 32.6 g/dl (32.0-36.5); MONO # 0.4 10^3/uL (0.0-0.8); MONO % 5.7 % (2.0-8.0); NEUTROPHILS # 5.1 10^3/uL (1.5-8.5); NEUTROPHILS % 79.2 % (36.0-66.0); PLATELET COUNT, AUTOMATED 204 10^3/uL (150-450); RED BLOOD COUNT 3.72 10^6/uL (4.30-6.10); WHITE BLOOD COUNT 6.5 10^3/uL (4.0-10.0)
[2021-02-02 09:14] LABS: INR 1.34
[2021-02-02 09:16] LABS: PARTIAL THROMBOPLASTIN TIME 44.6 SECONDS (25.9-37.0)
[2021-02-02 09:18] LABS: ALBUMIN 2.7 GM/DL (3.2-5.2); ALT/SGPT 64 U/L (12-78); BILIRUBIN,DIRECT 0.1 MG/DL (0.0-0.2); BILIRUBIN,TOTAL 0.3 MG/DL (0.2-1.0); CPK CREATINE PHOSPHOKINASE 595 U/L (39-308); FERRITIN 314 NG/ML (26-388); LDH LACTATE DEHYDROGENASE 358 U/L (87-241); MAGNESIUM LEVEL 2.1 MG/DL (1.8-2.4); NT-PRO BNP 168 PG/ML (<450); TOTAL PROTEIN 6.2 GM/DL (6.4-8.2); TROPONIN I < 0.02 NG/ML (< 0.10)
[2021-02-02] MEDS: LORATADINE 10 MG TAB PO SCH (10:23)
[2021-02-02] MEDS: TAMSULOSIN 0.4 MG CAP PO SCH (10:23)
[2021-02-02] MEDS: OMEPRAZOLE 20 MG CAP PO SCH (10:23)
[2021-02-02] MEDS: ROSUVASTATIN 10 MG TAB (CRESTOR) PO SCH (10:23)
[2021-02-02] MEDS: FLUTICASONE PROP 0.05% NASAL SPRAY 16 GM (FLONASE) SCH (10:24)
[2021-02-02] MEDS: dexameTHASONE 4 MG/ML 1ML VIAL (J1100 PER 1MG) IV SCH (10:24)
[2021-02-02] MEDS: PRIMIDONE 50 MG TAB PO SCH ×3 (10:24→20:40)
[2021-02-02] MEDS: GABAPENTIN 300 MG CAP PO SCH ×3 (10:24→20:40)
[2021-02-02] MEDS: PARoxetine 10MG TABLET PO SCH (10:24)
[2021-02-02] MEDS: RIVAROXABAN 20 MG TAB (XARELTO) PO SCH (10:24)
--- NOTE | 2021-02-02 11:47 | IPNPDOC ---
Date Seen The patient was seen on 02/02/21. Progress Note SUBJECTIVE: Patient is a 75-year-old male with over pneumonia who presented to the ED on 01/31/2021 after symptoms, progressive weakness and shortness of breath, began getting worse. 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 He reports feeling better today than when he came in. He also looks visually more with it and active. OBJECTIVE PHYSICAL EXAMINATION: VITAL SIGNS: Please see below. GENERAL: 75-year-old male, lying in bed, in no acute distress, good hear me today because because the negative pressure system was not on in the room HEENT: Normocephalic atraumatic CARDIOVASCULAR: Regular rate and rhythm (again exam limited due to poor quality of provided one-time use stethoscope). RESPIRATORY: Clear to auscultation bilaterally (again exam limited to poor quality of provided one-time use stethoscope). Nasal cannula currently set to 4 L ABDOMINAL: Normoactive bowel sounds and nontender to palpation in all 4 quadrants EXTREMITIES: No appreciable edema in the lower extremities NEUROLOGICAL: Baseline tremor appreciated, no other deficits observed Review of systems: Cardiac: Denies chest pain, reports chest tightness likely from coughing Respiratory: Reports shortness of breath with exertion (states his baseline is shortness of breath due to history of smoking), reports productive cough with beige mucus Gastrointestinal: Denies nausea, vomiting, diarrhea LABORATORY DATA, IMAGING STUDIES, MICROBIOLOGY: Please see below. Chest x-ray 02/01/2021: Left lower lobe improvement. No other significant change. Chest x-ray 01/31/2021: Stable chronic changes. Suspected left lower lobe infilt rate requires correlation. DVT prophylaxis ordered?: Continue Xarelto ASSESSMENT AND PLAN: This is a 75-year-old male who presented to the ER with progressive weakness and shortness of breath. He is tolerating 4 L nasal cannula at the moment and will attempt to titrate down to 2 L nasal cannula as tolerated. 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 PROBLEMS: Acute hypoxic respiratory failure - likely 2/2 acute COVID19 pneumonia -Chest x-ray shows suspected left lower lobe infiltrate -Place in isolation with droplet and contact precautions -Titrate oxygen to keep greater than 92% will attempt to bring patient down to 2 L nasal cannula from 4 L liters nasal cannula -Results of labs have been reviewed -Respiratory panel positive for Covid -Will c/w Azithromycin (day #2) & Ceftriaxone (day #3) (re: CXR with possible l ocalized infiltrate) -Dexamethasone 6 mg daily & Remdesivir 200 mg every 24 hours (Day #3) -Tylenol 650 mg every 4 hours as needed for temperature greater than 100.4 point -Mucinex to help with secretion movement -Acapella and incentive spirometer to encourage full lung expansion and atelectasis prevention #Diabetes -ISS -FSBG AC/HS #Depression -Continue paroxetine and Nortriptyline #GERD -Continue omeprazole #Allergies -Continue loratadine and Flonase #COPD - No evidence of exacerbation -Continue Advair -Continue Combivent Respimat #BPH -Continue Tamsulosin #Hyperlipidemia -Continue rosuvastatin #Essential tremors -Continue primidone #DVT prophylaxis -Continue Xarelto DISPOSITION: - Consider possible discharge tomorrow if able to titrate down to 2 L supplemental oxygen. VS, I&O, 24H, Fishbone Vital Signs/I&O Vital Signs Date Time Temp Pulse Resp B/P (MAP) Pulse Ox O2 Delivery O2 Flow Rate FiO2 02/02/21 00:00 91 Nasal Cannula 4.0 02/01/21 20:26 98.6 101 22 118/55 (76) 02/01/21 14:00 28 l I&O- Last 24 Hours up to 6 AM 02/02/21 05:59 Intake Total 240 ml Output Total 0 ml Balance 240 ml Laboratory Data 24H LABS Laboratory Tests 2 02/01/21 12:11: Bedside Glucose (Misc Panel) 135H 02/01/21 17:15: Bedside Glucose (Misc Panel) 183H 02/01/21 20:21: Bedside Glucose (Misc Panel) 180H 02/02/21 08:14: Immature Granulocyte % (Auto) 0.5, Neutrophils (%) (Auto) 79.2H, Lymphocytes (%) (Auto) 14.6L, Monocytes (%) (Auto) 5.7, Eosinophils (%) (Auto) 0.0, Basophils (%) (Auto) 0.0, Neutrophils # (Auto) 5.1, Lymphocytes # (Auto) 0.9L, Monocytes # (Auto) 0.4, Eosinophils # (Auto) 0.0, Basophils # (Auto) 0.0, Nucleated Red Blood Cells % (auto) 0.0, Prothrombin Time 17.0H, Prothromb Time International Ratio 1.34, Activated Partial Thromboplast Time 44.6H, Fibrinogen 489H, Magnesium Level 2.1, Ferritin 314, Total Bilirubin 0.3, Direct Bilirubin 0.1, Aspartate Amino Transf (AST/SGOT) 113H, Alanine Aminotransferase (ALT/SGPT) 64, Alkaline Phosphatase 36L, Lactate Dehydrogenase 358H, Total Creatine Kinase 595#H, Troponin I < 0.02, RS-Fiv-K-Type Natriuretic Peptide 168, Total Protein 6.2L, Albumin 2.7L, Albumin/Globulin Ratio 0.8 02/02/21 10:11: Bedside Glucose (Misc Panel) 157H CBC/BMP Laboratory Tests 02/02/21 08:14 Microbiology Microbiology 01/31/21 Blood Culture - Preliminary, Resulted No growth after 24 hours . All specim... 01/31/21 Blood Culture - Preliminary, Resulted No growth after 24 hours . All specim... 01/31/21 Blood Culture - Preliminary, Resulted No growth after 24 hours . All specim... 01/31/21 Blood Culture - Preliminary, Resulted No growth after 24 hours . All specim... GME ATTESTATION GME ATTESTATION My faculty preceptor for this patient encounter was physically present during the encounter and was fully available. All aspects of the patient interview, examination, medical decision making process, and medical care plan development were reviewed and approved by the faculty preceptor. The faculty preceptor is aware and concurs with the plan as stated in the body of this note and will attest to such by his/her cosignature. ATTENDING NOTE I, Ambika Webb, have independently examined this patient and performed my own physical exam, as well as reviewed the documentation and edited where necessary with the resident. For medical students we have performed the physical exam together and discussed medical decision making and I have verified the history. I have discussed in detail with the resident / student the findings and plan of treatment as documented by the resident / student and edited their note. I agree with their findings and treatment plan and have edited their documentation. I will continue to follow the patient during this hospital stay. Rashi Joseph DO Feb 02, 2021 11:47 AMBIKA WEBB MD Feb 02, 2021 14:36
[2021-02-02] MEDS: AZITHROMYCIN INJ 500 MG, VIAL MATE ADAPTER 1 EACH in NS 250 ML IV SCH (12:58)
[2021-02-02] MEDS: guaiFENesin ER 600 MG TAB PO SCH ×2 (12:58→20:40)
[2021-02-02 13:40] LABS: BLOOD UREA NITROGEN 26 MG/DL (7-18); CALCIUM LEVEL 8.7 MG/DL (8.8-10.2); CARBON DIOXIDE LEVEL 26 MEQ/L (21-32); CHLORIDE LEVEL 112 MEQ/L (98-107); CREATININE FOR GFR 0.92 MG/DL (0.70-1.30); GLOMERULAR FILTRATION RATE > 60.0 (>42); GLUCOSE, FASTING 140 MG/DL (70-100); SODIUM LEVEL 145 MEQ/L (136-145)
[2021-02-02] MEDS: cefTRIAXone SOD 1 GM in D5W MINI-BAG PLUS 50 ML IV SCH (17:56)
[2021-02-02] MEDS: NS 1,000 ML IV SCH (20:39)
[2021-02-02] MEDS: REMDESIVIR 100 MG in NS 250 ML IV SCH (20:39)
[2021-02-02] MEDS: SODIUM CHLORIDE 0.9% INJ 10 ML SYR IV SCH (20:39)
[2021-02-02] MEDS: NORTRIPTYLINE 25 MG CAP PO SCH (20:40)
[2021-02-03] VITALS: O2SAT 92
[2021-02-03 05:31] VITALS: BP 139/70
[2021-02-03 07:58] LABS: BASO % 0.2 % (0.0-1.0); HEMATOCRIT 36.6 % (42.0-52.0); HEMOGLOBIN 12.2 g/dl (13.5-17.5); LYMPH # 0.8 10^3/uL (1.5-5.0); LYMPH % 13.1 % (24.0-44.0); MEAN CORPUSCULAR HEMOGLOBIN 33.6 pg (27.0-33.0); MEAN CORPUSCULAR HGB CONC 33.3 g/dl (32.0-36.5); MEAN CORPUSCULAR VOLUME 100.8 fl (80.0-96.0); MONO # 0.4 10^3/uL (0.0-0.8); MONO % 6.6 % (2.0-8.0); NEUTROPHILS # 4.8 10^3/uL (1.5-8.5); PLATELET COUNT, AUTOMATED 217 10^3/uL (150-450); RED BLOOD COUNT 3.63 10^6/uL (4.30-6.10); WHITE BLOOD COUNT 6.1 10^3/uL (4.0-10.0)
[2021-02-03 08:00] VITALS: O2SAT 94
[2021-02-03] MEDS: ADVAIR HFA 230/21MCG INHALER INH SCH (08:06)
[2021-02-03] MEDS: TIOTROPIUM INHALER/CAPSULE (SPIRIVA) INH SCH (08:06)
[2021-02-03 08:14] LABS: INR 1.07; PROTHROMBIN TIME 14.3 SECONDS (12.7-14.5)
[2021-02-03 08:15] LABS: PARTIAL THROMBOPLASTIN TIME 38.1 SECONDS (25.9-37.0)
[2021-02-03 08:18] LABS: D-DIMER QUANT 643.85 ng/ml (<500)
[2021-02-03 08:24] LABS: ALBUMIN 2.6 GM/DL (3.2-5.2); ALT/SGPT 93 U/L (12-78); BILIRUBIN,DIRECT 0.1 MG/DL (0.0-0.2); BILIRUBIN,TOTAL 0.2 MG/DL (0.2-1.0); BLOOD UREA NITROGEN 20 MG/DL (7-18); C REACTIVE PROTEIN QUANTITATIV 2.61 MG/DL (0.00-0.30); CALCIUM LEVEL 8.5 MG/DL (8.8-10.2); CARBON DIOXIDE LEVEL 22 MEQ/L (21-32); CHLORIDE LEVEL 115 MEQ/L (98-107); CPK CREATINE PHOSPHOKINASE 288 U/L (39-308); CREATININE FOR GFR 0.76 MG/DL (0.70-1.30); FERRITIN 293 NG/ML (26-388); GLOMERULAR FILTRATION RATE > 60.0 (>42); GLUCOSE, FASTING 134 MG/DL (70-100); LDH LACTATE DEHYDROGENASE 330 U/L (87-241); MAGNESIUM LEVEL 1.9 MG/DL (1.8-2.4); POTASSIUM SERUM 4.1 MEQ/L (3.5-5.1); SODIUM LEVEL 144 MEQ/L (136-145); TROPONIN I < 0.02 NG/ML (< 0.10)
[2021-02-03] MEDS: dexameTHASONE 4 MG/ML 1ML VIAL (J1100 PER 1MG) IV SCH (08:58)
[2021-02-03] MEDS: HumaLOG INSULIN (NovoLOG) PER UNIT SC SCH ×3 (08:58→17:30)
[2021-02-03] MEDS: ROSUVASTATIN 10 MG TAB (CRESTOR) PO SCH (08:59)
[2021-02-03] MEDS: TAMSULOSIN 0.4 MG CAP PO SCH (08:59)
[2021-02-03] MEDS: OMEPRAZOLE 20 MG CAP PO SCH (08:59)
[2021-02-03] MEDS: PARoxetine 10MG TABLET PO SCH (09:00)
[2021-02-03] MEDS: RIVAROXABAN 20 MG TAB (XARELTO) PO SCH (09:00)
[2021-02-03] MEDS: FLUTICASONE PROP 0.05% NASAL SPRAY 16 GM (FLONASE) SCH (09:00)
[2021-02-03] MEDS: LORATADINE 10 MG TAB PO SCH (09:00)
[2021-02-03] MEDS: PRIMIDONE 50 MG TAB PO SCH ×2 (09:00→17:45)
[2021-02-03] MEDS: GABAPENTIN 300 MG CAP PO SCH ×2 (09:00→17:45)
[2021-02-03] MEDS: guaiFENesin ER 600 MG TAB PO SCH (09:00)
[2021-02-03] MEDS ORDERED: MAG SULF 1GM/100ML (MAG RUN) 1 GM in IV 1 EA IV ONE (11:00)
--- NOTE | 2021-02-03 11:14 | IPNPDOC ---
Text Note Date of Service The patient was seen on 02/03/21. VS,eBtobone, I+O VS, Fishbone, I+O Laboratory Tests 02/03/21 07:25 Vital Signs Date Time Temp Pulse Resp B/P (MAP) Pulse Ox O2 Delivery O2 Flow Rate FiO2 02/03/21 05:31 97.0 91 22 139/70 (93) 90 Nasal Cannula 4.0 02/01/21 14:00 28 I&O- Last 24 Hours up to 6 AM 02/03/21 06:00 Intake Total 600 ml Output Total 950 ml Balance -350 ml MOOK WEBB MD Feb 03, 2021 11:14
[2021-02-03] MEDS ORDERED: AZIT500T5 PO (12:48)
[2021-02-03] MEDS ORDERED: MUCI600T31 PO (12:48)
[2021-02-03] MEDS ORDERED: PRED10TA2 PO (12:48)
[2021-02-03] MEDS ORDERED: CEFD1CAP8 PO (12:48)
--- NOTE | 2021-02-03 14:18 | DS.PDOC ---
Discharge Summary General Date of Admission Jan 31, 2021 at 18:02 Date of Discharge 02/03/2021 Discharge Summary PROCEDURES PERFORMED DURING STAY: [None]. ADMITTING DIAGNOSES / DISCHARGE DIAGNOSES: Acute hypoxic respiratory failure - likely 2/2 acute COVID19 pneumonia with suspected superimposed bacterial PNA HTN NIDDM2 DLP COPD Hx of DVT (2014) CKD3 ALDANA Neuropathy Depression Essential tremors Seasonal allergies BPH Chronic back pain Obesity GERD / Hiatal hernia DVT prophylaxis COMPLICATIONS/CHIEF COMPLAINT: Shortness of breath HISTORY OF PRESENT ILLNESS: Patient is a 75-year-old male with a PMHx of HTN, DM2, DLP, COPD, Hx of DVT (2014; on Xarelto), CKD3, ALDANA, Neuropathy, Depression, Essential tremor, BPH, Chronic back pain, Obesity, GERD/Hiatal hernia who presented to the emerg ency room with shortness of breath. Upon arrival to emergency room, patient was found to have COVID19 and was admitted to hospital service for further evaluation and treatment. Patient was seen and examined at the bedside. Patient is very conversive today. He denies any chest pain or palpitations. Reports of mild nonproductive cough. Reports that his breathing is doing better. Has not experience any nausea, vomiting, abdominal pain or diarrhea. Denies any urinary discomfort. HOSPITAL COURSE: Acute hypoxic respiratory failure - likely 2/2 acute COVID19 pneumonia with suspected superimposed bacterial PNA - Clinically reports improvement; reports mild non-productive cough - Patient has remained stable on 4L NC oxygen - Inflammatory markers improving - Blood cultures /6: No growth at 48 hours - COVID19 positive on 10/6 - Imaging noted above - Will DC Ceftriaxone and Azithromycin (Day #4); Will transition to cefdinir and azithromycin PO for completion of antibiotic course - Will DC Dexamethasone and Remdesivir (Day #4); will complete a prednisone taper as an outpatient - c/w Acapella / Incentive spirometry / Mucinex - Patient has had a home safety evaluation completed and has been cleared for discharge home with services - Will up outpatient follow-up with primary care provider within the next 7 days HTN - BP well controlled - Currently not on any medications NIDDM2 - c/w ISS DLP - c/w Rosuvastatin COPD - No evidence of exacerbation - c/w inhaled therapy as ordered Hx of DVT (2014) - c/w Xarelto CKD3 - Creatinine appears to be normal ALDANA Neuropathy - c/w Gabapentin Depression - c/w Paroxetine and Nortriptyline Essential tremors - c/w primidone Seasonal allergies - c/w Loratadine and Flonase BPH - c/w Tamsulosin Chronic back pain - c/w Tylenol PRN Obesity - Complicating medical care GERD / Hiatal hernia - c/w Omeprazole DVT prophylaxis - c/w Full anticoagulation with Xarelto DISCHARGE MEDICATIONS: Please see below. ALLERGIES: Please see below. PHYSICAL EXAMINATION ON DISCHARGE: Vitals (See below) General: Lying in bed, appears comfortable, AAOx3 HEENT: NC, AT CVS: RRR, +S1S2 Lungs: Fair air entry b/l, no wheezing, rales or rhonchi Abdomen: Soft, ND, NT Extremities: No edema LABORATORY DATA: Please see below. IMAGING: CXR 01/31: Stable chronic changes. Suspected left lower lobe infiltrate requires correlation. CXR 02/01: Stable chronic changes. Suspected left lower lobe infiltrate requires correlation. ACTIVITY: [As tolerated]. DISCHARGE PLAN: Follow-up with primary care provider within the next 7 days Remain compliant with treatment plan and medications Return to the ER if you experience any problems DISPOSITION: Home with services DISCHARGE CONDITION: [Stable]. TIME SPENT ON DISCHARGE: 35 minutes. Vital Signs/I&Os Vital Signs Date Time Temp Pulse Resp B/P (MAP) Pulse Ox O2 Delivery O2 Flow Rate FiO2 02/03/21 05:31 97.0 91 22 139/70 (93) 90 Nasal Cannula 4.0 02/01/21 14:00 28 I&O- Last 24 Hours up to 6 AM 02/03/21 05:59 Intake Total 600 ml Output Total 950 ml Balance -350 ml Laboratory Data Labs 24H Laboratory Tests 2 02/02/21 17:11: Bedside Glucose (Misc Panel) 174H 02/02/21 20:43: Bedside Glucose (Misc Panel) 204H 02/03/21 05:43: Bedside Glucose (Misc Panel) 143H 02/03/21 07:25: Immature Granulocyte % (Auto) 1.1, Neutrophils (%) (Auto) 79.0H, Lymphocytes (%) (Auto) 13.1L, Monocytes (%) (Auto) 6.6, Eosinophils (%) (Auto) 0.0, Basophils (%) (Auto) 0.2, Neutrophils # (Auto) 4.8, Lymphocytes # (Auto) 0.8L, Monocytes # (Auto) 0.4, Eosinophils # (Auto) 0.0, Basophils # (Auto) 0.0, Nucleated Red Blood Cells % (auto) 0.0, Prothrombin Time 14.3H, Prothromb Time International Ratio 1.07, Activated Partial Thromboplast Time 38.1, Fibrinogen 409, D-Dimer, Quantitative 643.85H, Anion Gap 7L, Glomerular Filtration Rate > 60.0, Calcium Level 8.5L, Magnesium Level 1.9, Ferritin 293, Total Bilirubin 0.2, Direct Bilirubin 0.1, Aspartate Amino Transf (AST/SGOT) 113H, Alanine Aminotransferase (ALT/SGPT) 93H, Alkaline Phosphatase 35L, Lactate Dehydrogenase 330H, Total Creatine Kinase 288, Troponin I < 0.02, C-Reactive Protein, Quantitative 2.61H, Total Protein 6.0L, Albumin 2.6L, Albumin/Globulin Ratio 0.8 02/03/21 11:45: Bedside Glucose (Misc Panel) 168H CBC/BMP Laboratory Tests 02/03/21 07:25 FSBS Laboratory Tests Test 02/02/21 17:11 02/02/21 20:43 02/03/21 05:43 02/03/21 11:45 Range/Units Bedside Glucose (Misc Panel) 174 204 143 168 83-110 MG/DL Microbiology Microbiology 01/31/21 Blood Culture - Preliminary, Resulted No Growth after 48 hours. All Specime... 01/31/21 Blood Culture - Preliminary, Resulted No Growth after 48 hours. All Specime... 01/31/21 Blood Culture - Preliminary, Resulted No Growth after 48 hours. All Specime... 01/31/21 Blood Culture - Preliminary, Resulted No Growth after 48 hours. All Specime... Discharge Medications Scheduled Acetaminophen (Tylenol Arthritis) 650 Mg Tab, 1,300 MG PO BID, (Reported) Acetaminophen (Tylenol Extra Strength) 500 Mg Tablet, 500 MG PO DAILY, (Repor yossi) AFTERNOON TIME Azithromycin (Azithromycin) 500 Mg Tablet, 1 TAB PO DAILY Calcium Carbonate (Calcium Carbonate) 500 Mg Tab, 500 MG PO DAILY, (Reported) Cefdinir (Cefdinir) 300 Mg Capsule, 1 CAP PO BID Ergocalciferol (Vitamin D2) (Vitamin D2) 50 Mcg (2000 Unit) Tablet, 50 MCG PO DAILY, (Reported) Fluticasone Propionate (Flonase Allergy Relief) 50 Mcg/Act Spr, 2 SPRAYS NA DAILY, (Reported) Gabapentin (Neurontin) 300 Mg Capsule, 300 MG PO TID, (Reported) Guaifenesin (Mucinex) 600 Mg Tab.er.12h, 600 MG PO BID Iron Polysaccharide Complex (Ferrex 150) 150 Mg Cap, 150 MG PO Q2D, (Reported) Loratadine (Claritin) 10 Mg Cap, 10 MG PO DAILY, (Reported) Metformin HCl (Metformin HCl) 500 Mg Tablet, 500 MG PO BID, (Reported) Multivitamin (Multivitamin) 1 Each Tablet, 1 TAB PO DAILY, (Reported) Nortriptyline Hcl (Pamelor) 25 Mg Capsule, 25 MG PO QHS, (Reported) Omeprazole (Omeprazole) 20 Mg Cap, 40 MG PO DAILY, (Reported) Paroxetine HCl (Paxil) 10 Mg Tab, 10 MG PO DAILY, (Reported) Prednisone (Prednisone) 10 Mg Tablet, 10 MG PO TAPER Take 4 tabs daily x 3 days, then 3 tabs daily x 3 days, then 2 tabs daily x 3 days, then 1 tab daily x 3 days and stop Primidone (Primidone) 50 Mg Tab, 50 MG PO TID, (Reported) Rivaroxaban (Xarelto) 20 Mg Tab, 20 MG PO DAILY, (Reported) Rosuvastatin Calcium (Crestor) 20 Mg Tab, 20 MG PO DAILY, (Reported) Salmeterol/Fluticasone (Advair 500-50 Diskus) 28 Puff/Inhaler Aerp, 1 PUFF INH BID, (Reported) Tamsulosin HCl (Flomax) 0.4 Mg Cap, 0.8 MG PO DAILY, (Reported) Tiotropium [place] Monohydrate (Spiriva) 5 Inhalation/Inhaler Powd, 1 INHALATION INH DAILY, (Reported) Zoledronic Acid/Mannitol-Water (Reclast 5 mg/100 ml Solution) 5 Mg/100 Ml Inj, 5 MG IV ASDIRECTED, (Reported) Scheduled PRN Ipratropium/Albuterol Sulfate (Combivent Respimat 20-100 Mcg) 1 Aer Aer, 1 PUFF INH QIDP PRN for SHORTNESS OF BREATH, (Reported) Sodium Chloride (Saline Mist) 0.65 % Spr, 2 SPRAY NA BID PRN for NASAL CONGESTION, (Reported) Allergies Coded Allergies: No Known Allergies (Unverified , 07/24/18) MOOK WEBB MD Feb 03, 2021 14:18
[2021-02-03] MEDS: AZITHROMYCIN INJ 500 MG, VIAL MATE ADAPTER 1 EACH in NS 250 ML IV SCH (15:41)
== END 2021-02-03 19:00 | disposition home health service (06) | DRG 177 ==
LOC: M ED 12:03 → EDBD 12:03 → M ED INP 18:02 → M 4MAIN 02-01 02:20
PROVIDERS: ADMIT Internal Medicine; ATTEND Internal Medicine
DX: U07.1 COVID-19 (principal); J12.82 Pneumonia due to coronavirus disease 2019; J96.01 Acute respiratory failure with hypoxia; J44.9 Chronic obstructive pulmonary disease, unspecified; K75.81 Nonalcoholic steatohepatitis (NASH); K74.60 Unspecified cirrhosis of liver; N18.30 Chronic kidney disease, stage 3 unspecified; E11.40 Type 2 diabetes mellitus with diabetic neuropathy, unspecified; E66.9 Obesity, unspecified; N40.0 Benign prostatic hyperplasia without lower urinary tract symptoms; K44.9 Diaphragmatic hernia without obstruction or gangrene; K21.9 Gastro-esophageal reflux disease without esophagitis; F32.9 Major depressive disorder, single episode, unspecified; Z86.718 Personal history of other venous thrombosis and embolism; Z79.01 Long term (current) use of anticoagulants; M54.59 Other low back pain; I12.9 Hypertensive chronic kidney disease with stage 1 through stage 4 chronic kidney disease, or unspecified chronic kidney disease; G25.0 Essential tremor; Z79.899 Other long term (current) drug therapy; Z87.891 Personal history of nicotine dependence; Z98.41 Cataract extraction status, right eye; Z98.42 Cataract extraction status, left eye; Z96.641 Presence of right artificial hip joint

== ENCOUNTER → 2021-04-26 | Outpatient (REF) | payer MEDICARE ==
[~2021-04-26] MED LIST changes: +ACET-897 PO; +AMOX875T2 PO; +AZIT500T5 PO; +CEFD1CAP8 PO; +MUCI600T31 PO; +MULT-90 PO; +PRED10TA2 PO; +SPIR1CAP
[2021-04-26 13:57] LABS: BASO # 0.1 10^3/uL (0.0-0.2); BASO % 0.9 % (0.0-1.0); EOS # 0.3 10^3/uL (0.0-0.5); EOS % 3.3 % (0.0-3.0); HEMATOCRIT 44.4 % (42.0-52.0); HEMOGLOBIN 14.2 g/dl (13.5-17.5); LYMPH # 2.4 10^3/uL (1.5-5.0); LYMPH % 25.9 % (24.0-44.0); MEAN CORPUSCULAR HEMOGLOBIN 33.3 pg (27.0-33.0); MONO # 0.5 10^3/uL (0.0-0.8); MONO % 5.2 % (2.0-8.0); NEUTROPHILS # 5.8 10^3/uL (1.5-8.5); NEUTROPHILS % 63.7 % (36.0-66.0); PLATELET COUNT, AUTOMATED 404 10^3/uL (150-450); RED BLOOD COUNT 4.27 10^6/uL (4.30-6.10); WHITE BLOOD COUNT 9.1 10^3/uL (4.0-10.0)
[2021-04-26 14:36] LABS: ALBUMIN 3.7 GM/DL (3.2-5.2); ALT/SGPT 25 U/L (12-78); BILIRUBIN,TOTAL 0.2 MG/DL (0.2-1.0); BLOOD UREA NITROGEN 14 MG/DL (7-18); CALCIUM LEVEL 9.7 MG/DL (8.8-10.2); CARBON DIOXIDE LEVEL 29 MEQ/L (21-32); CHLORIDE LEVEL 108 MEQ/L (98-107); CHOLESTEROL LEVEL 133 MG/DL (<200); CREATININE FOR GFR 0.94 MG/DL (0.70-1.30); FERRITIN 48 NG/ML (26-388); GLOMERULAR FILTRATION RATE > 60.0 (>42); GLUCOSE, FASTING 102 MG/DL (70-100); HDL CHOLESTEROL 50 MG/DL (>40); IRON (FE) 98 UG/DL (65-175); LDL CHOLESTEROL 39 MG/DL (<100); NON-HDL-C 83 MG/DL; NT-PRO BNP 91 PG/ML (<450); PERCENT SATURATION 30.1 % (19.7-50.0); POTASSIUM SERUM 3.8 MEQ/L (3.5-5.1); SODIUM LEVEL 142 MEQ/L (136-145); TOTAL IRON BINDING CAPACITY 326 UG/DL (250-450); TOTAL PROTEIN 7.6 GM/DL (6.4-8.2); TRIGLYCERIDES LEVEL 222 MG/DL (<150)
[2021-04-26 14:48] LABS: HEMOGLOBIN A1c 6.2 %
== END ==
LOC: M SFHCPLAZ 09:26
PROVIDERS: ATTEND Family Medicine
DX: R73.01 Impaired fasting glucose (principal); D50.9 Iron deficiency anemia, unspecified; E78.2 Mixed hyperlipidemia

== ENCOUNTER 2021-05-01 15:05 | Outpatient (CLI) | payer MEDICARE ==
[~2021-05-01] VITALS: Ht 167.6 cm; Wt 83.7 kg
[2021-05-01 15:10] VITALS: BP 119/69
[2021-05-01] MEDS ORDERED: ZOLEDRONIC ACID 5 MG 100ML IVBAG (RECLAST)(J3489 PER 1MG) IV ONE (16:40)
[2021-05-01 17:30] VITALS: BP 116/66
== END 2021-05-01 17:30 | disposition home or self-care (01) ==
LOC: M INFU 15:05
PROVIDERS: ATTEND Family Medicine
DX: M81.0 Age-related osteoporosis without current pathological fracture (principal)
CPT/HCPCS: 96374; J3489

== ENCOUNTER → 2021-05-21 | Outpatient (CLI) | payer MEDICARE ==
[~2021-05-21] MED LIST changes: -CEFD1CAP8 PO; +CEFD300C41 PO
== END ==
LOC: M RAD 11:15
PROVIDERS: ATTEND Family Medicine
DX: Z12.2 Encounter for screening for malignant neoplasm of respiratory organs (principal); Z87.891 Personal history of nicotine dependence

== ENCOUNTER → 2021-08-15 | Outpatient (REF) | payer MEDICARE ==
[2021-08-15 12:48] LABS: BASO % 0.6 % (0.0-1.0); EOS # 0.2 10^3/uL (0.0-0.5); EOS % 3.2 % (0.0-3.0); HEMATOCRIT 39.2 % (42.0-52.0); HEMOGLOBIN 12.9 g/dl (13.5-17.5); LYMPH # 1.8 10^3/uL (1.5-5.0); MEAN CORPUSCULAR HEMOGLOBIN 33.2 pg (27.0-33.0); MEAN CORPUSCULAR HGB CONC 32.9 g/dl (32.0-36.5); MONO # 0.4 10^3/uL (0.0-0.8); MONO % 5.7 % (2.0-8.0); NEUTROPHILS # 4.1 10^3/uL (1.5-8.5); NEUTROPHILS % 62.6 % (36.0-66.0); PLATELET COUNT, AUTOMATED 288 10^3/uL (150-450); RED BLOOD COUNT 3.88 10^6/uL (4.30-6.10); WHITE BLOOD COUNT 6.5 10^3/uL (4.0-10.0)
[2021-08-15 13:04] LABS: ALBUMIN 3.8 GM/DL (3.2-5.2); ALT/SGPT 39 U/L (12-78); BILIRUBIN,TOTAL 0.4 MG/DL (0.2-1.0); BLOOD UREA NITROGEN 15 MG/DL (7-18); CALCIUM LEVEL 8.9 MG/DL (8.8-10.2); CARBON DIOXIDE LEVEL 26 MEQ/L (21-32); CHLORIDE LEVEL 109 MEQ/L (98-107); CREATININE FOR GFR 1.17 MG/DL (0.70-1.30); FERRITIN 44 NG/ML (26-388); FREE T4 0.71 NG/DL (0.76-1.46); GLOMERULAR FILTRATION RATE > 60.0 (>42); GLUCOSE, FASTING 113 MG/DL (70-100); NT-PRO BNP 111 PG/ML (<450); POTASSIUM SERUM 3.9 MEQ/L (3.5-5.1); PTH INTACT 44.9 PG/ML (18.5-88.0); SODIUM LEVEL 142 MEQ/L (136-145); TOTAL 25(OH) VITAMIN D 42.7 NG/ML (30.0-100.0); TOTAL PROTEIN 7.3 GM/DL (6.4-8.2)
[2021-08-15 15:18] LABS: HEMOGLOBIN A1c 6.1 %
== END ==
LOC: M SFHCADAM 09:13
PROVIDERS: ATTEND Family Medicine
DX: E55.9 Vitamin D deficiency, unspecified (principal); Z12.5 Encounter for screening for malignant neoplasm of prostate; R73.01 Impaired fasting glucose; E03.9 Hypothyroidism, unspecified; D75.89 Other specified diseases of blood and blood-forming organs; D50.9 Iron deficiency anemia, unspecified
CPT/HCPCS: 80053; 82306; 82728; 83036; 83525; 83880; 83970; 84439; 84443; 85025; G0103

== ENCOUNTER → 2021-08-24 | Outpatient (REF) | payer MEDICARE | LOC: M SFHCPLAZ 11:23 | PROVIDERS: ATTEND Family Medicine | DX: J44.9 Chronic obstructive pulmonary disease, unspecified (principal) ==

== ENCOUNTER → 2022-01-15 | Outpatient (REF) | payer MEDICARE ==
[2022-01-15 14:02] LABS: BASO # 0.1 10^3/uL (0.0-0.2); BASO % 0.7 % (0.0-1.0); EOS # 0.3 10^3/uL (0.0-0.5); EOS % 3.6 % (0.0-3.0); HEMATOCRIT 43.5 % (42.0-52.0); HEMOGLOBIN 13.9 g/dl (13.5-17.5); LYMPH # 1.7 10^3/uL (1.5-5.0); LYMPH % 22.7 % (24.0-44.0); MEAN CORPUSCULAR HEMOGLOBIN 32.9 pg (27.0-33.0); MEAN CORPUSCULAR VOLUME 102.8 fl (80.0-96.0); MONO # 0.5 10^3/uL (0.0-0.8); MONO % 6.1 % (2.0-8.0); NEUTROPHILS % 66.4 % (36.0-66.0); PLATELET COUNT, AUTOMATED 246 10^3/uL (150-450); RED BLOOD COUNT 4.23 10^6/uL (4.30-6.10); WHITE BLOOD COUNT 7.6 10^3/uL (4.0-10.0)
[2022-01-15 14:15] LABS: ALBUMIN 3.7 GM/DL (3.2-5.2); ALT/SGPT 31 U/L (12-78); BILIRUBIN,TOTAL 0.3 MG/DL (0.2-1.0); BLOOD UREA NITROGEN 13 MG/DL (7-18); CALCIUM LEVEL 9.4 MG/DL (8.8-10.2); CARBON DIOXIDE LEVEL 27 MEQ/L (21-32); CHLORIDE LEVEL 110 MEQ/L (98-107); CREATININE FOR GFR 1.09 MG/DL (0.70-1.30); FERRITIN 26 NG/ML (26-388); GLOMERULAR FILTRATION RATE > 60.0 (>42); GLUCOSE, FASTING 109 MG/DL (70-100); NT-PRO BNP 110 PG/ML (<450); POTASSIUM SERUM 4.3 MEQ/L (3.5-5.1); SODIUM LEVEL 140 MEQ/L (136-145); TOTAL PROTEIN 7.2 GM/DL (6.4-8.2)
[2022-01-15 14:35] LABS: HEMOGLOBIN A1c 6.3 %
== END ==
LOC: M SFHCADAM 10:20
PROVIDERS: ATTEND Family Medicine
DX: D50.9 Iron deficiency anemia, unspecified (principal); I10 Essential (primary) hypertension

== ENCOUNTER → 2022-03-26 | Outpatient (REF) | payer MEDICARE ==
[2022-03-26 14:07] LABS: BASO % 0.6 % (0.0-1.0); EOS # 0.1 10^3/uL (0.0-0.5); EOS % 2.2 % (0.0-3.0); HEMATOCRIT 38.3 % (42.0-52.0); HEMOGLOBIN 12.6 g/dl (13.5-17.5); LYMPH # 1.9 10^3/uL (1.5-5.0); LYMPH % 29.2 % (24.0-44.0); MEAN CORPUSCULAR HEMOGLOBIN 33.7 pg (27.0-33.0); MEAN CORPUSCULAR HGB CONC 32.9 g/dl (32.0-36.5); MEAN CORPUSCULAR VOLUME 102.4 fl (80.0-96.0); MONO # 0.4 10^3/uL (0.0-0.8); MONO % 6.5 % (2.0-8.0); NEUTROPHILS # 3.9 10^3/uL (1.5-8.5); NEUTROPHILS % 61.2 % (36.0-66.0); PLATELET COUNT, AUTOMATED 225 10^3/uL (150-450); RED BLOOD COUNT 3.74 10^6/uL (4.30-6.10); WHITE BLOOD COUNT 6.4 10^3/uL (4.0-10.0)
[2022-03-26 14:24] LABS: CHLORIDE LEVEL 104 MMOL/L (98-107); POTASSIUM SERUM 4.1 MMOL/L (3.5-5.1); SODIUM LEVEL 142 MMOL/L (136-145)
[2022-03-26 14:25] LABS: ALBUMIN 3.8 G/DL (3.2-5.2); CARBON DIOXIDE LEVEL 27 MMOL/L (20-31)
[2022-03-26 14:30] LABS: ALKALINE PHOSPHATASE 46 U/L (46-116); BLOOD UREA NITROGEN 21 MG/DL (9-23); CALCIUM LEVEL 9.3 MG/DL (8.3-10.6); GLUCOSE, FASTING 117 MG/DL (74-106)
[2022-03-26 14:31] LABS: PTH INTACT 36.1 PG/ML (18.5-88.0)
[2022-03-26 14:32] LABS: ALT/SGPT 33 U/L (7.0-40); AST/SGOT 30 U/L (<34); BILIRUBIN,TOTAL 0.2 MG/DL (0.3-1.2); CREATININE FOR GFR 0.98 MG/DL (0.70-1.30); GLOMERULAR FILTRATION RATE > 60.0 (>42); TOTAL PROTEIN 6.8 G/DL (5.7-8.2)
[2022-03-26 14:35] LABS: FERRITIN 15.6 NG/ML (10.5-307.3); TOTAL 25(OH) VITAMIN D 52.5 NG/ML (20.0-100.0)
[2022-03-26 15:35] LABS: HEMOGLOBIN A1c 6.1 % (4.0-6.0)
== END ==
LOC: M SFHCADAM 09:15
PROVIDERS: ATTEND Family Medicine
DX: D50.9 Iron deficiency anemia, unspecified (principal); I10 Essential (primary) hypertension; E55.9 Vitamin D deficiency, unspecified; Z79.899 Other long term (current) drug therapy

== ENCOUNTER 2022-04-18 09:30 | Outpatient (CLI) | payer MEDICARE ==
[~2022-04-18] VITALS: Ht 166.4 cm; Wt 84.0 kg
[2022-04-18 09:30] VITALS: BP 180/72
[~2022-04-18 09:30] MED LIST changes: +ALBUTEROL SULFATE 2.5MG/0.5ML INH NEB SOLN INH PRN; +EPINEPHrine INJ 1 MG/ML 1ML AMP IM PRN; +FERRIC CARBOXYMALTOSE INJ 750 MG in NS 250 ML (>50kg) IV ONE; +NS 1,000 ML IV SCH; -PAXI10TA12 PO; +PAXI10TA13 PO; +diphenhydrAMINE 50MG/ML VIAL IV PRN; +methylPREDNISolone 125MG 2ML VIAL IV PRN
[2022-04-18 10:02] VITALS: BP 144/65
[2022-04-18 10:56] VITALS: BP 140/61
== END 2022-04-18 10:50 | disposition home or self-care (01) ==
LOC: M INFU 09:30
PROVIDERS: ATTEND Family Medicine
DX: D50.9 Iron deficiency anemia, unspecified (principal)
CPT/HCPCS: 96365; J1439

== ENCOUNTER 2022-05-02 14:25 | Outpatient (CLI) | payer MEDICARE ==
[~2022-05-02] VITALS: Ht 165.1 cm; Wt 84.0 kg
[~2022-05-02 14:25] MED LIST changes: -ALBUTEROL SULFATE 2.5MG/0.5ML INH NEB SOLN INH PRN; -EPINEPHrine INJ 1 MG/ML 1ML AMP IM PRN; -FERRIC CARBOXYMALTOSE INJ 750 MG in NS 250 ML (>50kg) IV ONE; -NS 1,000 ML IV SCH; -diphenhydrAMINE 50MG/ML VIAL IV PRN; -methylPREDNISolone 125MG 2ML VIAL IV PRN
[2022-05-02] MEDS ORDERED: ZOLEDRONIC ACID 5 MG IV ONE (14:30)
[2022-05-02 14:41] VITALS: BP 137/67
== END 2022-05-02 15:15 | disposition home or self-care (01) ==
LOC: M INFU 14:25
PROVIDERS: ATTEND Family Medicine
DX: M81.0 Age-related osteoporosis without current pathological fracture (principal)

== ENCOUNTER → 2022-06-28 | Outpatient (REF) | payer MEDICARE ==
[2022-06-28 14:07] LABS: BASO % 0.6 % (0.0-1.0); EOS # 0.3 10^3/uL (0.0-0.5); EOS % 4.5 % (0.0-3.0); HEMATOCRIT 41.3 % (42.0-52.0); HEMOGLOBIN 13.7 g/dl (13.5-17.5); LYMPH # 2.2 10^3/uL (1.5-5.0); LYMPH % 30.4 % (24.0-44.0); MEAN CORPUSCULAR HEMOGLOBIN 35.1 pg (27.0-33.0); MEAN CORPUSCULAR HGB CONC 33.2 g/dl (32.0-36.5); MEAN CORPUSCULAR VOLUME 105.9 fl (80.0-96.0); MONO # 0.6 10^3/uL (0.0-0.8); MONO % 8.1 % (2.0-8.0); NEUTROPHILS % 56.1 % (36.0-66.0); PLATELET COUNT, AUTOMATED 239 10^3/uL (150-450); WHITE BLOOD COUNT 7.2 10^3/uL (4.0-10.0)
[2022-06-28 14:16] LABS: ALBUMIN 4.1 G/DL (3.2-5.2); ALKALINE PHOSPHATASE 42 U/L (46-116); ALT/SGPT 36 U/L (7.0-40); AST/SGOT 32 U/L (<34); BILIRUBIN,TOTAL 0.4 MG/DL (0.3-1.2); BLOOD UREA NITROGEN 21 MG/DL (9-23); CALCIUM LEVEL 9.5 MG/DL (8.3-10.6); CARBON DIOXIDE LEVEL 26 MMOL/L (20-31); CHLORIDE LEVEL 106 MMOL/L (98-107); CHOLESTEROL LEVEL 210 MG/DL (<200); FERRITIN 160.3 NG/ML (10.5-307.3); GLOMERULAR FILTRATION RATE > 60.0 (>42); GLUCOSE, FASTING 112 MG/DL (74-106); HDL CHOLESTEROL 46.6 MG/DL (>40); NON-HDL-C 163 MG/DL; POTASSIUM SERUM 4.5 MMOL/L (3.5-5.1); SODIUM LEVEL 141 MMOL/L (136-145); TOTAL PROTEIN 7.5 G/DL (5.7-8.2); TRIGLYCERIDES LEVEL 247 MG/DL (<150)
[2022-06-28 14:26] LABS: HEMOGLOBIN A1c 6.2 % (4.0-6.0)
== END ==
LOC: M SFHCADAM 09:30
PROVIDERS: ATTEND Family Medicine
DX: D50.9 Iron deficiency anemia, unspecified (principal); I10 Essential (primary) hypertension; R73.01 Impaired fasting glucose

== ENCOUNTER → 2022-08-02 | Outpatient (CLI) | payer MEDICARE | LOC: M RAD 10:47 | PROVIDERS: ATTEND Family Medicine | DX: Z87.891 Personal history of nicotine dependence (principal); R91.8 Other nonspecific abnormal finding of lung field; R91.1 Solitary pulmonary nodule ==

== ENCOUNTER → 2022-10-08 | Outpatient (REF) | payer MEDICARE | LOC: M SFHCPLAZ 10:47 | PROVIDERS: ATTEND Family Medicine | DX: D50.9 Iron deficiency anemia, unspecified (principal); I10 Essential (primary) hypertension; R73.01 Impaired fasting glucose; Z12.5 Encounter for screening for malignant neoplasm of prostate ==

== ENCOUNTER → 2022-10-08 | Outpatient (CLI) | payer MEDICARE ==
[2022-10-08 14:41] LABS: BASO % 0.6 % (0.0-1.0); EOS # 0.3 10^3/uL (0.0-0.5); HEMATOCRIT 40.6 % (42.0-52.0); HEMOGLOBIN 13.3 g/dl (13.5-17.5); LYMPH # 1.7 10^3/uL (1.5-5.0); MEAN CORPUSCULAR HEMOGLOBIN 34.3 pg (27.0-33.0); MEAN CORPUSCULAR HGB CONC 32.8 g/dl (32.0-36.5); MEAN CORPUSCULAR VOLUME 104.6 fl (80.0-96.0); MONO # 0.4 10^3/uL (0.0-0.8); MONO % 6.1 % (2.0-8.0); NEUTROPHILS % 62.8 % (36.0-66.0); PLATELET COUNT, AUTOMATED 197 10^3/uL (150-450); RED BLOOD COUNT 3.88 10^6/uL (4.30-6.10); WHITE BLOOD COUNT 6.4 10^3/uL (4.0-10.0)
[2022-10-08 15:09] LABS: CPK CREATINE PHOSPHOKINASE 82 U/L (46-171); HEMOGLOBIN A1c 5.9 % (4.0-6.0)
[2022-10-08 15:10] LABS: ALBUMIN 4.1 G/DL (3.2-5.2); ALKALINE PHOSPHATASE 40 U/L (46-116); ALT/SGPT 47 U/L (7.0-40); AST/SGOT 35 U/L (<34); BILIRUBIN,TOTAL 0.3 MG/DL (0.3-1.2); BLOOD UREA NITROGEN 17 MG/DL (9-23); CALCIUM LEVEL 8.9 MG/DL (8.3-10.6); CARBON DIOXIDE LEVEL 27 MMOL/L (20-31); CHLORIDE LEVEL 109 MMOL/L (98-107); CHOLESTEROL LEVEL 125 MG/DL (<200); CHOLESTEROL RISK RATIO 2.57 (<5); CREATININE FOR GFR 0.84 MG/DL (0.70-1.30); FERRITIN 91.8 NG/ML (10.5-307.3); FREE T4 0.82 NG/DL (0.89-1.76); GLOMERULAR FILTRATION RATE > 60.0 (>42); GLUCOSE, FASTING 145 MG/DL (74-106); HDL CHOLESTEROL 48.6 MG/DL (>40); LDL CHOLESTEROL 40.4 MG/DL (<100); NON-HDL-C 76.4 MG/DL; SODIUM LEVEL 141 MMOL/L (136-145); TOTAL PROTEIN 6.9 G/DL (5.7-8.2); TRIGLYCERIDES LEVEL 180 MG/DL (<150)
== END ==
LOC: M PLALAB 11:03
PROVIDERS: ATTEND Family Medicine
DX: R73.01 Impaired fasting glucose (principal); E78.2 Mixed hyperlipidemia; D50.9 Iron deficiency anemia, unspecified

== ENCOUNTER → 2022-12-31 | Outpatient (REF) | payer MEDICARE | LOC: M SFHCADAM 09:18 | PROVIDERS: ATTEND Family Medicine | DX: Z12.5 Encounter for screening for malignant neoplasm of prostate (principal) ==

== ENCOUNTER → 2023-01-06 | Outpatient (REF) | payer MEDICARE | LOC: M SFHCPLAZ 09:52 | PROVIDERS: ATTEND Family Medicine | DX: D50.9 Iron deficiency anemia, unspecified (principal); R73.01 Impaired fasting glucose; D75.89 Other specified diseases of blood and blood-forming organs ==

== ENCOUNTER → 2023-03-01 | Outpatient (CLI) | payer MEDICARE ==
[~2023-03-01] MED LIST changes: -CEFD300C41 PO; +CEFD300C42 PO
== END ==
LOC: M RAD 12:18
PROVIDERS: ATTEND Family Medicine
DX: M47.816 Spondylosis without myelopathy or radiculopathy, lumbar region (principal)

== ENCOUNTER → 2023-05-16 | Outpatient (CLI) | payer MEDICARE ==
[~2023-05-16] MED LIST changes: +CEFD1CAP9 PO; -CEFD300C42 PO
[2023-05-16 16:24] LABS: BASO % 0.6 % (0.0-1.0); EOS # 0.2 10^3/uL (0.0-0.5); EOS % 2.5 % (0.0-3.0); HEMATOCRIT 42.3 % (42.0-52.0); HEMOGLOBIN 13.9 g/dl (13.5-17.5); LYMPH % 31.9 % (24.0-44.0); MEAN CORPUSCULAR HEMOGLOBIN 34.4 pg (27.0-33.0); MEAN CORPUSCULAR HGB CONC 32.9 g/dl (32.0-36.5); MEAN CORPUSCULAR VOLUME 104.7 fl (80.0-96.0); MONO # 0.4 10^3/uL (0.0-0.8); MONO % 6.2 % (2.0-8.0); NEUTROPHILS # 3.7 10^3/uL (1.5-8.5); NEUTROPHILS % 58.6 % (36.0-66.0); PLATELET COUNT, AUTOMATED 190 10^3/uL (150-450); RED BLOOD COUNT 4.04 10^6/uL (4.30-6.10); WHITE BLOOD COUNT 6.3 10^3/uL (4.0-10.0)
[2023-05-16 16:40] LABS: HEMOGLOBIN A1c 5.9 % (4.0-6.0)
[2023-05-16 16:49] LABS: ALBUMIN 4.4 G/DL (3.2-5.2); ALKALINE PHOSPHATASE 54 U/L (46-116); ALT/SGPT 37 U/L (7.0-40); AST/SGOT 22 U/L (<34); BILIRUBIN,TOTAL 0.3 MG/DL (0.3-1.2); BLOOD UREA NITROGEN 20 MG/DL (9-23); CALCIUM LEVEL 9.3 MG/DL (8.3-10.6); CARBON DIOXIDE LEVEL 28 MMOL/L (20-31); CHLORIDE LEVEL 106 MMOL/L (98-107); CREATININE FOR GFR 0.95 MG/DL (0.70-1.30); GLOMERULAR FILTRATION RATE > 60.0 (>42); GLUCOSE, FASTING 111 MG/DL (74-106); POTASSIUM SERUM 3.9 MMOL/L (3.5-5.1); SODIUM LEVEL 141 MMOL/L (136-145); TOTAL PROTEIN 7.5 G/DL (5.7-8.2)
[2023-05-16 16:51] LABS: FERRITIN 63.4 NG/ML (10.5-307.3); VITAMIN B12 LEVEL 775 PG/ML (211-911)
== END ==
LOC: M PLALAB 14:15
PROVIDERS: ATTEND Family Medicine
DX: D50.9 Iron deficiency anemia, unspecified (principal); R73.01 Impaired fasting glucose; D75.89 Other specified diseases of blood and blood-forming organs

== ENCOUNTER 2023-06-16 14:50 | Outpatient (CLI) | payer MEDICARE ==
[~2023-06-16] VITALS: Ht 165.1 cm; Wt 84.0 kg
[2023-06-16 14:50] VITALS: BP 111/67; O2SAT 94
[2023-06-16] MEDS: ZOLEDRONIC ACID 5 MG in IV 1 EA IV ONE (14:59)
[2023-06-16 15:37] VITALS: BP 122/72; O2SAT 95
== END 2023-06-16 15:40 ==
LOC: M INFU 14:50
PROVIDERS: ATTEND Family Medicine
DX: M81.0 Age-related osteoporosis without current pathological fracture (principal)
CPT/HCPCS: 96365; J3489

== ENCOUNTER → 2023-09-26 | Outpatient (REF) | payer MEDICARE | LOC: M SFHCPLAZ 11:09 | PROVIDERS: ATTEND Family Medicine | DX: D50.9 Iron deficiency anemia, unspecified (principal); R73.01 Impaired fasting glucose; E03.9 Hypothyroidism, unspecified ==

== ENCOUNTER → 2023-09-26 | Outpatient (CLI) | payer MEDICARE ==
[2023-09-26 15:48] LABS: BASO % 0.7 % (0.0-1.0); EOS # 0.2 10^3/uL (0.0-0.5); HEMOGLOBIN 13.9 g/dl (13.5-17.5); LYMPH # 1.6 10^3/uL (1.5-5.0); LYMPH % 25.6 % (24.0-44.0); MEAN CORPUSCULAR HEMOGLOBIN 34.5 pg (27.0-33.0); MEAN CORPUSCULAR HGB CONC 33.1 g/dl (32.0-36.5); MEAN CORPUSCULAR VOLUME 104.2 fl (80.0-96.0); MONO # 0.4 10^3/uL (0.0-0.8); MONO % 6.1 % (2.0-8.0); NEUTROPHILS # 3.8 10^3/uL (1.5-8.5); NEUTROPHILS % 62.8 % (36.0-66.0); PLATELET COUNT, AUTOMATED 213 10^3/uL (150-450); RED BLOOD COUNT 4.03 10^6/uL (4.30-6.10); WHITE BLOOD COUNT 6.1 10^3/uL (4.0-10.0)
[2023-09-26 16:24] LABS: ALKALINE PHOSPHATASE 52 U/L (46-116); ALT/SGPT 28 U/L (7.0-40); AST/SGOT 17 U/L (<34); BILIRUBIN,TOTAL 0.2 MG/DL (0.3-1.2); BLOOD UREA NITROGEN 15 MG/DL (9-23); CALCIUM LEVEL 9.4 MG/DL (8.3-10.6); CARBON DIOXIDE LEVEL 30 MMOL/L (20-31); CHLORIDE LEVEL 105 MMOL/L (98-107); CREATININE FOR GFR 0.82 MG/DL (0.70-1.30); GLOMERULAR FILTRATION RATE > 60.0 (>42); GLUCOSE, FASTING 101 MG/DL (74-106); POTASSIUM SERUM 4.5 MMOL/L (3.5-5.1); SODIUM LEVEL 142 MMOL/L (136-145); TOTAL PROTEIN 7.1 G/DL (5.7-8.2)
[2023-09-26 16:26] LABS: FERRITIN 64.4 NG/ML (10.5-307.3); FREE T4 0.78 NG/DL (0.89-1.76)
[2023-09-26 16:35] LABS: HEMOGLOBIN A1c 6.1 % (4.0-6.0)
== END ==
LOC: M PLALAB 11:48
PROVIDERS: ATTEND Family Medicine
DX: E03.9 Hypothyroidism, unspecified (principal); K76.0 Fatty (change of) liver, not elsewhere classified; D50.9 Iron deficiency anemia, unspecified; R73.01 Impaired fasting glucose; M19.032 Primary osteoarthritis, left wrist

== ENCOUNTER → 2023-10-31 | Outpatient (CLI) | payer MEDICARE | LOC: M RAD 10:25 | PROVIDERS: ATTEND Family Medicine | DX: Z12.2 Encounter for screening for malignant neoplasm of respiratory organs (principal); Z87.891 Personal history of nicotine dependence ==

== ENCOUNTER → 2024-02-20 | Outpatient (CLI) | payer MEDICARE ==
[2024-02-20 14:41] LABS: BASO # 0.1 10^3/uL (0.0-0.2); BASO % 0.7 % (0.0-1.0); EOS # 0.3 10^3/uL (0.0-0.5); EOS % 3.5 % (0.0-3.0); HEMATOCRIT 42.5 % (42.0-52.0); HEMOGLOBIN 13.9 g/dl (13.5-17.5); LYMPH % 26.6 % (24.0-44.0); MEAN CORPUSCULAR HGB CONC 32.7 g/dl (32.0-36.5); MEAN CORPUSCULAR VOLUME 103.9 fl (80.0-96.0); MONO # 0.5 10^3/uL (0.0-0.8); MONO % 7.3 % (2.0-8.0); NEUTROPHILS # 4.5 10^3/uL (1.5-8.5); NEUTROPHILS % 61.2 % (36.0-66.0); PLATELET COUNT, AUTOMATED 193 10^3/uL (150-450); RED BLOOD COUNT 4.09 10^6/uL (4.30-6.10); WHITE BLOOD COUNT 7.4 10^3/uL (4.0-10.0)
[2024-02-20 15:01] LABS: INR 1.72; PARTIAL THROMBOPLASTIN TIME 36.3 SECONDS (24.8-34.2); PROTHROMBIN TIME 20.3 SECONDS (12.5-14.5)
[2024-02-20 15:12] LABS: ALKALINE PHOSPHATASE 50 U/L (40-129); ALT/SGPT 50 U/L (7.0-40); AST/SGOT 32 U/L (<34); BILIRUBIN,TOTAL 0.2 MG/DL (0.3-1.2); BLOOD UREA NITROGEN 15 MG/DL (9-23); CALCIUM LEVEL 9.4 MG/DL (8.3-10.6); CARBON DIOXIDE LEVEL 30 MMOL/L (20-31); CHLORIDE LEVEL 108 MMOL/L (98-107); CHOLESTEROL LEVEL 152 MG/DL (<200); CHOLESTEROL RISK RATIO 2.59 (<5); CREATININE FOR GFR 0.83 MG/DL (0.70-1.30); GLOMERULAR FILTRATION RATE > 60.0 (>42); GLUCOSE, FASTING 102 MG/DL (74-106); HDL CHOLESTEROL 58.5 MG/DL (>40); LDL CHOLESTEROL 60.7 MG/DL (<100); NON-HDL-C 93.5 MG/DL; POTASSIUM SERUM 4.1 MMOL/L (3.5-5.1); SODIUM LEVEL 143 MMOL/L (136-145); TOTAL PROTEIN 7.3 G/DL (5.7-8.2); TRIGLYCERIDES LEVEL 164 MG/DL (<150)
[2024-02-20 15:15] LABS: FERRITIN 55.8 NG/ML (10.5-307.3)
[2024-02-20 15:45] LABS: HEMOGLOBIN A1c 6.2 % (4.0-6.0)
== END ==
LOC: M PLALAB 12:57
PROVIDERS: ATTEND Family Medicine
DX: D50.9 Iron deficiency anemia, unspecified (principal); R73.01 Impaired fasting glucose; K74.00 Hepatic fibrosis, unspecified; Z79.899 Other long term (current) drug therapy

== ENCOUNTER → 2024-06-07 | Outpatient (REF) | payer MEDICARE ==
[~2024-06-07] MED LIST changes: +ADVA1AER10 INH
[2024-06-07 14:40] LABS: BASO # 0.1 10^3/uL (0.0-0.2); BASO % 0.7 % (0.0-1.0); EOS # 0.2 10^3/uL (0.0-0.5); HEMATOCRIT 43.4 % (42.0-52.0); HEMOGLOBIN 14.3 g/dl (13.5-17.5); LYMPH # 1.8 10^3/uL (1.5-5.0); LYMPH % 24.9 % (24.0-44.0); MEAN CORPUSCULAR HGB CONC 32.9 g/dl (32.0-36.5); MEAN CORPUSCULAR VOLUME 106.1 fl (80.0-96.0); MONO # 0.6 10^3/uL (0.0-0.8); MONO % 7.5 % (2.0-8.0); NEUTROPHILS # 4.7 10^3/uL (1.5-8.5); NEUTROPHILS % 63.6 % (36.0-66.0); PLATELET COUNT, AUTOMATED 193 10^3/uL (150-450); RED BLOOD COUNT 4.09 10^6/uL (4.30-6.10); WHITE BLOOD COUNT 7.4 10^3/uL (4.0-10.0)
[2024-06-07 14:57] LABS: HEMOGLOBIN A1c 6.4 % (4.0-6.0)
[2024-06-07 15:36] LABS: ALBUMIN 4.1 G/DL (3.2-5.2); ALKALINE PHOSPHATASE 44 U/L (40-129); ALT/SGPT 34 U/L (7.0-40); AST/SGOT 31 U/L (<34); BILIRUBIN,TOTAL 0.3 MG/DL (0.3-1.2); BLOOD UREA NITROGEN 22 MG/DL (9-23); CALCIUM LEVEL 9.3 MG/DL (8.3-10.6); CARBON DIOXIDE LEVEL 30 MMOL/L (20-31); CHLORIDE LEVEL 104 MMOL/L (98-107); CREATININE FOR GFR 0.89 MG/DL (0.70-1.30); GLOMERULAR FILTRATION RATE > 60.0 (>42); GLUCOSE, FASTING 96 MG/DL (74-106); POTASSIUM SERUM 4.6 MMOL/L (3.5-5.1); SODIUM LEVEL 143 MMOL/L (136-145); TOTAL PROTEIN 7.3 G/DL (5.7-8.2)
[2024-06-07 15:37] LABS: FERRITIN 50.4 NG/ML (10.5-307.3)
== END ==
LOC: M LABDRWAD 12:46
PROVIDERS: ATTEND Family Medicine
DX: D50.9 Iron deficiency anemia, unspecified (principal); R73.01 Impaired fasting glucose; I10 Essential (primary) hypertension

== ENCOUNTER 2024-06-18 12:43 | Outpatient (CLI) | payer MEDICARE ==
[2024-06-18 13:00] VITALS: BP 94/62; O2SAT 91
[2024-06-18] MEDS: ZOLEDRONIC ACID 5 MG in IV 1 EA IV ONE (13:07)
[2024-06-18 13:50] VITALS: BP 111/69; O2SAT 95
== END 2024-06-18 13:50 | disposition home or self-care (01) ==
LOC: M INFU 12:43
PROVIDERS: ATTEND Family Medicine
DX: M81.0 Age-related osteoporosis without current pathological fracture (principal)
CPT/HCPCS: 96365; J3489

== ENCOUNTER 2024-07-08 13:40 | Emergency (ER) | payer MEDICARE ==
[~2024-07-08] VITALS: Ht 167.6 cm; Wt 90.9 kg
[2024-07-08 15:13] LABS: BASO % 0.3 % (0.0-1.0); EOS % 0.4 % (0.0-3.0); HEMATOCRIT 48.4 % (42.0-52.0); HEMOGLOBIN 15.7 g/dl (13.5-17.5); LYMPH # 0.9 10^3/uL (1.5-5.0); LYMPH % 12.7 % (24.0-44.0); MEAN CORPUSCULAR HEMOGLOBIN 34.1 pg (27.0-33.0); MEAN CORPUSCULAR HGB CONC 32.4 g/dl (32.0-36.5); MEAN CORPUSCULAR VOLUME 105.2 fl (80.0-96.0); MONO # 0.6 10^3/uL (0.0-0.8); MONO % 8.3 % (2.0-8.0); NEUTROPHILS # 5.7 10^3/uL (1.5-8.5); NEUTROPHILS % 77.9 % (36.0-66.0); PLATELET COUNT, AUTOMATED 173 10^3/uL (150-450); WHITE BLOOD COUNT 7.3 10^3/uL (4.0-10.0)
[2024-07-08 15:30] LABS: THYROID STIMULATING HORMONE 3.378 uIU/ML (0.55-4.78); THYROXINE (T4) 4.1 UG/DL (4.5-10.9)
[2024-07-08 15:34] LABS: ALKALINE PHOSPHATASE 57 U/L (40-129); ALT/SGPT 79 U/L (7.0-40); AST/SGOT 67 U/L (<34); BILIRUBIN,DIRECT 0.1 MG/DL (<0.4); BILIRUBIN,TOTAL 0.3 MG/DL (0.3-1.2); BLOOD UREA NITROGEN 33 MG/DL (9-23); CARBON DIOXIDE LEVEL 27 MMOL/L (20-31); CHLORIDE LEVEL 108 MMOL/L (98-107); CREATININE FOR GFR 1.09 MG/DL (0.70-1.30); GLOMERULAR FILTRATION RATE > 60.0 (>42); GLUCOSE, FASTING 126 MG/DL (74-106); POTASSIUM SERUM 4.3 MMOL/L (3.5-5.1); SODIUM LEVEL 143 MMOL/L (136-145); TOTAL PROTEIN 7.8 G/DL (5.7-8.2)
[2024-07-08] MEDS: NS 500 ML IV ONE (16:06)
[2024-07-08] MEDS: METOCLOPRAMIDE INJ 10MG/2ML VIAL IV ONE (16:06)
[2024-07-08] MEDS: KETOROLAC 30 MG/ML 1ML VIAL IV ONE (16:07)
[2024-07-08] MEDS ORDERED: PRIM250T8 (16:18)
[2024-07-08 17:40] VITALS: O2SAT 88
[2024-07-08] MEDS ORDERED: REGL10TA6 PO (17:41)
[2024-07-08 18:15] VITALS: BP 114/70; TEMP 96.7; O2SAT 93
== END 2024-07-08 18:36 | disposition home or self-care (01) ==
LOC: EDBD 13:40 → M ED 13:40
DX: R51.9 Headache, unspecified (principal); R11.2 Nausea with vomiting, unspecified; I10 Essential (primary) hypertension; E11.9 Type 2 diabetes mellitus without complications; J44.9 Chronic obstructive pulmonary disease, unspecified; K21.9 Gastro-esophageal reflux disease without esophagitis; F41.9 Anxiety disorder, unspecified; N18.30 Chronic kidney disease, stage 3 unspecified; F32.9 Major depressive disorder, single episode, unspecified; Z79.4 Long term (current) use of insulin; Z79.899 Other long term (current) drug therapy; Z79.52 Long term (current) use of systemic steroids; Z79.1 Long term (current) use of non-steroidal anti-inflammatories (NSAID)
CPT/HCPCS: 70450; 71045; 72125; 80048; 80076; 83880; 84436; 84443; 85025; 87040; 87486; 87581; 87633; 87798; 93005; 93041; 94760; 96361; 96374; 96375; 99285; J1885; J2765

== ENCOUNTER → 2024-07-15 | Outpatient (CLI) | payer MEDICARE ==
[~2024-07-15] MED LIST changes: +PRIM250T8; +REGL10TA6 PO
== END ==
LOC: M PLARAD 09:50
PROVIDERS: ATTEND Family Medicine
DX: M48.062 Spinal stenosis, lumbar region with neurogenic claudication (principal); M51.360 Other intervertebral disc degeneration, lumbar region with discogenic back pain only; M51.26 Other intervertebral disc displacement, lumbar region

== ENCOUNTER → 2024-12-02 | Outpatient (CLI) | payer MEDICARE ==
[~2024-12-02] MED LIST changes: -FLOM0.4C39 PO; +SENN-225 PO; -SENO8.6T5 PO; +TAMS-18 PO
== END ==
LOC: M PLAIMG 14:14
DX: S29.8XXA Other specified injuries of thorax, initial encounter (principal); X58.XXXA Exposure to other specified factors, initial encounter; Y92.9 Unspecified place or not applicable; Y93.9 Activity, unspecified; Y99.9 Unspecified external cause status

== ENCOUNTER → 2025-03-01 | Outpatient (REF) | payer MEDICARE ==
[~2025-03-01] MED LIST changes: -ANDR1.62 TOP; +TEST75GE10 TOP
[2025-03-01 13:01] LABS: BASO # 0.1 10^3/uL (0.0-0.2); BASO % 0.6 % (0.0-1.0); EOS # 0.2 10^3/uL (0.0-0.5); EOS % 2.5 % (0.0-3.0); LYMPH # 1.7 10^3/uL (1.5-5.0); LYMPH % 20.8 % (24.0-44.0); MONO # 0.5 10^3/uL (0.0-0.8); MONO % 5.5 % (2.0-8.0); NEUTROPHILS # 5.9 10^3/uL (1.5-8.5); NEUTROPHILS % 70.1 % (36.0-66.0); PLATELET COUNT, AUTOMATED 224 10^3/uL (150-450)
[2025-03-01 13:11] LABS: ALT/SGPT 47 U/L (7.0-40); AST/SGOT 30 U/L (<34); CALCIUM LEVEL 9.1 MG/DL (8.3-10.6); CARBON DIOXIDE LEVEL 32 MMOL/L (20-31); CHLORIDE LEVEL 106 MMOL/L (98-107); CHOLESTEROL LEVEL 153 MG/DL (<200); CHOLESTEROL RISK RATIO 2.73 (<5); CREATININE FOR GFR 1.01 MG/DL (0.70-1.30); GLOMERULAR FILTRATION RATE 75.7 (>42); LDL CHOLESTEROL 67.6 MG/DL (<100); NON-HDL-C 97.0 MG/DL; POTASSIUM SERUM 4.6 MMOL/L (3.5-5.1); PSA SCREENING 0.12 NG/ML (< 4.00); PTH INTACT 43.2 PG/ML (18.5-88.0); SODIUM LEVEL 143 MMOL/L (136-145); TOTAL 25(OH) VITAMIN D 72.0 NG/ML (20.0-100.0); TRIGLYCERIDES LEVEL 147 MG/DL (<150)
[2025-03-01 13:13] LABS: FREE T4 0.85 NG/DL (0.89-1.76)
[2025-03-01 13:30] LABS: INR 0.95
[2025-03-01 14:11] LABS: ESTIMATED AVERAGE GLUCOSE 128.0 MG/DL (60-110)
== END ==
LOC: M SFHCPLAZ 10:40
PROVIDERS: ATTEND Family Medicine
DX: D50.9 Iron deficiency anemia, unspecified (principal); R73.01 Impaired fasting glucose; K74.00 Hepatic fibrosis, unspecified; E78.2 Mixed hyperlipidemia; E03.9 Hypothyroidism, unspecified; E55.9 Vitamin D deficiency, unspecified; Z12.5 Encounter for screening for malignant neoplasm of prostate
CPT/HCPCS: 80053; 80061; 81517; 82105; 82306; 82728; 83036; 83880; 83970; 84439; 84443; 85025; 85610; 85730; G0103

== ENCOUNTER 2025-04-01 09:14 | Outpatient (CLI) | payer MEDICARE ==
[~2025-04-01] VITALS: Ht 160 cm; Wt 86.4 kg
[~2025-04-01 09:14] MED LIST changes: +ALBUTEROL SULFATE 2.5 MG/0.5 ML INH CONCENTRATE NEB SOLN INH PRN; +EPINEPHrine INJ 1 MG/ML 1ML AMP IM PRN; +diphenhydrAMINE 50 MG/ML VIAL IV PRN
[2025-04-01 09:20] VITALS: BP 104/58; O2SAT 96
[2025-04-01] MEDS: ACETAMINOPHEN 650 MG PO ONE (09:33)
[2025-04-01] MEDS: IRON SUCROSE 500 MG in NS 250 ML IV ONE (09:57)
[2025-04-01 11:00] VITALS: BP 118/69; O2SAT 97
[2025-04-01 12:00] VITALS: BP 120/70; O2SAT 97
[2025-04-01 14:21] VITALS: BP 130/78; O2SAT 92
== END 2025-04-01 14:22 | disposition home or self-care (01) ==
LOC: M INFU 09:14
PROVIDERS: ATTEND Family Medicine
DX: D50.9 Iron deficiency anemia, unspecified (principal)
CPT/HCPCS: 96365; 96366; J1756

== ENCOUNTER 2025-04-08 08:58 | Outpatient (CLI) | payer MEDICARE ==
[~2025-04-08] VITALS: Ht 160 cm; Wt 86.4 kg
[2025-04-08] MEDS ORDERED: NS (Normal Saline) 0.9% 250 ML IV ONE (09:00)
[2025-04-08 09:10] VITALS: BP 130/69; O2SAT 94
[2025-04-08] MEDS: diphenhydrAMINE 25MG PO PRIOR TO INFUSION PO ONE (09:28)
[2025-04-08] MEDS: ACETAMINOPHEN 650MG PO PRIOR TO INFUSION PO ONE (09:28)
[2025-04-08] MEDS: IRON SUCROSE 500 MG in NS 250 ML IV ONE (10:13)
[2025-04-08 11:15] VITALS: BP 130/62; O2SAT 96
[2025-04-08 12:15] VITALS: BP 129/86; O2SAT 96
[2025-04-08 13:15] VITALS: BP 133/85; O2SAT 97
[2025-04-08 14:20] VITALS: BP 126/72; O2SAT 96
== END 2025-04-08 14:20 | disposition home or self-care (01) ==
LOC: M INFU 08:58
PROVIDERS: ATTEND Family Medicine
DX: D50.9 Iron deficiency anemia, unspecified (principal)
CPT/HCPCS: 96365; 96366; J1756